=== PATIENT | male | born 1955 | race Hispanic/Latino ===

== ENCOUNTER 2019-07-06 16:09 | Inpatient (IN) | payer OTHER ==
[2019-07-06 17:02] LABS: Absolute Lymphocytes (CBC) 3.5 K/uL (0.7-4.9); Basophils % 0.7 % (0-1.3); Hematocrit 45.9 % (39.6-49.0); MPV 9.4 fL (7.6-11.3); RBC Red Blood Cell Count 5.14 M/uL (4.33-5.43)
[2019-07-06 17:07] LABS: Potassium 3.9 mmol/L (3.5-5.1)
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
--- NOTE | 2019-07-06 17:29 | EDPHYS ---
Physician Documentation [facility] Name: Alex Rivas Age: 63 yrs Sex: Male : 1955 Arrival Date: 07/06/2019 Time: 16:11 Bed 20 Private MD: ED Physician Roni Zurita HPI: 07/06 16:32 This 63 yrs old Male presents to ER via Ambulatory with complaints of foot rn infection. 16:32 The patient presents with cellulitis of the right foot, the patient presents with a rn swollen area of the right foot. Description: erythematous, hot, swollen, warm. Onset: The symptoms/episode began/occurred 4 day(s) ago. Modifying factors: the symptoms are alleviated by nothing, the symptoms are aggravated by touching. Severity of symptoms: At their worst the symptoms were moderate, in the emergency department the symptoms are unchanged. The patient has not experienced similar symptoms in the past. Reports wound getting worse on right foot, unsure if began as burn or as result of shoe abrasion, but debrided by Dr. Mcduffie this week and given abx and ointment, called Dr. Mcduffie today because felt like was getting worse, told to come in. No fever but + increased swelling and redness. . Historical: - Allergies: 16:15 No Known Allergies; hb - Home Meds: 16:25 Cipro 500 mg Oral tab 1 tab every 12 hours [Active]; silver sulfadiazine 1 % topical rb1 crea [Active]; metformin 500 mg Oral tab 1 tab 2 times per day [Active]; losartan 25 mg oral tab 1 tab once daily [Active]; atorvastatin 40 mg oral tab 1 tab once daily [Active]; gabapentin 300 mg oral cap 1 cap daily [Active]; 16:25 Jardiance 10 mg oral tab 1 tab once daily [Active]; rb1 - PMHx: 16:25 Diabetes - NIDDM; Hypertension; rb1 - PSHx: 16:25 None; rb1 - Immunization history:: Adult Immunizations up to date. - Coronavirus screen:: The patient has NOT traveled to [place], [place], or [place] in the past 14 days. The patient has NOT had contact with known/suspected case of Coronavirus? Proceed with normal triage procedures. - Social history:: Smoking status: Patient denies any tobacco usage or history of. - Family history:: not pertinent. - Ebola Screening: : No symptoms or risks identified at this time. - Hospitalizations: : No recent hospitalization is reported. ROS: 16:32 Constitutional: Negative for fever, chills, and weight loss, Eyes: Negative for injury, rn pain, redness, and discharge, Cardiovascular: Negative for chest pain, palpitations, and edema, Respiratory: Negative for shortness of breath, cough, wheezing, and pleuritic chest pain, Abdomen/GI: Negative for abdominal pain, nausea, vomiting, diarrhea, and constipation, Back: Negative for injury and pain, MS/Extremity: + right foot swelling Skin: + redness and warmth right foot Neuro: Negative for headache, weakness, and seizure. Exam: 16:32 Constitutional: This is a well developed, well nourished patient who is awake, alert, rn and in no acute distress. Ambulatory with crutches to exam room. Head/Face: Normocephalic, atraumatic. ENT: MMM Cardiovascular: Regular rate and rhythm. Respiratory: No increased work of breathing, no retractions or nasal flaring. Skin: + irregular but sharply demarcated wound right instep approx 10cm diameter surrounded by erythema and warmth, no streaking or extension beyond ankle. MS/ Extremity: Pulses diminished but equal, no cyanosis. Neuro: Awake and alert, GCS 15 Vital Signs: 16:17 BP 171 / 88; Pulse 77; Resp 16; Temp 97.8; Pulse Ox 98% on R/A; Weight 99.79 kg; Height hb 5 ft. 11 in. (180.34 cm); Pain 0/10; 17:17 BP 173 / 86; Pulse 62; Resp 17; Pulse Ox 99% on R/A; rb1 18:17 BP 168 / 76; Pulse 75; Resp 17; Pulse Ox 99% on R/A; Pain 0/10; rb1 19:50 BP 165 / 78; Pulse 76; Resp 17 S; Pulse Ox 97% on R/A; Pain 0/10; jd3 16:17 Body Mass Index 30.68 (99.79 kg, 180.34 cm) hb MDM: 16:14 Patient medically screened. rn 17:27 Differential diagnosis: cellulitis. Data reviewed: vital signs, nurses notes, lab test rn result(s), radiologic studies, plain films, and as a result, I will admit patient. Counseling: I had a detailed discussion with the patient and/or guardian regarding: the historical points, exam findings, and any diagnostic results supporting the discharge/admit diagnosis, lab results, radiology results, the need for further work-up and treatment in the hospital. Admission orders: after a detailed discussion of the patient's condition and case, the admit orders are written by me. ED course: Pt admitted for diabetic foot wound and cellulitis.. 07/06 16:31 Order name: CBC with Diff; Complete Time: 17:17 rn 07/06 16:31 Order name: Basic Metabolic Panel; Complete Time: 17:17 rn 07/06 16:31 Order name: Blood Culture Adult (2) rn 07/06 16:31 Order name: Procalcitonin rn 07/06 16:32 Order name: Wound Culture rn 07/06 16:52 Order name: Glucose, Ancillary Testing; Complete Time: 17:17 EDNH 07/06 16:31 Order name: IV Start; Complete Time: 16:47 rn 07/06 16:31 Order name: XRAY Foot RIGHT 3 View; Complete Time: 17:56 rn Administered Medications: 17:48 Drug: LevaQUIN 500 mg Volume: 100 ml; Route: IVPB; Infused Over: 60 mins; Site: right rb1 antecubital; 18:52 Follow up: Response: No adverse reaction; IV Status: Completed infusion rb1 18:53 Drug: vancoMYCIN 1 grams Route: IVPB; Infused Over: 2 hrs; Site: right antecubital; rb1 20:11 Follow up: Response: No adverse reaction; IV Status: Infusion continued upon admission jd3 Disposition: 07/06/19 17:28 Hospitalization ordered by Jerrell Meyer for Inpatient Admission. Preliminary diagnosis are Cellulitis of right lower limb, Failure of outpatient antibiotics. - Bed requested for Telemetry/MedSurg (Inpatient). - Status is Inpatient Admission. jd3 - Condition is Stable. - Problem is new. - Symptoms have worsened. Signatures: Dispatcher [employer] EDMS Roni Zurita MD MD rn Barber, Rebecca, RN RN Amna Flores RN RN hb Davies, Jonathon, RN RN jd3 Alex Cordoba RN RN ja1 Corrections: (The following items were deleted from the chart) 18:17 17:28 Hospitalization Ordered by Jerrell Meyer MD for Inpatient Admission. Preliminary ja1 diagnosis is Cellulitis of right lower limb; Failure of outpatient antibiotics. Bed requested for Telemetry/MedSurg (Inpatient). Status is Inpatient Admission. Condition is Stable. Problem is new. Symptoms have worsened. rn 20:14 18:17 07/06/2019 17:28 Hospitalization Ordered by Jerrell Meyer MD for Inpatient jd3 Admission. Preliminary diagnosis is Cellulitis of right lower limb; Failure of outpatient antibiotics. Bed requested for Telemetry/MedSurg (Inpatient). Status is Inpatient Admission. Condition is Stable. Problem is new. Symptoms have worsened. ja1
[2019-07-06] MEDS ORDERED: Levofloxacin500mg IV 500 MG/100 ML BAG IV ONE (17:41)
[2019-07-06] MEDS ORDERED: VANCOMYCIN/NS 1 gm 1 GM/250 ML BAG IV ONE (17:45)
--- NOTE | 2019-07-06 17:48 | RAD REPORT ---
EXAM DESCRIPTION: RAD - Foot Right 3 View - 07/06/2019 5:01 pm CLINICAL HISTORY: Right foot pain FINDINGS: No fracture or dislocation is seen. No bony destructive lesion noted
[2019-07-06] MEDS ORDERED: ONDANSETRON 4 MG/2 ML VIAL IV PRN (20:34)
[2019-07-06] MEDS ORDERED: HYDRALAZINE HCL 20 MG/ML VIAL IV PRN (20:34)
[2019-07-06] MEDS ORDERED: ACETAMINOPHEN 500 MG TAB PO PRN (20:34)
[2019-07-06] MEDS ORDERED: HYDROCODONE/APAP 7.5/325 MG TAB PO PRN (20:34)
[2019-07-06] MEDS ORDERED: VANCOMYCIN/NS 1 gm 1 GM/250 ML BAG IVPB SCH (20:34)
[2019-07-06] MEDS ORDERED: MORPHINE 2 MG/ML SYR IV PRN (20:34)
[2019-07-06] MEDS: INSULIN -REGULAR HUMAN 50 UNIT/0.5 ML ML SQ SCH (21:00)
[2019-07-06] MEDS ORDERED: CEFEPIME 2 GM VIAL IV SCH (21:00)
[2019-07-06] MEDS ORDERED: VANCOMYCIN 750 MG in NA CHLORIDE 0.9% 150 ML IVPB ONE (21:15)
[2019-07-06] MEDS ORDERED: VANCOMYCIN 500 MG/VIAL ONE (22:08)
[2019-07-06] MEDS ORDERED: NA CHLORIDE 0.9% 250 ML ONE (22:10)
[2019-07-06] MEDS: NA CHLORIDE 0.9% 1,000 ML IV SCH (22:18)
[2019-07-06 22:51] VITALS: BMI 30.7
[2019-07-07] MEDS ORDERED: CEFEPIME 2 GM VIAL ONE (00:22)
[2019-07-07] MEDS ORDERED: NA CHLORIDE 0.9% 100 ML IV ONE (00:31)
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
[2019-07-07 06:12] LABS: Absolute Lymphocytes (CBC) 2.8 K/uL (0.7-4.9); Basophils % 0.6 % (0-1.3); Lymphocytes % 31.3 % (15.3-44.8); MPV 9.6 fL (7.6-11.3); RBC Red Blood Cell Count 4.56 M/uL (4.33-5.43)
[2019-07-07 06:25] LABS: BUN Blood Urea Nitrogen 18 mg/dL (7-18); Bicarbonate 25 mmol/L (21-32); Glucose Level 122 mg/dL (74-106); Potassium 3.9 mmol/L (3.5-5.1); Sodium Level 141 mmol/L (136-145)
[2019-07-07] MEDS: NA CHLORIDE 0.9% 1,000 ML IV SCH ×3 (06:34→23:55)
[2019-07-07] MEDS: INSULIN -REGULAR HUMAN 50 UNIT/0.5 ML ML SQ SCH ×4 (07:30→20:21)
[2019-07-07] MEDS: VANCOMYCIN 1.75 GM in NA CHLORIDE 0.9% 500 ML IVPB SCH ×2 (08:00→20:23)
[2019-07-07] MEDS ORDERED: INFLUENZA VACCINE (for 3y+) 0.5 ML DOSE IMVAC ONE (09:00)
[2019-07-07] MEDS ORDERED: GABAPENTIN 300 MG CAP PO PRN (09:14)
[2019-07-07] MEDS: CEFEPIME/SWI 2gm 2 GM/20 ML SYR IVP SCH ×2 (11:30→23:54)
[2019-07-07] MEDS: SILVER SULFADIAZINE 1% 50 GM TOP SCH (15:00)
[2019-07-07] MEDS: ENOXAPARIN 40 MG/0.4 ML SQ SCH (16:12)
--- NOTE | 2019-07-07 16:15 | PN ---
Date of Progress Note: 07/07/2019 Subjective: Patient is seen and examined. Chart reviewed and case discussed with RN and Dr. Mcduffie. Patient is doing well. No acute events overnight. Medications: List reviewed. Physical Examination: Vital Signs: Temperature 96.8, heart rate 66, blood pressure 142/81, respirations 16, O2 of 96% on room air. General: Awake, alert, and oriented x3. Obese male, mildly ill appearing. CV: S1, S2. Regular rate and rhythm. Peripheral pulses weak. Respiratory: Moving air well bilaterally. No wheezing or stridor. Gastrointestinal: Abdomen is soft, nontender, nondistended. Positive bowel sounds. Extremities: No clubbing, cyanosis, or edema. Edema of the right foot. Neurologic: Nonfocal. Patient has decreased sensation to light touch, stocking -glove distribution. Skin: Erythema, diabetic foot wound on the right foot, medial aspect. Laboratory Data: Sodium 141, potassium 3.9, chloride 108, CO2 of 25, BUN 18, creatinine 0.78, glucose 122, calcium 8.5. WBC 8.9, H and H 13.5, platelets 209 , neutrophils 54%. Cultures pending. Assessment: 63-year-old male with: 1. Diabetic foot wound on the right with necrosis, failed outpatient treatment with Cipro. Continue with vancomycin and cefepime. Cultures have been obtained. Dr. Mcduffie has been consulted. He will likely date the patient for debridement in a.m. Continue dressings. Follow up on cultures. 2. Cellulitis of right foot. Continue IV antibiotics. Cultures pending. Obtain wound culture results from Dr. Mcduffie's office. 3. Diabetes mellitus type 2 with hyperglycemia and neuropathy, non-insulin requiring. We will continue with sliding scale insulin. Monitor blood glucose levels. Check hemoglobin A1c. 4. Mixed hyperlipidemia. We will continue statin. 5. Essential hypertension, improved on home medications, hydralazine p.r.n. for systolic greater than 160. 6. Obesity. BMI 30. Deep venous thrombosis prophylaxis, SCDs. No chemical anticoagulation due to possible surgical intervention. Plan: N.p.o. after midnight. Anticipate procedure in a.m. SA/MODL Voice ID: [id number] Report ID: [id number] [facility]
[2019-07-08 04:11] LABS: Absolute Lymphocytes (CBC) 2.9 K/uL (0.7-4.9); Basophils % 0.6 % (0-1.3); Hematocrit 39.3 % (39.6-49.0); Lymphocytes % 32.5 % (15.3-44.8); MPV 9.1 fL (7.6-11.3); RBC Red Blood Cell Count 4.42 M/uL (4.33-5.43)
[2019-07-08 04:25] LABS: BUN Blood Urea Nitrogen 18 mg/dL (7-18); Bicarbonate 28 mmol/L (21-32); Glucose Level 140 mg/dL (74-106); Potassium 4.5 mmol/L (3.5-5.1); Sodium Level 141 mmol/L (136-145)
[2019-07-08] MEDS: SILVER SULFADIAZINE 1% 50 GM TOP SCH ×2 (06:08→11:58)
[2019-07-08] MEDS: INSULIN -REGULAR HUMAN 50 UNIT/0.5 ML ML SQ SCH ×4 (07:30→20:15)
[2019-07-08] MEDS: VANCOMYCIN 1.75 GM in NA CHLORIDE 0.9% 500 ML IVPB SCH ×2 (08:00→22:26)
[2019-07-08] MEDS ORDERED: HOME MED 1 EA UNK (Losartan Potassium [Losartan Potassium] 25 MG) PO SCH (09:00)
[2019-07-08] MEDS ORDERED: LIDOCAINE 2% MPF 5 ML VIAL ONE (10:44)
[2019-07-08] MEDS ORDERED: MIDAZOLAM HCL 2 MG/2 ML INJ ONE (10:44)
[2019-07-08] MEDS ORDERED: FENTANYL CITR 100 MCG/2 ML ONE (10:44)
[2019-07-08] MEDS ORDERED: propofoL 200 MG/20 ML VIAL IV ONE (10:44)
[2019-07-08] MEDS ORDERED: ONDANSETRON 4 MG/2 ML VIAL ONE (10:45)
[2019-07-08] MEDS ORDERED: BUPIVACAINE 0.5% PF 10 ML VIAL ONE (11:22)
[2019-07-08] MEDS ORDERED: SILVER SULFADIAZINE 1% 25 GM TOP ONE (12:00)
--- NOTE | 2019-07-08 12:00 | P.OP ---
Preoperative diagnosis: Infected wound with cellulitis Right Foot Postoperative diagnosis: same Primary procedure: Excisional Debridement R Foot wound to sq 6x4 cm Anesthesia: General Estimated blood loss: min Specimen: infected tissue Findings: as above Complications: None Transferred to: Recovery Room Condition: Good
[2019-07-08] MEDS ORDERED: CODEINE 30MG/APAP 300MG TAB PO PRN (12:17)
[2019-07-08 12:49] VITALS: O2SAT 96
[2019-07-08] MEDS: CEFEPIME/SWI 2gm 2 GM/20 ML SYR IVP SCH (12:59)
[2019-07-08] MEDS: LOSARTAN POTASSIUM 50 MG TABLET PO SCH (13:02)
--- NOTE | 2019-07-08 13:07 | PREOPCON ---
Date of Consultation: 07/07/2019 Reason For Consultation: Infected wound, right foot. History Of Present Illness: Patient is a 63-year-old gentleman, who saw me on with a bliste red wound from a new shoe that he was wearing. He is diabetic and this started approximately a week ago. We debrided in the office. We started local wound care. There was some purulence under the bl ister. Cultures were done, however, they are pending. He contacted me Monday stating that there w as increasing redness on the foot. He was on antibiotics orally, so advised him to go to the ER and be admitted for IV antibiotics which was done, I was consulted. He is awake, alert, feels a little b mikaela. No fever or chills. No purulent discharge. Review of Systems: Otherwise unremarkable. Medical History: Significant for hypertension, hyperlipidemia, type 2 diabetes, Monsalve palsy. Past Surgical History: Negative. Allergies: NO ALLERGIES. Social History: He does not smoke or drink. Family History: Significant for diabetes. Physical Examination: Vital Signs: Blood pressure is slightly high, however, he is otherwise stable and afebrile. General: He is awake, alert, and oriented x3. Head and Neck: Cranial nerves 2 through 12 grossly within normal limits. No neck masses. No JVD. Throat clear. Neck is supple. Chest: Clear. Heart: S1, S2. Abdomen: Soft. Extremities: Neurovascularly intact. On the right foot, medial aspect of the foot, there is approxi mately 10 x 8 cm area of partial thickness wound and then there is area about half the wound approxim ately 6 x 4 cm, there is a necrotic eschar present, appears to be in the deep dermis. There is surro unding erythema. There is little bit of edema. There is little bit of warmth. Laboratory Data: Reviewed and x-ray reviewed. Assessment: Right foot infected wound with cellulitis and necrotic eschar. Recommendations: Continue IV antibiotics through the OR for debridement of the necrotic eschar. Pat ient understands the risks, benefits, and alternatives and agrees to procedure. We will continue wit h local wound care and he will follow up with me in the office upon discharge. /MODL Voice ID: [id number] Report ID: [id number]
[2019-07-08] MEDS: NA CHLORIDE 0.9% 1,000 ML IV SCH (13:23)
[2019-07-08] MEDS: ENOXAPARIN 40 MG/0.4 ML SQ SCH (16:39)
--- NOTE | 2019-07-08 19:07 | PN ---
Date of Progress Note: 07/08/2019 Subjective: Patient is seen and examined. Chart reviewed and case discussed with RN and Dr. Mcduffie. Patient went for debridement today in the OR, had a necrotic ulceration. Tolerated procedure well. Medications: List reviewed. Physical Examination: Vital Signs: Temperature 96.8, heart rate 68, blood pressure 162/83, respirations 15, O2 of 97% on r oom air. General: Awake, alert, oriented x3, obese male, somewhat ill-appearing and not in any acute distress . CV: S1, S2. Regular rate and rhythm. Peripheral pulses weak. Respiratory: Moving air well bilaterally. No wheezing or stridor. Gastrointestinal: Abdomen is soft, nontender, nondistended. Positive bowel sounds. No guarding or rigidity. Extremities: Some mild edema of the right foot. Skin: Patient's right foot incision site is clean, dry, intact, bandaged and Mando wrapped. Neurologic: Nonfocal. Laboratory Data: Sodium 141, potassium 4.5, chloride 108, CO2 of 28, BUN 18, creatinine 0.86, glucos e 140. Hemoglobin A1c is 7.6%. Calcium is 8.4. WBC 9, H and H 13.4 and 39.3, platelets 206. Blood cultures, no growth to date. Right foot wound culture growing Staph coagulase positive. Assessment: A 63-year-old male with: 1.Diabetic foot wound on the right with necrotic ulceration, failed outpatient treatment with Cipro. Cultures so far growing Staph coagulase positive. We will continue with broad-spectrum IV antibiot ics including vancomycin and cefepime. We will follow up on cultures from Dr. Mcduffie's office as well taken prior to antibiotics being initiated. 2.Cellulitis of the right foot. No signs of sepsis. Continue with IV antibiotics. Blood cultures are pending at this time, likely secondary to staph. We will follow up on final sensitivities and id entification. 3.Diabetes mellitus type 2 with hyperglycemia, neuropathy, non-insulin requiring. Hemoglobin A1c 7. 6%. We will continue sliding scale insulin. Monitor blood glucose levels. 4.Mixed hyperlipidemia. We will continue statin. 5.Essential hypertension, stable. Continue hydralazine p.r.n. 6.Obesity, BMI 30. 7.Deep venous thrombosis prophylaxis. We will restart Lovenox 24 hours post surgery. Plan: Anticipate discharge in the next 24 to 48 hours depending on clinical response. We will likel y need home health care with wound care set up. /HERNANDEZ Voice ID: [id number] Report ID: [id number]
[2019-07-08] MEDS ORDERED: ATORVASTATIN 40 MG TAB PO SCH (21:00)
--- NOTE | 2019-07-08 23:13 | OP ---
Date of Procedure: 07/08/2019 Surgeon: Alexander Mcduffie MD Preoperative Diagnosis: Infected wound, right foot. Postoperative Diagnosis: Infected wound, right foot. Procedure: Excisional debridement, right foot wound 6 x 4 cm to subcutaneous tissue. Estimated Blood Loss: Minimal. Specimen: Infected tissue. Findings: As above. Anesthesia: General. Complications: None. Disposition: Patient tolerated the procedure in stable condition, taken to Recovery in good general condition. Operative Note: Patient was brought to the OR and placed in supine position. General anesthesia was begun. Patient was prepped and draped in the usual sterile fashion. Marcaine 0.5% was infiltrated locally. Then 15 blade was used to cut this eschar that was 6 x 4 cm on the medial right foot down t hrough the subcutaneous tissue. Wound was irrigated. Bleeding controlled with cautery. Cultures se nt and then Silvadene dressing applied. Patient tolerated the procedure in stable condition, taken to [facility] in good general condition. /MODL Voice ID: [id number] Report ID: [id number]
[2019-07-09] MEDS: CEFEPIME/SWI 2gm 2 GM/20 ML SYR IVP SCH ×2 (00:14→11:47)
[2019-07-09] MEDS: NA CHLORIDE 0.9% 1,000 ML IV SCH ×2 (00:15→04:00)
[2019-07-09 04:22] LABS: Absolute Lymphocytes (CBC) 2.7 K/uL (0.7-4.9); Basophils % 0.4 % (0-1.3); Hematocrit 42.4 % (39.6-49.0); Lymphocytes % 27.5 % (15.3-44.8); MPV 9.7 fL (7.6-11.3); RBC Red Blood Cell Count 4.71 M/uL (4.33-5.43)
[2019-07-09 04:31] LABS: Potassium 4.1 mmol/L (3.5-5.1)
[2019-07-09] MEDS: INSULIN -REGULAR HUMAN 50 UNIT/0.5 ML ML SQ SCH ×2 (07:30→11:30)
[2019-07-09] MEDS: LOSARTAN POTASSIUM 50 MG TABLET PO SCH (08:05)
[2019-07-09] MEDS: VANCOMYCIN 1.75 GM in NA CHLORIDE 0.9% 500 ML IVPB SCH (08:06)
[2019-07-09] MEDS: SILVER SULFADIAZINE 1% 50 GM TOP SCH (08:06)
[2019-07-09 09:23] VITALS: BP 120/63; TEMP 97.4
--- NOTE | 2019-07-09 09:31 | P.DS ---
Admission Date: 07/06/19 Discharge Date: 07/09/19 Primary Care Provider: Dr. Cheung; Surgery-Dr. Mcduffie Disposition: ROUTINE DISCHARGE Discharge Condition: GOOD Reason for Admission: Failed outpatient therapy Consultations: Surgery-Dr. Mcduffie Procedures: Right foot xray: CLINICAL HISTORY: Right foot pain FINDINGS: No fracture or dislocation is seen. No bony destructive lesion noted Surgery: Excisional debridement of right wound Medical Problem List: Diabetic foot wound with cellulitis on the right with necrotic ulceration failed outpatient therapy status post excisional debridement, wound culture positive for Staph aureus Diabetes mellitus type 2 emj-tcfexrg-[id number] with hyperglycemia Hyperlipidemia Hypertension Diabetic neuropathy Obesity, BMI 30.7 Brief History of Present Illness: 63-year-old male with history of hypertension, hyperlipidemia and diabetes. Patient presents with diabetic foot wound on the right foot. Patient failed outpatient therapy. Patient was admitted for further evaluation and treatment. Hospital Course: Patient presented with right diabetic foot wound with cellulitis/necrotic ulceration. Patient failed outpatient therapy. Patient seen by surgery. Patient was admitted for further evaluation and treatment. Patient required excisional debridement. Patient tolerated procedure well. At discharge wound culture was positive for Staph aureus. Patient will continue with wound care treatment as recommended by surgery. Patient and family member will be taught. At discharge patient will continue with Bactrim DS 1 pill twice daily and doxycycline 100 mg 1 pill twice daily for 10 days. Recommend follow up with [facility] within 7 days. Patient will continue to follow surgery for further treatment and resolution. Patient with underlying diabetes mellitus type 2 qpy-[id number] with hyperglycemia. Hemoglobin A1c 7.6. Patient needs better control. Recommend to monitor blood sugars at least twice daily. Recommend to maintain blood sugars less 140 fasting and less than 200 after meals. Patient may continue with metformin 500 mg twice daily and jardiance 10 mg daily. Further adjustment in his medication can be done by his PCP. Patient with hypertension. At discharge he will continue with losartan 50 mg daily. Recommend to maintain blood pressure less 150/80. Further adjustment can be done by his PCP. Patient with hyperlipidemia. At discharge he will continue with Lipitor 40 mg daily and aspirin 81 mg daily. Patient with diabetic neuropathy. At discharge he will continue with gabapentin 300 mg daily as needed for pain. Vital Signs/Physical Exam: Temp Pulse Resp BP Pulse Ox 97.4 F 60 18 120/63 98 07/09/19 08:00 07/09/19 08:00 07/09/19 08:00 07/09/19 08:00 07/09/19 08:00 General: Alert, In no apparent distress, Oriented x3, Cooperative HEENT: Atraumatic Neck: Supple Respiratory: Clear to auscultation bilaterally, Normal air movement Cardiovascular: Normal pulses, Regular rate/rhythm Gastrointestinal: Normal bowel sounds, Soft and benign, Non-distended Integumentary: Other (Right foot is bandaged) Neurological: Normal speech, Normal strength at 5/5 x4 extr, Normal tone, Normal affect Laboratory Data at Discharge: WBC 9.8 K/uL (4.3-10.9) 07/09/19 03:25 Hgb 14.0 g/dL (13.6-17.9) 07/09/19 03:25 Hct 42.4 % (39.6-49.0) 07/09/19 03:25 Plt Count 227 K/uL (152-406) 07/09/19 03:25 Sodium 139 mmol/L (136-145) 07/09/19 03:25 Potassium 4.1 mmol/L (3.5-5.1) 07/09/19 03:25 BUN 19 mg/dL (7-18) H 07/09/19 03:25 Creatinine 0.91 mg/dL (0.55-1.3) 07/09/19 03:25 Glucose 169 mg/dL (74-106) H 07/09/19 03:25 Home Medications: Aspirin [Aspir-Low] 81 mg PO DAILY 07/07/19 Atorvastatin Calcium [Lipitor] 40 mg PO DAILY 07/07/19 Empagliflozin [Jardiance] 10 mg PO DAILY 07/07/19 Gabapentin 300 mg PO DAILY PRN 07/07/19 Losartan Potassium 25 mg PO DAILY 07/07/19 Metformin ER [Glucophage ER*] 500 mg PO BID 07/07/19 Silver Sulfadiazine Crm [Silvadene*] 1 appl TOP DAILY 07/07/19 Doxycycline Hyclate 100 mg PO BID #20 tablet 07/09/19 Mupirocin Oint [Bactroban 2% Ointment] 8 appl TOP DAILY #1 tube 07/09/19 Sulfamethoxazole/Trimethoprim [Bactrim Ds Tablet] 1 each PO BID #20 tablet 07/09 New Medications: Doxycycline Hyclate 100 mg PO BID #20 tablet Mupirocin Oint [Bactroban 2% Ointment] 8 appl TOP DAILY #1 tube Sulfamethoxazole/Trimethoprim [Bactrim Ds Tablet] 1 each PO BID #20 tablet Patient Discharge Instructions: 1. Recommend follow up with PCP in 1-2 weeks to follow up this hospitalization. 2. Patient presented with right diabetic foot wound with cellulitis/necrotic ulceration. Patient failed outpatient therapy. Patient seen by surgery. Patient was admitted for further evaluation and treatment. Patient required excisional debridement. Patient tolerated procedure well. At discharge wound culture was positive for Staph aureus. Patient will continue with wound care treatment as recommended by surgery. Patient and family member will be taught. At discharge patient will continue with Bactrim DS 1 pill twice daily and doxycycline 100 mg 1 pill twice daily for 10 days. Recommend follow up with surgery [facility] within 7 days. Patient will continue to follow surgery for further treatment and resolution. 3. Patient with underlying diabetes mellitus type 2 non-insulin- dependent with hyperglycemia. Hemoglobin A1c 7.6. Patient needs better control. Recommend to monitor blood sugars at least twice daily. Recommend to maintain blood sugars less 140 fasting and less than 200 after meals. Patient may continue with metformin 500 mg twice daily and jardiance 10 mg daily. Further adjustment in his medication can be done by his PCP. 4. Patient with hypertension. At discharge he will continue with losartan 50 mg daily. Recommend to maintain blood pressure less 150/80. Further adjustment can be done by his PCP. 5. Patient with hyperlipidemia. At discharge he will continue with Lipitor 40 mg daily and aspirin 81 mg daily. 6. Patient with diabetic neuropathy. At discharge he will continue with gabapentin 300 mg daily as needed for pain. Diet: ADA Activity: Fall precautions Time spent managing pt's care (in minutes): 55
--- NOTE | 2019-07-09 12:44 | PN ---
Date of Progress Note: 07/09/2019 Patient is awake, alert, no complaints. Vital signs stable, afebrile. Cultures growing Staph aureus . Sensitivity reviewed. Dressing is clean, dry, intact. Assessment: Debridement of right foot, infected wound. Recommendations: Discussed the case with Dr. Jackson, will add doxycycline to the Cipro that he was already on. Wound care is ordered. Follow up in my office in 1 week. Discharge instructions given. /MODL Voice ID: [id number] Report ID: [id number]
== END 2019-07-09 12:30 | disposition home or self-care (01) | DRG 623 ==
LOC: ER 16:09 → ERHOLD 17:35 → 4TH 20:11
PROVIDERS: ADMIT Family Medicine; ATTEND Family Medicine
PROC: 0JBQ0ZZ Excision of Right Foot Subcutaneous Tissue and Fascia, Open Approach (ICD-10-PCS; principal; 2019-07-08 10:45)
DX: E11.621 Type 2 diabetes mellitus with foot ulcer (principal); L03.115 Cellulitis of right lower limb; E11.65 Type 2 diabetes mellitus with hyperglycemia; B95.61 Methicillin susceptible Staphylococcus aureus infection as the cause of diseases classified elsewhere; E11.40 Type 2 diabetes mellitus with diabetic neuropathy, unspecified; E66.9 Obesity, unspecified; Z68.30 Body mass index [BMI] 30.0-30.9, adult; I10 Essential (primary) hypertension; E78.2 Mixed hyperlipidemia
CPT/HCPCS: 36415; 80048; 80202; 82947; 83036; 84145; 85025; 87040; 87070; 87077; 87176; 87186; 87205; 88304; 94760; 96365; 96367; 99285; J0692; J2250; J2405; J2704; J3010; J3370; J7030; J7040

== ENCOUNTER 2021-02-22 11:39 | Emergency (ER) | payer OTHER ==
[2021-02-22 13:23] LABS: Absolute Lymphocytes (CBC) 2.3 K/uL (0.7-4.9); Basophils % 0.6 % (0-1.3); Hematocrit 39.1 % (39.6-49.0); Lymphocytes % 27.7 % (15.3-44.8); MPV 9.3 fL (7.6-11.3); RBC Red Blood Cell Count 4.41 M/uL (4.33-5.43)
[2021-02-22 13:28] LABS: Protime INR 1.26
[2021-02-22] MEDS ORDERED: ALBUTEROL INHALER 60 PUFF/8 GM IH ONE (13:42)
[2021-02-22 13:48] LABS: ALT/SGPT 23 U/L (12-78); AST/SGOT 13 U/L (15-37); Albumin 3.6 g/dL (3.4-5.0); Alkaline Phosphatase 63 U/L (45-117); BUN Blood Urea Nitrogen 20 mg/dL (7-18); Bicarbonate 30 mmol/L (21-32); Bilirubin Direct 0.2 mg/dL (0-0.2); Bilirubin Total 0.5 mg/dL (0.2-1.0); Ferritin 213.1 ng/mL (26-388); Glucose Level 223 mg/dL (74-106); Magnesium 1.6 mg/dL (1.8-2.4); NT PRO-BNP 821 pg/mL (<125); Potassium 4.3 mmol/L (3.5-5.1); Protein, Total 7.2 g/dL (6.4-8.2); Sodium Level 140 mmol/L (136-145); Troponin (Emerg Dept Use Only) < 0.02 ng/mL (0.0-0.045)
[2021-02-22 13:49] LABS: C-Reactive Protein < 2.90 mg/L (<3.00)
--- NOTE | 2021-02-22 14:05 | RAD REPORT ---
EXAM DESCRIPTION: RAD - Chest Pa And Lat (2 Views) - 02/22/2021 1:55 pm CLINICAL HISTORY: Cough;SOB Chest pain. COMPARISON: <Comparisons> FINDINGS: Mild bilateral interstitial lung opacities are seen likely representing a viral infection or bronchitis. The heart is upper limit of normal in size. No displaced fractures.
--- NOTE | 2021-02-22 14:29 | RAD REPORT ---
EXAM DESCRIPTION: CT - Chest For Pe Angio - 02/22/2021 2:19 pm CLINICAL HISTORY: Chest pain. SOB COMPARISON: No comparisons TECHNIQUE: CT angiogram of the pulmonary arteries was performed with MIP. All CT scans are performed using dose optimization technique as appropriate and may include automated exposure control or mA/KV adjustment according to patient size. FINDINGS: No evidence of pulmonary thromboembolism. No acute aortic finding demonstrated. Yaar-ur-iwlckarf confluent ground-glass opacities bilaterally. No significant pericardial or pleural fluid. No concerning bony finding. IMPRESSION: No evidence of pulmonary thromboembolism. Confluent ground-glass opacities bilaterally most compatible COVID-19 infection.
--- NOTE | 2021-02-22 16:48 | EDPHYS ---
Physician Documentation [facility] Name: Alex Rivas Age: 65 yrs Sex: Male : 1955 Arrival Date: 02/22/2021 Time: 11:40 Bed 14 Private MD: Tam Cheung T ED Physician Chris Aguilar HPI: 02/22 12:50 This 65 yrs old Male presents to ER via Ambulatory with complaints of Sinus cp Congestion, Breathing Difficulty. 12:50 The patient or guardian reports cough, that is intermittent, shortness of breath. cp 12:50 Onset: The symptoms/episode began/occurred gradually. Associated signs and symptoms: cp Pertinent positives: sinus congestion, Pertinent negatives: chest pain, fever, vomiting. Patient reports he tested positive for COVID-19 3 weeks ago and was treated with course of antibiotics and steroids. Patient presents to ED with c/o shortness of breath, concern for low oxygen sats and sinus congestion that started yesterday. Historical: - Allergies: 12:25 No Known Allergies; aa5 - Home Meds: 15:36 atorvastatin 40 mg Oral tab 1 tab once daily [Active]; Cipro 500 mg Oral tab 1 tab kg every 12 hours [Active]; gabapentin 300 mg Oral cap 1 cap daily [Active]; Jardiance 10 mg Oral tab 1 tab once daily [Active]; losartan 25 mg Oral tab 1 tab once daily [Active]; metformin 500 mg Oral tab 1 tab 2 times per day [Active]; silver sulfadiazine 1 % Topical crea [Active]; - PMHx: 12:25 Diabetes - NIDDM; Hypertension; aa5 - Immunization history:: Client reports receiving the 2nd dose of the Covid vaccine. - Social history:: Smoking status: Patient denies any tobacco usage or history of. ROS: 12:55 Constitutional: Negative for body aches, chills, fever, poor PO intake. cp 12:55 Eyes: Negative for injury, pain, redness, and discharge. cp 12:55 ENT: Positive for sinus congestion, Negative for drainage from ear(s), ear pain, sore throat, difficulty swallowing, difficulty handling secretions. 12:55 Cardiovascular: Negative for chest pain, edema, palpitations. 12:55 Respiratory: Positive for cough, with no reported sputum, shortness of breath, Negative for wheezing. 12:55 Abdomen/GI: Negative for abdominal pain, nausea, vomiting, and diarrhea. 12:55 Skin: Negative for rash. 12:55 Neuro: Negative for altered mental status, dizziness, headache, weakness. 12:55 All other systems are negative. Exam: 13:00 Constitutional: The patient appears in no acute distress, alert, awake, comfortable, cp non-diaphoretic, non-toxic, well developed, well nourished. 13:00 Head/Face: Normocephalic, atraumatic. cp 13:00 Eyes: Periorbital structures: appear normal, Conjunctiva: normal, no exudate, no injection, Sclera: no appreciated abnormality, Lids and lashes: appear normal, bilaterally. 13:00 ENT: External ear(s): are unremarkable, Nose: is normal, Mouth: Lips: moist, Oral mucosa: pink and intact, moist, Posterior pharynx: Airway: no evidence of obstruction, patent. 13:00 Neck: ROM/movement: is normal, is supple, without pain, no range of motions limitations. 13:00 Chest/axilla: Inspection: normal, Palpation: is normal, no crepitus, no tenderness. 13:00 Cardiovascular: Rate: bradycardic, Rhythm: regular, Edema: is not appreciated, JVD: is not appreciated. 13:00 Respiratory: the patient does not display signs of respiratory distress, Respirations: normal, no use of accessory muscles, no retractions, labored breathing, is not present, Breath sounds: bronchial sounds, that are mild, are heard diffusely, decreased breath sounds, are not appreciated, stridor, is not appreciated, wheezing: is not appreciated. 13:00 Abdomen/GI: Exam negative for discomfort, distension, guarding, Inspection: abdomen appears normal. 13:00 Back: pain, is absent, ROM is normal. 13:00 Neuro: Orientation: to person, place \T\ time. Mentation: is normal, Motor: moves all fours, strength is normal. 13:35 ECG was reviewed by the Attending Physician. Vital Signs: 12:26 BP 132 / 63; Pulse 58; Resp 18 S; Temp 98.3(O); Pulse Ox 93% on R/A; Weight 97.52 kg aa5 (R); Height 5 ft. 11 in. (180.34 cm) (R); 15:33 BP 148 / 85; Pulse 66; Resp 17; Pulse Ox 98% on R/A; kg 17:20 BP 140 / 86; Pulse 55; Resp 17; Pulse Ox 98% on R/A; kg 12:26 Body Mass Index 29.99 (97.52 kg, 180.34 cm) aa5 MDM: 12:48 Patient medically screened. dillon 13:00 Differential Diagnosis: Viral Syndrome Pneumonia Other respiratory failure, hypoxemia, cp pulmonary edema, CHF, pulmonary embolism. 16:45 Data reviewed: vital signs, nurses notes, lab test result(s), EKG, radiologic studies, cp CT scan, plain films. 16:45 Test interpretation: by ED physician or midlevel provider: ECG, plain radiologic cp studies. 16:47 Counseling: I had a detailed discussion with the patient and/or guardian regarding: the cp historical points, exam findings, and any diagnostic results supporting the discharge/admit diagnosis, lab results, radiology results, the need for outpatient follow up, a cloth carrier, to return to the emergency department if symptoms worsen or persist or if there are any questions or concerns that arise at home. 16:47 Response to treatment: the patient's symptoms have markedly improved after treatment, cp and as a result, I will discharge patient. 02/22 12:52 Order name: Basic Metabolic Panel; Complete Time: 13:51 02/22 13:51 Interpretation: Normal except: GLUC 223; BUN 20. 02/22 12:52 Order name: CBC with Diff; Complete Time: 13:51 02/22 13:52 Interpretation: Normal except: HGB 12.9; HCT 39.1. 02/22 12:52 Order name: LFT's; Complete Time: 13:51 cp 02/22 12:52 Order name: Magnesium; Complete Time: 13:51 02/22 12:52 Order name: NT PRO-BNP; Complete Time: 13:51 02/22 12:52 Order name: PT-INR; Complete Time: 13:51 02/22 12:52 Order name: Troponin (emerg Dept Use Only); Complete Time: 13:51 02/22 12:52 Order name: EKG; Complete Time: 12:53 02/22 12:52 Order name: XRAY Chest Pa And Lat (2 Views); Complete Time: 14:51 cp 02/22 12:52 Order name: CRP; Complete Time: 13:51 02/22 12:52 Order name: Ferritin; Complete Time: 13:51 02/22 13:53 Order name: CT Chest For PE Angio: history of COVID-19 3 weeks ago; Complete Time: 14:51 02/22 14:51 Interpretation: Report reviewed. 02/22 12:52 Order name: Cardiac monitoring; Complete Time: 14:06 02/22 12:52 Order name: EKG - Nurse/Tech; Complete Time: 14: 02/22 12:52 Order name: IV Saline Lock; Complete Time: 14: 02/22 12:52 Order name: Labs collected and sent; Complete Time: 14: 02/22 12:52 Order name: O2 Per Protocol; Complete Time: 14: 02/22 12:52 Order name: O2 Sat Monitoring; Complete Time: 14: 02/22 14:52 Order name: Misc. Order: ambulate patient with pulse oxygen; Complete Time: 15:25 cp EC:35 Rate is 70 beats/min. Rhythm is regular. VA interval is normal. QRS interval is normal. cp QT interval is normal. T waves are Inverted in lead aVR. Interpreted by me. Reviewed by me. Administered Medications: 12:54 Drug: Albuterol HFA Inhaler 2 puffs Route: Inhalation; oh Disposition: 02/23 05:52 Co-signature as Attending Physician, Chris Aguilar MD I agree with the assessment and dillon plan of care. Disposition Summary: 02/22/21 16:48 Discharge Ordered Location: Home cp Problem: new cp Symptoms: have improved cp Condition: Stable cp Diagnosis - Pneumonia due to SARS-associated coronavirus cp Followup: cp - With: Frank Kessler MD - When: 2 - 3 days - Reason: Recheck today's complaints Discharge Instructions: - Discharge Summary Sheet cp - COVID-19 cp - COVID-19 Frequently Asked Questions cp - 10 Things You Can Do to Manage Your COVID-19 Symptoms at Home - [facility] cp Forms: - Medication Reconciliation Form cp - Thank You Letter cp - Antibiotic Education cp - Prescription Opioid Use cp Prescriptions: - albuterol sulfate 90 mcg/actuation Inhalation HFA aerosol inhaler - inhale 2 puff by INHALATION route every 4-6 hours; 1 Inhaler; Refills: 0, cp Product Selection Permitted - Tessalon Perles 100 mg Oral Capsule - take 2 capsule by ORAL route every 8 hours As needed; 30 capsule; Refills: 0, cp Product Selection Permitted - Prednisone 20 mg Oral Tablet - take 2 tablets by ORAL route once daily for 5 days; 10 tablet; Refills: 0, cp Product Selection Permitted Signatures: Dispatcher [employer] [facility] Chris Aguilar MD MD cha Calderon, Audri, RN RN aa5 Chris Ford, PA PA cp Linn Singh RN RN kg Melany Han RN RN oh Corrections: (The following items were deleted from the chart) 02/22 12:48 12:28 Chest Single View+RAD.RAD.BRZ ordered. [facility] 02/23 11:01 02/22 13:00 Skin: no rash present. cp cp
--- NOTE | 2021-02-22 16:48 | ER ---
Nurse's Notes [facility] Name: Alex Rivas Age: 65 yrs Sex: Male : 1955 Arrival Date: 02/22/2021 Time: 11:40 Bed 14 Private MD: Tam Cheung T Diagnosis: Pneumonia due to SARS-associated coronavirus Presentation: 02/22 12:26 Chief complaint: Patient states: sinus congestion since this morning. Pt denies sore aa5 throat, denies cough, reports he had covid-19 approximately 3 weeks ago. Pt states his doctor sent him here because they are not doing office visits. Coronavirus screen: congestion. Ebola Screen: Patient negative for fever greater than or equal to 101.5 degrees Fahrenheit, and additional compatible Ebola Virus Disease symptoms. Initial Sepsis Screen: Does the patient meet any 2 criteria? No. Patient's initial sepsis screen is negative. Does the patient have a suspected source of infection? No. Patient's initial sepsis screen is negative. Risk Assessment: Do you want to hurt yourself or someone else? Patient reports no desire to harm self or others. Onset of symptoms was January 2021. 12:26 Method Of Arrival: Ambulatory aa5 12:26 Acuity: NORTH 3 aa5 Triage Assessment: 15:35 Respiratory: Onset: The symptoms/episode began/occurred yesterday, the patient has mild kg shortness of breath. Historical: - Allergies: 12:25 No Known Allergies; aa5 - Home Meds: 15:36 atorvastatin 40 mg Oral tab 1 tab once daily [Active]; Cipro 500 mg Oral tab 1 tab kg every 12 hours [Active]; gabapentin 300 mg Oral cap 1 cap daily [Active]; Jardiance 10 mg Oral tab 1 tab once daily [Active]; losartan 25 mg Oral tab 1 tab once daily [Active]; metformin 500 mg Oral tab 1 tab 2 times per day [Active]; silver sulfadiazine 1 % Topical crea [Active]; - PMHx: 12:25 Diabetes - NIDDM; Hypertension; aa5 - Immunization history:: Client reports receiving the 2nd dose of the Covid vaccine. - Social history:: Smoking status: Patient denies any tobacco usage or history of. Screenin:33 Abuse screen: Denies threats or abuse. Nutritional screening: No deficits noted. kg Tuberculosis screening: No symptoms or risk factors identified. Fall Risk None identified. Assessment: 15:25 General: Appears in no apparent distress. Behavior is calm, cooperative, appropriate kg for age, Reports sob, congestion, hx of covid 4 weeks ago. Pain: Denies pain. Cardiovascular: Rhythm is regular. Respiratory: Airway is patent Respiratory effort is even, Breath sounds with wheezes. Respiratory: Reports shortness of breath cough that is. Vital Signs: 12:26 BP 132 / 63; Pulse 58; Resp 18 S; Temp 98.3(O); Pulse Ox 93% on R/A; Weight 97.52 kg aa5 (R); Height 5 ft. 11 in. (180.34 cm) (R); 15:33 BP 148 / 85; Pulse 66; Resp 17; Pulse Ox 98% on R/A; kg 17:20 BP 140 / 86; Pulse 55; Resp 17; Pulse Ox 98% on R/A; kg 12:26 Body Mass Index 29.99 (97.52 kg, 180.34 cm) aa5 ED Course: 11:40 Patient arrived in ED. am2 11:40 Tam Cheung MD is Private Physician. am2 12:25 Arm band placed on. aa5 12:28 Triage completed. aa5 12:45 Chris Ford PA is PHCP. cp 12:45 Chris Aguilar MD is Attending Physician. cp 12:58 Melany Han, ODALYS is Primary Nurse. oh 13:55 XRAY Chest Pa And Lat (2 Views) In Process Unspecified. EDMS 14:19 CT Chest For PE Angio: history of COVID-19 3 weeks ago In Process Unspecified. EDMS 15:34 Inserted saline lock: 20 gauge in left antecubital area, using aseptic technique. Blood kg collected. 15:35 Bed in low position. Call light in reach. kg 15:35 No provider procedures requiring assistance completed. kg 16:47 Frank Kessler MD is Referral Physician. cp 17:20 IV discontinued, bleeding controlled, Pressure dressing applied. kg Administered Medications: 12:54 Drug: Albuterol HFA Inhaler 2 puffs Route: Inhalation; oh Outcome: 16:48 Discharge ordered by MD. cp 17:16 Patient left the ED. kg 17:19 Discharged to home ambulatory. kg 17:19 Condition: stable 17:19 Discharge instructions given to patient. Signatures: Dispatcher [employer] Margi Cintron, RN RN aa5 Chris Ford PA PA cp Moreno, Amanda am2 Linn Singh RN RN kg Melany Han RN RN ne Corrections: (The following items were deleted from the chart) 15:45 15:33 Pulse 66bpm; Resp 17bpm; Pulse Ox 98% RA; kg kg
[2021-02-23 04:34] VITALS: BP 148/85; O2SAT 98
[2021-02-23 04:36] VITALS: TEMP 98.3
--- NOTE | 2021-02-23 16:43 | EKG ---
Test Date: 2021-02-22 Test Time: 13:27:57 Photocopy Operator: NINO MEASUREMENT RESULTS: Intervals: Rate: 78 VA: 204 QRSD: 86 QT: 402 QTc: 458 [place]: P: 76 VA: 204 QRS: -2 T: 41 INTERPRETIVE STATEMENTS: Sinus rhythm with occasional premature ventricular complexes and premature atrial complexes Septal infarct, age undetermined Abnormal ECG No previous ECG available for comparison Electronically Signed On 02-23-21 16:39:15 CDT by Dean Page
--- NOTE | 2021-02-23 16:43 | EKG ---
Test Date: 2021-02-22 Test Time: 13:28:37 Trailer Driver: [place] MEASUREMENT RESULTS: Intervals: Rate: 70 MO: 194 QRSD: 86 QT: 392 QTc: 423 [place]: P: 59 MO: 194 QRS: -3 T: 16 INTERPRETIVE STATEMENTS: Sinus rhythm with marked sinus arrhythmia Septal infarct, age undetermined Abnormal ECG Compared to ECG 02/22/2021 13:27:57 Atrial premature complex(es) no longer present Ventricular premature complex(es) no longer present Myocardial infarct finding still present Electronically Signed On 02-23-21 16:39:14 CDT by Dean Page
== END 2021-02-22 17:16 | disposition home or self-care (01) ==
LOC: ER 11:39
DX: U07.1 COVID-19 (principal); J12.82 Pneumonia due to coronavirus disease 2019; I10 Essential (primary) hypertension; E11.9 Type 2 diabetes mellitus without complications
CPT/HCPCS: 93005 ×2; 85025; 80048; 36415; 83735; 85610; 80076; 84484; 82728; 83880; 86140; 71275; 71046; 99284; Q9967

== ENCOUNTER 2022-06-16 14:26 | Inpatient (IN) | payer OTHER ==
--- OUTSIDE RECORDS SUMMARY | 2022-06-16 14:31 | XMS REPORT | Continuity of Care Document ---
:1955 Author Organization [facility] t Address [address] [place] [address] Care Team Providers Name Role Phone Unknown, Physician Primary Care Physician Unavailable LUIS EDUARDO BOOKER Attending Clinician Unavailable NICOLETTE CORNELL Attending Clinician Unavailable SETH ACOSTA Attending Clinician Unavailable Prakash Gómez Attending Clinician Unavailable Lester Murray Attending Clinician Unavailable Louis Clifton MD Attending Clinician Antonia Bailey LVN Attending Clinician Unavailable Jasiel Galindo MD Attending Clinician Bobby Lyon MD, Keagan Attending Clinician Jasiel Galindo Attending Clinician Prakash Gómez Admitting Clinician Unavailable Physician, No Primary or Family Admitting Clinician Unavaila ble Payers Payer Name Policy Type Policy Number Effective Date Expiration Date S [place] [employer] CHOICE POS [id number] [id number] 00:00:00 II Problems Condition Condition Condition Status Onset Resolution Last Treating Co mments Source Name Details Category Date Date Treatment Clinician Date Elevated Elevated Disease Active Overview: UT lipoprotei lipoprotei 3-21 [facility] n(a) n(a) 00:00: g of this 00 note might be different from the original. Lp(a) ( 2): 50 CAD CAD Disease Active Overview: UT (coronary (coronary 3-16 [facility] artery artery 00:00: g of this disease) disease) 00 note might be different from the original. Images from the original note were not included. 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 Inferosep travis and inferior areas, indicatin g collatera ls to the viable myocardiu m, (4) moderate- dense coronary calcifica tion in coronarie s, (5) LVEF 58% at rest and 56% at stress. Chronic Chronic Disease Active Overview: UT systolic systolic 2- [facility] heart heart 00:00: g of this failure failure 00 note might be different from the original. TTE ( 2): LVEF 45-50%, normal LA size, no valvular heart disease, normal RVSP.On Losartan. Cannot tolerate betablock er due to bradycard ia.May need to screen for ischemia in the setting of poorly controlle d type 2 diabetes. 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 Initial reason for referral was PVCs. Initial Holter showed multiple PVC >11% of total with reduction after starting metoprolo l. Became bradycard ia while on Metoprolo l and repeat Holter showed bradycard ia at 42 bpm with junctiona l escape complexes and isolated 2.7 sec pauses on 10/29/2017. Metoprolo l was discontin ued and bradycard ia resolved. Last seen on 09/30/2019. MPI (02/2015) normal. TTE was normal. Repeat Holter and TTE not done.EKG ( 2): AF with slow ventricul ar response 50s, probably sick sinus syndrome. TTE ( 2): LVEF 45-50%, normal LA size, no valvular heart disease, normal RVSP.Petersen er ( 2-07/15/19 22): Poor quality study. No AF. Sinus 38 to 150 bpm, average 68 bpm. Normal HR variabili ty and diurnal variation . Very frequent premature atrial complexes , atrial couplets and ectopic atrial rhythms of several morpholog ies. Frequent runs of multifoca l atrial tachycard ia at rates up to 174 bpm. Longest post-ecto pic pause was 2.3 seconds. Frequent PVCs.Poss ible atrial fibrillat ion on EKG ( 2). Insurance refuses Apixaban, prescribe d Rivaroxab an instead. Discussed with Dr. Clifton, and thought that there were a single P wave which suggests some sinus activitie s. However, it looks like he may be heading to "AF". Patient did not start Rivaroxab an and wanted another opinion after being contacted by EP. Erectile Erectile Disease Active UT dysfunctio dysfunctio 06-18 [facility] 00:00: 00 Peripheral Peripheral Disease Active U T neuropathy neuropathy 06-18 [facility] alth 00:00: 00 Diabetes Diabetes Disease Active Overview: UT mellitus mellitus - [facility] type II, type II, 00:00: g of this non non 00 note insulin insulin might be dependent dependent different from the original. Dx 2006. Baseline Hba1c 7.1 to 7.7, but increased to 12.7% in 05/2021.On Metformin , with microvasc ular complicat ions of diabetic neuropath y on gabapenti n, diabetic foot disease and ED. Denies retinopat hy. CMP ( 9) Cr 1.[address] Lopez. Started on Farxiga and Ozempic, and increased dose of Metformin in July 2021. Essential Essential Disease Active Overview: UT hypertensi hypertensi -19 [facility] on on 00:00: g of this 00 note might be different from the original. Previousl y on Losartan 25 mg daily and increased to 50 mg on 07/12/2021 due to the TTE showing an LVEF 45-50%. Hyperlipid Hyperlipid Disease Active Overview : [place] krzysztof luisa 06-16 [facility] 00:00: g of this 00 note might be different from the original. 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 [place] Problem 07/16/2015 eCW: Wyatt Shelton Acquired Acquired Problem Active 2015-07-16 Memoria deformitie deformitie 03:00:03 l s of s of [place] toe(s), toe(s), unspecifie unspecifie d, left d, left foot foot Active Problem 07/16/2015 eCW: Wyatt Shelton Type 2 Type 2 Problem Active 2015-07-16 [facility] tommy diabetes diabetes 03:00:03 l mellitus mellitus Catrachito n with other with other diabetic diabetic neurologic neurologic al al complicati complicati on on Active Problem 07/16/2015 eCW: Wyatt Shelton Atheroscle Atheroscl Problem Active 2015-07-16 Memoria rosis of erosis of 03:00:03 l tonto apache tonto apache Thor arteries arteries of left of left leg with leg with ulceration ulceration of other of other part of part of foot foot Active Problem 07/16/2015 eCW: Wyatt Shelton Other Other Problem Active 2015-07-16 Memor ia hammer hammer 03:00:03 l toe(s) toe(s) Thor (acquired) (acquired) , left , left foot foot Active Problem 07/16/2015 eCW: Wyatt Shelton Type 2 Type 2 Problem Active 2015-07-16 Oseas tommy diabetes diabetes 03:00:03 l mellitus mellitus Catrachito n with foot with foot ulcer ulcer Active Problem 07/16/2015 eCW: Wyatt Shelton Ulcer, Ulcer, Problem Active 2015-07-16 Oseas tommy other part other part 03:00:03 l of foot of foot Thor Active Problem 07/16/2015 eCW: Wyatt Shelton Diabetes Diabetes Problem Active 2015-07-16 Memoria mellitus mellitus 03:00:03 l type 2 or type 2 or Herm christiane unspecifie unspecifie d type d type with with neurologic neurologic al al manifestat manifestat io io Active Problem 07/16/2015 eCW: Wyatt Shelton Allergies, Adverse Reactions, Alerts Allergy Allergy Status Severity Reaction(s) Onset Inactive Treating Comm ents Source Name Type Date Date Clinician No Known DA Active [facility] Allergie 09-04 [facility] 00:00: [address] Social History Social Habit Start Date Stop Date Quantity Comments Source History [facility] Alcohol Std Drinks History [facility] Alcohol Binge History [facility] Alcohol Comment Exposure to Not sure [facility] SARS-CoV-2 (event) Alcohol intake 2021-10-26 2021-10-26 Lifetime [facility] 00:00:00 00:00:00 non-drinker (finding) Tobacco use and 2021-07-29 2021-07-29 Smokeless tobacco [facility] exposure 00:00:00 00:00:00 non-user History [facility] 2021-07-29 2021-07-29 1 [facility] Alcohol Frequency 00:00:00 00:00:00 caffeine 2015-07-09 2015-07-09 [facility] Alis nn 00:00:00 00:00:00 Sex [birth year] [facility] 00:00:00 00:00:00 Smoking Status Start Date Stop Date Source Tobacco smoking consumption unknown [facility] Never smoked tobacco [facility] Medications Ordered Filled Start Stop Current Ordering Indication Dosage Frequency Signature Comments Components Source Medication Medication Date Date Medication? Clinician (SIG) Name Name insulin Yes [id number] PLEASE SEE UT lispro 4-14 ATTACHED Health (HumaLOG) 00:00: FOR 100 UNIT/ML 00 DETAILED injection DIRECTIONS : Inject 7 units under the skin up to three times daily plus insulin sliding scale (1:50>150) for max 33 units per day insulin Yes [id number] Inject 7 UT aspart 4-14 units Health (NovoLOG 00:00: under the FLEXPEN) 00 skin up to 100 UNIT/ML three injection times daily plus insulin sliding scale (1:50>150) for max 33 units per day atorvastati 2022- No [id number] 80mg QD Take 1 UT n (Lipitor) 09-09-15 tablet (80 H ealth 80 MG 00:00: 04:59 mg total) tablet 00 :00 by mouth 1 (one) time each day. semaglutide 2022- No [id number] 1mg Inject 1 UT (Ozempic) 2 - 04-15 mg under Hea lth MG/1.5ML 00:00: 04:59 the skin 1 solution 00 :00 (one) time pen-injecto per week. r insulin 2022- No [id number] 20U Inject 20 UT degludec - 04-15 Units Health (Tresiba 00:00: 04:59 under the FlexTouch) 00 :00 skin 1 100 UNIT/ML (one) time injection each day in the morning. atorvastati 2022- No [id number] 80mg QD Take 1 UT n (Lipitor) 09-09-15 tablet (80 H ealth 80 MG 00:00: 04:59 mg total) tablet 00 :00 by mouth 1 (one) time each day. semaglutide 2022- No [id number] 1mg Inject 1 UT (Ozempic) 2 4-14 04-15 mg under Hea lth MG/1.5ML 00:00: 04:59 the skin 1 solution 00 :00 (one) time pen-injecto per week. r insulin 2022- No [id number] 20U Inject 20 UT degludec - 04-15 Units Health (Tresiba 00:00: 04:59 under the FlexTouch) 00 :00 skin 1 100 UNIT/ML (one) time injection each day in the morning. insulin 2021-0 2021- No [id number] Inject 7 U T lispro 4-14 04-14 units Health (HumaLOG) 00:00: 00:00 under the 100 UNIT/ML 00 :00 skin up to injection three times daily plus insulin sliding scale (1:50>150) for max 33 units per day Aspirin 81 2021-0 Yes QD Take by UT MG capsule 4-04 mouth 1 Health 09:15: (one) time 02 each day. Aspirin 81 2021-0 Yes QD Take by UT MG capsule 4-04 mouth 1 Health 09:15: (one) time 02 each day. Aspirin 81 2021-0 Yes QD Take by UT MG capsule 3-21 mouth 1 Health 08:01: (one) time 04 each day. Aspirin 81 2021-0 Yes QD Take by UT MG capsule 3-21 mouth 1 Health 08:01: (one) time 04 each day. Aspirin 81 2021-0 Yes QD Take by UT MG capsule 3-21 mouth 1 Health 08:01: (one) time 04 each day. Aspirin 81 2021-0 Yes QD Take by UT MG capsule 3-21 mouth 1 Health 08:01: (one) time 04 each day. semaglutide 2021-0 Yes [id number] Inject UT (Ozempic) 2 3-03 0.25 mg Healt h MG/1.5ML 00:00: once solution 00 weekly for pen-injecto 4 weeks, r then increase to 0.5 mg once weekly after that semaglutide 2021-0 Yes [id number] Inject UT (Ozempic) 2 3-03 0.25 mg Healt h MG/1.5ML 00:00: once solution 00 weekly for pen-injecto 4 weeks, r then increase to 0.5 mg once weekly after that semaglutide 2-0 Yes [id number] Inject UT (Ozempic) 2 3-03 0.25 mg Healt h MG/1.5ML 00:00: once solution 00 weekly for pen-injecto 4 weeks, r then increase to 0.5 mg once weekly after that semaglutide 2021-0 Yes [id number] Inject UT (Ozempic) 2 3-03 0.25 mg Healt h MG/1.5ML 00:00: once solution 00 weekly for pen-injecto 4 weeks, r then increase to 0.5 mg once weekly after that semaglutide Yes [id number] Inject UT (Ozempic) 2 3-03 0.25 mg Healt h MG/1.5ML 00:00: once solution 00 weekly for pen-injecto 4 weeks, r then increase to 0.5 mg once weekly after that dapaglifloz 3- No [id number] 10mg QD Take 1 UT in 07-29 tablet (10 [facility] [facility] 00:00: 05:59 mg total) 10 MG 00 :00 by mouth 1 (one) time each day. metFORMIN 3- No [id number] 1000mg Take 1 UT (Glucophage 07-29 tablet Healt h ) 1000 MG 00:00: 05:59 (1,000 mg tablet 00 :00 total) by mouth 2 (two) times a day with meals. dapaglifloz 3- No [id number] 10mg QD Take 1 UT in 07-29 tablet (10 [employer] [facility] 00:00: 05:59 mg total) 10 MG 00 :00 by mouth 1 (one) time each day. metFORMIN 2022- No [id number] 1000mg Take 1 UT (Glucophage 07-29 tablet Healt h ) 1000 MG 00:00: 05:59 (1,000 mg tablet 00 :00 total) by mouth 2 (two) times a day with meals. dapaglifloz 3- No [id number] 10mg QD Take 1 UT in 07-29 tablet (10 [employer] [facility] 00:00: 05:59 mg total) 10 MG 00 :00 by mouth 1 (one) time each day. metFORMIN 2021-3- No [id number] 1000mg Take 1 UT (Glucophage 07-29 tablet Healt h ) 1000 MG 00:00: 05:59 (1,000 mg tablet 00 :00 total) by mouth 2 (two) times a day with meals. dapaglifloz 0 3- No [id number] 10mg QD Take 1 UT in 07-29 tablet (10 [facility]) 00:00: 05:59 mg total) 10 MG 00 :00 by mouth 1 (one) time each day. metFORMIN 2021-2022- No [id number] 1000mg Take 1 UT (Glucophage 07-29 tablet Healt h ) 1000 MG 00:00: 05:59 (1,000 mg tablet 00 :00 total) by mouth 2 (two) times a day with meals. dapaglifloz 2021-2022- No [id number] 10mg QD Take 1 UT in 07-29 tablet (10 [facility]) 00:00: 05:59 mg total) 10 MG 00 :00 by mouth 1 (one) time each day. metFORMIN 2021-2022- No [id number] 1000mg Take 1 UT (Glucophage 07-29 tablet Healt h ) 1000 MG 00:00: 05:59 (1,000 mg tablet 00 :00 total) by mouth 2 (two) times a day with meals. dapaglifloz 2021-2022- No [id number] 10mg QD Take 1 UT in 07-29 tablet (10 [facility]) 00:00: 05:59 mg total) 10 MG 00 :00 by mouth 1 (one) time each day. metFORMIN 2021-2022- No [id number] 1000mg Take 1 UT (Glucophage 07-29 tablet Healt h ) 1000 MG 00:00: 05:59 (1,000 mg tablet 00 :00 total) by mouth 2 (two) times a day with meals. dapaglifloz 2022- No [id number] 10mg QD Take 1 UT in 07-29 tablet (10 [facility]) 00:00: 05:59 mg total) 10 MG 00 :00 by mouth 1 (one) time each day. metFORMIN 2021-2022- No [id number] 1000mg Take 1 UT (Glucophage 07-29 tablet Healt h ) 1000 MG 00:00: 05:59 (1,000 mg tablet 00 :00 total) by mouth 2 (two) times a day with meals. semaglutide 2021-2- No [id number] Inject UT (Ozempic) 2 07-29 0.25 mg Heal th MG/1.5ML 00:00: 00:00 once solution 00 :00 weekly for pen-injecto 4 weeks, r then increase to 0.5 mg once weekly after that metFORMIN 2021- No [id number] 1000mg Take 1 UT (Glucophage 07-29 tablet Healt h ) 1000 MG 00:00: 00:00 (1,000 mg tablet 00 :00 total) by mouth 2 (two) times a day with meals. dapaglifloz 2021- No [id number] 10mg QD Take 1 UT in 07-29 tablet (10 Health (Farxiga) 00:00: 00:00 mg total) 10 MG 00 :00 by mouth 1 (one) time each day. semaglutide 2021- No [id number] Inject UT (Ozempic) 2 07-29 0.25 mg Heal th MG/1.5ML 00:00: 00:00 once solution 00 :00 weekly for pen-injecto 4 weeks, r then increase to 0.5 mg once weekly after that rivaroxaban 2022- No [id number] 20mg Take 1 UT (Xarelto) 07-27 tablet (20 Hea lth 20 MG 00:00: 05:59 mg total) tablet 00 :00 by mouth 1 (one) time each day with dinner. Take with food. rivaroxaban 2022- No [id number] 20mg Take 1 UT (Xarelto) 07-27 tablet (20 Hea lth 20 MG 00:00: 05:59 mg total) tablet 00 :00 by mouth 1 (one) time each day with dinner. Take with food. rivaroxaban 2022- No [id number] 20mg Take 1 UT (Xarelto) 07-27 tablet (20 Hea lth 20 MG 00:00: 05:59 mg total) tablet 00 :00 by mouth 1 (one) time each day with dinner. Take with food. rivaroxaban 2022- No [id number] 20mg Take 1 UT (Xarelto) 07-27 tablet (20 Hea lth 20 MG 00:00: 05:59 mg total) tablet 00 :00 by mouth 1 (one) time each day with dinner. Take with food. rivaroxaban 2022-0 3- No [id number] 20mg Take 1 UT (Xarelto) 07-27- tablet (20 Hea lth 20 MG 00:00: 05:59 mg total) tablet 00 :00 by mouth 1 (one) time each day with dinner. Take with food. rivaroxaban 2022-0 3- No [id number] 20mg Take 1 UT (Xarelto) 07-27- tablet (20 Hea lth 20 MG 00:00: 05:59 mg total) tablet 00 :00 by mouth 1 (one) time each day with dinner. Take with food. rivaroxaban 2-0 3- No [id number] 20mg Take 1 UT (Xarelto) 07-27 tablet (20 Hea lth 20 MG 00:00: 05:59 mg total) tablet 00 :00 by mouth 1 (one) time each day with dinner. Take with food. tadalafil 2022-0 Yes [id number] 5mg QD Take 1 U T (Cialis) 5 2-28 tablet (5 Heal th MG tablet 00:00: mg total) 00 by mouth 1 (one) time each day. tadalafil 2022-0 Yes [id number] 5mg QD Take 1 U T (Cialis) 5 2-28 tablet (5 Heal th MG tablet 00:00: mg total) 00 by mouth 1 (one) time each day. tadalafil 2022-0 Yes [id number] 5mg QD Take 1 U T (Cialis) 5 2-28 tablet (5 Heal th MG tablet 00:00: mg total) 00 by mouth 1 (one) time each day. tadalafil 2022-0 Yes [id number] 5mg QD Take 1 U T (Cialis) 5 2-28 tablet (5 Heal th MG tablet 00:00: mg total) 00 by mouth 1 (one) time each day. tadalafil 2022-0 Yes [id number] 5mg QD Take 1 U T (Cialis) 5 2-28 tablet (5 Heal th MG tablet 00:00: mg total) 00 by mouth 1 (one) time each day. tadalafil Yes [id number] 5mg QD Take 1 U T (Cialis) 5 2-28 tablet (5 Heal th MG tablet 00:00: mg total) 00 by mouth 1 (one) time each day. tadalafil 0 Yes [id number] 5mg QD Take 1 U T (Cialis) 5 2-28 tablet (5 Heal th MG tablet 00:00: mg total) 00 by mouth 1 (one) time each day. apixaban 2022- No [id number] 5mg Q.5D Take 1 U T (Eliquis) 5 2-28 03-01 tablet (5 He alth MG tablet 00:00: 05:59 mg total) 00 :00 by mouth 2 (two) times a day. tadalafil 2021- No [id number] 5mg QD Take 1 UT (Cialis) 5 2-28 -28 tablet (5 Hea lth MG tablet 00:00: 00:00 mg total) 00 :00 by mouth 1 (one) time each day. losartan 2022- No [id number] 50mg QD Take 1 UT (Cozaar) 50 2-14 02-15 tablet (50 H ealth MG tablet 00:00: 05:59 mg total) 00 :00 by mouth 1 (one) time each day. losartan 2022- No [id number] 50mg QD Take 1 UT (Cozaar) 50 2-14 02-15 tablet (50 H ealth MG tablet 00:00: 05:59 mg total) 00 :00 by mouth 1 (one) time each day. losartan 2022- No [id number] 50mg QD Take 1 UT (Cozaar) 50 2-14 02-15 tablet (50 H ealth MG tablet 00:00: 05:59 mg total) 00 :00 by mouth 1 (one) time each day. losartan 2022- No [id number] 50mg QD Take 1 UT (Cozaar) 50 2-14 02-15 tablet (50 H ealth MG tablet 00:00: 05:59 mg total) 00 :00 by mouth 1 (one) time each day. losartan 2022- No [id number] 50mg QD Take 1 UT (Cozaar) 50 2-14 02-15 tablet (50 H ealth MG tablet 00:00: 05:59 mg total) 00 :00 by mouth 1 (one) time each day. losartan 2022- No [id number] 50mg QD Take 1 UT (Cozaar) 50 2-14 02-15 tablet (50 H ealth MG tablet 00:00: 05:59 mg total) 00 :00 by mouth 1 (one) time each day. losartan 2022- No [id number] 50mg QD Take 1 UT (Cozaar) 50 2-14 02-15 tablet (50 H ealth MG tablet 00:00: 05:59 mg total) 00 :00 by mouth 1 (one) time each day. losartan 2022- No [id number] 50mg QD Take 1 UT (Cozaar) 50 2-14 02-15 tablet (50 H ealth MG tablet 00:00: 05:59 mg total) 00 :00 by mouth 1 (one) time each day. losartan 2022- No [id number] 50mg QD Take 1 UT (Cozaar) 50 2-14 02-15 tablet (50 H ealth MG tablet 00:00: 05:59 mg total) 00 :00 by mouth 1 (one) time each day. aspirin 81 2021- No 81mg QD Take 81 mg UT MG EC 06-21- by mouth 1 Health tablet 11:00: 00:00 (one) time 08 :00 each day. atorvastati 2022- No [id number] 40mg QD Take 1 UT n (Lipitor) 06-21-25 tablet (40 H ealth 40 MG 00:00: 05:59 mg total) tablet 00 :00 by mouth 1 (one) time each day. atorvastati 2022- No [id number] 40mg QD Take 1 UT n (Lipitor) 06-21-25 tablet (40 H ealth 40 MG 00:00: 05:59 mg total) tablet 00 :00 by mouth 1 (one) time each day. atorvastati 2022- No [id number] 40mg QD Take 1 UT n (Lipitor) 06-21 tablet (40 H ealth 40 MG 00:00: 05:59 mg total) tablet 00 :00 by mouth 1 (one) time each day. atorvastati 2022- No [id number] 40mg QD Take 1 UT n (Lipitor) 06-21 tablet (40 H ealth 40 MG 00:00: 05:59 mg total) tablet 00 :00 by mouth 1 (one) time each day. atorvastati 2022- No [id number] 40mg QD Take 1 UT n (Lipitor) 06-21 tablet (40 H ealth 40 MG 00:00: 05:59 mg total) tablet 00 :00 by mouth 1 (one) time each day. atorvastati 2022- No [id number] 40mg QD Take 1 UT n (Lipitor) 06-21 tablet (40 H ealth 40 MG 00:00: 05:59 mg total) tablet 00 :00 by mouth 1 (one) time each day. losartan 2022- No [id number] 25mg QD Take 1 UT (Cozaar) 25 06-21 tablet (25 H ealth MG tablet 00:00: 05:59 mg total) 00 :00 by mouth 1 (one) time each day. aspirin 81 2022- No [id number] 81mg QD Take 1 UT MG EC 06-21 tablet (81 Health tablet 00:00: 05:59 mg total) 00 :00 by mouth 1 (one) time each day. metFORMIN 2022- No [id number] 500mg Take 1 UT (Glucophage 06-21 tablet Healt h ) 500 MG 00:00: 05:59 (500 mg tablet 00 :00 total) by mouth 2 (two) times a day with meals. atorvastati 2022- No [id number] 40mg QD Take 1 UT n (Lipitor) 06-21 tablet (40 H ealth 40 MG 00:00: 05:59 mg total) tablet 00 :00 by mouth 1 (one) time each day. losartan 2022- No [id number] 25mg QD Take 1 UT (Cozaar) 25 06-21 tablet (25 H ealth MG tablet 00:00: 05:59 mg total) 00 :00 by mouth 1 (one) time each day. aspirin 81 2022- No [id number] 81mg QD Take 1 UT MG EC 06-21 tablet (81 Health tablet 00:00: 05:59 mg total) 00 :00 by mouth 1 (one) time each day. metFORMIN 2022- No [id number] 500mg Take 1 UT (Glucophage 06-21 tablet Healt h ) 500 MG 00:00: 05:59 (500 mg tablet 00 :00 total) by mouth 2 (two) times a day with meals. atorvastati 2022- No [id number] 40mg QD Take 1 UT n (Lipitor) 06-21 tablet (40 H ealth 40 MG 00:00: 05:59 mg total) tablet 00 :00 by mouth 1 (one) time each day. losartan 2022- No [id number] 25mg QD Take 1 UT (Cozaar) 25 06-21 tablet (25 H ealth MG tablet 00:00: 05:59 mg total) 00 :00 by mouth 1 (one) time each day. aspirin 81 2022- No [id number] 81mg QD Take 1 UT MG EC 06-21 tablet (81 Health tablet 00:00: 05:59 mg total) 00 :00 by mouth 1 (one) time each day. metFORMIN 2022- No [id number] 500mg Take 1 UT (Glucophage 06-21 tablet Healt h ) 500 MG 00:00: 05:59 (500 mg tablet 00 :00 total) by mouth 2 (two) times a day with meals. atorvastati 2022- No [id number] 40mg QD Take 1 UT n (Lipitor) 06-21 tablet (40 H ealth 40 MG 00:00: 05:59 mg total) tablet 00 :00 by mouth 1 (one) time each day. aspirin 81 2022- No [id number] 81mg QD Take 1 UT MG EC 1-24 01-25 tablet (81 Health tablet 00:00: 05:59 mg total) 00 :00 by mouth 1 (one) time each day. metFORMIN 2022- No [id number] 500mg Take 1 UT (Glucophage 06-21-25 tablet Healt h ) 500 MG 00:00: 05:59 (500 mg tablet 00 :00 total) by mouth 2 (two) times a day with meals. atorvastati 2022- No [id number] 40mg QD Take 1 UT n (Lipitor) 06-21-25 tablet (40 H ealth 40 MG 00:00: 05:59 mg total) tablet 00 :00 by mouth 1 (one) time each day. metFORMIN 2022- No [id number] 500mg Take 1 UT (Glucophage 06-21 tablet Healt h ) 500 MG 00:00: 05:59 (500 mg tablet 00 :00 total) by mouth 2 (two) times a day with meals. atorvastati No [id number] 40mg QD Take 1 UT n (Lipitor) 06-21 04-14 tablet (40 H ealth 40 MG 00:00: 00:00 mg total) tablet 00 :00 by mouth 1 (one) time each day. metFORMIN No [id number] 500mg Take 1 UT (Glucophage 06-21 03-03 tablet Healt h ) 500 MG 00:00: 00:00 (500 mg tablet 00 :00 total) by mouth 2 (two) times a day with meals. aspirin 81 No [id number] 81mg QD Take 1 UT MG EC 06-21 tablet (81 Health tablet 00:00: 00:00 mg total) 00 :00 by mouth 1 (one) time each day. metFORMIN 2020-05- No UT XR 0-25 06-24 Health (Glucophage 00:00: 00:00 -XR) 500 MG 00 :00 24 hr tablet atorvastati 2020-05- No UT n (Lipitor) 0-25 -24 Health 40 MG 00:00: 00:00 tablet 00 :00 losartan 2021- No UT (Cozaar) 25 8-15 -24 Health MG tablet 00:00: 00:00 00 :00 Lamisil 2016-0 Yes Wyatt 1 tab(s) Oseas tommy 2-17 [place] l 00:00: Thor 00 Vital Signs Vital Name Observation Time Observation Value Comments Source Systolic blood pressure 2021-09-09 13:33:00 125 mm[Hg] [facility] Diastolic blood pressure 2021-09-09 13:33:00 78 mm[Hg] [facility] Heart rate 2021-09-09 13:33:00 51 /min [facility] Respiratory rate 2021-09-09 13:33:00 17 /min [facility] Body height 2021-09-09 13:33:00 180.3 [facility] weight 2021-09-09 13:33:00 97.07 [facility] BMI 2021-09-09 13:33:00 29.85 kg/m2 [facility] Systolic blood pressure 2021-10-26 13:20:00 122 mm[Hg] [facility] Diastolic blood pressure 2021-10-26 13:20:00 79 mm[Hg] [facility] Heart rate 2021-10-26 13:20:00 74 /min [facility] Respiratory rate 2021-10-26 13:20:00 16 /min [facility] Body height 2021-10-26 13:20:00 180.3 cm [facility] Body weight 2021-10-26 13:20:00 95.709 [facility] BMI 2021-10-26 13:20:00 29.43 kg/m2 [facility] Systolic blood pressure 2021-09-09 13:33:00 125 mm[Hg] [facility] Diastolic blood pressure 2021-09-09 13:33:00 78 mm[Hg] [facility] Heart rate 2021-09-09 13:33:00 51 /min [facility] Respiratory rate 2021-09-09 13:33:00 17 /min [facility] Body height 2021-09-09 13:33:00 180.3 cm [facility] Body weight 2021-09-09 13:33:00 97.07 kg [facility] BMI 2021-09-09 13:33:00 29.85 kg/m2 [facility] Systolic blood pressure 2021-08-16 13:01:00 147 mm[Hg] [facility] Diastolic blood pressure 2021-08-16 13:01:00 82 mm[Hg] [facility] Heart rate 2021-08-16 13:01:00 61 /min [facility] Respiratory rate 2021-08-16 13:01:00 16 /min [facility] Body height 2021-08-16 13:01:00 177.8 cm [facility] Body weight 2021-08-16 13:01:00 98.431 [facility] BMI 2021-08-16 13:01:00 31.14 kg/m2 [facility] Oxygen saturation in 2021-08-16 13:01:00 97 /min [facility] Arterial blood by Pulse oximetry Systolic blood pressure 2021-07-29 14:01:00 132 mm[Hg] [facility] Diastolic blood pressure 2021-07-29 14:01:00 64 mm[Hg] [facility] Heart rate 2021-07-29 14:01:00 48 /min [facility] Respiratory rate 2021-07-29 14:01:00 16 /min [facility] Body height 2021-07-29 14:01:00 177.8 cm [facility] Body weight 2021-07-29 14:01:00 97.523 [facility] BMI 2021-07-29 14:01:00 30.85 kg/m2 [facility] Heart rate 2021-07-26 14:03:00 66 /min [facility] Respiratory rate 2021-07-26 14:03:00 16 /min [facility] Body height 2021-07-26 14:03:00 177.8 cm [facility] Body weight 2021-07-26 14:03:00 97.342 kg [facility] BMI 2021-07-26 14:03:00 30.79 kg/m2 [facility] Oxygen saturation in 2021-07-26 14:03:00 96 /min [facility] Arterial blood by Pulse oximetry Systolic blood pressure 2021-07-26 14:03:00 132 mm[Hg] [facility] Diastolic blood pressure 2021-07-26 14:03:00 79 mm[Hg] [facility] Systolic blood pressure 2021-06-21 16:29:00 144 mm[Hg] [facility] Diastolic blood pressure 2021-06-21 16:29:00 84 mm[Hg] [facility] Heart rate 2021-06-21 16:29:00 67 /min [facility] Respiratory rate 2021-06-21 16:29:00 16 /min [facility]alt Body height 2021-06-21 16:29:00 177.8 cm [facility] Body weight 2021-06-21 16:29:00 97.16 kg [facility] BMI 2021-06-21 16:29:00 30.73 kg/m2 [facility] Oxygen saturation in 2021-06-21 16:29:00 97 /min [facility] Arterial blood by Pulse oximetry Procedures Procedure Date / Time Performed Performing Clinician Sour e POCT GLUCOSE 2021-10-26 13:24:00 WayneSeth acharya [facility] [id number] 2021-09-13 00:00:00 [facility] [id number] 2021-09-13 00:00:00 [facility] [id number] 2021-09-13 00:00:00 [facility] [id number] 2021-09-13 00:00:00 [facility] [id number] 2021-09-13 00:00:00 [facility] [id number] 2021-09-13 00:00:00 [facility] [id number] 2021-09-13 00:00:00 [facility] [id number] 2021-09-13 00:00:00 [facility] POCT GLYCOSYLATED 2021-09-09 13:59:00 Nicolette Cornell [facility] HEMOGLOBIN (HGB A1C) POCT GLUCOSE 2021-09-09 13:58:00 Nicolette Cornell [facility] POCT GLUCOSE 2021-07-29 14:01:00 Nicolette Cornell [facility] ECG 12-LEAD 2021-07-26 15:19:36 Luis Eduardo Booker [facility] ECG 12-LEAD 2021-06-21 21:53:09 Luis Eduardo Booker [facility] Encounters Start End Encounter Admission Attending Care Care Encounter Source Date/Time Date/Time Type Type Clinicians Facility Department ID 2021-08-16 Outpatient JHONY [facility] [id number] [place] 09:12:07 LUIS EDUARDO [facility] 2021-07-29 Outpatient SPENCER [facility] [id number] [place] 08:39:40 [facility] 2021-07-26 Outpatient SPENCER [facility] [id number] [place] 09:19:48 [facility] 2021-06-21 Outpatient [facility] [id number] [place] 11:28:17 [facility] 2021-06-21 Outpatient [facility] [id number] UT 11:25:57 Health 2022-02-24 2022-02-24 Outpatient ASTRID [facility] [id number] [place] 08:40:00 08:40:00 [facility] 2021-10-26 2021-10-26 Office Astrid DAX 6410 1.2.840.114 [id number] [place] 08:40:00 09:36:[address] [id number] Health 9.2.7.2.686 [id number] 2021-09-13 2021-09-18 Inpatient PIPPA MARILYN Gómez [id number] [facility] 14:12:00 12:54:[address] 2021-09-09 2021-09-09 Office DAX Cornell 6410 1.2.840.114 [id number] [place] 09:00:00 09:07:[address] [id number] Health 9.2.7.2.686 [id number] 2021-09-04 2021-09-04 Outpatient MARILYN Haque SURG [id number] [facility] 05:14:00 05:14:[address] 2021-08-27 2021-08-27 Telephone DAX Booker 6410 1.2.840.114 [id number] UT 00:00:00 00:00:[address] 350.1.13.58 Health 9.2.7.2.686 [id number] 2 2021-08-25 2021-08-25 Telephone DAX Booker 6410 1.2.840.114 [id number] UT 00:00:00 00:00:[address] 350.1.13.58 Health 9.2.7.2.686 [id number] 2 2021-08-19 2021-08-19 Telephone DAX Booker 6410 1.2.840.114 [id number] UT 00:00:00 00:00:[address] 350.1.13.58 Health 9.2.7.2.686 [id number] 2 2021-08-16 2021-08-16 Office DAX Booker 6410 1.2.840.114 [id number] UT 08:00:00 09:12:09 Visit Luis Eduardo [address] 350.1.13.58 Health 9.2.7.2.686 [id number] 2 2021-07-29 2021-07-29 Office DAX Cornell 6410 1.2.840.114 [id number] UT 08:00:00 08:39:[address] 350.1.13.58 Health 9.2.7.2.686 [id number] 3 2021-07-26 2021-07-26 Office DAX Booker 6410 1.2.840.114 [id number] UT 08:00:00 09:19:54 Visit Luis Eduardo [address] 350.1.13.58 Health 9.2.7.2.686 [id number] 2 2021-07-20 2021-07-20 Telephone DAX Clifton 6400 1.2.840.114 [id number] UT 00:00:00 00:00:[address] 350.1.13.58 Health 9.2.7.2.686 [id number] 1 2021-07-02 2021-07-02 Telephone Antonia Bailey [facility] 6410 1.2.840.1 14 [id number] UT 00:00:00 00:00:[address] 350.1.13.58 Health 9.2.7.2.686 [id number] 3 2021-06-22 2021-06-22 Telephone DAX Booker 6410 1.2.840.114 [id number] [place] 00:00:00 00:00:00 Luis Eduardo CHAUDHRY 350.1.13.58 Health 9.2.7.2.686 [id number] 2 2021-06-21 2021-06-21 Office DAX Booker 6410 1.2.840.114 [id number] UT 10:00:00 11:28:57 Visit Luis Eduardo CHAUDHRY 350.1.13.58 Health 9.2.7.2.686 [id number] 2 2021-06-11 2021-06-11 Telephone DAX Galindo 6410 1.2.840.114 [id number] UT 00:00:00 00:00:00 Jasiel CHAUDHRY 350.1.13.58 Health 9.2.7.2.686 [id number] 2 2021-06-11 2021-06-11 Telephone DAX Vora 6410 1.2.840.114 [id number] UT 00:00:00 00:00:00 Keagan CHAUDHRY 350.1.13.58 Health 9.2.7.2.686 [id number] 3 2015-07-15 2015-07-15 Rx nullFlavo Wyatt [id number] [facility] 16:01:00 16:01:00 e-prescrib lennie Shelton DPM [id number] l ed [id number] [facility] [id number] 2015-07-15 2015-07-15 Outpatient Wyatt Schneider [id number] [facility] 10:01:00 10:01:00 Gertrudis Shelton DPM [facility] 2015-04-20 2015-04-21 Outpt Diag nullFlavo [facility] [id number] [facility] 18:00:00 05:59:00 Services r Outpatient 01 l Imaging Thor Mcrae 2015-04-20 2015-04-20 Outpatient Mateo [facility] [id number] 12:00:00 23:59:00 Jasiel 01 Results Test Description Test Time Test Comments Results Result Comments Source POCT glucose manually resulted 2021-10-26 13:24:00 Test Item Value Reference Range Interpretation Comme nts Glucose Blood, POC (test code = 7553539) 92 mg/dL 70-180 [place] [facility] [id number] 20:17:00 Test Item Value Reference Range Interpretation Comments GLUCOSE BEDSIDE TESTING (test code 237 MG/DL 60-99 H = GLUBED) BASIC METABOLIC [id number] 04:25:00 Test Item Value Reference Range Interpretation Comments SODIUM (test code = 135 MMOL/L 137-145 L NA) POTASSIUM (test code = 4.1 MMOL/L 3.5-5.1 N K) CHLORIDE (test code = 101 MMOL/L 98-107 N CL) CARBON DIOXIDE (test 29 MMOL/L 22-30 N code = CO2) GLUCOSE (test code = 138 MG/DL 74-106 H GLU) BLOOD UREA NITROGEN 14 MG/DL 9-20 N (test code = BUN) GLOMERULAR FILTRATION > 60 Report ing units: RATE (test code = GFR) ml/mi n/1.73 m2 (Modified MDRD Formula)Referen ce Range: > or = 6 0 ml/min/1.73 m2 CREATININE (test code 0.70 MG/DL 0.66-1.25 N = CREAT) CALCIUM (test code = 8.2 MG/DL 8.4-10.2 L CA) CBC W/AUTO [id number] 04:05:00 Test Item Value Reference Range Interpretation Comments WHITE BLOOD CELL (test code = 10.6 K/MM3 3.8-9.8 H WBC) RED BLOOD CELL (test code = 2.87 M/MM3 3.95-5.67 L RBC) HEMOGLOBIN (test code = HGB) 8.6 G/DL 12.4-16.7 L HEMATOCRIT (test code = HCT) 26.3 % 35.9-49.5 L MEAN CELL VOLUME (test code = 92 fL 81.7-96.1 N MCV) MEAN CELL HGB (test code = MCH) 30.0 pg 27.6-33.2 N MEAN CELL HGB CONCETRATION 32.7 % 32.9-35.5 L (test code = MCHC) RED CELL DISTRIBUTION WIDTH 12.6 % 12.1-15.2 N (test code = RDW) PLATELET COUNT (test code = 201 K/MM3 129-368 PLT) MEAN PLATELET VOLUME (test code 10.0 fl 7.4-10.4 N = MPV) NEUTROPHIL % (test code = NT%) 55.9 % 43-75 N IMMATURE GRANULOCYTE % (test 0.7 % 0.0-2.0 N code = IG%) LYMPHOCYTE % (test code = LY%) 28.0 % 14-44 N MONOCYTE % (test code = MO%) 13.6 % 4-13 H EOSINOPHIL % (test code = EO%) 1.5 % 0-6 N BASOPHIL % (test code = BA%) 0.3 % 0-2 N NUCLEATED RBC % (test code = 0.6 % 0-1.0 N NRBC%) NEUTROPHIL # (test code = NT#) 5.91 K/mm3 2.0-7.6 N IMMATURE GRANULOCYTE # (test 0.07 x10 3/uL 0-0.03 H code = IG#) LYMPHOCYTE # (test code = LY#) 2.96 K/mm3 1.0-3.8 N MONOCYTE # (test code = MO#) 1.44 K/mm3 0.1-0.8 H EOSINOPHIL # (test code = EO#) 0.16 K/mm3 0.0-0.2 N BASOPHIL # (test code = BA#) 0.03 K/mm3 0.0-0.2 N NUCLEATED RBC # (test code = 0.06 K/mm3 0.0-0.1 N NRBC#) [id number] 23:13:00 Test Item Value Reference Range Interpretation Comments POTASSIUM (test code = K) 3.6 MMOL/L 3.5-5.1 N [id number] 23:13:00 Test Item Value Reference Range Interpretation Comments CALCIUM (test code = CA) 7.8 MG/DL 8.4-10.2 L [id number] 23:13:00 Test Item Value Reference Range Interpretation Comments MAGNESIUM (test code = MAG) 2.0 MG/DL 1.6-2.3 N GLUCOSE BEDSIDE [id number] 20:24:00 Test Item Value Reference Range Interpretation Comments GLUCOSE BEDSIDE TESTING (test code 161 MG/DL 60-99 H = GLUBED) GLUCOSE BEDSIDE [id number] 18:08:00 Test Item Value Reference Range Interpretation Comments GLUCOSE BEDSIDE TESTING (test code 200 MG/DL 60-99 H = GLUBED) URINALYSIS [id number] 17:16:00 Test Item Value Reference Range Interpretation Comments UA COLOR (test code = YELLOW YELLOW COLU) UA APPEARANCE (test code CLEAR CLEAR = APPU) UA GLUCOSE DIPSTICK (test 250 MG/DL NORMAL A code = DGLUU) UA BILIRUBIN DIPSTICK NEGATIVE MG/DL NEGATIVE (test code = BILU) UA KETONE DIPSTICK (test NEGATIVE MG/DL NEGATIVE code = KETU) UA SPECIFIC GRAVITY (test 1.010 1.003-1.030 N code = SGU) UA BLOOD DIPSTICK (test NEGATIVE Stevan/mm3 NEGATIVE code = NAIMA) UA PH DIPSTICK (test code 6.0 5.0-9.0 N = LOWELL) UA PROTEIN DIPSTICK (test NEGATIVE MG/DL NEGATIVE code = PROU) UA UROBILINIOGEN DIPSTICK NORMAL MG/DL NORMAL (test code = URO) UA NITRITE DIPSTICK (test NEGATIVE NEGATIVE code = VINCENT) UA LEUKOCYTE ESTERASE NEGATIVE /mm3 NEGATIVE DIPSTICK (test code = LEUU) UA CULTURE NEEDED? (test NO, WBC>10 & EPI>25 Culture Chk code = UACULT) Criteria SOURCE OF URINE: VOIDED- XR ABDOMEN 1 [id number] 15:12:[address] [facility] 1955 Sex: M Patient Name: MARK MELENDREZ Unit No: [id number] EXAMS: CPT CODE: [id number] XR ABDOMEN 1 V 78203 EXAM: ABDOMEN ONE VIEW INDICATION: KIDNEY PAIN LOCATION: B2 COMPARISON: None available TECHNIQUE: AP view of the abdomen. FINDINGS: The bowel gas pattern is normal. No pneumoperitoneum is identified. No abnormal calci fications. The osseous structures are unremarkable. IMPRESSION: No acute abnormality of the abdomen.No abnormal calcifications are identified. at 1512 Reported and signed by: Linda Adorno MD CC: Lester Murray MD; Eula Bansal hnologist: Loretta Winn, RT (R) Transcrpt Date/Tm/Trnsp: 09/17/2021 (1511) [email or web address] Orig Print D/T: S: 09/17/2021 (1514) [facility] NAME: MARK MELENDREZ [id number] PHYS: [place] [address] : 1955 AGE: 65 SEX: M LOC: Z.SI01 A PHONE #: EXAM DATE: 09/17/2021 STATUS: ADM IN FAX #: [phone] RADIOLOGY NO: PAGE 1 Signed ReportGLUCOSE BEDSIDE [id number] 11:11:00 Test Item Value Reference Range Interpretation Comments GLUCOSE BEDSIDE TESTING (test code 336 MG/DL 60-99 HH = GLUBED) - XR CHEST [id number] 08:00:[address] [facility] 1955 Sex: M Patient Name: MARK MELENDREZ Unit No: [id number] EXAMS: CPT CODE: [id number] XR CHEST 1V 44849 EXAM: CHEST ONE VIEW INDICATION: S/P CABG LOCATION: B2 COMPARISON: September 16, 2021 TECHNIQUE: AP view of the chest FINDINGS: The right central venous catheter is unchanged. The heart size is enlarged. There is evidence of prior thoracic surgery there is a small left pleural effusion with left basilar atelectasis. No pneumothorax is identified. The osseous structures are normal. IMPRESSION: Stable postoperative chest. Small left pleural effusion and left basilar atelectasis. No pneumothorax. at 0800 Reported and signed by: Linda Adorno MD CC: Lester Murray MD Technologist: Esteban Cruz (RT) Transcrpt Date/Tm/Trnsp: 09/17/2021 (0800) [email or web address] Orig Print D/T: S: 09/17/2021 (0803) [facility] NAME: MARK MELENDREZ [address] PHYS: [place] [address] : 1955 AGE: 65 SEX: M LOC: Z.SI01 A PHONE #: EXAM DATE: 09/17/2021 STATUS: ADM IN FAX #: [phone] RADIOLOGY NO: PAGE 1 Signed ReportCOMPREHENSIVE METABOLIC [id number] 04:35:00 Test Item Value Reference Range Interpretation Comments SODIUM (test code 136 MMOL/L 137-145 L = NA) POTASSIUM (test 4.1 MMOL/L 3.5-5.1 N code = K) CHLORIDE (test 101 MMOL/L 98-107 N code = CL) CARBON DIOXIDE 30 MMOL/L 22-30 N (test code = CO2) ANION GAP (test 9 MMOL/L 14-24 L code = GAP) GLUCOSE (test 126 MG/DL 74-106 H code = GLU) BLOOD UREA 17 MG/DL 9-20 N NITROGEN (test code = BUN) GLOMERULAR > 60 Reporting units : FILTRATION RATE ml/min/1.73 m2 (Modified (test code = GFR) MDRD Formu la)Reference Range: > or = 6 0 ml/min/1.73 m2 CREATININE (test 0.80 MG/DL 0.66-1.25 N code = CREAT) TOTAL PROTEIN 5.7 G/DL 6.2-7.6 L [facility] Clinical Diagnostic (test code = has made us syeda re of PROT) newinformation regarding the potential i nterference ofEltrombopag ( a bone marrow stimulan t used to treatthrombocyt onmenia and aplastic anemia ) with specific assays on the Vitros 5600 of which Total Protein is one of thoseassays per formed in our lab.Interfe rence testing perform ed at [facility] determined that Eltrombopag does interfere with Vitros Total Protein asfollowsEltrom bopag Interference fo r Vitros Product Total Protein:======= Eltrombopag Max Observed Av g. BiasConcentrati on Concentration Concentration== ==== 2.5 mg/dl 6.0 g/dl +0.41 +0.34 3.5 mg/dl 6.0 g /dl +0.50 +0.45 5 mg/dl 6 .0 g/dl +0.73 +0.65 2.5 mg/dl 8.0 g/dl +0.44 +0.4 1 3.5 mg/dl 8.0 g/dl +0.55 +0.52 5 mg/dl 8.0 g/dl +0.86 +0.77 ALBUMIN (test 3.0 G/DL 3.5-5.0 L code = ALB) CALCIUM (test 7.9 MG/DL 8.4-10.2 L code = CA) BILIRUBIN TOTAL 1.0 MG/DL 0.2-1.3 N Eltrombopag Interference (test code = for Vitros Prod uct TBil, BILT) BuBc: Assa y Eltrombopag Letty lyte/ Max Observed Avg. B ias Concentration C oncentration Concentration== ====TBil 7mg/dl TBil/ 1. 2mg/dl +0.23mg.dl +0.2 0mg/dlBuBc 3.5mg/dl Bu/0.8 mg/dl +0.25mg/dl +0.2 4mg/dlBuBc 7 mg/dl Bu/14.2mg /dl +0.38mg/dl +0.2 5mg/dlBuBc 5mg/dl Bc/0mg/d l +0.25mg/dl +0.15mg/dlBuBc 3.5mg/dl Bc/2.8mg/dl +0. 25mg/dl +0.23mg/dl SGOT/AST (test 57 UNITS/L 17-59 N code = AST) SGPT/ALT (test 59 UNITS/L 0-49 H code = ALT) ALKALINE 180 UNITS/L 38-126 H PHOSPHATASE (test code = ALKP) CBC W/AUTO [id number] 04:12:00 Test Item Value Reference Range Interpretation Comments WHITE BLOOD CELL (test code = 10.7 K/MM3 3.8-9.8 H WBC) RED BLOOD CELL (test code = 2.88 M/MM3 3.95-5.67 L RBC) HEMOGLOBIN (test code = HGB) 8.7 G/DL 12.4-16.7 L HEMATOCRIT (test code = HCT) 26.3 % 35.9-49.5 L MEAN CELL VOLUME (test code = 91 fL 81.7-96.1 N MCV) MEAN CELL HGB (test code = MCH) 30.2 pg 27.6-33.2 N MEAN CELL HGB CONCETRATION 33.1 % 32.9-35.5 N (test code = MCHC) RED CELL DISTRIBUTION WIDTH 12.6 % 12.1-15.2 N (test code = RDW) PLATELET COUNT (test code = 152 K/MM3 129-368 N PLT) MEAN PLATELET VOLUME (test code 10.7 fl 7.4-10.4 H = MPV) NEUTROPHIL % (test code = NT%) 63.0 % 43-75 N IMMATURE GRANULOCYTE % (test 0.5 % 0.0-2.0 N code = IG%) LYMPHOCYTE % (test code = LY%) 23.4 % 14-44 N MONOCYTE % (test code = MO%) 12.2 % 4-13 N EOSINOPHIL % (test code = EO%) 0.7 % 0-6 N BASOPHIL % (test code = BA%) 0.2 % 0-2 N NUCLEATED RBC % (test code = 0.0 % 0-1.0 N NRBC%) NEUTROPHIL # (test code = NT#) 6.74 K/mm3 2.0-7.6 N IMMATURE GRANULOCYTE # (test 0.05 x10 3/uL 0-0.03 H code = IG#) LYMPHOCYTE # (test code = LY#) 2.50 K/mm3 1.0-3.8 N MONOCYTE # (test code = MO#) 1.30 K/mm3 0.1-0.8 H EOSINOPHIL # (test code = EO#) 0.08 K/mm3 0.0-0.2 N BASOPHIL # (test code = BA#) 0.02 K/mm3 0.0-0.2 N NUCLEATED RBC # (test code = 0.00 K/mm3 0.0-0.1 N NRBC#) GLUCOSE BEDSIDE [id number] 20:21:00 Test Item Value Reference Range Interpretation Comments GLUCOSE BEDSIDE TESTING (test code 153 MG/DL 60-99 H = GLUBED) GLUCOSE BEDSIDE [id number] 17:25:00 Test Item Value Reference Range Interpretation Comments GLUCOSE BEDSIDE TESTING (test code 145 MG/DL 60-99 H = GLUBED) - XR CHEST [id number] 13:19:[address] [facility] 1955 Sex: M Patient Name: MARK MELENDREZ Unit No: [id number] EXAMS: CPT CODE: [id number] XR CHEST 1V 65186 Chest Radiograph History: CHEST TUBE REMOVAL - NURSE WILL CALL WHEN READY Comparison: September 16, 2021 Location: H45 A single frontal view of the chest is submitted. The heart appears unchanged in size. Pulmonary vasculature is unremarkable. There is a patchy opacity in the left lung base, which appears similar to the prior exam. The bones appear unchanged. The vascular catheter appears unchanged. IMPRESSION: No pneumothorax is identified status post chest tube removal. at 1319 Reported and signed by: Prashant Guaman MD CC: Lester Murray MD; Eula SOTELO Technologist: BRAYDON Davenport, RT(R) Transcrpt Date/Tm/Trnsp: 09/16/2021 (1319) [email or web address] Orig Print D/T: S: 09/16/2021 (1322) [facility] NAME: MARK MELENDREZ [address] PHYS: [place] [address] : 1955 AGE: 65 SEX: M LOC:Z.SI01 A PHONE #: [phone] EXAM DATE: 09/16/2021 STATUS: ADM IN FAX #: [phone] RADIOLOGY NO: PAGE 1 Signed ReportGLUCOSE BEDSIDE [id number] 11:45:00 Test Item Value Reference Range Interpretation Comments GLUCOSE BEDSIDE TESTING (test code 208 MG/DL 60-99 H = GLUBED) - XR CHEST [id number] 08:22:[address] [facility] 1955 Sex: M Patient Name: MARK MELENDREZ Unit No: [id number] EXAMS: CPT CODE: [id number] XR CHEST 1V 79350 Chest Radiograph History: S/P CABG Comparison: September 15, 2021 Location: H45 A single frontal view of the chest is submitted. The heart appears unchanged in size. Pulmonary vasculature is unremarkable. There are minimal patchy opacities in the lung bases bilaterally. There is a shallow inspiration. The bones appear unchanged. The vascular catheter appears unchanged. IMPRESSION: There are minimal patchy opacities in the lung bases bilaterally. This could be due to atelectasis or pneumonia. There is a shallow inspiration. at 0822 Reported and signed by: Prashant Guaman MD CC: Lester Murray MD Technologist: Loretta Winn, RT (R) Transcrpt Date/Tm/Trnsp: 09/16/2021 (0822) [email or web address] Orig Print D/T: S: 09/16/2021 (0825) [facility] NAME: MARK MELENDREZ [address] PHYS: Prakash Littlejohn [place] [address] : 1955 AGE: 65 SEX: M LOC: Z.SI01 A PHONE #: [phone] EXAM DATE: 09/16/2021 STATUS: ADM IN FAX #: [phone] RADIOLOGY NO: PAGE 1 Signed ReportGLUCOSE BEDSIDE [id number] 07:12:00 Test Item Value Reference Range Interpretation Comments GLUCOSE BEDSIDE TESTING (test code 123 MG/DL 60-99 H = GLUBED) GLUCOSE BEDSIDE [id number] 20:54:00 Test Item Value Reference Range Interpretation Comments GLUCOSE BEDSIDE TESTING (test code = 93 MG/DL 60-99 N GLUBED) GLUCOSE BEDSIDE [id number] 17:39:00 Test Item Value Reference Range Interpretation Comments GLUCOSE BEDSIDE TESTING (test code = 86 MG/DL 60-99 N GLUBED) GLUCOSE BEDSIDE [id number] 11:06:00 Test Item Value Reference Range Interpretation Comments GLUCOSE BEDSIDE TESTING (test code 252 MG/DL 60-99 H = GLUBED) - XR CHEST [id number] 08:58:[address] [facility] 1955 Sex: M Patient Name: MARK MELENDREZ Unit No: [id number] EXAMS: CPT CODE: [id number] XR CHEST 1V [id number] Dictation location: U19. CHEST, FRONTAL VIEW HISTORY: S/P CABG FINDINGS: Since 09/14/21, the [place] catheter has been removed. Right subclavian line remains in SVC. Continued cardiomegaly with mild central vascular congestion, small left pleural effusion and basilar atelectasis. Sternotomy wires. Thoracic spondylosis. No pneumothorax. Probable mediastinal left pleural drains. IMPRESSION: Interval removal of the [place] catheter. Mild vascular congestion and small left pleural effusion. at 0858 Reported and signed by: Gurjit Ordaz [facility]: Lester Murray MD Technologist: Candace Wilburn (RT)(R) Transcrpt Date/Tm/Trnsp: 09/15/2021 (0858) [email or web address] Orig Print D/T: S: 09/15/2021 (0901) EL Ybarra NAME: MARK MELENDREZ [id number] [place] PHYS: [place] [address] : 1955 AGE: 65 SEX: M LOC: [id number] PHONE #: [phone] EXAM DATE: 09/15/2021 STATUS: ADM IN FAX #: [phone] RADIOLOGY NO: PAGE 1 Signed ReportGLUCOSE BEDSIDE [id number] 07:34:00 Test Item Value Reference Range Interpretation Comments GLUCOSE BEDSIDE TESTING (test code 221 MG/DL 60-99 H = GLUBED) GLUCOSE BEDSIDE [id number] 21:31:00 Test Item Value Reference Range Interpretation Comments GLUCOSE BEDSIDE TESTING (test code 198 MG/DL 60-99 H = GLUBED) GLUCOSE BEDSIDE [id number] 21:25:00 Test Item Value Reference Range Interpretation Comments GLUCOSE BEDSIDE TESTING (test code 137 MG/DL 60-99 H = GLUBED) GLUCOSE BEDSIDE [id number] 15:14:00 Test Item Value Reference Range Interpretation Comments GLUCOSE BEDSIDE TESTING 72 MG/DL 60-99 N Doct or Notified~ (test code = GLUBED) GLUCOSE BEDSIDE [id number] 13:40:00 Test Item Value Reference Range Interpretation Comments GLUCOSE BEDSIDE TESTING (test code 110 MG/DL 60-99 H = GLUBED) GLUCOSE BEDSIDE [id number] 12:33:00 Test Item Value Reference Range Interpretation Comments GLUCOSE BEDSIDE TESTING (test code 147 MG/DL 60-99 H = GLUBED) GLUCOSE BEDSIDE [id number] 12:30:00 Test Item Value Reference Range Interpretation Comments GLUCOSE BEDSIDE TESTING (test code 125 MG/DL 60-99 H = GLUBED) GLUCOSE BEDSIDE [id number] 09:24:00 Test Item Value Reference Range Interpretation Comments GLUCOSE BEDSIDE TESTING (test code 166 MG/DL 60-99 H = GLUBED) GLUCOSE BEDSIDE [id number] 08:28:00 Test Item Value Reference Range Interpretation Comments GLUCOSE BEDSIDE TESTING (test code 220 MG/DL 60-99 H = GLUBED) GLUCOSE BEDSIDE [id number] 08:27:00 Test Item Value Reference Range Interpretation Comments GLUCOSE BEDSIDE TESTING (test code 182 MG/DL 60-99 H = GLUBED) - XR CHEST [id number] 07:46:[address] [facility] 1955 Sex: M Patient Name: MARK MELENDREZ Unit No: [id number] EXAMS: CPT CODE: [id number] XR CHEST 1V [id number] - XR CHEST 1V INDICATION:Postop, extubated LOCATION: T18 Comparison 09/13/2021 The endotracheal tube and nasogastric tube have been removed. Other support apparatus, stable in position. Heart size normal, status post midline sternotomy. Mild atelectasis in lower lobes. No pneumothorax or significant effusion. Bony thorax appears intact. IMPRESSION: Mild bibasilar atelectasis following extubation. at 0746 Reported and signed by: Jonathan Ferrara MD CC: Lester Murray MD Technologist: Estbean Cruz (RT) Transcrpt Date/Tm/Trnsp: 09/14/2021 (0746) DelmarJTM Orig Print D/T: S: 09/14/2021 (0750) [facility] NAME: MARK MELENDREZ [id number] [address] [place] PHYS: [place] [address] : 1955 AGE: 65 SEX: M LOC: Z.SI01 A PHONE #: [phone] EXAM DATE: 09/14/2021 STATUS: ADM IN FAX #: [phone] RADIOLOGY NO: PAGE1 Signed ReportGLUCOSE BEDSIDE [id number] 06:41:00 Test Item Value Reference Range Interpretation Comments GLUCOSE BEDSIDE TESTING (test code 187 MG/DL 60-99 H = GLUBED) CBC W/AUTO [id number] 04:52:00 Test Item Value Reference Range Interpretation Comments WHITE BLOOD CELL (test code = 19.4 K/MM3 3.8-9.8 H WBC) RED BLOOD CELL (test code = 3.83 M/MM3 3.95-5.67 L RBC) HEMOGLOBIN (test code = HGB) 11.5 G/DL 12.4-16.7 L HEMATOCRIT (test code = HCT) 34.9 % 35.9-49.5 L MEAN CELL VOLUME (test code = 91 fL 81.7-96.1 N MCV) MEAN CELL HGB (test code = MCH) 30.0 pg 27.6-33.2 N MEAN CELL HGB CONCETRATION 33.0 % 32.9-35.5 N (test code = MCHC) RED CELL DISTRIBUTION WIDTH 13.2 % 12.1-15.2 N (test code = RDW) PLATELET COUNT (test code = 179 K/MM3 129-368 N PLT) MEAN PLATELET VOLUME (test code 11.4 fl 7.4-10.4 H = MPV) NEUTROPHIL % (test code = NT%) 79.1 % 43-75 H IMMATURE GRANULOCYTE % (test 0.6 % 0.0-2.0 N code = IG%) LYMPHOCYTE % (test code = LY%) 7.0 % 14-44 L MONOCYTE % (test code = MO%) 13.2 % 4-13 H EOSINOPHIL % (test code = EO%) 0.0 % 0-6 N BASOPHIL % (test code = BA%) 0.1 % 0-2 N NUCLEATED RBC % (test code = 0.0 % 0-1.0 N NRBC%) NEUTROPHIL # (test code = NT#) 15.33 K/mm3 2.0-7.6 H IMMATURE GRANULOCYTE # (test 0.12 x10 3/uL 0-0.03 H code = IG#) LYMPHOCYTE # (test code = LY#) 1.35 K/mm3 1.0-3.8 N MONOCYTE # (test code = MO#) 2.56 K/mm3 0.1-0.8 H EOSINOPHIL # (test code = EO#) 0.00 K/mm3 0.0-0.2 N BASOPHIL # (test code = BA#) 0.02 K/mm3 0.0-0.2 N NUCLEATED RBC # (test code = 0.00 K/mm3 0.0-0.1 N NRBC#) BASIC METABOLIC [id number] 04:30:00 Test Item Value Reference Range Interpretation Comments SODIUM (test code = 142 MMOL/L 137-145 N NA) POTASSIUM (test code = 4.4 MMOL/L 3.5-5.1 N K) CHLORIDE (test code = 110 MMOL/L 98-107 H CL) CARBON DIOXIDE (test 24 MMOL/L 22-30 N code = CO2) ANION GAP (test code = 12 MMOL/L 14-24 L GAP) GLUCOSE (test code = 172 MG/DL 74-106 H GLU) BLOOD UREA NITROGEN 19 MG/DL 9-20 (test code = BUN) GLOMERULAR FILTRATION > 60 Report ing units: RATE (test code = GFR) ml/mi n/1.73 m2 (Modified MDRD Formula)Referen ce Range: > or = 6 0 ml/min/1.73 m2 CREATININE (test code 0.80 MG/DL 0.66-1.25 N = CREAT) CALCIUM (test code = 8.2 MG/DL 8.4-10.2 L CA) [id number] 04:30:00 Test Item Value Reference Range Interpretation Comments MAGNESIUM (test code = MAG) 1.9 MG/DL 1.6-2.3 GLUCOSE BEDSIDE [id number] 04:05:00 Test Item Value Reference Range Interpretation Comments GLUCOSE BEDSIDE TESTING (test code 170 MG/DL 60-99 H = GLUBED) GLUCOSE BEDSIDE [id number] 03:10:00 Test Item Value Reference Range Interpretation Comments GLUCOSE BEDSIDE TESTING (test code 174 MG/DL 60-99 H = GLUBED) GLUCOSE BEDSIDE [id number] 01:23:00 Test Item Value Reference Range Interpretation Comments GLUCOSE BEDSIDE TESTING (test code 164 MG/DL 60-99 H = GLUBED) GLUCOSE BEDSIDE [id number] 00:08:00 Test Item Value Reference Range Interpretation Comments GLUCOSE BEDSIDE TESTING (test code 215 MG/DL 60-99 H = GLUBED) GLUCOSE BEDSIDE [id number] 22:05:00 Test Item Value Reference Range Interpretation Comments GLUCOSE BEDSIDE TESTING (test code 229 MG/DL 60-99 H = GLUBED) GLUCOSE BEDSIDE [id number] 21:19:00 Test Item Value Reference Range Interpretation Comments GLUCOSE BEDSIDE TESTING (test code 221 MG/DL 60-99 H = GLUBED) GLUCOSE BEDSIDE [id number] 20:20:00 Test Item Value Reference Range Interpretation Comments GLUCOSE BEDSIDE TESTING (test code 228 MG/DL 60-99 H = GLUBED) GLUCOSE BEDSIDE [id number] 20:17:00 Test Item Value Reference Range Interpretation Comments GLUCOSE BEDSIDE TESTING (test code 230 MG/DL 60-99 H = GLUBED) GLUCOSE BEDSIDE [id number] 20:17:00 Test Item Value Reference Range Interpretation Comments GLUCOSE BEDSIDE TESTING (test code 226 MG/DL 60-99 H = GLUBED) GLUCOSE BEDSIDE [id number] 20:17:00 Test Item Value Reference Range Interpretation Comments GLUCOSE BEDSIDE TESTING (test code 222 MG/DL 60-99 H = GLUBED) GLUCOSE BEDSIDE [id number] 20:17:00 Test Item Value Reference Range Interpretation Comments GLUCOSE BEDSIDE TESTING (test code 205 MG/DL 60-99 H = GLUBED) GLUCOSE BEDSIDE [id number] 20:17:00 Test Item Value Reference Range Interpretation Comments GLUCOSE BEDSIDE TESTING (test code 185 MG/DL 60-99 H = GLUBED) ARTERIAL BLOOD [id number] 17:54:00 Test Item Value Reference Range Interpretation Comments ARTERIAL BLOOD GAS PH 7.26 mmHg 7.35-7.45 L (test code = PHA) ARTERIAL BLOOD GAS 46.7 mmHg 35.0-45.0 H PCO2 (test code = PCO2A) ARTERIAL BLOOD GAS 234.8 mmol/L 80.0-100.0 H PO2 (test code = PO2A) BICARBONATE TOTAL 20.3 mmol/L 20.0-26.0 N HCO3 (test code = HCO3) BASE EXCESS (test -6.9 mmol/L -3.0-3.0 L code = OREN) ABG O2 SATURATION 99.4 % 95.0-100.0 N All critic al values (test code = SATA) report to and readback by THUAN CASANOVA by [email or web address] at 09/13/2021 3:30: 40 PM ABG DELIVERY (test VENT code = MAURICE) ABG VENT MODE (test A/C code = MODEA) ABG VENT RESP RATE 12.0 /MIN (test code = RRA) ABG TIDAL VOLUME 500.0 ml (test code = TVA) ABG PEEP (test code = 5.0 cmH2O PEEPA) ABG TEMPERATURE (test 37.0 C See_Comment [Auto mated message] code = TEMPA) The system [employer] generated this result transmit antoni reference range : 37. The reference r gail was not used to interpret this result as normal/abnormal . ABG SITE (test code = LINE SITEA) ALLENS TEST (test NA CHECK code = ALLENS) FIO2 (test code = 100 % COHBGFFIO2) BASIC METABOLIC [id number] 16:26:00 Test Item Value Reference Range Interpretation Comments SODIUM (test code = 141 MMOL/L 137-145 N NA) POTASSIUM (test code = 3.5 MMOL/L 3.5-5.1 N K) CHLORIDE (test code = 111 MMOL/L 98-107 H CL) CARBON DIOXIDE (test 22 MMOL/L 22-30 N code = CO2) GLUCOSE (test code = 192 MG/DL 74-106 H GLU) BLOOD UREA NITROGEN 23 MG/DL 9-20 H (test code = BUN) GLOMERULAR FILTRATION > 60 Report ing units: RATE (test code = GFR) ml/mi n/1.73 m2 (Modified MDRD Formula)Referen ce Range: > or = 6 0 ml/min/1.73 m2 CREATININE (test code 0.70 MG/DL 0.66-1.25 N = CREAT) CALCIUM (test code = 8.1 MG/DL 8.4-10.2 L CA) [id number] 16:26:00 Test Item Value Reference Range Interpretation Comments MAGNESIUM (test code = MAG) 2.9 MG/DL 1.6-2.3 H PROTHROMBIN [id number] 15:55:00 Test Item Value Reference Range Interpretation Comments PROTHROMBIN TIME 18.1 SECONDS 9.4-12.7 H PATIENT (test code = PTP) INTERNATIONAL NORMAL 1.6 0.86-1.14 H The INR is to be RATIO (test code = used only for INR) monitoring oral anticoagulantth erap y. INDICATION INR VALUE ---- ---- ---- -------1. Prophylaxis, de ep venous thrombos is, including high risk surgery. 2.0 - 3.0 2. Prophylaxis, deep venous thrombosis, hip surgery, treatm ent for deep venous thrombosis or pulmonary prevention of systemic emboli sm in patients wit h valvular heart disease, atrial fibrillation, tissue heart va lve, or acute myocar dial infarction. 2.0 - 3.0 3. Cigarette [employer] Machine [employer]pper Feeder al prosthesis hear t valves, recurre nt systemic emboli sm. 3.0 - 4.5 PTT [id number] 15:55:00 Test Item Value Reference Range Interpretation Comments PTT ACTIVATED (test code = APTT) 34.5 SECONDS 26.2-35.4 CBC W/AUTO [id number] 15:39:00 Test Item Value Reference Range Interpretation Comments WHITE BLOOD CELL (test code = 29.2 K/MM3 3.8-9.8 H WBC) RED BLOOD CELL (test code = 3.82 M/MM3 3.95-5.67 L RBC) HEMOGLOBIN (test code = HGB) 11.7 G/DL 12.4-16.7 L HEMATOCRIT (test code = HCT) 35.1 % 35.9-49.5 L MEAN CELL VOLUME (test code = 92 fL 81.7-96.1 N MCV) MEAN CELL HGB (test code = MCH) 30.6 pg 27.6-33.2 N MEAN CELL HGB CONCETRATION 33.3 % 32.9-35.5 N (test code = MCHC) RED CELL DISTRIBUTION WIDTH 13.0 % 12.1-15.2 N (test code = RDW) PLATELET COUNT (test code = 180 K/MM3 129-368 N PLT) MEAN PLATELET VOLUME (test code 10.9 fl 7.4-10.4 H = MPV) NEUTROPHIL % (test code = NT%) 60.6 % 43-75 N IMMATURE GRANULOCYTE % (test 0.8 % 0.0-2.0 N code = IG%) LYMPHOCYTE % (test code = LY%) 28.2 % 14-44 N MONOCYTE % (test code = MO%) 9.7 % 4-13 N EOSINOPHIL % (test code = EO%) 0.4 % 0-6 N BASOPHIL % (test code = BA%) 0.3 % 0-2 N NUCLEATED RBC % (test code = 0.0 % 0-1.0 N NRBC%) NEUTROPHIL # (test code = NT#) 17.69 K/mm3 2.0-7.6 H IMMATURE GRANULOCYTE # (test 0.23 x10 3/uL 0-0.03 H code = IG#) LYMPHOCYTE # (test code = LY#) 8.25 K/mm3 1.0-3.8 H MONOCYTE # (test code = MO#) 2.84 K/mm3 0.1-0.8 H EOSINOPHIL # (test code = EO#) 0.13 K/mm3 0.0-0.2 N BASOPHIL # (test code = BA#) 0.08 K/mm3 0.0-0.2 N NUCLEATED RBC # (test code = 0.00 K/mm3 0.0-0.1 N NRBC#) BASIC METABOLIC [id number] 15:38:00 Test Item Value Reference Range Interpretation Comments SODIUM (test code = 138 MMOL/L 137-145 N NA) POTASSIUM (test code = 3.6 MMOL/L 3.5-5.1 N K) CHLORIDE (test code = 111 MMOL/L 98-107 H CL) CARBON DIOXIDE (test 21 MMOL/L 22-30 L code = CO2) ANION GAP (test code = 10 MMOL/L 14-24 L GAP) GLUCOSE (test code = 185 MG/DL 74-106 H GLU) BLOOD UREA NITROGEN 23 MG/DL 9-20 H (test code = BUN) GLOMERULAR FILTRATION > 60 Report ing units: RATE (test code = GFR) ml/mi n/1.73 m2 (Modified MDRD Formula)Referen ce Range: > or = 6 0 ml/min/1.73 m2 CREATININE (test code 0.70 MG/DL 0.66-1.25 = CREAT) CALCIUM (test code = 8.4 MG/DL 8.4-10.2 N CA) - XR CHEST [id number] 15:38:[address] [facility] 1955 Sex: M Patient Name: MARK MELENDREZ Unit No: [id number] EXAMS: CPT CODE: [id number] XR CHEST 1V 25338 B2 EXAM: - XR CHEST 1V DATE: 09/13/2021 3:04 PM HISTORY: S/P CABG COMPARISON: Chest x-ray 09/10/2021 FINDINGS: Intervalmedial sternotomy. Interval placement of an endotracheal tube ending approximately 2.5 cm above the little. Interval placement of an enteric tube ending below the level of the GE junction. Left thoracostomy tube and mediastinal drain in place. Right internal jugular [place]- Sahra catheter ending in the region of the proximal right pulmonary artery. Right subclavian central venous line ending in the region of the right atrium. No pneumothorax, pleural effusions or airspace consolidation. The cardiovascular silhouette is within normal limits. IMPRESSION: Status post CABG procedure with interval placementof life support lines and tubes. at 1538 Reported and signed by: Oleg Flynn MD CC: Lester Murray MD Technologist: BRAYDON Davenport, RT(R) Transcrpt Date/Tm/Trnsp: 09/13/2021 (1538) [email or web address] Orig Print D/T: S: 09/13/2021 (6127) [facility] NAME: MARK MELENDREZ [id number] [address] PHYS: Prakash Littlejohn [place] [address] : 1955 AGE: 65 SEX: M LOC: Z.SI01 A PHONE #: [phone] EXAMDATE: 09/13/2021 STATUS: ADM IN FAX #: [phone] RADIOLOGY NO: PAGE 1 Signed ReportPROTHROMBIN TIME 2021-09-13 15:20:00 Test Item Value Reference Range Interpretation Comments PROTHROMBIN TIME 18.5 SECONDS 9.4-12.7 H PATIENT (test code = PTP) INTERNATIONAL NORMAL 1.6 0.86-1.14 H The INR is to be RATIO (test code = used only for INR) monitoring oral anticoagulantth erap y. INDICATION I NR VALUE ---- ---- ---- -------1. Prophylaxis, de ep venous thrombos is, including high risk surgery. 2.0 - 3.0 2. Prophylaxis, deep venous thrombosis, hip surgery, treatm ent for deep venous thrombosis or pulmonary prevention of systemic emboli sm in patients wit h valvular heart disease, atrial fibrillation, tissue heart va lve, or acute myocar dial infarction. 2.0 - 3.0 3. Cigarette Making Machine Hopper Feeder al prosthesis hear t valves, recurre nt systemic emboli sm. 3.0 - 4.5 PTT [id number] 15:20:00 Test Item Value Reference Range Interpretation Comments PTT ACTIVATED (test code = APTT) 28.5 SECONDS 26.2-35.4 CBC W/AUTO [id number] 15:08:00 Test Item Value Reference Range Interpretation Comments WHITE BLOOD CELL (test code = 27.5 K/MM3 3.8-9.8 H WBC) RED BLOOD CELL (test code = 3.74 M/MM3 3.95-5.67 L RBC) HEMOGLOBIN (test code = HGB) 11.4 G/DL 12.4-16.7 L HEMATOCRIT (test code = HCT) 34.0 % 35.9-49.5 L MEAN CELL VOLUME (test code = 91 fL 81.7-96.1 N MCV) MEAN CELL HGB (test code = MCH) 30.5 pg 27.6-33.2 N MEAN CELL HGB CONCETRATION 33.5 % 32.9-35.5 N (test code = MCHC) RED CELL DISTRIBUTION WIDTH 12.9 % 12.1-15.2 N (test code = RDW) PLATELET COUNT (test code = 169 K/MM3 129-368 N PLT) MEAN PLATELET VOLUME (test code 11.2 fl 7.4-10.4 H = MPV) NEUTROPHIL % (test code = NT%) 57.3 % 43-75 N IMMATURE GRANULOCYTE % (test 0.6 % 0.0-2.0 N code = IG%) LYMPHOCYTE % (test code = LY%) 31.9 % 14-44 N MONOCYTE % (test code = MO%) 9.3 % 4-13 N EOSINOPHIL % (test code = EO%) 0.6 % 0-6 N BASOPHIL % (test code = BA%) 0.3 % 0-2 N NUCLEATED RBC % (test code = 0.0 % 0-1.0 N NRBC%) NEUTROPHIL # (test code = NT#) 15.78 K/mm3 2.0-7.6 H IMMATURE GRANULOCYTE # (test 0.17 x10 3/uL 0-0.03 H code = IG#) LYMPHOCYTE # (test code = LY#) 8.78 K/mm3 1.0-3.8 H MONOCYTE # (test code = MO#) 2.55 K/mm3 0.1-0.8 H EOSINOPHIL # (test code = EO#) 0.17 K/mm3 0.0-0.2 N BASOPHIL # (test code = BA#) 0.08 K/mm3 0.0-0.2 N NUCLEATED RBC # (test code = 0.00 K/mm3 0.0-0.1 N NRBC#) POC ARTERIAL BLOOD [id number] 14:57:00 Test Item Value Reference Range Interpretation Comments POC ARTERIAL BLOOD GAS PH 7.329 7.35-7.45 L (test code = POCPHA) POC ARTERIAL BLOOD GAS PCO2 43.2 mmHg 35.0-45.0 N (test code = PCOOEY8A) POC ARTERIAL BLOOD GAS PO2 315.6 75.0-100.0 HH (test code = ZLOPX0F) POC HCO3 ARTERIAL (test 22.7 MMOL/L 20.0-26.0 N code = [id number]) POC BASE EXCESS (test code -3.2 MMOL/L -3.0-3.0 L = POCBEA) POC O2 SATURATION (test 99.9 % 92.0-98.5 H code = POCO2S) SODIUM (test code = NA/ABG) 143 MMOL/L 135-141 H POTASSIUM (test code = 3.8 MMOL/L 3.7-4.7 N K/ABG) CHLORIDE (test code = 108 MEQ/L CL/ABG) POC IONIZED CALCIUM (test 1.18 MMOL/L 1.13-1.32 N code = POCCA) POC GLUCOSE (test code = 179 MG/DL 60-99 H POCGLU) POC SAMPLE SOURCE (test Arterial Descript Specimen code = POCSAMPLE) LACTIC ACID POC (test code 2.93 mmol/L 0.7-2.0 HH = LACTP) POC ARTERIAL BLOOD [id number] 13:49:00 Test Item Value Reference Range Interpretation Comments POC ARTERIAL BLOOD GAS PH 7.307 7.35-7.45 L (test code = POCPHA) POC ARTERIAL BLOOD GAS PCO2 51.6 mmHg 35.0-45.0 HH (test code = JFRGUF4C) POC ARTERIAL BLOOD GAS PO2 244.6 75.0-100.0 HH (test code = YMJMI2V) POC HCO3 ARTERIAL (test 25.8 MMOL/L 20.0-26.0 N code = CWVGMF3S) POC BASE EXCESS (test code -0.8 MMOL/L -3.0-3.0 N = POCBEA) POC O2 SATURATION (test 99.8 % 92.0-98.5 H code = POCO2S) FIO2 (test code = FIO2A) 85 % 21-100 PaO2/FiO2 (test code = 287.76 mm/Hg [id number]) SODIUM (test code = NA/ABG) 141 MMOL/L 135-141 N POTASSIUM (test code = 4.6 MMOL/L 3.7-4.7 N K/ABG) CHLORIDE (test code = 105 MEQ/L CL/ABG) POC IONIZED CALCIUM (test 1.13 MMOL/L 1.13-1.32 N code = POCCA) POC GLUCOSE (test code = 165 MG/DL 60-99 H POCGLU) POC SAMPLE SOURCE (test Arterial Descript Specimen code = POCSAMPLE) LACTIC ACID POC (test code 1.24 mmol/L 0.7-2.0 N = LACTP) POC ARTERIAL BLOOD [id number] 13:23:00 Test Item Value Reference Range Interpretation Comments POC ARTERIAL BLOOD GAS PH 7.405 7.35-7.45 N (test code = POCPHA) POC ARTERIAL BLOOD GAS PCO2 41.7 mmHg 35.0-45.0 N (test code = [id number]) POC ARTERIAL BLOOD GAS PO2 278.9 75.0-100.0 HH (test code = NUNIB4S) POC HCO3 ARTERIAL (test 26.1 MMOL/L 20.0-26.0 H code = MEQTPF4X) POC BASE EXCESS (test code 1.3 MMOL/L -3.0-3.0 N = POCBEA) POC O2 SATURATION (test 99.9 % 92.0-98.5 H code = POCO2S) FIO2 (test code = FIO2A) 80 % 21-100 PaO2/FiO2 (test code = 348.62 mm/Hg [id number]) SODIUM (test code = NA/ABG) 142 MMOL/L 135-141 H POTASSIUM (test code = 5.9 MMOL/L 3.7-4.7 H K/ABG) CHLORIDE (test code = 109 MEQ/L CL/ABG) POC IONIZED CALCIUM (test 1.12 MMOL/L 1.13-1.32 L code = POCCA) POC GLUCOSE (test code = 145 MG/DL 60-99 H POCGLU) POC SAMPLE SOURCE (test Arterial Descript Specimen code = POCSAMPLE) LACTIC ACID POC (test code 0.72 mmol/L 0.7-2.0 N = LACTP) POC ARTERIAL BLOOD [id number] 12:48:00 Test Item Value Reference Range Interpretation Comments POC ARTERIAL BLOOD GAS PH 7.395 7.35-7.45 N (test code = POCPHA) POC ARTERIAL BLOOD GAS PCO2 42.4 mmHg 35.0-45.0 N (test code = JSGOWS0Q) POC ARTERIAL BLOOD GAS PO2 284.3 75.0-100.0 HH (test code = ZZPGF6O) POC HCO3 ARTERIAL (test 26.0 MMOL/L 20.0-26.0 N code = JJDHQW5H) POC BASE EXCESS (test code 0.9 MMOL/L -3.0-3.0 N = POCBEA) POC O2 SATURATION (test 99.9 % 92.0-98.5 H code = POCO2S) FIO2 (test code = FIO2A) 55 % 21-100 N PaO2/FiO2 (test code = 516.90 mm/Hg [id number]) SODIUM (test code = NA/ABG) 140 MMOL/L 135-141 N POTASSIUM (test code = 5.5 MMOL/L 3.7-4.7 H K/ABG) CHLORIDE (test code = 106 MEQ/L CL/ABG) POC IONIZED CALCIUM (test 1.06 MMOL/L 1.13-1.32 L code = POCCA) POC GLUCOSE (test code = 150 MG/DL 60-99 H POCGLU) POC SAMPLE SOURCE (test Arterial Descript Specimen code = POCSAMPLE) LACTIC ACID POC (test code 0.95 mmol/L 0.7-2.0 N = LACTP) POC ARTERIAL BLOOD [id number] 12:19:00 Test Item Value Reference Range Interpretation Comments POC ARTERIAL BLOOD GAS PH 7.407 7.35-7.45 N (test code = POCPHA) POC ARTERIAL BLOOD GAS PCO2 44.3 mmHg 35.0-45.0 N (test code = PKIMKU2Z) POC ARTERIAL BLOOD GAS PO2 434.7 75.0-100.0 HH (test code = AFCTS8K) POC HCO3 ARTERIAL (test 27.8 MMOL/L 20.0-26.0 H code = YHGOZL5P) POC BASE EXCESS (test code 2.8 MMOL/L -3.0-3.0 N = POCBEA) POC O2 SATURATION (test 100.0 % 92.0-98.5 H code = POCO2S) SODIUM (test code = NA/ABG) 141 MMOL/L 135-141 N POTASSIUM (test code = 4.3 MMOL/L 3.7-4.7 N K/ABG) CHLORIDE (test code = 100 MEQ/L CL/ABG) POC IONIZED CALCIUM (test 0.86 MMOL/L 1.13-1.32 L code = POCCA) POC GLUCOSE (test code = 128 MG/DL 60-99 H POCGLU) POC SAMPLE SOURCE (test Arterial Descript Specimen code = POCSAMPLE) LACTIC ACID POC (test code 1.20 mmol/L 0.7-2.0 N = LACTP) POC ARTERIAL BLOOD [id number] 11:28:00 Test Item Value Reference Range Interpretation Comments POC ARTERIAL BLOOD GAS PH 7.411 7.35-7.45 N (test code = POCPHA) POC ARTERIAL BLOOD GAS PCO2 40.2 mmHg 35.0-45.0 N (test code = [id number]) POC ARTERIAL BLOOD GAS PO2 526.3 75.0-100.0 HH (test code = NMVNT1Z) POC HCO3 ARTERIAL (test 25.5 MMOL/L 20.0-26.0 N code = EQRILC0B) POC BASE EXCESS (test code 0.8 MMOL/L -3.0-3.0 N = POCBEA) POC O2 SATURATION (test 100.0 % 92.0-98.5 H code = POCO2S) SODIUM (test code = NA/ABG) 142 MMOL/L 135-141 H POTASSIUM (test code = 4.4 MMOL/L 3.7-4.7 N K/ABG) CHLORIDE (test code = 106 MEQ/L CL/ABG) POC IONIZED CALCIUM (test 1.15 MMOL/L 1.13-1.32 N code = POCCA) POC GLUCOSE (test code = 150 MG/DL 60-99 H POCGLU) POC SAMPLE SOURCE (test Arterial Descript Specimen code = POCSAMPLE) LACTIC ACID POC (test code 1.46 mmol/L 0.7-2.0 N = LACTP) BASIC METABOLIC [id number] 11:01:00 Test Item Value Reference Range Interpretation Comments SODIUM (test code = 140 MMOL/L 137-145 N NA) POTASSIUM (test code = 4.0 MMOL/L 3.5-5.1 N K) CHLORIDE (test code = 107 MMOL/L 98-107 N CL) CARBON DIOXIDE (test 24 MMOL/L 22-30 N code = CO2) ANION GAP (test code = 13 MMOL/L 14-24 L GAP) GLUCOSE (test code = 154 MG/DL 74-106 H GLU) BLOOD UREA NITROGEN 27 MG/DL 9-20 H (test code = BUN) GLOMERULAR FILTRATION > 60 Report ing units: RATE (test code = GFR) ml/mi n/1.73 m2 (Modified MDRD Formula)Referen ce Range: > or = 6 0 ml/min/1.73 m2 CREATININE (test code 0.60 MG/DL 0.66-1.25 L = CREAT) CALCIUM (test code = 8.5 MG/DL 8.4-10.2 N CA) PLEASE CALL RESULTS TO PHONE #: [id number] [facility] W/AUTO [id number] 10:22:00 Test Item Value Reference Range Interpretation Comments WHITE BLOOD CELL (test code = 7.8 K/MM3 3.8-9.8 N WBC) RED BLOOD CELL (test code = 4.09 M/MM3 3.95-5.67 N RBC) HEMOGLOBIN (test code = HGB) 12.2 G/DL 12.4-16.7 L HEMATOCRIT (test code = HCT) 36.7 % 35.9-49.5 N MEAN CELL VOLUME (test code = 90 fL 81.7-96.1 N MCV) MEAN CELL HGB (test code = MCH) 29.8 pg 27.6-33.2 N MEAN CELL HGB CONCETRATION 33.2 % 32.9-35.5 N (test code = MCHC) RED CELL DISTRIBUTION WIDTH 12.8 % 12.1-15.2 N (test code = RDW) PLATELET COUNT (test code = 207 K/MM3 129-368 N PLT) MEAN PLATELET VOLUME (test code 10.9 fl 7.4-10.4 H = MPV) NEUTROPHIL % (test code = NT%) 43.6 % 43-75 N IMMATURE GRANULOCYTE % (test 0.3 % 0.0-2.0 N code = IG%) LYMPHOCYTE % (test code = LY%) 44.6 % 14-44 H MONOCYTE % (test code = MO%) 9.2 % 4-13 N EOSINOPHIL % (test code = EO%) 1.8 % 0-6 N BASOPHIL % (test code = BA%) 0.5 % 0-2 N NUCLEATED RBC % (test code = 0.0 % 0-1.0 N NRBC%) NEUTROPHIL # (test code = NT#) 3.42 K/mm3 2.0-7.6 N IMMATURE GRANULOCYTE # (test 0.02 x10 3/uL 0-0.03 N code = IG#) LYMPHOCYTE # (test code = LY#) 3.50 K/mm3 1.0-3.8 N MONOCYTE # (test code = MO#) 0.72 K/mm3 0.1-0.8 N EOSINOPHIL # (test code = EO#) 0.14 K/mm3 0.0-0.2 N BASOPHIL # (test code = BA#) 0.04 K/mm3 0.0-0.2 N NUCLEATED RBC # (test code = 0.00 K/mm3 0.0-0.1 N NRBC#) PLEASE CALL RESULTS TO PHONE #: [id number] [facility] ARTERIAL BLOOD [id number] 09:59:00 Test Item Value Reference Range Interpretation Comments POC ARTERIAL BLOOD GAS PH 7.423 7.35-7.45 N (test code = POCPHA) POC ARTERIAL BLOOD GAS PCO2 37.3 mmHg 35.0-45.0 N (test code = [id number]) POC ARTERIAL BLOOD GAS PO2 374.9 75.0-100.0 HH (test code = RCOYA4S) POC HCO3 ARTERIAL (test 24.4 MMOL/L 20.0-26.0 N code = MEUMVI4E) POC BASE EXCESS (test code 0.1 MMOL/L -3.0-3.0 N = POCBEA) POC O2 SATURATION (test 100.0 % 92.0-98.5 H code = POCO2S) SODIUM (test code = NA/ABG) 142 MMOL/L 135-141 H POTASSIUM (test code = 4.2 MMOL/L 3.7-4.7 N K/ABG) CHLORIDE (test code = 106 MEQ/L CL/ABG) POC IONIZED CALCIUM (test 1.17 MMOL/L 1.13-1.32 N code = POCCA) POC GLUCOSE (test code = 148 MG/DL 60-99 H POCGLU) POC SAMPLE SOURCE (test Arterial Descript Specimen code = POCSAMPLE) LACTIC ACID POC (test code 1.05 mmol/L 0.7-2.0 N = LACTP) POC ARTERIAL BLOOD [id number] 08:09:00 Test Item Value Reference Range Interpretation Comments POC ARTERIAL BLOOD GAS PH 7.392 7.35-7.45 N (test code = POCPHA) POC ARTERIAL BLOOD GAS PCO2 43.8 mmHg 35.0-45.0 N (test code = [id number]) POC ARTERIAL BLOOD GAS PO2 93.1 75.0-100.0 N (test code = [id number]) POC HCO3 ARTERIAL (test 26.6 MMOL/L 20.0-26.0 H code = EHVCAD2H) POC BASE EXCESS (test code 1.3 MMOL/L -3.0-3.0 N = POCBEA) POC O2 SATURATION (test 97.1 % 92.0-98.5 N code = POCO2S) SODIUM (test code = NA/ABG) 142 MMOL/L 135-141 H POTASSIUM (test code = 4.3 MMOL/L 3.7-4.7 N K/ABG) CHLORIDE (test code = 108 MEQ/L CL/ABG) POC IONIZED CALCIUM (test 1.27 MMOL/L 1.13-1.32 N code = POCCA) POC GLUCOSE (test code = 192 MG/DL 60-99 H POCGLU) POC SAMPLE SOURCE (test Arterial Descript Specimen code = POCSAMPLE) LACTIC ACID POC (test code 0.63 mmol/L 0.7-2.0 L = LACTP) PROTHROMBIN [id number] 14:18:00 Test Item Value Reference Range Interpretation Comments PROTHROMBIN TIME 13.3 SECONDS 9.4-12.7 H PATIENT (test code = PTP) INTERNATIONAL NORMAL 1.2 0.86-1.14 H The INR is to be RATIO (test code = used only for INR) monitoring oral anticoagulantth erap y. INDICATION I NR VALUE ---- ---- ---- -------1. Prophylaxis, de ep venous thrombos is, including high risk surgery. 2.0 - 3.0 2. Prophylaxis, deep venous thrombosis, hip surgery, treatm ent for deep venous thrombosis or pulmonary prevention of systemic emboli sm in patients wit h valvular heart disease, atrial fibrillation, tissue heart va lve, or acute myocar dial infarction. 2.0 - 3.0 3. Cigarette [employer] Machine [employer]pper Feeder al prosthesis hear t valves, recurre nt systemic emboli sm. 3.0 - 4.5 PTT [id number] 14:18:00 Test Item Value Reference Range Interpretation Comments PTT ACTIVATED (test code = APTT) 42.5 SECONDS 26.2-35.4 H HIV 12 AB [id number] 13:27:00 Test Item Value Reference Range Interpretation Comments HIV 1 2 COMBO AG/AB SCREEN AB/AG NON REACTIVE NONREACTIVE (test code = [id number]) GLYCOSYLATED HEMOGLOBIN [id number] 12:41:00 Test Item Value Reference Range Interpretation Comments GLYCOSYLATED 11.6 % 4.8-5.9 H Any condition t hat HEMOGLOBIN (HA1C) shortens e rythocyte (test code = survival or dec reasesmean GLYHGB) erythrocyte age (e.g., recovery from a cute blood loss,hemolytic anemia) will falsely lo wer HGBA1c resultsregardle ss of the method used. HG BA1c results from [facility] HbSS, HbCC, and HbSc must be interpreted with cautiongiven th e pathological pr ocesses, including anemia,increase d red cell turnover, trans fusion requirements, thatadversely i mpact HGBA1c as a mar ker of long-term glycemiccontrol . Alternative for ms of testing such as fructosaminesho uld be considered for these patients. MEAN BLOOD GLUCOSE 286 MG/DL 70-110 H (test code = MBG) COMPREHENSIVE METABOLIC [id number] 12:41:00 Test Item Value Reference Range Interpretation Comments SODIUM (test code 138 MMOL/L 137-145 N = NA) POTASSIUM (test 4.4 MMOL/L 3.5-5.1 N code = K) CHLORIDE (test 101 MMOL/L 98-107 N code = CL) CARBON DIOXIDE 27 MMOL/L 22-30 N (test code = CO2) ANION GAP (test 14 MMOL/L 14-24 N code = GAP) GLUCOSE (test 162 MG/DL 74-106 H code = GLU) BLOOD UREA 23 MG/DL 9-20 H NITROGEN (test code = BUN) GLOMERULAR > 60 Reporting units : FILTRATION RATE ml/min/1.73 m2 (Modified (test code = GFR) MDRD Formu la)Reference Range: > or = 6 0 ml/min/1.73 m2 CREATININE (test 0.80 MG/DL 0.66-1.25 N code = CREAT) TOTAL PROTEIN 7.8 G/DL 6.2-7.6 H [facility] Clinical Diagnostic (test code = has made us syeda re of PROT) newinformation regarding the potential i nterference ofEltrombopag ( a bone marrow stimulan t used to treatthrombocyt onmenia and aplastic anemia ) with specific assays on the Vitros 5600 of which Total Protein is one of thoseassays per formed in our lab.Denissee zacarias testing perform ed at [facility] determined that Eltrombopag does interfere with Vitros Total Protein asfollowsEltrom bopag Interference fo r Vitros Product Total Protein:======= Eltrombopag Max Observed Av g. BiasConcentrati on Concentration Concentration== ==== 2.5 mg/dl 6.0 g/dl +0.41 +0.34 3.5 mg/dl 6.0 g /dl +0.50 +0.45 5 mg/dl 6 .0 g/dl +0.73 +0.65 2.5 mg/dl 8.0 g/dl +0.44 +0.4 1 3.5 mg/dl 8.0 g/dl +0.55 +0.52 5 mg/dl 8.0 g/dl +0.86 +0.77 ALBUMIN (test 4.4 G/DL 3.5-5.0 N code = ALB) CALCIUM (test 9.6 MG/DL 8.4-10.2 N code = CA) BILIRUBIN TOTAL 0.8 MG/DL 0.2-1.3 N Eltrombopag Interference (test code = for Vitros Prod uct TBil, BILT) BuBc: Assa y Eltrombopag Letty lyte/ Max Observed Avg. B ias Concentration C oncentration Concentration== ====TBil 7mg/dl TBil/ 1. 2mg/dl +0.23mg.dl +0.2 0mg/dlBuBc 3.5mg/dl Bu/0.8 mg/dl +0.25mg/dl +0.2 4mg/dlBuBc 7 mg/dl Bu/14.2mg /dl +0.38mg/dl +0.2 5mg/dlBuBc 5mg/dl Bc/0mg/d l +0.25mg/dl +0.15mg/dlBuBc 3.5mg/dl Bc/2.8mg/dl +0. 25mg/dl +0.23mg/dl SGOT/AST (test 22 UNITS/L 17-59 N code = AST) SGPT/ALT (test 17 UNITS/L 0-49 N code = ALT) ALKALINE 67 UNITS/L 38-126 N PHOSPHATASE (test code = ALKP) - XR CHEST 2 [id number] 12:30:[address] [facility] 1955 Sex: M Patient Name: MARK MELENDREZ Unit No: [id number] EXAMS: CPT CODE: [id number] XR CHEST 2 V 53474 C3 EXAM: - XR CHEST 2 V DATE: 09/10/2021 11:34 AM HISTORY: PREOP COMPARISON: None FINDINGS: No airspace consolidation or pleural effusions. No pneumothorax. The cardiovascular silhouette is within normal limits. No bony lesions. Calcification along the anterior aspect of the thoracic spine compatible with DISH. IMPRESSION: No acute cardiopulmonary abnormality. at 1230 Reported and signed by: Oleg Flynn MD CC: Lester Murray MD Technologist: Candace Wilburn (RT)(R) Transcrpt Date/Tm/Trnsp: 09/10/2021 (1230) t.SDR.MOP Orig Print D/T: S: 09/10 (1233) [facility] NAME: MARK MELENDREZ [id number] Ang PHYS: [place] [address] : 1955 AGE: 65 SEX: M LOC: ZU PHONE #: [phone] EXAMDATE: 09/10/2021 STATUS: PRE IN FAX #: [phone] RADIOLOGY NO: PAGE 1 Signed ReportPLT RESPONSE TO PLAVIX 2021-09-10 12:21:00 Test Item Value Reference Range Interpretation Comments PLT RESPONSE TO 193 PRU 194-418 L P2Y12 Result s PLAVIX (test code = Interpre tation: Test PLAVRES) results are in P2Y12 Reaction Units (PRU). Pre-Drug Refere nce Range is 194-418. Pre -drug platelet functi on estimates the t otal possible platel et aggregation ind ependent of P2Y12 inhibi tor drugs. Values <194 cou ld be due to low HCT, low platelet count, or prese nce of IIb/IIIa inhibi tors. Post-Drug Resul ts: Lower PRU levels are associated with expected antiplatelet ef fect. Values may be b elow the stated referenc e range. Studies show th at patients with < 230 PRU had fewer adver se events. IS PATIENT ON ANTICOAGULANTS: YLIST ANTICOAGULANTS: AspirinCBC W/AUTO DIFF 2021-09-10 12:14:00 Test Item Value Reference Range Interpretation Comments WHITE BLOOD CELL (test code = 7.7 K/MM3 3.8-9.8 N WBC) RED BLOOD CELL (test code = 4.73 M/MM3 3.95-5.67 N RBC) HEMOGLOBIN (test code = HGB) 14.0 G/DL 12.4-16.7 N HEMATOCRIT (test code = HCT) 42.4 % 35.9-49.5 N MEAN CELL VOLUME (test code = 90 fL 81.7-96.1 N MCV) MEAN CELL HGB (test code = MCH) 29.6 pg 27.6-33.2 N MEAN CELL HGB CONCETRATION 33.0 % 32.9-35.5 N (test code = MCHC) RED CELL DISTRIBUTION WIDTH 12.4 % 12.1-15.2 N (test code = RDW) PLATELET COUNT (test code = 210 K/MM3 129-368 N PLT) MEAN PLATELET VOLUME (test code 11.0 fl 7.4-10.4 H = MPV) NEUTROPHIL % (test code = NT%) 46.1 % 43-75 N IMMATURE GRANULOCYTE % (test 0.4 % 0.0-2.0 N code = IG%) LYMPHOCYTE % (test code = LY%) 43.8 % 14-44 N MONOCYTE % (test code = MO%) 7.8 % 4-13 N EOSINOPHIL % (test code = EO%) 1.4 % 0-6 N BASOPHIL % (test code = BA%) 0.5 % 0-2 N NUCLEATED RBC % (test code = 0.0 % 0-1.0 N NRBC%) NEUTROPHIL # (test code = NT#) 3.54 K/mm3 2.0-7.6 N IMMATURE GRANULOCYTE # (test 0.03 x10 3/uL 0-0.03 N code = IG#) LYMPHOCYTE # (test code = LY#) 3.36 K/mm3 1.0-3.8 N MONOCYTE # (test code = MO#) 0.60 K/mm3 0.1-0.8 N EOSINOPHIL # (test code = EO#) 0.11 K/mm3 0.0-0.2 N BASOPHIL # (test code = BA#) 0.04 K/mm3 0.0-0.2 N NUCLEATED RBC # (test code = 0.00 K/mm3 0.0-0.1 N NRBC#) COVID 19 Asymptomatic IH [id number] 12:07:00 Test Item Value Reference Range Interpretation Comments COVID 19 NEGATIVE Negative "Negative resul ts from Asymptomatic IH AG patients with symptom (test code = onset beyondfiv e days, COVNONPUIAG) should be treat ed as presumptive, andconfirmation with a molecular assay , if necessary forpa tient management may be performed. Nega tive results do notr ule out COVID-19 and sh ould not be used as the sole basisfor treatm ent or patient managem ent decisions, includinginfect ion control decisio ns. Negative result s should beconsidered in the context of a pa tients recent exposure s,history, and the presenc e of clinical signs and symptomsconsist ent with COVID-19.This t est detects both vi able andnon-viable S ARS-CoV and SARS CoV-2. Test performance dep endson the amount of virus (antigen) in the sample." POCT glycosylated hemoglobin (Hb A1C) docked [id number] 13:59:00 Test Item Value Reference Range Interpretation Comments Hemoglobin A1C (test code = 4548-4) 11.7 % 4.0-6.0 A Lab Interpretation (test code = Abnormal 85681-8) [facility] glucose manually [id number] 13:58:00 Test Item Value Reference Range Interpretation Comments Glucose Blood, POC (test code = 232 mg/dL 70-180 A [id number]) Lab Interpretation (test code = Abnormal 79650-4) [facility]2021-09-04 06:09:00 Test Item Value Reference Range Interpretation Comments TRIGLYCERIDES (test 133 MG/DL 150-199 L TRIGLYCE RIDES code = TRIG) REFERENCE RANGE:Normal: < 150 mg/dLBorderline High: 150-199 mg/dLHi gh: 200-499 mg/dLVe ry High: >=500 mg/ dL CHOLESTEROL (test code 174 MG/DL <200 = CHOL) HDL CHOLESTEROL (test 44 MG/DL 40-59 N code = HDL) LIPOPROTEIN LDL (test 93 MG/DL 0-99 N OPTIM AL.........<100 code = LDL) mg/dLNEAR OPTIMAL/ABOVE OPTIMAL........ .100-12 9 mg/dL BORDERL INE HIGH.........13 0-159 mg/dL HIGH.........16 0-189 mg/dL VERY HIGH.........>/ = 190 mg/dL [id number] 06:09:00 Test Item Value Reference Range Interpretation Comments MAGNESIUM (test code = MAG) 1.7 MG/DL 1.6-2.3 N BASIC METABOLIC [id number] 06:09:00 Test Item Value Reference Range Interpretation Comments SODIUM (test code = 137 MMOL/L 137-145 N NA) POTASSIUM (test code = 4.2 MMOL/L 3.5-5.1 N K) CHLORIDE (test code = 98 MMOL/L 98-107 N CL) CARBON DIOXIDE (test 27 MMOL/L 22-30 N code = CO2) GLUCOSE (test code = 280 MG/DL 74-106 H GLU) BLOOD UREA NITROGEN 33 MG/DL 9-20 H (test code = BUN) GLOMERULAR FILTRATION > 60 Report ing units: RATE (test code = GFR) ml/mi n/1.73 m2 (Modified MDRD Formula)Referen ce Range: > or = 6 0 ml/min/1.73 m2 CREATININE (test code 0.80 MG/DL 0.66-1.25 N = CREAT) CALCIUM (test code = 9.7 MG/DL 8.4-10.2 N CA) PROTHROMBIN [id number] 05:53:00 Test Item Value Reference Range Interpretation Comments PROTHROMBIN TIME 12.2 SECONDS 9.4-12.7 N PATIENT (test code = PTP) INTERNATIONAL NORMAL 1.1 0.86-1.14 N The INR is to be RATIO (test code = used only for INR) monitoring oral anticoagulantth erap y. INDICATION I NR VALUE ---- ---- ---- -------1. Prophylaxis, de ep venous thrombos is, including high risk surgery. 2.0 - 3.0 2. Prophylaxis, deep venous thrombosis, hip surgery, treatm ent for deep venous thrombosis or pulmonary prevention of systemic emboli sm in patients wit h valvular heart disease, atrial fibrillation, tissue heart va lve, or acute myocar dial infarction. 2. 0 - 3.0 3. Cigarette Making Machine Hopper Feeder al prosthesis hear t valves, recurre nt systemic emboli sm. 3.0 - 4.5 PTT [id number] 05:53:00 Test Item Value Reference Range Interpretation Comments PTT ACTIVATED (test code = APTT) 32.8 SECONDS 26.2-35.4 N CBC W/AUTO [id number] 05:41:00 Test Item Value Reference Range Interpretation Comments WHITE BLOOD CELL (test code = 10.9 K/MM3 3.8-9.8 H WBC) RED BLOOD CELL (test code = 5.15 M/MM3 3.95-5.67 N RBC) HEMOGLOBIN (test code = HGB) 15.3 G/DL 12.4-16.7 N HEMATOCRIT (test code = HCT) 46.4 % 35.9-49.5 N MEAN CELL VOLUME (test code = 90 fL 81.7-96.1 N MCV) MEAN CELL HGB (test code = MCH) 29.7 pg 27.6-33.2 N MEAN CELL HGB CONCETRATION 33.0 % 32.9-35.5 N (test code = MCHC) RED CELL DISTRIBUTION WIDTH 12.4 % 12.1-15.2 N (test code = RDW) PLATELET COUNT (test code = 214 K/MM3 129-368 N PLT) MEAN PLATELET VOLUME (test code 11.5 fl 7.4-10.4 H = MPV) NEUTROPHIL % (test code = NT%) 46.0 % 43-75 N IMMATURE GRANULOCYTE % (test 0.4 % 0.0-2.0 N code = IG%) LYMPHOCYTE % (test code = LY%) 42.4 % 14-44 N MONOCYTE % (test code = MO%) 8.9 % 4-13 N EOSINOPHIL % (test code = EO%) 1.7 % 0-6 N BASOPHIL % (test code = BA%) 0.6 % 0-2 N NUCLEATED RBC % (test code = 0.0 % 0-1.0 N NRBC%) NEUTROPHIL # (test code = NT#) 4.99 K/mm3 2.0-7.6 N IMMATURE GRANULOCYTE # (test 0.04 x10 3/uL 0-0.03 H code = IG#) LYMPHOCYTE # (test code = LY#) 4.61 K/mm3 1.0-3.8 H MONOCYTE # (test code = MO#) 0.97 K/mm3 0.1-0.8 H EOSINOPHIL # (test code = EO#) 0.19 K/mm3 0.0-0.2 N BASOPHIL # (test code = BA#) 0.06 K/mm3 0.0-0.2 N NUCLEATED RBC # (test code = 0.00 K/mm3 0.0-0.1 N NRBC#) COVID 19 Asymptomatic IH [id number] 05:14:00 Test Item Value Reference Range Interpretation Comments COVID 19 NEGATIVE Negative "Negative resul ts from Asymptomatic IH AG patients with symptom (test code = onset beyondfiv e days, COVNONPUIAG) should be treat ed as presumptive, andconfirmation with a molecular assay , if necessary forpa tient management may be performed. Nega tive results do notr ule out COVID-19 and sh ould not be used as the sole basisfor treatm ent or patient managem ent decisions, includinginfect ion control decisio ns. Negative result s should beconsidered in the context of a pa tients recent exposure s,history, and the presenc e of clinical signs and symptomsconsist ent with COVID-19.This t est detects both vi able andnon-viable S ARS-CoV and SARS CoV-2. Test performance dep endson the amount of virus (antigen) in the sample." POCT glucose manually [id number] 14:01:00 Test Item Value Reference Range Interpretation Comments Glucose Blood, POC (test code = 278 mg/dL 70-180 A [id number]) Lab Interpretation (test code = Abnormal 71356-7) [facility]
[2022-06-16 15:45] LABS: Absolute Lymphocytes (CBC) 1.4 K/uL (0.7-4.9); Hematocrit 38.3 % (39.6-49.0); Lymphocytes % 18.4 % (15.3-44.8); MCV 88.6 fL (80-100); MPV 8.7 fL (7.6-11.3); RBC Red Blood Cell Count 4.32 M/uL (4.33-5.43)
[2022-06-16 16:02] LABS: Albumin 3.1 g/dL (3.4-5.0); Bilirubin Total 0.6 mg/dL (0.2-1.0); Potassium 4.4 mmol/L (3.5-5.1); Protein, Total 7.8 g/dL (6.4-8.2)
--- NOTE | 2022-06-16 17:10 | RAD REPORT ---
EXAM DESCRIPTION: RAD - Foot Left 3 View - 06/16/2022 5:00 pm CLINICAL HISTORY: great toe infection Pain and swelling COMPARISON: Foot Left 3 View dated 08/28/2017 FINDINGS: There is significant soft tissue swelling affecting the great toe. Demineralization of the distal aspect of the distal phalanx of the great toe likely represents osteomyelitis. Large plantar calcaneal spur. IMPRESSION: Significant soft tissue swelling of the great toe. Demineralization of the distal phalan x of the great toe likely indicates osteomyelitis.
[2022-06-16] MEDS ORDERED: CEFTRIAXONE 2000 MG/VIAL ONE (17:32)
[2022-06-16] MEDS ORDERED: VANCOMYCIN 1 GM/VIAL ONE ×2 (17:32→22:11)
[2022-06-16] MEDS ORDERED: NA CHLORIDE 0.9% 0 ML ONE (17:32)
--- NOTE | 2022-06-16 17:41 | EDPHYS ---
Physician Documentation [facility] Name: Alex Rivas Age: 66 yrs Sex: Male : 1955 Arrival Date: 06/16/2022 Time: 14:29 Bed 19 Private MD: Tam Cheung T ED Physician Eduin Canales HPI: 06/16 16:13 This 66 yrs old Male presents to ER via Ambulatory with complaints of Foot kdr Swelling. 16:13 On Monday the patient noted that he had swelling to the left great toe. He stated when kdr he was cleaning his foot he noticed some swelling and redness. Since that has progressively gotten somewhat worse. Patient has diabetic neuropathy and so has minimal feeling in his lower extremities. Patient denies any pain. He also denies fever. Patient is otherwise stable and if not requiring emergent intervention. Onset: The symptoms/episode began/occurred gradually, Monday. Severity of symptoms: At their worst the symptoms were mild in the emergency department the symptoms are unchanged. The patient has not experienced similar symptoms in the past. The patient has been recently seen by a physician: Dr. Mcduffie. Historical: - Allergies: 14:33 No Known Allergies; iw - Home Meds: 14:33 gabapentin 300 mg Oral cap 1 cap daily [Active]; iw 14:33 atorvastatin 80 mg oral tab once daily [Active]; metformin 1,000 mg oral tab 2 times iw per day [Active]; ferrous sulfate 325 mg (65 mg iron) Oral tab 1 tab 2 times per day [Active]; docusate sodium 100 mg Oral tab 1 tab 2 times per day [Active]; metoprolol tartrate 25 mg Oral tab 1 tab 2 times per day [Active]; famotidine 20 mg Oral tab 1 tab every 12 hours [Active]; clopidogrel 75 mg oral tab 1 tab once daily [Active]; losartan 50 mg oral tab once daily [Active]; - PMHx: 14:33 Hypertension; Diabetes - NIDDM; iw - PSHx: 14:33 CABG; iw - Immunization history:: Client reports receiving the 2nd dose of the Covid vaccine. - Social history:: Smoking status: Patient denies any tobacco usage or history of. ROS: 16:13 Constitutional: Negative for fever, chills, and weight loss, Eyes: Negative for injury, kdr pain, redness, and discharge. 16:13 MS/extremity: Positive for decreased range of motion, erythema, paresthesias, swelling, warmth, of the left first toe, left second toe, Left second toenail and Left first toenail. Exam: 16:13 Constitutional: This is a well developed, well nourished patient who is awake, alert, kdr and in no acute distress. Head/Face: Normocephalic, atraumatic. Neck: Trachea midline, no thyromegaly or masses palpated, and no cervical lymphadenopathy. Supple, full range of motion without nuchal rigidity, or vertebral point tenderness. No Meningismus. Chest/axilla: Normal chest wall appearance and motion. Nontender with no deformity. No lesions are appreciated. 16:13 Musculoskeletal/extremity: Extremities: grossly normal except: noted in the plantar aspect of left first toe, left first toe and Left first toenail: erythema, swelling. Vital Signs: 14:32 BP 138 / 78; Pulse 83; Resp 16; Temp 97.9; Pulse Ox 98% on R/A; Weight 97.52 kg; Height iw 5 ft. 11 in. (180.34 cm); Pain 0/10; 16:13 BP 147 / 78; Pulse 81; Resp 16; Pulse Ox 98% ; ko1 16:41 BP 147 / 70; Pulse 84; Resp 18; Pulse Ox 98% on R/A; ko1 17:22 BP 144 / 70; Pulse 84; Pulse Ox 97% ; ko1 21:00 BP 143 / 75; Pulse 85; Resp 17 S; Pulse Ox 96% on R/A; ha1 14:32 Body Mass Index 29.99 (97.52 kg, 180.34 cm) iw MDM: 17:41 Patient medically screened. kdr 17:41 Data reviewed: vital signs, nurses notes. kdr 06/16 14:48 Order name: Blood Culture Adult (2) kdr 06/16 14:48 Order name: CBC with Diff; Complete Time: 16:10 kdr 06/16 14:48 Order name: CMP; Complete Time: 16:10 kdr 06/16 14:48 Order name: Lactate w/ 2H reflex if indic.; Complete Time: 17:07 kdr 06/16 15:48 Order name: Glucose, Ancillary Testing; Complete Time: 16:10 EDMS 06/16 15:49 Order name: Glucose, Ancillary Testing [facility] 06/16 14:48 Order name: Accucheck; Complete Time: 16:06 [facility] 06/16 14:48 Order name: IV Saline Lock - Large Bore; Complete Time: 16:06 [facility] 06/16 16:11 Order name: Foot Left 3 View XRAY; Complete Time: 17:22 [facility] 06/16 18:18 Order name: SARS RAPID kj1 06/16 20:09 Order name: Glucose, Ancillary Testing [facility] 06/16 14:48 Order name: Labs collected and sent; Complete Time: 16:06 [facility] 06/16 14:48 Order name: O2 Per Protocol; Complete Time: 16:06 [facility] 06/16 14:48 Order name: O2 Sat Monitoring; Complete Time: 16: [facility] 06/16 14:48 Order name: Vital Signs; Complete Time: 16:06 kdr Administered Medications: 17:41 Drug: Rocephin - (cefTRIAXone) 2 grams Route: IVPB; Infused Over: 30 mins; Site: right ko1 forearm; 17:50 Drug: Insulin Regular Human 8 units {Co-Signature: eh3 (Jane Treadwell RN).} Route: IVP; ko1 Site: right forearm; 17:54 Drug: vancoMYCIN 1 grams Route: IVPB; Infused Over: 2 hrs; Site: right forearm; ko1 Disposition Summary: 06/16/22 17:41 Hospitalization Ordered Hospitalization Status: Inpatient Admission kdr Provider: Edward Zurita kdr Location: Telemetry/MedSurg (Inpatient) kdr Condition: Fair kdr Problem: an ongoing problem kdr Symptoms: have improved kdr Bed/Room Type: Standard [facility] Room Assignment: 213(06/16/22 20:56) cg Diagnosis - Osteomyelitis, unspecified - Left great toe kdr - Type 2 diabetes mellitus with foot ulcer kdr Forms: - Medication Reconciliation Form kdr - SBAR form kdr Signatures: Dispatcher [employer] [facility] Eduin Canales MD MD kdr Rosina Monteiro RN RN iw Caren Mcmahan RN RN cg Olivia Zaragoza RN RN ko1 Jane Treadwell RN eh3 Corrections: (The following items were deleted from the chart) 14:35 14:33 Home Meds: atorvastatin 40 mg Oral tab 1 tab once daily; [facility] 14:35 14:33 Home Meds: Cipro 500 mg Oral tab 1 tab every 12 hours; [facility] 20:56 17:41 kdr
--- NOTE | 2022-06-16 17:41 | ER ---
Nurse's Notes [facility] Name: Alex Rivas Age: 66 yrs Sex: Male : 1955 Arrival Date: 06/16/2022 Time: 14:29 Bed 19 Private MD: Tam Cheung T Diagnosis: Osteomyelitis, unspecified-Left great toe;Type 2 diabetes mellitus with foot ulcer Presentation: 06/16 14:32 Chief complaint: Patient states: I have an infection on my left great toe, was sent by iw Dr. Mcduffie. Coronavirus screen: At this time, the client does not indicate any symptoms associated with coronavirus-19. Ebola Screen: Patient negative for fever greater than or equal to 101.5 degrees Fahrenheit, and additional compatible Ebola Virus Disease symptoms Patient denies exposure to infectious person. Patient denies travel to an Ebola-affected area in the 21 days before illness onset. No symptoms or risks identified at this time. Initial Sepsis Screen: Does the patient meet any 2 criteria? No. Patient's initial sepsis screen is negative. Does the patient have a suspected source of infection? No. Patient's initial sepsis screen is negative. Risk Assessment: Do you want to hurt yourself or someone else? Patient reports no desire to harm self or others. Onset of symptoms was June 13, 2022. 14:32 Method Of Arrival: Ambulatory iw 14:32 Acuity: NORTH 3 iw Triage Assessment: 15:58 General: Appears in no apparent distress. uncomfortable, Behavior is calm, cooperative, ko1 appropriate for age. Pain: Complains of pain in left first toe. Historical: - Allergies: 14:33 No Known Allergies; iw - Home Meds: 14:33 gabapentin 300 mg Oral cap 1 cap daily [Active]; iw 14:33 atorvastatin 80 mg oral tab once daily [Active]; metformin 1,000 mg oral tab 2 times iw per day [Active]; ferrous sulfate 325 mg (65 mg iron) Oral tab 1 tab 2 times per day [Active]; docusate sodium 100 mg Oral tab 1 tab 2 times per day [Active]; metoprolol tartrate 25 mg Oral tab 1 tab 2 times per day [Active]; famotidine 20 mg Oral tab 1 tab every 12 hours [Active]; clopidogrel 75 mg oral tab 1 tab once daily [Active]; losartan 50 mg oral tab once daily [Active]; - PMHx: 14:33 Hypertension; Diabetes - NIDDM; iw - PSHx: 14:33 CABG; iw - Immunization history:: Client reports receiving the 2nd dose of the Covid vaccine. - Social history:: Smoking status: Patient denies any tobacco usage or history of. Screenin:59 [facility] ED Fall Risk Assessment (Adult) History of falling in the last 3 months, ko1 including since admission No falls in past 3 months (0 pts) Confusion or Disorientation No (0 pts) Intoxicated or Sedated No (0 pts) Impaired Gait No (0 pts) Mobility Assist Device Used No (0 pt) Altered Elimination No (0 pt) Score/Fall Risk Level 0 - 2 = Low Risk Oriented to surroundings, Maintained a safe environment, Educated pt \T\ family on fall prevention, incl call for assistance when getting out of bed, Assessed \T\ reinforced patient's understanding of fall precautions, Provided non-skid footwear, Hourly rounding (assess needs \T\ fall precautionary measures) done, Used ambulatory aids as needed (educated on \T\ assisted with), Used gait belt as appropriate. Abuse screen: Denies threats or abuse. Denies injuries from another. Nutritional screening: No deficits noted. Tuberculosis screening: No symptoms or risk factors identified. Assessment: 15:59 General:. General: Appears in no apparent distress. uncomfortable, Behavior is calm, ko1 cooperative, appropriate for age. Neuro: No deficits noted. Cardiovascular: No deficits noted. Respiratory: No deficits noted. GI: No deficits noted. : No deficits noted. EENT: No deficits noted. Derm: Wound noted left first toe. Musculoskeletal: No deficits noted. 21:00 Reassessment: Patient and/or family updated on plan of care and expected duration. Pain ha1 level reassessed. Patient is alert, oriented x 3, equal unlabored respirations, skin warm/dry/pink. Patient states symptoms have improved. Vital Signs: 14:32 BP 138 / 78; Pulse 83; Resp 16; Temp 97.9; Pulse Ox 98% on R/A; Weight 97.52 kg; Height iw 5 ft. 11 in. (180.34 cm); Pain 0/10; 16:13 BP 147 / 78; Pulse 81; Resp 16; Pulse Ox 98% ; ko1 16:41 BP 147 / 70; Pulse 84; Resp 18; Pulse Ox 98% on R/A; ko1 17:22 BP 144 / 70; Pulse 84; Pulse Ox 97% ; ko1 21:00 BP 143 / 75; Pulse 85; Resp 17 S; Pulse Ox 96% on R/A; ha1 14:32 Body Mass Index 29.99 (97.52 kg, 180.34 cm) iw ED Course: 14:29 Patient arrived in ED. rg4 14:30 Tam Cheung MD is Private Physician. rg4 14:30 Eduin Canales MD is Attending Physician. kdr 14:33 Triage completed. iw 14:35 Arm band placed on. iw 14:36 Olivia Zaragoza, RN is Primary Nurse. ko1 14:36 Patient placed in an exam room, on a stretcher. ll1 15:00 Inserted saline lock: 20 gauge in right forearm, using aseptic technique. Blood ko1 collected. 15:50 First set of blood cultures drawn by me. em1 15:59 Patient has correct armband on for positive identification. Fall risk band placed. ko1 Placed in gown. Bed in low position. Call light in reach. Side rails up X 1. Pulse ox on. NIBP on. 16:06 Glucose, Ancillary Testing Sent. ko1 16:06 Lactate w/ 2H reflex if indic. Sent. ko1 17:02 Foot Left 3 View XRAY In Process Unspecified. EDMS 17:26 Blood Culture Adult (2) Sent. ko1 17:40 Edward Zurita MD is Hospitalizing Provider. kdr 18:25 SARS RAPID Sent. kj1 18:[address] Arthur[facility]. kj1 20:50 Primary Nurse role handed off by Olivia Zaragoza, RN wm 20:56 Rose Marie Carreon, ODALYS is Primary Nurse. ha1 22:10 No provider procedures requiring assistance completed. Patient admitted, IV remains in ha1 place. Administered Medications: 17:41 Drug: Rocephin - (cefTRIAXone) 2 grams Route: IVPB; Infused Over: 30 mins; Site: right ko1 forearm; 17:50 Drug: Insulin Regular Human 8 units {Co-Signature: eh3 (Jane Treadwell RN).} Route: IVP; ko1 Site: right forearm; 17:54 Drug: vancoMYCIN 1 grams Route: IVPB; Infused Over: 2 hrs; Site: right forearm; ko1 Medication: 22:00 VIS not applicable for this client. ha1 Outcome: 17:41 Decision to Hospitalize by Provider. kdr 22:10 Admitted to Med/surg accompanied by tech, via wheelchair, with chart, Report called to sohail Murillo RN 22:10 Condition: stable 22:13 Patient left the ED. vc1 Signatures: Dispatcher [employer] EDMS Eduin Canales MD MD kdr Williams, Irene, ODALYS RN iw Adolfo Kidd Rubi rg4 Vanessa Clark1 Kena Iraheta RN RN 1 Miralnde Pierson Vanessa, RN RN 1 Rose Marie Carreon RN RN Olivia Kim RN RN ko1 Jane Treadwell RN eh3 Corrections: (The following items were deleted from the chart) 14:33 14:32 Pulse 83bpm; Resp 16bpm; Pulse Ox 98% RA; Temp 97.9F; 97.52 kg; Height 5 ft. 11 iw in.; BMI: 29.9; Pain 0/10; iw 14:35 14:33 Home Meds: atorvastatin 40 mg Oral tab 1 tab once daily; iw iw 14:35 14:33 Home Meds: Cipro 500 mg Oral tab 1 tab every 12 hours; iw iw
[2022-06-16] MEDS ORDERED: INSULIN -REGULAR HUMAN 50 UNIT/0.5 ML ML ONE (17:51)
[2022-06-16] MEDS ORDERED: HYDROCODONE/APAP 5/325 MG TAB PO PRN (18:39)
[2022-06-16 18:42] LABS: SARS-CoV-2 Antigen Rapid Res Negative (Negative)
--- NOTE | 2022-06-16 18:50 | P.HP ---
Certification for Inpatient Patient admitted to: Inpatient With expected LOS: >2 Midnights Patient will require the following post-hospital care: None Practitioner: I am a practitioner with admitting privileges, knowledge of patient current condition, hospital course, and medical plan of care. Services: Services provided to patient in accordance with Admission requirements found in Title 42 Section 412.3 of the Code of Federal Regulations Patient History Date of Service: 06/16/22 Reason for admission: Osteomyelitis History of Present Illness: 66-year-old male with history of insulin-dependent diabetes, hypertension, CAD with previous CABG presents to the emergency department with complaints of left great toe wound. He reports that he began to notice an ulceration/infection present on Monday the , he was seen by general surgeon Dr. Mcduffie today who recommended he come to the emergency department for evaluation. He was evaluated here in the emergency department his labs were significant for hyperglycemia, x-ray of the left foot showed significant soft tissue swelling of the great toe mineralization of the distal phalanx of the great toe likely indicating osteomyelitis. ED provider wishes to admit patient for further evaluation and management of suspected osteomyelitis of left great toe Allergies No Known Allergies Allergy (Verified 07/06/19 21:48) Home Medications: Aspirin [Aspir-Low] 81 mg PO DAILY 07/07/19 Atorvastatin Calcium [Lipitor] 40 mg PO DAILY 07/07/19 Empagliflozin [Jardiance] 10 mg PO DAILY 07/07/19 Gabapentin 300 mg PO DAILY PRN 07/07/19 Losartan Potassium 25 mg PO DAILY 07/07/19 Metformin ER [Glucophage ER*] 500 mg PO BID 07/07/19 Silver Sulfadiazine Crm [Silvadene*] 1 appl TOP DAILY 07/07/19 Doxycycline Hyclate 100 mg PO BID #20 tablet 07/09/19 Mupirocin Oint [Bactroban 2% Ointment] 8 appl TOP DAILY #1 tube 07/09/19 - Past Medical/Surgical History Diabetic: Yes -: Diabetes mellitus type 2insulin-dependent -: HTN -: CAD with prior CABG -: CABG August 2019 Psychosocial/ Personal History: 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 moist/pink, EOMI, Sclerae nonicteric Neck: Supple, 2+ carotid pulse no bruit, No LAD, Without JVD or thyroid abnormality Respiratory: Clear to auscultation bilaterally, Normal air movement Cardiovascular: Regular rate/rhythm, Normal S1 S2 Capillary refill: <2 Seconds Gastrointestinal: Normal bowel sounds, No tenderness Musculoskeletal: No tenderness Integumentary: Diabetic ulcer (Plantar aspect left great toe with surrounding erythema, necrotic tissue present) Neurological: Normal gait, Normal speech, Normal strength at 5/5 x4 extr, Normal tone, Normal affect Lymphatics: No axilla or inguinal lymphadenopathy - Studies Laboratory Data (last 24 hrs) 06/16/22 15:35: Sodium 134 L, Potassium 4.4, BUN 18, Creatinine 0.91, Glucose 364 H, Total Bilirubin 0.6, AST 9 L, ALT 20, Alkaline Phosphatase 78 06/16/22 15:35: WBC 7.70, Hgb 13.1 L, Hct 38.3 L, Plt Count 259 Assessment and Plan - Plan Assessment: Osteomyelitis of the distal phalanx of the left great toe Diabetes mellitus type 2insulin-dependent with hyperglycemia History of CAD with previous CABG Plan: Osteomyelitis of the distal phalanx of the left great toe Continue IV antibiotics vancomycin, cefepime. General surgery consult in place. MRI of the left foot ordered for further evaluation of osteomyelitis. Infectious disease consulted. Diabetes mellitus type 2insulin-dependent with hyperglycemia A1c in the morning, sliding scale insulin. Continue reduced home dose of insulin once verified. History of CAD with previous CABG Continue home medications. No active chest pain. DVT PPX: SCD Code status: Full Discharge Plan: Home Plan to discharge in: Greater than 2 days - Advance Directives Does patient have a Living Will: No Does patient have a Durable POA for Healthcare: No - Code Status/Comfort Care Code Status Assessed: Yes (Full code) Critical Care: No Time Spent Managing Pts Care (In Minutes): 55
[2022-06-16] MEDS ORDERED: VANCOMYCIN 1.5 GM in NA CHLORIDE 0.9% 500 ML IVPB ONE (21:00)
[2022-06-16] MEDS ORDERED: CEFEPIME 2 GM VIAL ONE (22:02)
[2022-06-16] MEDS ORDERED: NA CHLORIDE 0.9% 100 ML IV ONE (22:09)
[2022-06-16] MEDS ORDERED: VANCOMYCIN 500 MG/VIAL ONE (22:11)
[2022-06-16] MEDS ORDERED: NA CHLORIDE 0.9% 250 ML ONE (22:11)
[2022-06-16] MEDS ORDERED: NA CHLORIDE 0.9% 500 ML ONE (22:13)
[2022-06-16] MEDS: CEFEPIME 2 GM in NA CHLORIDE 0.9% 100 ML IV SCH (22:29)
[2022-06-16 23:42] VITALS: BMI 29.9
[2022-06-17 03:16] LABS: Absolute Lymphocytes (CBC) 2.2 K/uL (0.7-4.9); Hematocrit 33.9 % (39.6-49.0); Lymphocytes % 26.6 % (15.3-44.8); MCV 87.5 fL (80-100); MPV 8.5 fL (7.6-11.3); RBC Red Blood Cell Count 3.88 M/uL (4.33-5.43)
[2022-06-17 03:31] LABS: Potassium 4.1 mmol/L (3.5-5.1)
[2022-06-17 04:17] LABS: Specific Gravity 1.028 (1.005-1.030); Urine Bacteria None Seen /HPF (<20); Urine Bilirubin NEGATIVE (Negative); Urine Blood Negative (Negative); Urine Clarity Clear (Clear); Urine Color Yellow (Yellow); Urine Glucose 4+ (Over) (Negative); Urine Mucus Slight /HPF (None Seen); Urine Protein TRACE (Negative); Urine RBC <5 /HPF (None Seen); Urine Urobilinogen Normal (Normal)
--- NOTE | 2022-06-17 07:31 | P.PN ---
Date of Service: 06/17/22 Subjective: s/p OR this morning with I&D feels ok ROS: A complete review of systems was performed and is negative except as mentioned above Physical Exam: Gen: NAD, AOx3 CV: regular rate & rhythm, no edema Pulm: non-labored respirations, clear bilaterally Abd: soft, non-tender, non-distended Skin: surgical dressing c/d/i Neuro: normal speech, normal affect, moves all extremities vitals reviewed Problem List Osteomyelitis of the distal phalanx of the left great toe Diabetes mellitus type 2insulin-dependent with hyperglycemia History of CAD with previous CABG Plan: Osteomyelitis of the distal phalanx of the left great toe empiric IV antibiotics Dr. Mcduffie consulted MRI with abscess; pt underwent I&D, bone excised ID consulted Diabetes mellitus type 2insulin-dependent with hyperglycemia A1c in the morning, sliding scale insulin. Continue reduced home dose of insulin once verified. History of CAD with previous CABG Continue home medications. No active chest pain. Code: full Dispo: home, ~2-3 days
[2022-06-17] MEDS ORDERED: PNEUMOCOCCAL VACCINE 0.5 ML IMVAC ONE (08:00)
[2022-06-17] MEDS ORDERED: INFLUENZA VACCINE (for 6+ mo) 0.5 ML DOSE IMVAC ONE (08:00)
[2022-06-17] MEDS ORDERED: NA CHLORIDE 0.9% 100 ML ONE ×2 (08:12→21:11)
[2022-06-17] MEDS ORDERED: CEFEPIME 2 GM VIAL ONE ×2 (08:13→21:10)
[2022-06-17] MEDS: CEFEPIME 2 GM in NA CHLORIDE 0.9% 100 ML IV SCH ×2 (08:16→21:18)
[2022-06-17] MEDS ORDERED: VANCOMYCIN 1.75 GM in NA CHLORIDE 0.9% 500 ML IVPB SCH (09:00)
--- NOTE | 2022-06-17 10:18 | P.CNS ---
Date of Consult: 06/17/22 Reason for consult: Left second toe infection History of present illness: Patient is a 66-year-old gentleman who came to my office yesterday with 2-day history of redness and swelling of his left great. Patient states that he felt like he had a blister was not sure if the toe was infected or not. Patient is a diabetic and has peripheral neuropathy. Patient denies any history of trauma. Patient denies sore throat, runny nose, cough, headache, dizziness, fever or chills. Based on the clinical presentation and my evaluation yesterday in the office, patient was advised to go to the emergency room for further work-up as he is a diabetic and this toe looks infected with possible osteomyelitis. Review of systems: Otherwise unremarkable Past medical history: Type 1 diabetes, hypertension, coronary artery disease Past surgical history: CABG Allergies: None Social history: Patient denies smoking or drinking alcohol Family history: Father with diabetes and sister with unknown type of cancer Vital signs: Stable, afebrile Physical exam: Awake alert oriented x3 Head and neck exam: No neck masses, no JVD, throat clear and neck supple Chest: Clear Heart: S1-S2 Abdomen: Soft Extremity: Diminished dorsalis pedis and posterior tibial pulses bilaterally. Left great toe is red, swollen with red streaks going up to the dorsum of the foot towards the leg. There is a small open wound at the tip of the left great toe which did not have any drainage yesterday in my office but does today. Drainage appears to be pus. Neuro: Diminished sensation in the lower extremities. Diagnostic data: White count is normal. X-ray shows evidence of osteomyelitis on the distal phalanx. Assessment: Left great toe infection with cellulitis and probable osteomyelitis in a patient with type 1 diabetes and peripheral vascular disease. Plan/recommendation: IV antibiotics as ordered. Check cultures and adjust antibiotics accordingly. We will get a MRI to make sure patient does not have drainable fluid or tissue that needs to be debrided. We will also get arterial Dopplers to assess the vascular status. I will follow the patient while in the hospital. Anticipate discharge early next week. Patient will need a PICC line for IV antibiotics. Plan of care discussed in detail with the patient, family and Dr. Zurita. CC: Dr. Zurita's office
--- NOTE | 2022-06-17 11:08 | RAD REPORT ---
EXAM DESCRIPTION: US - Lower Extremity Artery Uni Ltd - 06/17/2022 10:20 am CLINICAL HISTORY: Leg pain/osteomyelitis COMPARISON: None FINDINGS: The left common femoral, superficial femoral and popliteal arteries demonstrate triphasic waveforms The left posterior tibial and dorsalis pedis arteries demonstrate triphasic waveforms Mild calcification involves the arteries. Grayscale, color and spectral analysis performed on all vessels IMPRESSION: Mild arterial disease involving the left lower extremity
[2022-06-17] MEDS: VANCOMYCIN 1.5 GM in NA CHLORIDE 0.9% 500 ML IVPB SCH ×2 (11:43→22:05)
--- NOTE | 2022-06-17 11:51 | RAD REPORT ---
EXAM DESCRIPTION: MRI - Foot Left Wo Cont - 06/17/2022 11:32 am CLINICAL HISTORY: Foot pain and swelling COMPARISON: X-ray March 2023 TECHNIQUE: Axial, sagittal and coronal magnetic resonance imaging left foot FINDINGS: Abnormal signal involves the entirety the first distal phalanx compatible with osteomyelit is. 1.2 centimeter fluid collection likely abscess present within the plantar subcutaneous tissue adjacen t to the distal aspect of the first distal phalanx. No fracture or dislocation IMPRESSION: Marked osteomyelitis first distal phalanx. 1.2 centimeter abscess plantar subcutaneous tissues adjacent to the first distal phalanx
[2022-06-17] MEDS ORDERED: NA CHLORIDE 0.9% 1,000 ML ONE (12:02)
[2022-06-17] MEDS ORDERED: propofoL 200 MG/20 ML VIAL IV ONE (12:14)
[2022-06-17] MEDS ORDERED: KETOROLAC 30 MG/ML INJ ONE (12:14)
[2022-06-17] MEDS ORDERED: FENTANYL CITR 100 MCG/2 ML ONE (12:14)
[2022-06-17] MEDS ORDERED: MIDAZOLAM HCL 2 MG/2 ML INJ ONE (12:14)
[2022-06-17] MEDS ORDERED: LIDOCAINE 2% MPF 5 ML VIAL ONE (12:15)
[2022-06-17] MEDS ORDERED: dexAMETHasone 4 MG/ML VIAL ONE (12:15)
[2022-06-17] MEDS ORDERED: ONDANSETRON 4 MG/2 ML VIAL ONE (12:15)
[2022-06-17] MEDS: BUPIVACAINE 0.5% PF 10 ML VIAL ONE ×2 (12:47→13:12)
[2022-06-17] MEDS ORDERED: COLLAGENASE 30 GM OINTMENT TOP ONE (13:23)
--- NOTE | 2022-06-17 13:28 | P.OP ---
Date of Service: 06/17/22 Preop diagnosis: Left great infection with osteomyelitis and abscess Postop diagnosis: Same Procedure performed: Incision, drainage and debridement of left great toe abscess to subcutaneous tissue and bone Surgeon: Alexander Mcduffie MD [employer] Retrofit Architect: None Estimated blood loss: Minimal Specimen: Pus, bone and debridement tissue Findings: As above Anesthesia: MAC Complications: None Drains: None Fluids and blood products: Nonapplicable Disposition: Recovery room Operative note: Patient brought to the OR and placed in the supine position. General anesthesia begun. Lidocaine 1% infiltrated locally. 15 blade used to excise the necrotic ulcer on the plantar aspect of the distal left great toe. Subcutaneous tissue divided. And then pus evacuated. Tip of the distal phalanx was appreciated with sharp and blunt dissection. It was necrotic was debrided with rongeurs. Pieces of bone were sent for cultures. Curette used as needed. Necrotic tissue completely debrided. Wound irrigated and bleeding controlled with cautery. Collagenase dressing applied. Patient awakened and taken to recovery room in good general condition CC: Dr. Zurita's
[2022-06-17] MEDS ORDERED: HYDROMORPHONE HCL 1 MG/ML INJ IV PRN (13:50)
--- NOTE | 2022-06-17 21:33 | CON ---
History Of Present Illness: This is a 66-year-old for whom I was consulted for left foot big toe ost eomyelitis and cellulitis of the foot. The patient has significant past medical history of diabetes mellitus and diabetic neuropathy and coming in with diabetic foot ulcer and osteomyelitis of left big toe. The patient denies any headache, nausea, vomiting, chest pain, abdominal pain, constipation, o r diarrhea. Past medical history includes diabetes mellitus, diabetic neuropathy for 20 years, hyper tension, and coronary artery disease with CABG in 2019. Denies any other problems. Past Medical History: As per HPI. Social History: Nonsmoker, nondrinker. Family History: Noncontributory. Medications: The patient is currently on vancomycin and cefepime. See MAR for other medications. Allergies: NO KNOWN DRUG ALLERGIES. Review of Systems: A 10-point review was performed. Physical Examination: General: This is a 66-year-old male lying in bed, not in any acute cardiopulmonary distress. Vital Signs: Temperature 97, pulse 63, respirations 16, and blood pressure 141/74. HEENT: Unremarkable. Neck: Supple. Lungs: Basal crackles. Heart: S1, S2 regular. Abdomen: Soft, nontender. Bowel sounds present. Extremities: Left big toe swelling, edematous changes of the big toe and erythematous changes noted. Increased warmth and no tenderness. Ulceration also noted at the big toe region. Laboratory Data: WBC 8.1, hemoglobin 11.6, and platelets are 249. BUN is 18, creatinine 0.7, and gl ucose is 241. MRI of the foot shows marked osteomyelitis of 1st digit phalanx, 1.2 cm abscess to josé antonio ntar subcutaneous tissue adjacent to the 1st distal phalanx noted. Assessment And Plan: Osteomyelitis of left big toe with diabetic foot ulcer and diabetic neuropathy in a 66-year-old male. Continue IV antibiotics for 6 weeks. The patient has surgical intervention l ater today. Abscess also identified at the distal plantar side of the foot wound. Monitor blood sug ars. Anemia of chronic disease. Continue current treatment. Consider applying Betadine to the woun d site and monitoring and treating blood sugars at this time. We will follow the patient closely. Thank you Dr. Zurita for consult. NF/MODL Voice ID: [id number] Report ID: [id number]
[2022-06-18 06:12] LABS: Absolute Lymphocytes (CBC) 2.3 K/uL (0.7-4.9); Hematocrit 35.5 % (39.6-49.0); Lymphocytes % 27.7 % (15.3-44.8); MCV 87.9 fL (80-100); MPV 8.4 fL (7.6-11.3); RBC Red Blood Cell Count 4.04 M/uL (4.33-5.43)
[2022-06-18 06:14] LABS: Potassium 4.4 mmol/L (3.5-5.1)
--- NOTE | 2022-06-18 07:43 | P.PN ---
Date of Service: 06/18/22 Subjective: feeling better awaiting picc pain tolerable ROS: A complete review of systems was performed and is negative except as mentioned above Physical Exam: Gen: NAD, AOx3 CV: regular rate & rhythm, no edema Pulm: non-labored respirations, clear bilaterally Abd: soft, non-tender, non-distended Skin: surgical dressing c/d/i Neuro: normal speech, normal affect, moves all extremities vitals reviewed Problem List Osteomyelitis of the distal phalanx of the left great toe Diabetes mellitus type 2insulin-dependent with hyperglycemia History of CAD with previous CABG Plan: Osteomyelitis of the distal phalanx of the left great toe empiric IV antibiotics Dr. Mcduffie consulted; s/p I&D MRI with abscess; pt underwent I&D, bone excised ID consulted - recommend PICC Diabetes mellitus type 2insulin-dependent with hyperglycemia sliding scale insulin. Continue reduced home dose of insulin once verified. History of CAD with previous CABG Continue home medications. No active chest pain. Code: full Dispo: home, ~2-3 days
[2022-06-18] MEDS ORDERED: CEFEPIME 2 GM VIAL ONE ×2 (08:05→21:07)
--- NOTE | 2022-06-18 08:09 | P.PN ---
Date of Service: 06/18/22 Subjective: Patient is awake and alert. Patient denies any pain. Patient with no fever or chills. Objective: Vital signs stable, afebrile. Laboratory data reviewed. Dressing clean dry and intact Assessment: Status post debridement of left great. Plan: Continue IV antibiotics and wound care as ordered. Check cultures and adjust antibiotics accordingly. Awaiting PICC line. Discharge planning in progress. Patient is clinically stable. CC:
[2022-06-18] MEDS: FAMOTIDINE 20 MG TAB PO SCH ×2 (09:15→21:09)
[2022-06-18] MEDS: METOPROLOL TAR 25 MG TAB PO SCH ×2 (09:15→21:09)
[2022-06-18] MEDS: ATORVASTATIN 40 MG TAB PO SCH (09:15)
[2022-06-18] MEDS: CEFEPIME 2 GM in NA CHLORIDE 0.9% 100 ML IV SCH ×2 (09:16→21:00)
[2022-06-18] MEDS: DOCUSATE NA 100 MG CAP PO SCH ×2 (09:16→21:09)
[2022-06-18] MEDS: VANCOMYCIN 1.5 GM in NA CHLORIDE 0.9% 500 ML IVPB SCH ×2 (09:59→21:10)
[2022-06-18] MEDS ORDERED: NA CHLORIDE 0.9% 100 ML ONE ×2 (10:08→21:08)
[2022-06-18] MEDS ORDERED: GLUCAGON 1 MG/VIAL IM PRN (22:12)
[2022-06-18] MEDS ORDERED: D50W 25 GM/50 ML SYRINGE IV PRN (22:12)
[2022-06-18] MEDS ORDERED: D10W 125 ML IV PRN (22:16)
[2022-06-19 04:34] LABS: Absolute Lymphocytes (CBC) 2.4 K/uL (0.7-4.9); Hematocrit 34.5 % (39.6-49.0); Lymphocytes % 37.2 % (15.3-44.8); MCV 87.3 fL (80-100); MPV 8.5 fL (7.6-11.3); RBC Red Blood Cell Count 3.95 M/uL (4.33-5.43)
[2022-06-19 05:10] LABS: Potassium 4.9 mmol/L (3.5-5.1)
[2022-06-19] MEDS: INSULIN -REGULAR HUMAN 50 UNIT/0.5 ML ML SQ SCH ×4 (05:26→21:05)
[2022-06-19] MEDS ORDERED: CEFEPIME 2 GM VIAL ONE (08:09)
[2022-06-19] MEDS ORDERED: NA CHLORIDE 0.9% 100 ML ONE (08:13)
[2022-06-19] MEDS: CEFEPIME 2 GM in NA CHLORIDE 0.9% 100 ML IV SCH (09:14)
[2022-06-19] MEDS: CLOPIDOGREL 75 MG TABLET PO SCH (09:15)
[2022-06-19] MEDS: DOCUSATE NA 100 MG CAP PO SCH ×2 (09:15→21:04)
[2022-06-19] MEDS: INSULIN GLARGINE 100 UNIT/ML SQ SCH (09:15)
[2022-06-19] MEDS: METOPROLOL TAR 25 MG TAB PO SCH ×2 (09:15→21:00)
[2022-06-19] MEDS: FAMOTIDINE 20 MG TAB PO SCH ×2 (09:16→21:04)
[2022-06-19] MEDS: VANCOMYCIN 1.5 GM in NA CHLORIDE 0.9% 500 ML IVPB SCH ×2 (09:16→21:06)
[2022-06-19] MEDS: ATORVASTATIN 40 MG TAB PO SCH (09:19)
--- NOTE | 2022-06-19 16:23 | P.PN ---
Date of Service: 06/19/22 Subjective: feeling better awaiting picc minimal pain; tolerating PO hyperglycemia this morning, improved ROS: A complete review of systems was performed and is negative except as mentioned above Physical Exam: Gen: NAD, AOx3 CV: regular rate & rhythm, no edema Pulm: non-labored respirations, clear bilaterally Abd: soft, non-tender, non-distended Skin: surgical dressing c/d/i Neuro: normal speech, normal affect, moves all extremities vitals reviewed Problem List Osteomyelitis of the distal phalanx of the left great toe Diabetes mellitus type 2insulin-dependent with hyperglycemia History of CAD with previous CABG Plan: Osteomyelitis of the distal phalanx of the left great toe empiric IV antibiotics Dr. Mcduffie consulted; s/p I&D MRI with abscess; pt underwent I&D, bone excised ID consulted - recommend PICC culture: staph, penicillin resistant discussed with Dr. Mcduffie - 6 weeks IV Vancomycin Diabetes mellitus type 2insulin-dependent with hyperglycemia sliding scale insulin. long acting insulin History of CAD with previous CABG Continue home medications. No active chest pain. Code: full Dispo: home, ~1 day pending picc and home health set up
--- NOTE | 2022-06-19 21:42 | PN ---
Date of Progress Note: 06/19/2022 Subjective: Patient with no complaints. Objective: Vital Signs: Stable. Afebrile. Extremities: The dressing is clean, dry, and intact with minimal serous drainage. Laboratory Data: Reviewed. Cultures are growing out Staph aureus sensitive to vancomycin. Assessment: Status post incision, drainage, and debridement of left great toe. Infected toe with os teomyelitis and abscess. Recommendations: IV antibiotics and wound care is ordered. A PICC line for 6 weeks of IV vancomycin . [facility]. /MODL Voice ID: [id number] Report ID: [id number]
[2022-06-20 06:38] LABS: Potassium 4.2 mmol/L (3.5-5.1)
--- NOTE | 2022-06-20 08:48 | RAD REPORT ---
EXAM DESCRIPTION: RAD - Chest Single View - 06/20/2022 6:14 am CLINICAL HISTORY: picc line placement COMPARISON: Chest Pa And Lat (2 Views) dated 02/22/2021 FINDINGS: Portable chest was obtained following placement of a left upper extremity PICC line. The c atheter tip projects over the SVC.
[2022-06-20] MEDS: VANCOMYCIN 1.25 GM in NA CHLORIDE 0.9% 250 ML IVPB SCH ×2 (09:11→20:48)
[2022-06-20] MEDS: INSULIN -REGULAR HUMAN 50 UNIT/0.5 ML ML SQ SCH ×4 (09:12→20:33)
[2022-06-20] MEDS: INSULIN GLARGINE 100 UNIT/ML SQ SCH (09:13)
[2022-06-20] MEDS: CLOPIDOGREL 75 MG TABLET PO SCH (09:13)
[2022-06-20] MEDS: FAMOTIDINE 20 MG TAB PO SCH ×2 (09:13→20:45)
[2022-06-20] MEDS: DOCUSATE NA 100 MG CAP PO SCH ×2 (09:13→20:45)
[2022-06-20] MEDS: METOPROLOL TAR 25 MG TAB PO SCH ×2 (09:13→20:45)
--- NOTE | 2022-06-20 09:16 | P.PN ---
Subjective Date of Service: 06/21/22 Chief Complaint: Osteomyelitis Patient sitting in bed with family member at the bedside. pleasant with no signs of acute distress. No major event upon examination. Physical Examination - Vital Signs Temperature: 97.3 F Blood Pressure: 131/62 Pulse: 51 Respirations: 16 Pulse Ox (%): 96 - Physical Exam General: Alert, In no apparent distress, Oriented x3 Respiratory: Clear to auscultation bilaterally Cardiovascular: No edema, Normal S1 S2 Gastrointestinal: Normal bowel sounds Musculoskeletal: Erythema (left great toe diabetic ulcer with osteomyelitis) Integumentary: Erythema, Diabetic ulcer (left great toe diabetic ulcer with osteomyelitis) Neurological: Normal speech, Normal tone, Normal affect - Studies Hydrocodone Bitart/Acetaminophen (Hydrocodone/Apap 5/325 Mg Tab) 1 tab PO Q6H PRN PRN Reason: Pain scale 5-7 (Moderate) Atorvastatin Calcium (Atorvastatin 40 Mg Tab) 80 mg PO DAILY [facility] Last Admin: 06/19/22 09:19 Dose: 80 mg Clopidogrel Bisulfate (Clopidogrel 75 Mg Tablet) 75 mg PO DAILY [facility] Last Admin: 06/19/22 09:15 Dose: 75 mg Docusate Sodium (Docusate Na 100 Mg Cap) 100 mg PO BID [facility] Last Admin: 06/19/22 21:04 Dose: 100 mg Famotidine (Famotidine 20 Mg Tab) 20 mg PO BID [facility]; Protocol Last Admin: 06/19/22 21:04 Dose: 20 mg Glucagon (Glucagon 1 Mg/Vial) 1 mg IM 1X PRN PRN Reason: HYPOGLYCEMIA Hydromorphone HCl (Hydromorphone Hcl 1 Mg/Ml Inj) 1 mg IV Q4H PRN PRN Reason: Pain scale 8-10 (Severe) Dextrose (Dextrose 10% Water Iv Soln.) 125 mls @ 0 mls/hr IV .Q0M PRN PRN Reason: HYPOGLYCEMIA Vancomycin HCl 1.25 gm/ Sodium (Chloride) 250 mls @ 166.667 mls/hr IVPB Q12HR [facility]; Protocol Insulin Glargine (Insulin Glargine 100 Unit/Ml) 15 unit SQ DAILY [facility] Last Admin: 06/19/22 09:15 Dose: 15 unit Insulin Human Regular (Insulin -Regular Human 50 Unit/0.5 Ml Ml) 0 unit SQ ACHS [facility]; Protocol Last Admin: 06/19/22 21:05 Dose: 7 unit Metoprolol Tartrate (Metoprolol Tar 25 Mg Tab) 25 mg PO BID [facility] Last Admin: 06/19/22 21:00 Dose: Not Given Sodium Chloride (Flush Normal Saline 10 Ml) 10 ml IV BID [facility] Last Admin: 06/19/22 21:05 Dose: 10 ml Microbiology 06/16/22 15:50 Blood - Blood Aerobic Blood Culture - Preliminary No growth in 24 hours. 06/16/22 15:50 Blood - Blood Anaerobic Blood Culture - Preliminary No growth in 24 hours. Assessment And Plan - Current Problems (Diagnosis) (1) Osteomyelitis of toe of left foot Current Visit: Yes Status: Acute Plan: Cultures: 06/17 Wound left toe: Staph aureus 06/16 BC: Negative Antibiotics: Had Cefepime on 06/16 Current on IV Vancomyin, 06/17 Recommendations: Continue IV antibiotics for total of 6 weeks duration Consider applying betadine to the wound site and monitoring and treating blood sugars (2) Diabetic foot ulcer Current Visit: Yes Status: Acute Plan: Treatment same as Osteomyelitis - Plan Osteomyelitis of the left big toe Diabetic foot ulcer Diabetic neuropathy Mild Protein calorie malnutrition Anemia of chronic disease ID will closely monitor the patient for signs of infection with fever and WBC trends Case has been discussed with Dr. Hartman, N
[2022-06-20] MEDS: ATORVASTATIN 40 MG TAB PO SCH (09:17)
--- NOTE | 2022-06-20 10:33 | P.PN ---
Date of Service: 06/20/22 Subjective: Patient is awake and alert. Patient denies any pain. Patient with no fever or chills. Objective: Vital signs stable, afebrile. Laboratory data reviewed. Cultures reviewed. Patient has staph sensitive to vancomycin. Wound is approximately 1 inch deep with no purulence. The edema and redness of the toe have decreased markedly Assessment: Status post debridement of left great toe in a patient with diabetes, osteomyelitis and mild peripheral vascular disease Plan: Continue IV antibiotics and wound care as ordered. Discharge planning in progress. Patient is clinically stable. Follow-up in the wound healing center after discharge in my clinic. CC:
--- NOTE | 2022-06-20 21:34 | P.PN ---
Date of Service: 06/20/22 Subjective: feeling better awaiting picc minimal pain; tolerating PO awaiting HH to be set up ROS: A complete review of systems was performed and is negative except as mentioned above Physical Exam: Gen: NAD, AOx3 CV: regular rate & rhythm, no edema Pulm: non-labored respirations, clear bilaterally Abd: soft, non-tender, non-distended Skin: dressing c/d/i, wrapped in JUAN bandage Neuro: normal speech, normal affect, moves all extremities vitals reviewed Problem List Osteomyelitis of the distal phalanx of the left great toe Diabetes mellitus type 2insulin-dependent with hyperglycemia History of CAD with previous CABG Plan: Osteomyelitis of the distal phalanx of the left great toe empiric IV antibiotics Dr. Mcduffie consulted; s/p I&D MRI with abscess; pt underwent I&D, bone excised ID consulted - recommend PICC culture: staph, penicillin resistant discussed with Dr. Mcduffie - 6 weeks IV Vancomycin Diabetes mellitus type 2insulin-dependent with hyperglycemia sliding scale insulin. long acting insulin History of CAD with previous CABG Continue home medications. No active chest pain. Code: full Dispo: home, ~1 day pending home health set up
[2022-06-20 22:33] VITALS: O2SAT 97
[2022-06-21] MEDS: INSULIN -REGULAR HUMAN 50 UNIT/0.5 ML ML SQ SCH ×4 (07:30→20:09)
[2022-06-21] MEDS: INSULIN GLARGINE 100 UNIT/ML SQ SCH (09:00)
[2022-06-21] MEDS: DOCUSATE NA 100 MG CAP PO SCH ×2 (09:04→20:05)
[2022-06-21] MEDS: ATORVASTATIN 40 MG TAB PO SCH (09:04)
[2022-06-21] MEDS: METOPROLOL TAR 25 MG TAB PO SCH ×2 (09:05→20:05)
[2022-06-21] MEDS: CLOPIDOGREL 75 MG TABLET PO SCH (09:05)
[2022-06-21] MEDS: FAMOTIDINE 20 MG TAB PO SCH ×2 (09:05→20:05)
[2022-06-21] MEDS: VANCOMYCIN 1.25 GM in NA CHLORIDE 0.9% 250 ML IVPB SCH ×2 (09:13→20:04)
--- NOTE | 2022-06-21 10:33 | P.PN ---
Subjective Date of Service: 06/21/22 Chief Complaint: Osteomyelitis Patient sitting in bed eating lunch with at the bedside. RN was performing wound care and dressing change. pleasant with no signs of acute distress. No major event upon examination. Physical Examination - Vital Signs Temperature: 97.3 F Blood Pressure: 146/70 Pulse: 74 Respirations: 16 Pulse Ox (%): 96 - Physical Exam General: Alert, In no apparent distress, Oriented x3 Respiratory: Clear to auscultation bilaterally Cardiovascular: No edema, Normal S1 S2 Gastrointestinal: Normal bowel sounds Musculoskeletal: Other (left diabetic foot ulcer with osteomyelitis) Integumentary: Tenderness/swelling, Erythema, Diabetic ulcer (left diabetic foot ulcer with osteomyelitis) Neurological: Normal speech, Normal tone, Normal affect - Studies Hydrocodone Bitart/Acetaminophen (Hydrocodone/Apap 5/325 Mg Tab) 1 tab PO Q6H PRN PRN Reason: Pain scale 5-7 (Moderate) Atorvastatin Calcium (Atorvastatin 40 Mg Tab) 80 mg PO DAILY [facility] Last Admin: 06/21/22 09:04 Dose: 80 mg Clopidogrel Bisulfate (Clopidogrel 75 Mg Tablet) 75 mg PO DAILY [facility] Last Admin: 06/21/22 09:05 Dose: 75 mg Docusate Sodium (Docusate Na 100 Mg Cap) 100 mg PO BID [facility] Last Admin: 06/21/22 09:04 Dose: 100 mg Famotidine (Famotidine 20 Mg Tab) 20 mg PO BID [facility]; Protocol Last Admin: 06/21/22 09:05 Dose: 20 mg Glucagon (Glucagon 1 Mg/Vial) 1 mg IM 1X PRN PRN Reason: HYPOGLYCEMIA Hydromorphone HCl (Hydromorphone Hcl 1 Mg/Ml Inj) 1 mg IV Q4H PRN PRN Reason: Pain scale 8-10 (Severe) Dextrose (Dextrose 10% Water Iv Soln.) 125 mls @ 0 mls/hr IV .Q0M PRN PRN Reason: HYPOGLYCEMIA Vancomycin HCl 1.25 gm/ Sodium (Chloride) 250 mls @ 166.667 mls/hr IVPB Q12HR [facility]; Protocol Last Admin: 06/21/22 09:13 Dose: 250 mls Insulin Glargine (Insulin Glargine 100 Unit/Ml) 15 unit SQ DAILY [facility] Last Admin: 06/21/22 09:00 Dose: 15 unit Insulin Human Regular (Insulin -Regular Human 50 Unit/0.5 Ml Ml) 0 unit SQ ACHS [facility]; Protocol Last Admin: 06/21/22 07:30 Dose: Not Given Metoprolol Tartrate (Metoprolol Tar 25 Mg Tab) 25 mg PO BID [facility] Last Admin: 06/21/22 09:05 Dose: 12.5 mg Sodium Chloride (Flush Normal Saline 10 Ml) 10 ml IV BID [facility] Last Admin: 06/21/22 09:08 Dose: 10 ml Microbiology 06/16/22 15:50 Blood - Blood Aerobic Blood Culture - Preliminary No growth in 24 hours. 06/16/22 15:50 Blood - Blood Anaerobic Blood Culture - Preliminary No growth in 24 hours. Microbiology Data (last 24 hrs): Microbiology 06/16/22 15:50 Blood - Blood Aerobic Blood Culture - Preliminary No growth in 24 hours. 06/16/22 15:50 Blood - Blood Anaerobic Blood Culture - Preliminary No growth in 24 hours. Assessment And Plan - Current Problems (Diagnosis) (1) Osteomyelitis of toe of left foot Current Visit: Yes Status: Acute Plan: Cultures: 06/17 Wound left toe: Staph aureus 06/17 Wound right toe: Negative 06/16 BC: Negative Antibiotics: Had Cefepime on 06/16 Current on IV Vancomyin, 06/17 Recommendations: Continue IV antibiotics for total of 6 weeks duration Consider applying betadine to the wound site and monitoring and treating blood sugars Plan to discharge home with home health for IV antibiotics (2) Diabetic foot ulcer Current Visit: Yes Status: Acute Plan: Treatment same as Osteomyelitis - Plan Osteomyelitis of the left big toe Diabetic foot ulcer Diabetic neuropathy Mild Protein calorie malnutrition Anemia of chronic disease ID will closely monitor the patient for signs of infection with fever and WBC trends Case has been discussed with Dr. Hartman, N
--- NOTE | 2022-06-21 12:40 | P.DS ---
Admission Date: 06/16/22 Discharge Date: 06/21/22 Disposition: ROUTINE DISCHARGE Discharge Condition: FAIR Reason for Admission: Osteomyelitis Consultations: Surgery-Dr. Mcduffie Brief History of Present Illness: 66-year-old male with history of insulin-dependent diabetes, hypertension, CAD with previous CABG presents to the emergency department with complaints of left great toe wound. He reports that he began to notice an ulceration/infection present on Monday the , he was seen by general surgeon Dr. Mcduffie today who recommended he come to the emergency department for evaluation. He was evaluated here in the emergency department and his labs were significant for hyperglycemia, x-ray of the left foot showed significant soft tissue swelling of the great toe, mineralization of the distal phalanx of the great toe likely indicating osteomyelitis. Patient admitted for further management. Hospital Course: Diagnosis Osteomyelitis of the distal phalanx of the left great toe Diabetes mellitus type 2insulin-dependent with hyperglycemia History of CAD with previous CABG The following problems were addressed during the hospital stay: Osteomyelitis of the distal phalanx of the left great toe Treated with IV cefepime and vancomycin Dr. Mcduffie consulted. MRI of the foot with abscess and marked distal phalanx osteomyelitis. I&D performed, and bone excised. ID consulted - recommended PICC and 6 weeks of IV antibiotics. Wound culture grew: MSSA 6 weeks of IV vancomycin recommended. Patient cleared for discharge per surgery. Diabetes mellitus type 2insulin-dependent with hyperglycemia Blood sugar readings elevated up to 350. Hemoglobin A1c of 8.9. Patient was placed on long-acting insulin and insulin sliding scale. Blood sugar levels have improved. Aggressive blood sugar control is recommended for optimal wound healing. Patient prescribed Lantus insulin and metformin. Jardiance also resumed on discharge. History of CAD with previous CABG Stable. Home medications continued. Vital Signs/Physical Exam: Temp Pulse Resp BP Pulse Ox 97.3 F 74 16 146/70 H 96 06/21/22 10:33 06/21/22 10:33 06/21/22 10:33 06/21/22 10:33 06/21/22 10:33 General: Alert, In no apparent distress, Oriented x3 HEENT: Mucous membr. moist/pink Neck: JVD not distended Respiratory: Clear to auscultation bilaterally, Normal air movement Cardiovascular: No edema, Regular rate/rhythm, Normal S1 S2 Gastrointestinal: Soft and benign, Non-distended Musculoskeletal: Other (Left great toe dressed) Integumentary: No rashes Neurological: Normal strength at 5/5 x4 extr Laboratory Data at Discharge: WBC 6.50 K/uL (4.3-10.9) 06/19/22 04:12 Hgb 11.7 g/dL (13.6-17.9) L 06/19/22 04:12 Hct 34.5 % (39.6-49.0) L 06/19/22 04:12 Plt Count 270 K/uL (152-406) 06/19/22 04:12 Sodium 138 mmol/L (136-145) 06/20/22 06:14 Potassium 4.2 mmol/L (3.5-5.1) D 06/20/22 06:14 BUN 18 mg/dL (7-18) 06/20/22 06:14 Creatinine 0.72 mg/dL (0.70-1.30) 06/20/22 06:14 Glucose 258 mg/dL (74-106) H 06/20/22 06:14 Total Bilirubin 0.6 mg/dL (0.2-1.0) 06/16/22 15:35 AST 9 U/L (15-37) L 06/16/22 15:35 ALT 20 U/L (16-61) 06/16/22 15:35 Alkaline Phosphatase 78 U/L (45-117) 06/16/22 15:35 Triglycerides 75 mg/dL (<150) 06/17/22 02:57 Cholesterol 120 mg/dL (<200) 06/17/22 02:57 HDL Cholesterol 34 mg/dL (40-60) L 06/17/22 02:57 Cholesterol/HDL Ratio 3.53 06/17/22 02:57 Home Medications: Atorvastatin Calcium [Lipitor] 80 mg PO DAILY 07/07/19 Empagliflozin [Jardiance] 10 mg PO DAILY 07/07/19 Losartan Potassium 50 mg PO DAILY 07/07/19 Silver Sulfadiazine Crm [Silvadene*] 1 appl TOP DAILY 07/07/19 Clopidogrel Bisulfate [Plavix*] 75 mg PO DAILY 06/16/22 Docusate Sodium 100 mg PO BID 06/16/22 Famotidine 20 mg PO BID 06/16/22 Ferrous Sulfate 325 mg PO BID 06/16/22 Alcohol Antiseptic Pads [Alcohol Prep Pads] 1 each TP DAILY #1 box 06/21/22 Blood Sugar Diagnostic [Blood Glucose Test Strip] 1 each MC DAILY #30 strip 06/21/22 Blood-Glucose Meter [Blood Glucose Monitoring] 1 each MC DAILY #1 kit 06/21/22 Hydrocodone 5/APAP 325 [[place] 5/325*] 1 tab PO Q6H PRN #12 tab 06/21/22 Insulin Glargine,Hum.rec.anlog [Lantus Solostar] 15 unit SQ DAILY #15 ml 06/21/22 Metformin HCl 500 mg PO BID #60 tab 06/21/22 Metoprolol Tartrate [Lopressor*] 25 mg PO BID #60 tab 06/21/22 Pen Needle, Diabetic [Insulin Pen Needle] 1 dis.ndl MC DAILY #30 dis.ndl 06/21/22 New Medications: Alcohol Antiseptic Pads [Alcohol Prep Pads] 1 each TP DAILY #1 box Blood-Glucose Meter [Blood Glucose Monitoring] 1 each MC DAILY #1 kit Blood Sugar Diagnostic [Blood Glucose Test Strip] 1 each MC DAILY #30 strip Pen Needle, Diabetic [Insulin Pen Needle] 1 dis.ndl MC DAILY #30 dis.ndl Insulin Glargine,Hum.rec.anlog [Lantus Solostar] 15 unit SQ DAILY #15 ml Metoprolol Tartrate [Lopressor*] 25 mg PO BID #60 tab Metformin HCl 500 mg PO BID #60 tab Hydrocodone 5/APAP 325 [[place] 5/325*] 1 tab PO Q6H PRN #12 tab PRN Reason: Pain Scale 5-7 (Moderate) Diet: ADA Activity: Non-weight bearing (left foot) Followup: Tam Cheung MD [Primary Care Provider] - 1-2 Weeks Time spent managing pt's care (in minutes): 38
[2022-06-21 20:10] VITALS: BP 149/84
[2022-06-21 20:56] VITALS: TEMP 97.4
== END 2022-06-21 22:40 | disposition home health service (06) | DRG 982 ==
LOC: ER 14:26 → ERHOLD 18:20 → 2ND 21:22
PROVIDERS: ADMIT Hospitalist; ATTEND Internal Medicine
PROC: 0QBR0ZZ Excision of Left Toe Phalanx, Open Approach (ICD-10-PCS; principal; 2022-06-17 12:00)
PROC: 02HV33Z Insertion of Infusion Device into Superior Vena Cava, Percutaneous Approach (ICD-10-PCS; 2022-06-20)
DX: L02.612 Cutaneous abscess of left foot (principal); E44.1 Mild protein-calorie malnutrition; Z16.11 Resistance to penicillins; M86.172 Other acute osteomyelitis, left ankle and foot; E11.69 Type 2 diabetes mellitus with other specified complication; E11.40 Type 2 diabetes mellitus with diabetic neuropathy, unspecified; E11.65 Type 2 diabetes mellitus with hyperglycemia; E11.628 Type 2 diabetes mellitus with other skin complications; E11.621 Type 2 diabetes mellitus with foot ulcer; L97.529 Non-pressure chronic ulcer of other part of left foot with unspecified severity; L03.032 Cellulitis of left toe; D63.8 Anemia in other chronic diseases classified elsewhere; I10 Essential (primary) hypertension; I25.10 Atherosclerotic heart disease of native coronary artery without angina pectoris; B95.61 Methicillin susceptible Staphylococcus aureus infection as the cause of diseases classified elsewhere; Z79.4 Long term (current) use of insulin; Z95.1 Presence of aortocoronary bypass graft; Z79.84 Long term (current) use of oral hypoglycemic drugs; Z68.29 Body mass index [BMI] 29.0-29.9, adult; Z79.02 Long term (current) use of antithrombotics/antiplatelets; Z79.899 Other long term (current) drug therapy; Z20.822 Contact with and (suspected) exposure to COVID-19
CPT/HCPCS: 36415; 36569; 71045; 80048; 80053; 80061; 80202; 81001; 82947; 83036; 83605; 85025; 87040; 87070; 87075; 87077; 87176; 87186; 87205; 87811; 88304; 93926; 96374; 96375; 99285; J0692; J0696; J1100; J1815; J2001; J2250; J2405; J2704; J3010; J3370; J3590; J7030; J7040; J7050

== ENCOUNTER 2024-09-26 14:50 | Inpatient (IN) | payer OTHER ==
--- OUTSIDE RECORDS SUMMARY | 2024-09-26 14:56 | XMS REPORT | Continuity of Care Document ---
Author Name Unknown Address [address] [facility] [address] [place] [address] [facility] Address [address] [facility] [address] [place] [address] Care Team Providers Care Croze Cutter Name Role Phone Unknown, Physician Primary Care Physician TALI Roberson Attending Clinician Unavailable VALERIE CORNELL Attending Clinician Unavailable SETH RESENDIZ Attending Clinician Unavailable Prakash Gómez Attending Clinician UnavailDilan Abraham Attending Clinician Unavailable Louis Clifton MD Attending Clinician [phone] Antonia Bailey LVN Attending Clinician UnavailJasiel Zamora MD Attending Clinician [phone] Keagan Vora MD Attending Clinician [phone] Prakash Gómez Admitting Clinician Unavailroscoe jordan Physician, No Primary or Family Admitting Clinic courtney Unavailable Payers Payer Name Policy Type Policy Number Effective Date Expirati on Date Source [employer]ET[employer] CHOICE POS II [id number] 2000 00:00:00 Problems Condition Name Condition Details Condition Category Status Onset Date Resolution Date Last Treatment Date Treating Clinician Comments Source Elevated lipoprotei n(a) Elevated lipoprotei n(a) Disease Active 08-16 00:00: 00 Overview: Formattin g of this note might be different from the original. Lp(a) ( 2): 50 [facility] CAD (coronary artery disease) CAD (coronary artery disease) Disease Active 3- 00:00: 00 Overview: Formattin g of this note might be different from the original. [...] 58% at rest and 56% at stress. [facility] Chronic systolic heart failure Chronic systolic heart failure Disease Active - 00:00: 00 Overview: Formattin g of this note might be different from the original. TTE ( 2): LVEF 45-50%, normal LA size, no valvular heart disease, normal RVSP.On Losartan. Cannot tolerate betablock er due to bradycard ia.May need to screen for ischemia in the setting of poorly controlle d type 2 diabetes. [facility] Monsalve's palsy Monsalve's palsy Disease Active - 00:00: 00 [facility] Arrhythmia Arrhythmia Disease Active - 00:00: 00 Overview: Formattin g of this note might be different from the original. [...] another opinion after being contacted by EP. [facility] Erectile dysfunctio n Erectile dysfunctio n Disease Active 06-18 00:00: 00 [facility] Peripheral neuropathy Peripheral neuropathy Disease Active 06-18 00:00: 00 [facility] Diabetes mellitus type II, non insulin dependent Diabetes mellitus type II, non insulin dependent Disease Active 06-16 00:00: 00 Overview: Formattin g of this note might be different from the original. Dx 2006. Baseline Hba1c 7.1 to 7.7, but increased to 12.7% in 05/2021.On Metformin , with microvasc ular complicat ions of diabetic neuropath y on gabapenti n, diabetic foot disease and ED. Denies retinopat hy. CMP ( 9) Cr 1.[address] Lopez. Started on Farxiga and Ozempic, and increased dose of Metformin in July 2021. [facility] Essential hypertensi on Essential hypertensi on Disease Active 06-16 00:00: 00 Overview: Formattin g of this note might be different from the original. Previousl y on Losartan 25 mg daily and increased to 50 mg on 07/12/2021 due to the TTE showing an LVEF 45-50%. [facility] Hyperlipid emia Hyperlipid emia Disease Active 06-16 00:00: 00 Overview: Formattin g of this note might be different from the original. On atorvasta tin 40 mg ( 2) and ASA 81Lipid panel ( 2): TC 139 HDL 40 Trig 76 LDL 83Lp(a) ( 2): 50hsCRP ( 2): 0.6 [facility] R06.2 - WHEEZING R06.2 - WHEEZING Active 04/20/2015 [facility] Diagnosis Active 2014-05 00:01: 00 2015-04-20 12:09:00 [place] [id number] Active 07/15/2014 [facility] Diagnosis Active 07-15 00:00: 00 2014-07-15 14:35:00 [place] Type 2 diabetes mellitus with foot ulcer Type 2 diabetes mellitus with foot ulcer Active Problem 07/16/2015 eCW: Wyatt Shelton Problem Active 2015-07-16 03:00:03 [place] Ulcer, other part of foot Ulcer, other part of foot Active Problem 07/16/2015 eCW: Wyatt Shelton Problem Active 2015-07-16 03:00:03 [place] Diabetes mellitus type 2 or unspecifie d type with neurologic al manifestat io Diabetes mellitus type 2 or unspecifie d type with neurologic al manifestat io Active Problem 07/16/2015 eCW: Wyatt Shelton Problem Active 2015-07-16 03:00:03 [place] Other hammer toe(s) (acquired) , right foot Other hammer toe(s) (acquired) , right foot Active Problem 07/16/2015 eCW: Wyatt Dozieror Problem Active 2015-07-16 03:00:03 [place] Nail dystrophy Nail dystrophy Active Problem 07/16/2015 eCW: Wyatt Dozieror Problem Active 2015-07-16 03:00:03 [place] Acquired deformitie s of toe(s), unspecifie d, left foot Acquired deformitie s of toe(s), unspecifie d, left foot Active Problem 07/16/2015 eCW: Wyatt Shelton Problem Active 2015-07-16 03:00:03 [place] Type 2 diabetes mellitus with other diabetic neurologic al complicati on Type 2 diabetes mellitus with other diabetic neurologic al complicati on Active Problem 07/16/2015 eCW: Wyatt Shelton Problem Active 2015-07-16 03:00:03 [place] 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 Active Problem 07/16/2015 eCW: Wyatt Shelton Problem Active 2015-07-16 03:00:03 [place] Other hammer toe(s) (acquired) , left foot Other hammer toe(s) (acquired) , left foot Active Problem 07/16/2015 eCW: Wyatt Shelton Problem Active 2015-07-16 03:00:03 [place] Allergies, Adverse Reactions, Alerts Allergy Name Allergy Type Status Severity Reaction(s) Onset Date Inactive Date Treating Clinician Comments Source No Known Allergie s DA Active U 09-04 00:00: 00 [facility] Social History Social Habit Start Date Stop Date Quantity Comments Source History SDOH Alcohol Std Drinks [facility] History SDOH Alcohol Binge [facility] History SDOH Alcohol Comment [facility] Exposure to SARS-CoV-2 (event) Not sure [facility] Alcohol intake 2021-10-26 00:00:00 2021-10-26 00:00:00 Lifetime non-drinker (finding) [facility] Tobacco use and exposure 2021-07-29 00:00:00 2021-07-29 00:00:00 Smokeless tobacco non-user [facility] History SDOH Alcohol Frequency 2021-07-29 00:00:00 2021-07-29 00:00:00 1 [facility] caffeine 2015-07-09 00:00:00 2015-07-09 00:00:00 Zeeshan Mcrae Sex Ass[birth year] At 1955 00:00:00 1955 00:00:00 [facility] Smoking Status Start Date Stop Date Source Tobacco smoking consumption unknown [facility] Never smoked tobacco [facility] Medications Ordered Medication Name Filled Medication Name Start Date Stop Date Current Medication? Ordering Clinician Indication Dosage Frequency Signature (SIG) Comments Components Source insulin aspart (NovoLOG FLEXPEN) 100 UNIT/ML injection 09-09 00:00: 00 Yes [id number] Inject 7 units under the skin up to three times daily plus insulin sliding scale (1:50>150) for max 33 units per day [facility] atorvastati n (Lipitor) 80 MG tablet 09-09 00:00: 00 09-10 04:59 :00 No [id number] 80mg QD Take 1 tablet (80 mg total) by mouth 1 (one) time each day. [facility] semaglutide (Ozempic) 2 MG/1.5ML solution pen-injecto r 09-09 00:00: 00 09-10 04:59 :00 No [id number] 1mg Inject 1 mg under the skin 1 (one) time per week. [facility] insulin degludec (Tresiba FlexTouch) 100 UNIT/ML injection 09-09 00:00: 00 09-10 04:59 :00 No [id number] 20U Inject 20 Units under the skin 1 (one) time each day in the morning. [facility] insulin lispro (HumaLOG) 100 UNIT/ML injection 09-09 00:00: 00 09-09 00:00 :00 No [id number] Inject 7 units under the skin up to three times daily plus insulin sliding scale (1:50>150) for max 33 units per day [facility] Aspirin 81 MG capsule 08-30 09:15: 02 Yes QD Take by mouth 1 (one) time each day. [facility] Aspirin 81 MG capsule 08-16 08:01: 04 Yes QD Take by mouth 1 (one) time each day. [facility] dapaglifloz in (Farxiga) 10 MG - 00:00: 00 07-30 05:59 :00 No [id number] 10mg QD Take 1 tablet (10 mg total) by mouth 1 (one) time each day. [facility] metFORMIN (Glucophage ) 1000 MG tablet - 00:00: 00 07-30 05:59 :00 No [id number] 1000mg Take 1 tablet (1,000 mg total) by mouth 2 (two) times a day with meals. [facility] semaglutide (Ozempic) 2 MG/1.5ML solution pen-injecto r 07-29 00:00: 00 09-09 00:00 :00 No [id number] Inject 0.25 mg once weekly for 4 weeks, then increase to 0.5 mg once weekly after that [facility] rivaroxaban (Xarelto) 20 MG tablet 07-27 00:00: 00 07-28 05:59 :00 No [id number] 20mg Take 1 tablet (20 mg total) by mouth 1 (one) time each day with dinner. Take with food. [facility] tadalafil (Cialis) 5 MG tablet 07-26 00:00: 00 Yes [id number] 5mg QD Take 1 tablet (5 mg total) by mouth 1 (one) time each day. [facility] apixaban (Eliquis) 5 MG tablet 07-26 00:00: 00 07-27 05:59 :00 No [id number] 5mg Q.5D Take 1 tablet (5 mg total) by mouth 2 (two) times a day. [facility] losartan (Cozaar) 50 MG tablet 07-12 00:00: 00 07-13 05:59 :00 No [id number] 50mg QD Take 1 tablet (50 mg total) by mouth 1 (one) time each day. [facility] aspirin 81 MG EC tablet 06-21 11:00: 08 06-21 00:00 :00 No 81mg QD Take 81 mg by mouth 1 (one) time each day. [facility] losartan (Cozaar) 25 MG tablet 06-21 00:00: 00 06-22 05:59 :00 No [id number] 25mg QD Take 1 tablet (25 mg total) by mouth 1 (one) time each day. [facility] atorvastati n (Lipitor) 40 MG tablet 06-21 00:00: 00 09-09 00:00 :00 No [id number] 40mg QD Take 1 tablet (40 mg total) by mouth 1 (one) time each day. [facility] metFORMIN (Glucophage ) 500 MG tablet 06-21 00:00: 00 07-29 00:00 :00 No [id number] 500mg Take 1 tablet (500 mg total) by mouth 2 (two) times a day with meals. [facility] aspirin 81 MG EC tablet 06-21 00:00: 00 07-26 00:00 :00 No [id number] 81mg QD Take 1 tablet (81 mg total) by mouth 1 (one) time each day. [facility] metFORMIN XR (Glucophage -XR) 500 MG 24 hr tablet 2020-05- 00:00: 00 06-21 00:00 :00 No [facility] atorvastati n (Lipitor) 40 MG tablet 2020-05 0- 00:00: 00 06-21 00:00 :00 No [facility] losartan (Cozaar) 25 MG tablet 8-15 00:00: 00 06-21 00:00 :00 No [facility] Lamisil 2-17 00:00: 00 Yes Wyatt Shelton 1 tab(s) [place] Vital Signs Vital Name Observation Time Observation Value Comments S ource Systolic blood pressure 2021-09-09 13:33:00 125 mm[Hg] [facility] Diastolic blood pressure 2021-09-09 13:33:00 78 mm[Hg] [facility] Heart rate 2021-09-09 13:33:00 51 /min [facility] Respiratory rate 2021-09-09 13:33:00 17 /min [facility] Body height 2021-09-09 13:33:00 180.3 cm [facility] Body weight 2021-09-09 13:33:00 97.07 kg [facility] BMI 2021-09-09 13:33:00 29.85 kg/m2 [facility] Systolic blood pressure 2021-10-26 13:20:00 122 mm[Hg] [facility] Diastolic blood pressure 2021-10-26 13:20:00 79 mm[Hg] [facility] Heart rate 2021-10-26 13:20:00 74 /min [facility] Respiratory rate 2021-10-26 13:20:00 16 /min [facility] Body height 2021-10-26 13:20:00 180.3 cm [facility] Body weight 2021-10-26 13:20:00 95.709 kg [facility] BMI 2021-10-26 13:20:00 29.43 kg/m2 [facility] Systolic blood pressure 2021-09-09 13:33:00 125 mm[Hg] [facility] Diastolic blood pressure 2021-09-09 13:33:00 78 mm[Hg] [facility] Heart rate 2021-09-09 13:33:00 51 /min [facility] Respiratory rate 2021-09-09 13:33:00 17 /min [facility] Body height 2021-09-09 13:33:00 180.3 cm [facility] Body weight 2021-09-09 13:33:00 97.07 kg [facility] BMI 2021-09-09 13:33:00 29.85 kg/m2 [facility] Systolic blood pressure 2021-08-16 13:01:00 147 mm[Hg] [facility] Diastolic blood pressure 2021-08-16 13:01:00 82 mm[Hg] [facility] Heart rate 2021-08-16 13:01:00 61 /min [facility] Respiratory rate 2021-08-16 13:01:00 16 /min [facility] Body height 2021-08-16 13:01:00 177.8 cm [facility] Body weight 2021-08-16 13:01:00 98.431 kg [facility] BMI 2021-08-16 13:01:00 31.14 kg/m2 [facility] Oxygen saturation in Arterial blood by Pulse oximetry 2021-08-16 13:01:00 97 /min [facility] Systolic blood pressure 2021-07-29 14:01:00 132 mm[Hg] [facility] Diastolic blood pressure 2021-07-29 14:01:00 64 mm[Hg] [facility] Heart rate 2021-07-29 14:01:00 48 /min [facility] Respiratory rate 2021-07-29 14:01:00 16 /min [facility] Body height 2021-07-29 14:01:00 177.8 cm [facility] Body weight 2021-07-29 14:01:00 97.523 kg [facility] BMI 2021-07-29 14:01:00 30.85 kg/m2 [facility] Heart rate 2021-07-26 14:03:00 66 /min [facility] Respiratory rate 2021-07-26 14:03:00 16 /min [facility] Body height 2021-07-26 14:03:00 177.8 cm [facility] Body weight 2021-07-26 14:03:00 97.342 kg [facility] BMI 2021-07-26 14:03:00 30.79 kg/m2 [facility] Oxygen saturation in Arterial blood by Pulse oximetry 2021-07-26 14:03:00 96 /min [facility] Systolic blood pressure 2021-07-26 14:03:00 132 mm[Hg] [facility] Diastolic blood pressure 2021-07-26 14:03:00 79 mm[Hg] [facility] Systolic blood pressure 2021-06-21 16:29:00 144 mm[Hg] [facility] Diastolic blood pressure 2021-06-21 16:29:00 84 mm[Hg] [facility] Heart rate 2021-06-21 16:29:00 67 /min [facility] Respiratory rate 2021-06-21 16:29:00 16 /min [facility] Body height 2021-06-21 16:29:00 177.8 cm [facility] Body weight 2021-06-21 16:29:00 97.16 kg [facility] BMI 2021-06-21 16:29:00 30.73 kg/m2 [facility] Oxygen saturation in Arterial blood by Pulse oximetry 2021-06-21 16:29:00 97 /min [facility] Procedures Procedure Date / Time Performed Performing Clinicia n Source POCT GLUCOSE 2021-10-26 13:24:00 [facility] Resendiz [facility] [id number] 2021-09-13 00:00:00 [facility] [id number] 2021-09-13 00:00:00 [facility] [id number] 2021-09-13 00:00:00 [facility] [id number] 2021-09-13 00:00:00 [facility] [id number] 2021-09-13 00:00:00 [facility] [id number] 2021-09-13 00:00:00 [facility] [id number] 2021-09-13 00:00:00 [facility] [id number] 2021-09-13 00:00:00 [facility] POCT GLYCOSYLATED HEMOGLOBIN (HGB A1C) 2021-09-09 13:59:00 [facility] POCT GLUCOSE 2021-09-09 13:58:00 Juwanaudrey [facility] POCT GLUCOSE 2021-07-29 14:01:00 Juwanaudrey Valerie [facility] ECG 12-LEAD 2021-07-26 15:19:36 [facility]ali [facility] 12-LEAD 2021-06-21 21:53:09 [facility]ona [facility] En[facility] Start Date/Time End Date/Time Encounter Type Admission Type Attending [facility] Emergency Department Facility Care Department Encounter ID Source 2022-11-21 11:16:24 Outpatient [facility] [id number] [facility] 2021-08-16 09:12:07 Outpatient POLA TALI [facility] [id number] [facility] 2021-07-29 08:39:40 Outpatient VALERIE CORNELL [facility] [id number] [facility] 2021-07-26 09:19:48 Outpatient VALERIE CORNELL [facility] [id number] [facility] 2021-06-21 11:28:17 Outpatient [facility] [id number] [facility] 2021-06-21 11:25:57 Outpatient [facility] [id number] [facility] 2022-02-24 08:40:00 2022-02-24 08:40:00 Outpatient VEESETH STRATTON [facility] [id number] [facility] 2021-10-26 08:40:00 2021-10-26 09:36:24 Office Visit Seth Resendiz [facility] [address] [id number] [id number] [facility] 2021-09-13 14:12:00 2021-09-18 12:54:00 Inpatient Prakash Adams [facility] [id number] [facility] 2021-09-09 09:00:00 2021-09-09 09:07:48 Office Visit Valerie Cornell [facility] [address] [id number] [id number] [id number] [id number] [facility] 2021-09-04 05:14:00 2021-09-04 05:14:00 Outpatient Dilan Haque [facility] [id number] 27 [facility] 2021-08-27 00:00:00 2021-08-27 00:00:00 Telephone Tali Escalona [address] [id number] [id number] [id number] [facility] 2021-08-25 00:00:00 2021-08-25 00:00:00 Telephone Tali Escalona [address] [id number] [id number] [id number] [id number] [facility] 2021-08-19 00:00:00 2021-08-19 00:00:00 Telephone Tali Escalona [address] [id number] 350.1.13.58 9.2.7.2.686 [id number] [facility] 2021-08-16 08:00:00 2021-08-16 09:12:09 Office Visit Tali Escalona [address] 1.2.840.114 350.1.13.58 9.2.7.2.686 [id number] [facility] 2021-07-29 08:00:00 2021-07-29 08:39:56 Office Visit Valerie Cornell [facility] [address] [id number] 350.1.13.58 9.2.7.2.686 [id number] [facility] 2021-07-26 08:00:00 2021-07-26 09:19:54 Office Visit Tali Escalona [facility] [address] 1.2.840.114 350.1.13.58 9.2.7.2.686 [id number] [facility] 2021-07-20 00:00:00 2021-07-20 00:00:00 Telephone Louis Clifton [facility] [address] [id number] 350.1.13.58 9.2.7.2.686 [id number] [facility] 2021-07-02 00:00:00 2021-07-02 00:00:00 Telephone Antonia Bailey Melissa [facility] [address] 1.2.840.114 350.1.13.58 9.2.7.2.686 [id number] [facility] 2021-06-22 00:00:00 2021-06-22 00:00:00 Telephone Tali Escalona [facility] [address] 1.2.840.114 350.1.13.58 9.2.7.2.686 [id number] [facility] 2021-06-21 10:00:00 2021-06-21 11:28:57 Office Visit Tali Escalona [facility] [address] 1.2.840.114 350.1.13.58 9.2.7.2.686 [id number] [facility] 2021-06-11 00:00:00 2021-06-11 00:00:00 Telephone Jasiel Galindo [facility] [address] 1.2.840.114 350.1.13.58 9.2.7.2.686 [id number] [facility] 2021-06-11 00:00:00 2021-06-11 00:00:00 Telephone Keagan Vora [facility] [address] 1.2.840.114 350.1.13.58 9.2.7.2.686 [id number] [facility] 2015-04-20 18:00:00 2015-04-21 05:59:00 Outpt Diag Services nullFlavo r [facility]patient [facility] [id number] 01 [place] [facility] Results Test Description Test Time Test Comments Results Result Co mments Source [facility] [id number] 20:17:00* Test Item Value Reference Range Interpretation Comme [facility] GLUCOSE BEDSIDE TESTING (jagjit t code = GLUBED) 237 MG/DL 60-99 H BASIC METABOLIC [id number] 04:25:00* Test Item Value Reference Range Interpretation Comme nts SODIUM (test code = NA) 135 MMOL/L 137-145 L POTASSIUM (test code = K) 4.1 MMOL/L 3.5-5.1 N CHLORIDE (test code = CL) 101 MMOL/L 98-107 N CARBON DIOXIDE (test code = CO2) 29 MMOL/L 22-30 N GLUCOSE (test code = GLU) 138 MG/DL 74-106 H BLOOD UREA NITROGEN (test code = BUN) 14 MG/DL 9-20 N GLOMERULAR FILTRATION RATE (test code = GFR) > 60 Reporting units: ml/min/1.73 m2 (Modified MDRD Formula)Reference Range: > or = 60 ml/min/1.73 m2 CREATININE (test code = CREAT) 0.70 MG/DL 0.66-1.25 N CALCIUM (test code = CA) 8.2 MG/DL 8.4-10.2 L CBC W/AUTO [id number] 04:05:00* Test Item Value Reference Range Interpretation Comme nts WHITE BLOOD CELL (test code = WBC) 10.6 K/MM3 3.8-9.8 H RED BLOOD CELL (test code = RBC) 2.87 M/MM3 3.95-5.67 L HEMOGLOBIN (test code = HGB) 8.6 G/DL 12.4-16.7 L HEMATOCRIT (test code = HCT) 26.3 % 35.9-49.5 L MEAN CELL VOLUME (test code = MCV) 92 fL 81.7-96.1 N MEAN CELL HGB (test code = MCH) 30.0 pg 27.6-33.2 N MEAN CELL HGB CONCETRATION (test code = MCHC) 32.7 % 32.9-35.5 L RED CELL DISTRIBUTION WIDTH (test code = RDW) 12.6 % 12.1-15.2 N PLATELET COUNT (test code = PLT) 201 K/MM3 129-368 MEAN PLATELET VOLUME (test c ode = MPV) 10.0 fl 7.4-10.4 N NEUTROPHIL % (test code = NT%) 55.9 % 43-75 N IMMATURE GRANULOCYTE % (test code = IG%) 0.7 % 0.0-2.0 N LYMPHOCYTE % (test code = LY%) 28.0 % 14-44 N MONOCYTE % (test code = MO%) 13.6 % 4-13 H EOSINOPHIL % (test code = EO%) 1.5 % 0-6 N BASOPHIL % (test code = BA%) 0.3 % 0-2 N NUCLEATED RBC % (test code = NRBC%) 0.6 % 0-1.0 N NEUTROPHIL # (test code = NT#) 5.91 K/mm3 2.0-7.6 N IMMATURE GRANULOCYTE # (test code = IG#) 0.07 x10 3/uL 0-0.03 H LYMPHOCYTE # (test code = LY#) 2.96 K/mm3 1.0-3.8 N MONOCYTE # (test code = MO#) 1.44 K/mm3 0.1-0.8 H EOSINOPHIL # (test code = EO#) 0.16 K/mm3 0.0-0.2 N BASOPHIL # (test code = BA#) 0.03 K/mm3 0.0-0.2 N NUCLEATED RBC # (test code = NRBC#) 0.06 K/mm3 0.0-0.1 N [id number] 23:13:00* Test Item Value Reference Range Interpretation Comme nts POTASSIUM (test code = K) 3.6 MMOL/L 3.5-5.1 N [id number] 23:13:00* Test Item Value Reference Range Interpretation Comme nts CALCIUM (test code = CA) 7.8 MG/DL 8.4-10.2 L [id number] 23:13:00* Test Item Value Reference Range Interpretation Comme nts MAGNESIUM (test code = MAG) 2.0 MG/DL 1.6-2.3 N GLUCOSE BEDSIDE [id number] 20:24:00* Test Item Value Reference Range Interpretation Comme nts GLUCOSE BEDSIDE TESTING (jagjit t code = GLUBED) 161 MG/DL 60-99 H GLUCOSE BEDSIDE [id number] 18:08:00* Test Item Value Reference Range Interpretation Comme nts GLUCOSE BEDSIDE TESTING (jagjit t code = GLUBED) 200 MG/DL 60-99 H URINALYSIS [id number] 17:16:00* Test Item Value Reference Range Interpretation Comme nts UA COLOR (test code = COLU) YELLOW YELLOW UA APPEARANCE (test code = APPU) CLEAR CLEAR UA GLUCOSE DIPSTICK (test code = DGLUU) 250 MG/DL NORMAL A UA BILIRUBIN DIPSTICK (test code = BILU) NEGATIVE MG/DL NEGATIVE UA KETONE DIPSTICK (test code = KETU) NEGATIVE MG/DL NEGATIVE UA SPECIFIC GRAVITY (test code = SGU) 1.010 1.003-1.030 N UA BLOOD DIPSTICK (test code = NAIMA) NEGATIVE Stevan/mm3 NEGATIVE UA PH DIPSTICK (test code = LOWELL) 6.0 5.0-9.0 N UA PROTEIN DIPSTICK (test code = PROU) NEGATIVE MG/DL NEGATIVE UA UROBILINIOGEN DIPSTICK (test code = URO) NORMAL MG/DL NORMAL UA NITRITE DIPSTICK (test code = VINCENT) NEGATIVE NEGATIVE UA LEUKOCYTE ESTERASE DIPSTICK (test code = LEUU) NEGATIVE /mm3 NEGATIVE UA CULTURE NEEDED? (test code = UACULT) NO, WBC>10 & EPI>25 Criteria Culture Chk SOURCE OF URINE: VOIDED- XR ABDOMEN 1 [id number] 15:12:00 [facility] : 1955 Sex: M Patient Name: MARK RIVAS Unit No: [id number] EXAMS: CPT CODE: [id number] XR ABDOMEN 1 V 47574 EXAM: ABDOMEN ONE VIEW INDICATION: KIDNEY PAIN LOCATION: B2 COMPARISON: None available TECHNIQUE: AP view of the abdomen. FINDINGS: The bowel gas pattern is normal. No pneumoperitoneum is identified. No abnormalcalcifications. The osseous structures are unremarkable. IMPRESSION: No acute abnormality of the abdomen. No abnormal calcifications are identified. at 1512 Reported and signed by: Linda Adorno MD CC: Dilan Murray MD; Eula SOTELO Technologist: Loretta Winn, RT (R) Transcrpt Date/Tm/Trnsp: 09/17/2021 (1511) DelmarMD16 Orig Print D/T: S: 09/17/2021 (1514) [facility] NAME: MARK RIVAS [id number] PHYS: [place] [address] : 1955 AGE: 65 SEX: M LOC: Z.SI01 A PHONE #: [phone] EXAM DATE: 09/17/2021 STATUS: ADM IN FAX #: [phone] RADIOLOGY NO: PAGE 1 Signed ReportGLUCOSE BEDSIDE [id number] 11:11:00* Test Item Value Reference Range Interpretation Comme nts GLUCOSE BEDSIDE TESTING (jagjit t code = GLUBED) 336 MG/DL 60-99 HH - XR CHEST [id number] 08:00:00 [facility] : 1955 Sex: M Patient Name: MARK RIVAS Unit No: [id number] EXAMS: CPT CODE: [id number] XR CHEST 1V 06802 EXAM: CHEST ONE VIEW INDICATION: S/P CABG [...] and signed by: Linda Adorno MD CC: Dilan Murray MD Technologist: Esteban Cruz (RT) Transcrpt Date/Tm/Trnsp: 09/17/2021 (0800) 16Orig Print D/T: S: 09/17/2021 (0803) [facility] NAME: MARK RIVAS [id number] PHYS: [place] [address] : 1955 AGE: 65 SEX: M LOC: Z.SI01 APHONE #: [phone] EXAM DATE: 09/17/2021 STATUS: ADM IN FAX #: [phone] RADIOLOGY NO: PAGE 1 Signed ReportCOMPREHENSIVE METABOLIC [id number] 04:35:00* Test Item Value Reference Range Interpretation Comme nts SODIUM (test code = NA) 136 MMOL/L 137-145 L POTASSIUM (test code = K) 4.1 MMOL/L 3.5-5.1 N CHLORIDE (test code = CL) 101 MMOL/L 98-107 N CARBON DIOXIDE (test code = CO2) 30 MMOL/L 22-30 N ANION GAP (test code = GAP) 9 MMOL/L 14-24 L GLUCOSE (test code = GLU) 126 MG/DL 74-106 H BLOOD UREA NITROGEN (test code = BUN) 17 MG/DL 9-20 N GLOMERULAR FILTRATION RATE (test code = GFR) > 60 Reporting unit s: ml/min/1.73 m2 (Modified MDRD Formula)Reference Range: > or = 60 ml/min/1.73 m2 CREATININE (test code = CREAT) 0.80 MG/DL 0.66-1.25 N TOTAL PROTEIN (test code = PROT) 5.7 G/DL 6.2-7.6 L Ortho Clinical D iagnostic has made us aware of newinformation regarding the potential interference ofEltrombopag (a bone marrow stimulant used to treatthrombocytonmenia and aplastic anemia) with specific assayson the [employer] 5600 of which Total Protein is one of thoseassays performed in our lab.Interference testing performed at Ortho determined thatEltrombopag does interfere with Vitros Total Protein asfollowsEltrombopag Interference for Vitros Product Total Protein: Eltrombopag Max Observed Avg. BiasConcentration Concentration Concentration 2.5 mg/dl 6.0 g/dl +0.41 +0.34 3.5 mg/dl 6.0 g/dl +0.50 +0.45 5 mg/dl 6.0 g/dl +0.73 +0.65 2.5 mg/dl 8.0 g/dl +0.44 +0.41 3.5 mg/dl 8.0 g/dl +0.55 +0.52 5 mg/dl 8.0 g/dl +0.86 +0.77 ALBUMIN (test code = ALB) 3.0 G/DL 3.5-5.0 L CALCIUM (test code = CA) 7.9 MG/DL 8.4-10.2 L BILIRUBIN TOTAL (test code = BILT) 1.0 MG/DL 0.2-1.3 N Eltrombopag Inte rference for Vitros Product TBil, BuBc: Assay Eltrombopag Analyte/ Max Observed Avg. Bias Concentration Concentration Concentration TBil 7mg/dl TBil/ 1.2mg/dl +0.23mg.dl +0.20mg/dlBuBc 3.5mg/dl Bu/0.8mg/dl +0.25mg/dl +0.24mg/dlBuBc 7 mg/dl Bu/14.2mg/dl +0.38mg/dl +0.25mg/dlBuBc 5mg/dl Bc/0mg/dl +0.25mg/dl +0.15mg/dlBuBc 3.5mg/dl Bc/2.8mg/dl +0.25mg/dl +0.23mg/dl SGOT/AST (test code = AST) 57 UNITS/L 17-59 N SGPT/ALT (test code = ALT) 59 UNITS/L 0-49 H ALKALINE PHOSPHATASE (test code = ALKP) 180 UNITS/L 38-126 H CBC W/AUTO [id number] 04:12:00* Test Item Value Reference Range Interpretation Comme nts WHITE BLOOD CELL (test code = WBC) 10.7 K/MM3 3.8-9.8 H RED BLOOD CELL (test code = RBC) 2.88 M/MM3 3.95-5.67 L HEMOGLOBIN (test code = HGB) 8.7 G/DL 12.4-16.7 L HEMATOCRIT (test code = HCT) 26.3 % 35.9-49.5 L MEAN CELL VOLUME (test code = MCV) 91 fL 81.7-96.1 N MEAN CELL HGB (test code = MCH) 30.2 pg 27.6-33.2 N MEAN CELL HGB CONCETRATION (test code = MCHC) 33.1 % 32.9-35.5 N RED CELL DISTRIBUTION WIDTH (test code = RDW) 12.6 % 12.1-15.2 N PLATELET COUNT (test code = PLT) 152 K/MM3 129-368 N MEAN PLATELET VOLUME (test c ode = MPV) 10.7 fl 7.4-10.4 H NEUTROPHIL % (test code = NT%) 63.0 % 43-75 N IMMATURE GRANULOCYTE % (test code = IG%) 0.5 % 0.0-2.0 N LYMPHOCYTE % (test code = LY%) 23.4 % 14-44 N MONOCYTE % (test code = MO%) 12.2 % 4-13 N EOSINOPHIL % (test code = EO%) 0.7 % 0-6 N BASOPHIL % (test code = BA%) 0.2 % 0-2 N NUCLEATED RBC % (test code = NRBC%) 0.0 % 0-1.0 N NEUTROPHIL # (test code = NT#) 6.74 K/mm3 2.0-7.6 N IMMATURE GRANULOCYTE # (test code = IG#) 0.05 x10 3/uL 0-0.03 H LYMPHOCYTE # (test code = LY#) 2.50 K/mm3 1.0-3.8 N MONOCYTE # (test code = MO#) 1.30 K/mm3 0.1-0.8 H EOSINOPHIL # (test code = EO#) 0.08 K/mm3 0.0-0.2 N BASOPHIL # (test code = BA#) 0.02 K/mm3 0.0-0.2 N NUCLEATED RBC # (test code = NRBC#) 0.00 K/mm3 0.0-0.1 N GLUCOSE BEDSIDE [id number] 20:21:00* Test Item Value Reference Range Interpretation Comme nts GLUCOSE BEDSIDE TESTING (jagjit t code = GLUBED) 153 MG/DL 60-99 H GLUCOSE BEDSIDE [id number] 17:25:00* Test Item Value Reference Range Interpretation Comme nts GLUCOSE BEDSIDE TESTING (jagjit t code = GLUBED) 145 MG/DL 60-99 H - XR CHEST [id number] 13:19:00 [facility] : 1955 Sex: M Patient Name: MARK RIVAS Unit No: [id number] EXAMS: CPT CODE: [id number] XR CHEST 1V 63972 Chest Radiograph History: CHEST TUBE REMOVAL - NURSE WILL CALL WHEN READY Comparison: September 16, 2021 Location: [facility] single frontal view of the chest is [...] and signed by: Prashant Guaman MD CC: Dilan Atwood; Eula SOTELO Technologist: BRAYDON Davenport, RT(R) Transcrpt Date/Tm/Trnsp: 09/16/2021 (1319) DelmarPMT Orig Print D/T: S: 09/16/2021 (1322) [facility] NAME: MARK RIVAS [id number] PHYS: [place] [address] : 1955 AGE: 65 SEX: M LOC: Z.SI01 A PHONE #: [phone] EXAM DATE: 09/16/2021 STATUS: ADM IN FAX #: [phone] RADIOLOGY NO: PAGE 1 Signed ReportGLUCOSE BEDSIDE [id number] 11:45:00* Test Item Value Reference Range Interpretation Comme nts GLUCOSE BEDSIDE TESTING (jagjit t code = GLUBED) 208 MG/DL 60-99 H - XR CHEST [id number] 08:22:00 [facility] : 1955 Sex: M Patient Name: MARK RIVAS Unit No: [id number] EXAMS: CPT CODE: [id number] XR CHEST 1V 95987 Chest Radiograph History: S/P CABG Comparison: September 15, 2021 Location: [facility] A single frontal view of the chest [...] and signed by: Prashant Guaman MD CC: Dilan Murray MD Technologist: Loretta Winn, RT (R) Transcrpt Date/Tm/Trnsp: 09/16/2021 (821) t.SDR.PMT Orig Print D/T: S: 09/16/2021 (08) [facility] NAME: MARK RIVAS [id number] PHYS: [place] [address] : 1955 AGE: 65 SEX: M LOC: Z.SI01 A PHONE #: [phone] EXAM DATE: 09/16/2021 STATUS: ADM INFAX #: [phone] RADIOLOGY NO: PAGE 1 Signed ReportGLUCOSE BEDSIDE [id number] 07:12:00* Test Item Value Reference Range Interpretation Comme nts GLUCOSE BEDSIDE TESTING (jagjit t code = GLUBED) 123 MG/DL 60-99 H GLUCOSE BEDSIDE [id number] 20:54:00* Test Item Value Reference Range Interpretation Comme nts GLUCOSE BEDSIDE TESTING (jagjit t code = GLUBED) 93 MG/DL 60-99 N GLUCOSE BEDSIDE [id number] 17:39:00* Test Item Value Reference Range Interpretation Comme nts GLUCOSE BEDSIDE TESTING (jagjit t code = GLUBED) 86 MG/DL 60-99 N GLUCOSE BEDSIDE [id number] 11:06:00* Test Item Value Reference Range Interpretation Comme nts GLUCOSE BEDSIDE TESTING (jagjit t code = GLUBED) 252 MG/DL 60-99 H - XR CHEST [id number] 08:58:00 [facility] : 1955 Sex: M Patient Name: MARK RIVAS Unit No: [id number] EXAMS: CPT CODE: [id number] XR CHEST 1V 96066 Dictation location: U19. CHEST, FRONTAL VIEW HISTORY: S/P CABG FINDINGS: Since 09/14/21, the Calvin-Sahra catheter has been removed. Right subclavian line remains in SVC. Continued cardiomegaly with mild central vascular congestion, small left pleural effusion and basilar atelectasis. Sternotomy wires. Thoracic spond ylosis. No pneumothorax. Probable mediastinal left pleural drains. IMPRESSION: Interval removal of the Calvin-Sahra catheter. Mild vascular congestion and small left pleural effusion. at 0858 Reported and signed by: Gurjit Ordaz MD CC: Dilan Murray MD Technologist: Candace Wilburn (RT)(R) Transcrpt Date/Tm/Trnsp: 09/15/2021 (0858) [email or web address] Orig Print D/T: S: 09/15/2021 (0901) [facility] NAME: MARK RIVAS [id number] PHYS: [place] [address] : 1955 AGE: 65 SEX: M LOC: Z.SI01 A PHONE #: [phone] EXAM DATE: 09/15/2021 STATUS: ADM IN FAX #: [phone] RADIOLOGY NO: PAGE 1 Signed ReportGLUCOSE BEDSIDE [id number] 07:34:00* Test Item Value Reference Range Interpretation Comme nts GLUCOSE BEDSIDE TESTING (jagjit t code = GLUBED) 221 MG/DL 60-99 H GLUCOSE BEDSIDE [id number] 21:31:00* Test Item Value Reference Range Interpretation Comme nts GLUCOSE BEDSIDE TESTING (jagjit t code = GLUBED) 198 MG/DL 60-99 H GLUCOSE BEDSIDE [id number] 21:25:00* Test Item Value Reference Range Interpretation Comme nts GLUCOSE BEDSIDE TESTING (jagjit t code = GLUBED) 137 MG/DL 60-99 H GLUCOSE BEDSIDE [id number] 15:14:00* Test Item Value Reference Range Interpretation Comme nts GLUCOSE BEDSIDE TESTING (test code = GLUBED) 72 MG/DL 60-99 N Doctor Noti fied~ GLUCOSE BEDSIDE [id number] 13:40:00* Test Item Value Reference Range Interpretation Comme nts GLUCOSE BEDSIDE TESTING (jagjit t code = GLUBED) 110 MG/DL 60-99 H GLUCOSE BEDSIDE [id number] 12:33:00* Test Item Value Reference Range Interpretation Comme nts GLUCOSE BEDSIDE TESTING (jagjit t code = GLUBED) 147 MG/DL 60-99 H GLUCOSE BEDSIDE [id number] 12:30:00* Test Item Value Reference Range Interpretation Comme nts GLUCOSE BEDSIDE TESTING (jagjit t code = GLUBED) 125 MG/DL 60-99 H GLUCOSE BEDSIDE [id number] 09:24:00* Test Item Value Reference Range Interpretation Comme nts GLUCOSE BEDSIDE TESTING (jagjit t code = GLUBED) 166 MG/DL 60-99 H GLUCOSE BEDSIDE [id number] 08:28:00* Test Item Value Reference Range Interpretation Comme nts GLUCOSE BEDSIDE TESTING (jagjit t code = GLUBED) 220 MG/DL 60-99 H GLUCOSE BEDSIDE [id number] 08:27:00* Test Item Value Reference Range Interpretation Comme nts GLUCOSE BEDSIDE TESTING (jagjit t code = GLUBED) 182 MG/DL 60-99 H - XR CHEST [id number] 07:46:00 [facility] : 1955 Sex: M Patient Name: MARK RIVAS Unit No: [id number] EXAMS: CPT CODE: [id number] XR CHEST 1V 92131 - XR CHEST 1V INDICATION:Postop, extubated LOCATION: T18 Comparison 09/13/2021 The endotracheal tube and nasogastrictube have been removed. Other support apparatus, stable in position. Heart size normal, status postmidline sternotomy. Mild atelectasis in lower lobes. No pneumothorax or significant effusion. Bony thorax appears intact. IMPRESSION: Mild bibasilar atelectasis following extubation. at 0746 Reported and signed by: Jonathan Ferrara MD CC: Dilan Murray MD Technologist: Esteban Cruz (RT) Transcrpt Date/Tm/Trnsp: 09/14/2021 (0746) Tomeka Orig Print D/T: S: 09/14/2021 (0750) [facility] NAME: MARK RIVAS [id number] PHYS: [place] [address] : 1955 AGE: 65 SEX: M : Z.SI01 A PHONE #: [phone] EXAM DATE: 09/14/2021 STATUS: ADM IN FAX #: [phone] RADIOLOGY NO: PAGE 1 Signed ReportGLUCOSE BEDSIDE [id number] 06:41:00* Test Item Value Reference Range Interpretation Comme nts GLUCOSE BEDSIDE TESTING (jagjit t code = GLUBED) 187 MG/DL 60-99 H CBC W/AUTO [id number] 04:52:00* Test Item Value Reference Range Interpretation Comme nts WHITE BLOOD CELL (test code = WBC) 19.4 K/MM3 3.8-9.8 H RED BLOOD CELL (test code = RBC) 3.83 M/MM3 3.95-5.67 L HEMOGLOBIN (test code = HGB) 11.5 G/DL 12.4-16.7 L HEMATOCRIT (test code = HCT) 34.9 % 35.9-49.5 L MEAN CELL VOLUME (test code = MCV) 91 fL 81.7-96.1 N MEAN CELL HGB (test code = MCH) 30.0 pg 27.6-33.2 N MEAN CELL HGB CONCETRATION (test code = MCHC) 33.0 % 32.9-35.5 N RED CELL DISTRIBUTION WIDTH (test code = RDW) 13.2 % 12.1-15.2 N PLATELET COUNT (test code = PLT) 179 K/MM3 129-368 N MEAN PLATELET VOLUME (test c ode = MPV) 11.4 fl 7.4-10.4 H NEUTROPHIL % (test code = NT%) 79.1 % 43-75 H IMMATURE GRANULOCYTE % (test code = IG%) 0.6 % 0.0-2.0 N LYMPHOCYTE % (test code = LY%) 7.0 % 14-44 L MONOCYTE % (test code = MO%) 13.2 % 4-13 H EOSINOPHIL % (test code = EO%) 0.0 % 0-6 N BASOPHIL % (test code = BA%) 0.1 % 0-2 N NUCLEATED RBC % (test code = NRBC%) 0.0 % 0-1.0 N NEUTROPHIL # (test code = NT#) 15.33 K/mm3 2.0-7.6 H IMMATURE GRANULOCYTE # (test code = IG#) 0.12 x10 3/uL 0-0.03 H LYMPHOCYTE # (test code = LY#) 1.35 K/mm3 1.0-3.8 N MONOCYTE # (test code = MO#) 2.56 K/mm3 0.1-0.8 H EOSINOPHIL # (test code = EO#) 0.00 K/mm3 0.0-0.2 N BASOPHIL # (test code = BA#) 0.02 K/mm3 0.0-0.2 N NUCLEATED RBC # (test code = NRBC#) 0.00 K/mm3 0.0-0.1 N BASIC METABOLIC [id number] 04:30:00* Test Item Value Reference Range Interpretation Comme nts SODIUM (test code = NA) 142 MMOL/L 137-145 N POTASSIUM (test code = K) 4.4 MMOL/L 3.5-5.1 N CHLORIDE (test code = CL) 110 MMOL/L 98-107 H CARBON DIOXIDE (test code = CO2) 24 MMOL/L 22-30 N ANION GAP (test code = GAP) 12 MMOL/L 14-24 L GLUCOSE (test code = GLU) 172 MG/DL 74-106 H BLOOD UREA NITROGEN (test code = BUN) 19 MG/DL 9-20 GLOMERULAR FILTRATION RATE (test code = GFR) > 60 Reporting units: ml/min/1.73 m2 (Modified MDRD Formula)Reference Range: > or = 60 ml/min/1.73 m2 CREATININE (test code = CREAT) 0.80 MG/DL 0.66-1.25 N CALCIUM (test code = CA) 8.2 MG/DL 8.4-10.2 L [id number] 04:30:00* Test Item Value Reference Range Interpretation Comme nts MAGNESIUM (test code = MAG) 1.9 MG/DL 1.6-2.3 GLUCOSE BEDSIDE [id number] 04:05:00* Test Item Value Reference Range Interpretation Comme nts GLUCOSE BEDSIDE TESTING (jagjit t code = GLUBED) 170 MG/DL 60-99 H GLUCOSE BEDSIDE [id number] 03:10:00* Test Item Value Reference Range Interpretation Comme nts GLUCOSE BEDSIDE TESTING (jagjit t code = GLUBED) 174 MG/DL 60-99 H GLUCOSE BEDSIDE [id number] 01:23:00* Test Item Value Reference Range Interpretation Comme nts GLUCOSE BEDSIDE TESTING (jagjit t code = GLUBED) 164 MG/DL 60-99 H GLUCOSE BEDSIDE [id number] 00:08:00* Test Item Value Reference Range Interpretation Comme nts GLUCOSE BEDSIDE TESTING (jagjit t code = GLUBED) 215 MG/DL 60-99 H GLUCOSE BEDSIDE [id number] 22:05:00* Test Item Value Reference Range Interpretation Comme nts GLUCOSE BEDSIDE TESTING (jagjit t code = GLUBED) 229 MG/DL 60-99 H GLUCOSE BEDSIDE [id number] 21:19:00* Test Item Value Reference Range Interpretation Comme nts GLUCOSE BEDSIDE TESTING (jagjit t code = GLUBED) 221 MG/DL 60-99 H GLUCOSE BEDSIDE [id number] 20:20:00* Test Item Value Reference Range Interpretation Comme nts GLUCOSE BEDSIDE TESTING (jagjit t code = GLUBED) 228 MG/DL 60-99 H GLUCOSE BEDSIDE [id number] 20:17:00* Test Item Value Reference Range Interpretation Comme nts GLUCOSE BEDSIDE TESTING (jagjit t code = GLUBED) 185 MG/DL 60-99 H ARTERIAL BLOOD [id number] 17:54:00* Test Item Value Reference Range Interpretation Comme nts ARTERIAL BLOOD GAS PH (test code = PHA) 7.26 mmHg 7.35-7.45 L ARTERIAL BLOOD GAS PCO2 (test code = PCO2A) 46.7 mmHg 35.0-45.0 H ARTERIAL BLOOD GAS PO2 (test code = PO2A) 234.8 mmol/L 80.0-100.0 H BICARBONATE TOTAL HCO3 (test code = HCO3) 20.3 mmol/L 20.0-26.0 N BASE EXCESS (test code = OREN) -6.9 mmol/L -3.0-3.0 L ABG O2 SATURATION (test code = SATA) 99.4 % 95.0-100.0 N All critical values report to and readback by TAZ CASANOVA by LURDESAVOli at 09/13/2021 3:30:40 PM ABG DELIVERY (test code = MAURICE) VENT ABG VENT MODE (test code = MODEA) A/C ABG VENT RESP RATE (test code = RRA) 12.0 /MIN ABG TIDAL VOLUME (test code = TVA) 500.0 ml ABG PEEP (test code = PEEPA) 5.0 cmH2O ABG TEMPERATURE (test code = TEMPA) 37.0 C See_Comment [Automated messa ge] The system which generated this result transmitted reference range: 37. The reference range was not used to interpret this result as normal/abnormal. ABG SITE (test code = SITEA) LINE ALLENS TEST (test code = ALLENS) NA CHECK FIO2 (test code = COHBGFFIO2) 100 % BASIC METABOLIC [id number] 16:26:00* Test Item Value Reference Range Interpretation Comme nts SODIUM (test code = NA) 141 MMOL/L 137-145 N POTASSIUM (test code = K) 3.5 MMOL/L 3.5-5.1 N CHLORIDE (test code = CL) 111 MMOL/L 98-107 H CARBON DIOXIDE (test code = CO2) 22 MMOL/L 22-30 N GLUCOSE (test code = GLU) 192 MG/DL 74-106 H BLOOD UREA NITROGEN (test code = BUN) 23 MG/DL 9-20 H GLOMERULAR FILTRATION RATE (test code = GFR) > 60 Reporting units: ml/min/1.73 m2 (Modified MDRD Formula)Reference Range: > or = 60 ml/min/1.73 m2 CREATININE (test code = CREAT) 0.70 MG/DL 0.66-1.25 N CALCIUM (test code = CA) 8.1 MG/DL 8.4-10.2 L [id number] 16:26:00* Test Item Value Reference Range Interpretation Comme nts MAGNESIUM (test code = MAG) 2.9 MG/DL 1.6-2.3 H PROTHROMBIN [id number] 15:55:00* Test Item Value Reference Range Interpretation Comme nts PROTHROMBIN TIME PATIENT (test code = PTP) 18.1 SECONDS 9.4-12.7 H INTERNATIONAL NORMAL RATIO (test code = INR) 1.6 0.86-1.14 H The INR is to be used only for monitoring oral anticoagulanttherap y. INDICATION INR VALUE -------1. Prophylaxis, deep venous thrombosis, including high risk surgery. 2.0 - 3.0 2. Prophylaxis, deep venous thrombosis, hip surgery, treatment for deep venous thrombosis or pulmonary prevention of systemic embolism in patients with valvular heart disease, atrial fibrillation, tissue heart valve, or acute myocardial infarction. 2.0 - 3.0 3. Mechanical prosthesis heart valves, recurrent systemic embolism. 3.0 - 4.5 PTT [id number] 15:55:00* Test Item Value Reference Range Interpretation Comme nts PTT ACTIVATED (test code = APTT) 34.5 SECONDS 26.2-35.4 CBC W/AUTO [id number] 15:39:00* Test Item Value Reference Range Interpretation Comme nts WHITE BLOOD CELL (test code = WBC) 29.2 K/MM3 3.8-9.8 H RED BLOOD CELL (test code = RBC) 3.82 M/MM3 3.95-5.67 L HEMOGLOBIN (test code = HGB) 11.7 G/DL 12.4-16.7 L HEMATOCRIT (test code = HCT) 35.1 % 35.9-49.5 L MEAN CELL VOLUME (test code = MCV) 92 fL 81.7-96.1 N MEAN CELL HGB (test code = MCH) 30.6 pg 27.6-33.2 N MEAN CELL HGB CONCETRATION (test code = MCHC) 33.3 % 32.9-35.5 N RED CELL DISTRIBUTION WIDTH (test code = RDW) 13.0 % 12.1-15.2 N PLATELET COUNT (test code = PLT) 180 K/MM3 129-368 N MEAN PLATELET VOLUME (test c ode = MPV) 10.9 fl 7.4-10.4 H NEUTROPHIL % (test code = NT%) 60.6 % 43-75 N IMMATURE GRANULOCYTE % (test code = IG%) 0.8 % 0.0-2.0 N LYMPHOCYTE % (test code = LY%) 28.2 % 14-44 N MONOCYTE % (test code = MO%) 9.7 % 4-13 N EOSINOPHIL % (test code = EO%) 0.4 % 0-6 N BASOPHIL % (test code = BA%) 0.3 % 0-2 N NUCLEATED RBC % (test code = NRBC%) 0.0 % 0-1.0 N NEUTROPHIL # (test code = NT#) 17.69 K/mm3 2.0-7.6 H IMMATURE GRANULOCYTE # (test code = IG#) 0.23 x10 3/uL 0-0.03 H LYMPHOCYTE # (test code = LY#) 8.25 K/mm3 1.0-3.8 H MONOCYTE # (test code = MO#) 2.84 K/mm3 0.1-0.8 H EOSINOPHIL # (test code = EO#) 0.13 K/mm3 0.0-0.2 N BASOPHIL # (test code = BA#) 0.08 K/mm3 0.0-0.2 N NUCLEATED RBC # (test code = NRBC#) 0.00 K/mm3 0.0-0.1 N BASIC METABOLIC [id number] 15:38:00* Test Item Value Reference Range Interpretation Comme nts SODIUM (test code = NA) 138 MMOL/L 137-145 N POTASSIUM (test code = K) 3.6 MMOL/L 3.5-5.1 N CHLORIDE (test code = CL) 111 MMOL/L 98-107 H CARBON DIOXIDE (test code = CO2) 21 MMOL/L 22-30 L ANION GAP (test code = GAP) 10 MMOL/L 14-24 L GLUCOSE (test code = GLU) 185 MG/DL 74-106 H BLOOD UREA NITROGEN (test code = BUN) 23 MG/DL 9-20 H GLOMERULAR FILTRATION RATE (test code = GFR) > 60 Reporting units: ml/min/1.73 m2 (Modified MDRD Formula)Reference Range: > or = 60 ml/min/1.73 m2 CREATININE (test code = CREAT) 0.70 MG/DL 0.66-1.25 CALCIUM (test code = CA) 8.4 MG/DL 8.4-10.2 N - XR CHEST [id number] 15:38:00 [facility] 1955 Sex: M Patient Name: MARK RIVAS Unit No: [id number] EXAMS: CPT CODE: [id number] XR CHEST 1V [id number] B2 EXAM: - XR CHEST 1V DATE: 09/13/2021 3:04 PM HISTORY: S/P CABG COMPARISON: Chest x-ray 09/10/2021 FINDINGS: Interval medial sternotomy. Interval placement of an endotracheal tube ending approximately 2.5 cm above the little. Interval placement of an enteric tube ending below the level of the GE junction. Left tho racostomy tube and mediastinal drain in place. Right internal jugular Calvin-Sahra catheter ending in the region of the proximal right pulmonary artery. Right subclavian central venous line ending in the region of the right atrium. No pneumothorax, pleural effusions or airspace consolidation. The cardiovascular silhouette is within normal limits. IMPRESSION: Status post CABG procedure with intervalplacement of life support lines and tubes. at 1538 Reported and signed by: Darlin Flynn MD CC: Dilan Murray MD Technologist: Daniella Naqvi, MELVINRS, RT(R) Transcrpt Date/Tm/Trnsp: 09/13/2021 (1538) [email or web address] Orig Print D/T: S: 09/13/2021 (0103) [facility] NAME: MARK RIVAS [id number] [address] PHYS: [place] [address] : 1955 AGE: 65 SEX: M LOC: [id number] PHONE #: [phone] EXAM DATE: 09/13/2021 STATUS: ADM IN FAX #: [phone] RADIOLOGY NO: PAGE 1 Signed ReportPROTHROMBIN TIME 2021-09-13 15:20:00* Test Item Value Reference Range Interpretation Comme nts PROTHROMBIN TIME PATIENT (test code = PTP) 18.5 SECONDS 9.4-12.7 H INTERNATIONAL NORMAL RATIO (test code = INR) 1.6 0.86-1.14 H The INR is to be used only for monitoring oral anticoagulanttherap y. INDICATION INR VALUE -------1. Prophylaxis, deep venous thrombosis, including high risk surgery. 2.0 - 3.0 2. Prophylaxis, deep venous thrombosis, hip surgery, treatment for deep venous thrombosis or pulmonary prevention of systemic embolism in patients with valvular heart disease, atrial fibrillation, tissue heart valve, or acute myocardial infarction. 2.0 - 3.0 3. Mechanical prosthesis heart valves, recurrent systemic embolism. 3.0 - 4.5 PTT [id number] 15:20:00* Test Item Value Reference Range Interpretation Comme nts PTT ACTIVATED (test code = APTT) 28.5 SECONDS 26.2-35.4 CBC W/AUTO [id number] 15:08:00* Test Item Value Reference Range Interpretation Comme nts WHITE BLOOD CELL (test code = WBC) 27.5 K/MM3 3.8-9.8 H RED BLOOD CELL (test code = RBC) 3.74 M/MM3 3.95-5.67 L HEMOGLOBIN (test code = HGB) 11.4 G/DL 12.4-16.7 L HEMATOCRIT (test code = HCT) 34.0 % 35.9-49.5 L MEAN CELL VOLUME (test code = MCV) 91 fL 81.7-96.1 N MEAN CELL HGB (test code = MCH) 30.5 pg 27.6-33.2 N MEAN CELL HGB CONCETRATION (test code = MCHC) 33.5 % 32.9-35.5 N RED CELL DISTRIBUTION WIDTH (test code = RDW) 12.9 % 12.1-15.2 N PLATELET COUNT (test code = PLT) 169 K/MM3 129-368 N MEAN PLATELET VOLUME (test c ode = MPV) 11.2 fl 7.4-10.4 H NEUTROPHIL % (test code = NT%) 57.3 % 43-75 N IMMATURE GRANULOCYTE % (test code = IG%) 0.6 % 0.0-2.0 N LYMPHOCYTE % (test code = LY%) 31.9 % 14-44 N MONOCYTE % (test code = MO%) 9.3 % 4-13 N EOSINOPHIL % (test code = EO%) 0.6 % 0-6 N BASOPHIL % (test code = BA%) 0.3 % 0-2 N NUCLEATED RBC % (test code = NRBC%) 0.0 % 0-1.0 N NEUTROPHIL # (test code = NT#) 15.78 K/mm3 2.0-7.6 H IMMATURE GRANULOCYTE # (test code = IG#) 0.17 x10 3/uL 0-0.03 H LYMPHOCYTE # (test code = LY#) 8.78 K/mm3 1.0-3.8 H MONOCYTE # (test code = MO#) 2.55 K/mm3 0.1-0.8 H EOSINOPHIL # (test code = EO#) 0.17 K/mm3 0.0-0.2 N BASOPHIL # (test code = BA#) 0.08 K/mm3 0.0-0.2 N NUCLEATED RBC # (test code = NRBC#) 0.00 K/mm3 0.0-0.1 N POC ARTERIAL BLOOD [id number] 14:57:00* Test Item Value Reference Range Interpretation Comme nts POC ARTERIAL BLOOD GAS PH (test code = POCPHA) 7.329 7.35-7.45 L POC ARTERIAL BLOOD GAS PCO2 (test code = ILTGAL2I) 43.2 mmHg 35.0-45.0 N POC ARTERIAL BLOOD GAS PO2 (test code = SPPRB8Q) 315.6 75.0-100.0 HH POC HCO3 ARTERIAL (test code = OFTTCS7S) 22.7 MMOL/L 20.0-26.0 N POC BASE EXCESS (test code = POCBEA) -3.2 MMOL/L -3.0-3.0 L POC O2 SATURATION (test code = POCO2S) 99.9 % 92.0-98.5 H SODIUM (test code = NA/ABG) 143 MMOL/L 135-141 H POTASSIUM (test code = K/ABG) 3.8 MMOL/L 3.7-4.7 N CHLORIDE (test code = CL/ABG) 108 MEQ/L POC IONIZED CALCIUM (test code = POCCA) 1.18 MMOL/L 1.13-1.32 N POC GLUCOSE (test code = POCGLU) 179 MG/DL 60-99 H POC SAMPLE SOURCE (test code = POCSAMPLE) Arterial Descript Specimen LACTIC ACID POC (test code = LACTP) 2.93 mmol/L 0.7-2.0 HH POC ARTERIAL BLOOD [id number] 13:49:00* Test Item Value Reference Range Interpretation Comme [facility] POC ARTERIAL BLOOD GAS PH (test code = POCPHA) 7.307 7.35-7.45 L POC ARTERIAL BLOOD GAS PCO2 (test code = VFGMOB3G) 51.6 mmHg 35.0-45.0 HH POC ARTERIAL BLOOD GAS PO2 (test code = RHZXX3G) 244.6 75.0-100.0 HH POC HCO3 ARTERIAL (test code = IRNPOE2O) 25.8 MMOL/L 20.0-26.0 N POC BASE EXCESS (test code = POCBEA) -0.8 MMOL/L -3.0-3.0 N POC O2 SATURATION (test code = POCO2S) 99.8 % 92.0-98.5 H FIO2 (test code = FIO2A) 85 % 21-100 PaO2/FiO2 (test code = UHK2MQY4) 287.76 mm/Hg SODIUM (test code = NA/ABG) 141 MMOL/L 135-141 N POTASSIUM (test code = K/ABG) 4.6 MMOL/L 3.7-4.7 N CHLORIDE (test code = CL/ABG) 105 MEQ/L POC IONIZED CALCIUM (test code = POCCA) 1.13 MMOL/L 1.13-1.32 N POC GLUCOSE (test code = POCGLU) 165 MG/DL 60-99 H POC SAMPLE SOURCE (test code = POCSAMPLE) Arterial Descript Specimen LACTIC ACID POC (test code = LACTP) 1.24 mmol/L 0.7-2.0 N POC ARTERIAL BLOOD [id number] 13:23:00* Test Item Value Reference Range Interpretation Comme [facility] POC ARTERIAL BLOOD GAS PH (test code = POCPHA) 7.405 7.35-7.45 N POC ARTERIAL BLOOD GAS PCO2 (test code = NMIIJC4W) 41.7 mmHg 35.0-45.0 N POC ARTERIAL BLOOD GAS PO2 (test code = FYJTR6N) 278.9 75.0-100.0 HH POC HCO3 ARTERIAL (test code = UAKEAH0V) 26.1 MMOL/L 20.0-26.0 H POC BASE EXCESS (test code = POCBEA) 1.3 MMOL/L -3.0-3.0 N POC O2 SATURATION (test code = POCO2S) 99.9 % 92.0-98.5 H FIO2 (test code = FIO2A) 80 % 21-100 PaO2/FiO2 (test code = EJA0SLL3) 348.62 mm/Hg SODIUM (test code = NA/ABG) 142 MMOL/L 135-141 H POTASSIUM (test code = K/ABG) 5.9 MMOL/L 3.7-4.7 H CHLORIDE (test code = CL/ABG) 109 MEQ/L POC IONIZED CALCIUM (test code = POCCA) 1.12 MMOL/L 1.13-1.32 L POC GLUCOSE (test code = POCGLU) 145 MG/DL 60-99 H POC SAMPLE SOURCE (test code = POCSAMPLE) Arterial Descript Specimen LACTIC ACID POC (test code = LACTP) 0.72 mmol/L 0.7-2.0 N POC ARTERIAL BLOOD [id number] 12:48:00* Test Item Value Reference Range Interpretation Comme [facility] POC ARTERIAL BLOOD GAS PH (test code = POCPHA) 7.395 7.35-7.45 N POC ARTERIAL BLOOD GAS PCO2 (test code = QTZVWT0V) 42.4 mmHg 35.0-45.0 N POC ARTERIAL BLOOD GAS PO2 (test code = MSCOP7N) 284.3 75.0-100.0 HH POC HCO3 ARTERIAL (test code = ZONSMM5S) 26.0 MMOL/L 20.0-26.0 N POC BASE EXCESS (test code = POCBEA) 0.9 MMOL/L -3.0-3.0 N POC O2 SATURATION (test code = POCO2S) 99.9 % 92.0-98.5 H FIO2 (test code = FIO2A) 55 % 21-100 N PaO2/FiO2 (test code = RBH8PTV1) 516.90 mm/Hg SODIUM (test code = NA/ABG) 140 MMOL/L 135-141 N POTASSIUM (test code = K/ABG) 5.5 MMOL/L 3.7-4.7 H CHLORIDE (test code = CL/ABG) 106 MEQ/L POC IONIZED CALCIUM (test code = POCCA) 1.06 MMOL/L 1.13-1.32 L POC GLUCOSE (test code = POCGLU) 150 MG/DL 60-99 H POC SAMPLE SOURCE (test code = POCSAMPLE) Arterial Descript Specimen LACTIC ACID POC (test code = LACTP) 0.95 mmol/L 0.7-2.0 N POC ARTERIAL BLOOD [id number] 12:19:00* Test Item Value Reference Range Interpretation Comme nts POC ARTERIAL BLOOD GAS PH (test code = POCPHA) 7.407 7.35-7.45 N POC ARTERIAL BLOOD GAS PCO2 (test code = FOICCW5U) 44.3 mmHg 35.0-45.0 N POC ARTERIAL BLOOD GAS PO2 (test code = PSRLZ6W) 434.7 75.0-100.0 HH POC HCO3 ARTERIAL (test code = NKJQYI1N) 27.8 MMOL/L 20.0-26.0 H POC BASE EXCESS (test code = POCBEA) 2.8 MMOL/L -3.0-3.0 N POC O2 SATURATION (test code = POCO2S) 100.0 % 92.0-98.5 H SODIUM (test code = NA/ABG) 141 MMOL/L 135-141 N POTASSIUM (test code = K/ABG) 4.3 MMOL/L 3.7-4.7 N CHLORIDE (test code = CL/ABG) 100 MEQ/L POC IONIZED CALCIUM (test code = POCCA) 0.86 MMOL/L 1.13-1.32 L POC GLUCOSE (test code = POCGLU) 128 MG/DL 60-99 H POC SAMPLE SOURCE (test code = POCSAMPLE) Arterial Descript Specimen LACTIC ACID POC (test code = LACTP) 1.20 mmol/L 0.7-2.0 N POC ARTERIAL BLOOD [id number] 11:28:00* Test Item Value Reference Range Interpretation Comme nts POC ARTERIAL BLOOD GAS PH (test code = POCPHA) 7.411 7.35-7.45 N POC ARTERIAL BLOOD GAS PCO2 (test code = NLFVGG1U) 40.2 mmHg 35.0-45.0 N POC ARTERIAL BLOOD GAS PO2 (test code = JYVFM2E) 526.3 75.0-100.0 HH POC HCO3 ARTERIAL (test code = TTPXNP3S) 25.5 MMOL/L 20.0-26.0 N POC BASE EXCESS (test code = POCBEA) 0.8 MMOL/L -3.0-3.0 N POC O2 SATURATION (test code = POCO2S) 100.0 % 92.0-98.5 H SODIUM (test code = NA/ABG) 142 MMOL/L 135-141 H POTASSIUM (test code = K/ABG) 4.4 MMOL/L 3.7-4.7 N CHLORIDE (test code = CL/ABG) 106 MEQ/L POC IONIZED CALCIUM (test code = POCCA) 1.15 MMOL/L 1.13-1.32 N POC GLUCOSE (test code = POCGLU) 150 MG/DL 60-99 H POC SAMPLE SOURCE (test code = POCSAMPLE) Arterial Descript Specimen LACTIC ACID POC (test code = LACTP) 1.46 mmol/L 0.7-2.0 N BASIC METABOLIC [id number] 11:01:00* Test Item Value Reference Range Interpretation Comme nts SODIUM (test code = NA) 140 MMOL/L 137-145 N POTASSIUM (test code = K) 4.0 MMOL/L 3.5-5.1 N CHLORIDE (test code = CL) 107 MMOL/L 98-107 N CARBON DIOXIDE (test code = CO2) 24 MMOL/L 22-30 N ANION GAP (test code = GAP) 13 MMOL/L 14-24 L GLUCOSE (test code = GLU) 154 MG/DL 74-106 H BLOOD UREA NITROGEN (test code = BUN) 27 MG/DL 9-20 H GLOMERULAR FILTRATION RATE (test code = GFR) > 60 Reporting units: ml/min/1.73 m2 (Modified MDRD Formula)Reference Range: > or = 60 ml/min/1.73 m2 CREATININE (test code = CREAT) 0.60 MG/DL 0.66-1.25 L CALCIUM (test code = CA) 8.5 MG/DL 8.4-10.2 N PLEASE CALL RESULTS TO PHONE #: [phone] [facility] W/AUTO [id number] 10:22:00* Test Item Value Reference Range Interpretation Comme nts WHITE BLOOD CELL (test code = WBC) 7.8 K/MM3 3.8-9.8 N RED BLOOD CELL (test code = RBC) 4.09 M/MM3 3.95-5.67 N HEMOGLOBIN (test code = HGB) 12.2 G/DL 12.4-16.7 L HEMATOCRIT (test code = HCT) 36.7 % 35.9-49.5 N MEAN CELL VOLUME (test code = MCV) 90 fL 81.7-96.1 N MEAN CELL HGB (test code = MCH) 29.8 pg 27.6-33.2 N MEAN CELL HGB CONCETRATION (test code = MCHC) 33.2 % 32.9-35.5 N RED CELL DISTRIBUTION WIDTH (test code = RDW) 12.8 % 12.1-15.2 N PLATELET COUNT (test code = PLT) 207 K/MM3 129-368 N MEAN PLATELET VOLUME (test c ode = MPV) 10.9 fl 7.4-10.4 H NEUTROPHIL % (test code = NT%) 43.6 % 43-75 N IMMATURE GRANULOCYTE % (test code = IG%) 0.3 % 0.0-2.0 N LYMPHOCYTE % (test code = LY%) 44.6 % 14-44 H MONOCYTE % (test code = MO%) 9.2 % 4-13 N EOSINOPHIL % (test code = EO%) 1.8 % 0-6 N BASOPHIL % (test code = BA%) 0.5 % 0-2 N NUCLEATED RBC % (test code = NRBC%) 0.0 % 0-1.0 N NEUTROPHIL # (test code = NT#) 3.42 K/mm3 2.0-7.6 N IMMATURE GRANULOCYTE # (test code = IG#) 0.02 x10 3/uL 0-0.03 N LYMPHOCYTE # (test code = LY#) 3.50 K/mm3 1.0-3.8 N MONOCYTE # (test code = MO#) 0.72 K/mm3 0.1-0.8 N EOSINOPHIL # (test code = EO#) 0.14 K/mm3 0.0-0.2 N BASOPHIL # (test code = BA#) 0.04 K/mm3 0.0-0.2 N NUCLEATED RBC # (test code = NRBC#) 0.00 K/mm3 0.0-0.1 N PLEASE CALL RESULTS TO PHONE #: [phone] [facility] ARTERIAL BLOOD [id number] 09:59:00* Test Item Value Reference Range Interpretation Comme nts POC ARTERIAL BLOOD GAS PH (test code = POCPHA) 7.423 7.35-7.45 N POC ARTERIAL BLOOD GAS PCO2 (test code = SMVDTA1I) 37.3 mmHg 35.0-45.0 N POC ARTERIAL BLOOD GAS PO2 (test code = YZUHX1W) 374.9 75.0-100.0 HH POC HCO3 ARTERIAL (test code = GYNWLA0Y) 24.4 MMOL/L 20.0-26.0 N POC BASE EXCESS (test code = POCBEA) 0.1 MMOL/L -3.0-3.0 N POC O2 SATURATION (test code = POCO2S) 100.0 % 92.0-98.5 H SODIUM (test code = NA/ABG) 142 MMOL/L 135-141 H POTASSIUM (test code = K/ABG) 4.2 MMOL/L 3.7-4.7 N CHLORIDE (test code = CL/ABG) 106 MEQ/L POC IONIZED CALCIUM (test code = POCCA) 1.17 MMOL/L 1.13-1.32 N POC GLUCOSE (test code = POCGLU) 148 MG/DL 60-99 H POC SAMPLE SOURCE (test code = POCSAMPLE) Arterial Descript Specimen LACTIC ACID POC (test code = LACTP) 1.05 mmol/L 0.7-2.0 N POC ARTERIAL BLOOD [id number] 08:09:00* Test Item Value Reference Range Interpretation Comme nts POC ARTERIAL BLOOD GAS PH (test code = POCPHA) 7.392 7.35-7.45 N POC ARTERIAL BLOOD GAS PCO2 (test code = QQMEFB6I) 43.8 mmHg 35.0-45.0 N POC ARTERIAL BLOOD GAS PO2 (test code = VDYMA6P) 93.1 75.0-100.0 N POC HCO3 ARTERIAL (test code = CECINM3F) 26.6 MMOL/L 20.0-26.0 H POC BASE EXCESS (test code = POCBEA) 1.3 MMOL/L -3.0-3.0 N POC O2 SATURATION (test code = POCO2S) 97.1 % 92.0-98.5 N SODIUM (test code = NA/ABG) 142 MMOL/L 135-141 H POTASSIUM (test code = K/ABG) 4.3 MMOL/L 3.7-4.7 N CHLORIDE (test code = CL/ABG) 108 MEQ/L POC IONIZED CALCIUM (test code = POCCA) 1.27 MMOL/L 1.13-1.32 N POC GLUCOSE (test code = POCGLU) 192 MG/DL 60-99 H POC SAMPLE SOURCE (test code = POCSAMPLE) Arterial Descript Specimen LACTIC ACID POC (test code = LACTP) 0.63 mmol/L 0.7-2.0 L PROTHROMBIN [id number] 14:18:00* Test Item Value Reference Range Interpretation [facility] (test code = PTP) 13.3 SECONDS 9.4-12.7 H INTERNATIONAL NORMAL RATIO (test code = INR) 1.2 0.86-1.14 H The INR is to be used only for monitoring oral anticoagulanttherap y. INDICATION INR VALUE -------1. Prophylaxis, deep venous thrombosis, including high risk surgery. 2.0 - 3.0 2. Prophylaxis, deep venous thrombosis, hip surgery, treatment for deep venous thrombosis or pulmonary prevention of systemic embolism in patients with valvular heart disease, atrial fibrillation, tissue heart valve, or acute myocardial infarction. 2.0 - 3.0 3. Mechanical prosthesis heart valves, recurrent systemic embolism. 3.0 - 4.5 PTT [id number] 14:18:00* Test Item Value Reference Range Interpretation [facility] PTT ACTIVATED (test code = APTT) 42.5 SECONDS 26.2-35.4 H HIV 12 AB [id number] 13:27:00* Test Item Value Reference Range Interpretation Comme [facility] HIV 1 2 COMBO AG/AB SCREEN (test code = [id number]) AB/AG NON REACTIVE NONREACTIVE GLYCOSYLATED HEMOGLOBIN [id number] 12:41:00* Test Item Value Reference Range Interpretation Comme nts GLYCOSYLATED HEMOGLOBIN (HA1C) (test code = GLYHGB) 11.6 % 4.8-5.9 H Any condition th at shortens erythocyte survival or decreasesmean erythrocyte age (e.g., recovery from acute blood loss,hemolytic anemia) will falsely lower HGBA1c resultsregardless of the method used. HGBA1c results from patientswith HbSS, HbCC, and HbSc must be interpreted with cautiongiven the pathological processes, including anemia,increased red cell turnover, transfusion requirements, thatadversely impact HGBA1c as a marker of long-term glycemiccontrol. Alternative forms of testing such as fructosamineshould be considered for these patients. MEAN BLOOD GLUCOSE (test code = MBG) 286 MG/DL 70-110 H COMPREHENSIVE METABOLIC [id number] 12:41:00* Test Item Value Reference Range Interpretation Comme nts SODIUM (test code = NA) 138 MMOL/L 137-145 N POTASSIUM (test code = K) 4.4 MMOL/L 3.5-5.1 N CHLORIDE (test code = CL) 101 MMOL/L 98-107 N CARBON DIOXIDE (test code = CO2) 27 MMOL/L 22-30 N ANION GAP (test code = GAP) 14 MMOL/L 14-24 N GLUCOSE (test code = GLU) 162 MG/DL 74-106 H BLOOD UREA NITROGEN (test code = BUN) 23 MG/DL 9-20 H GLOMERULAR FILTRATION RATE (test code = GFR) > 60 Reporting unit s: ml/min/1.73 m2 (Modified MDRD Formula)Reference Range: > or = 60 ml/min/1.73 m2 CREATININE (test code = CREAT) 0.80 MG/DL 0.66-1.25 N TOTAL PROTEIN (test code = PROT) 7.8 G/DL 6.2-7.6 H [facility]o Clinical D iagnostic has made us aware of newinformation regarding the potential interference ofEltrombopag (a bone marrow stimulant used to treatthrombocytonmenia and aplastic anemia) with specific assayson the Vitros 5600 of which Total Protein is one of thoseassays performed in our lab.Interference testing performed at Ortho determined thatEltrombopag does interfere with Vitros Total Protein asfollowsEltrombopag Interference for Vitros Product Total Protein: Eltrombopag Max Observed Avg. BiasConcentration Concentration Concentration 2.5 mg/dl 6.0 g/dl +0.41 +0.34 3.5 mg/dl 6.0 g/dl +0.50 +0.45 5 mg/dl 6.0 g/dl +0.73 +0.65 2.5 mg/dl 8.0 g/dl +0.44 +0.41 3.5 mg/dl 8.0 g/dl +0.55 +0.52 5 mg/dl 8.0 g/dl +0.86 +0.77 ALBUMIN (test code = ALB) 4.4 G/DL 3.5-5.0 N CALCIUM (test code = CA) 9.6 MG/DL 8.4-10.2 N BILIRUBIN TOTAL (test code = BILT) 0.8 MG/DL 0.2-1.3 N Eltrombopag Inte rference for Vitros Product TBil, BuBc: Assay Eltrombopag Analyte/ Max Observed Avg. Bias Concentration Concentration Concentration TBil 7mg/dl TBil/ 1.2mg/dl +0.23mg.dl +0.20mg/dlBuBc 3.5mg/dl Bu/0.8mg/dl +0.25mg/dl +0.24mg/dlBuBc 7 mg/dl Bu/14.2mg/dl +0.38mg/dl +0.25mg/dlBuBc 5mg/dl Bc/0mg/dl +0.25mg/dl +0.15mg/dlBuBc 3.5mg/dl Bc/2.8mg/dl +0.25mg/dl +0.23mg/dl SGOT/AST (test code = AST) 22 UNITS/L 17-59 N SGPT/ALT (test code = ALT) 17 UNITS/L 0-49 N ALKALINE PHOSPHATASE (test code = ALKP) 67 UNITS/L 38-126 N - XR CHEST 2 [id number] 12:30:00 [facility] 1955 Sex: M Patient Name: MARK RIVAS Unit No: [id number] EXAMS: CPT CODE: [id number] XR CHEST 2 V 23101 C3 EXAM: - XRCHEST 2 V DATE: 09/10/2021 11:34 AM HISTORY: PREOP COMPARISON: None FINDINGS: No airspace consolidation or pleural effusions. No pneumothorax. The cardiovascular silhouette is within normal limits. No bony lesions. Calcification along the anterior aspect of the thoracic spine compatible with DISH. IMPRESSION: No acute cardiopulmonary abnormality. at 1230 Reported and signed by: Darlin Flynn MD CC: Dilan Santoslogist: Candace Wilburn (RT)(R) Transcrpt Date/Tm/Trnsp: 09/10/2021 ([id number]) [facility] Orig Print D/T: S: 09/10/2021 ([id number]) [facility] NAME: MARK RIVAS [id number] [address] PHYS: [place] [address] : 1955 AGE: 65 SEX: M LOC: U PHONE #: [phone] EXAM DATE: 09/10/2021 STATUS: PRE IN FAX #: [phone] RADIOLOGY NO: PAGE 1 Signed ReportPLT RESPONSE TO [id number] 12:21:00* Test Item Value Reference Range Interpretation Comme nts PLT RESPONSE TO PLAVIX (test code = PLAVRES) 193 PRU 194-418 L P2Y12 Resu lts Interpretation: Test results are in P2Y12 Reaction Units (PRU). Pre-Drug Reference Range is 194-418. Pre-drug platelet function estimates the total possible platelet aggregation independent of P2Y12 inhibitor drugs. Values <194 could be due to low HCT, low platelet count, or presence of IIb/IIIa inhibitors. Post-Drug Results: Lower PRU levels are associated with expected antiplatelet effect. Values may be below the stated reference range. Studies show that patients with <230 PRU had fewer adverse events. IS PATIENT ON ANTICOAGULANTS: YLIST ANTICOAGULANTS: AspirinCBC W/AUTO DIFF 2021-09-10 12:14:00* Test Item Value Reference Range Interpretation Comme nts WHITE BLOOD CELL (test code = WBC) 7.7 K/MM3 3.8-9.8 N RED BLOOD CELL (test code = RBC) 4.73 M/MM3 3.95-5.67 N HEMOGLOBIN (test code = HGB) 14.0 G/DL 12.4-16.7 N HEMATOCRIT (test code = HCT) 42.4 % 35.9-49.5 N MEAN CELL VOLUME (test code = MCV) 90 fL 81.7-96.1 N MEAN CELL HGB (test code = MCH) 29.6 pg 27.6-33.2 N MEAN CELL HGB CONCETRATION (test code = MCHC) 33.0 % 32.9-35.5 N RED CELL DISTRIBUTION WIDTH (test code = RDW) 12.4 % 12.1-15.2 N PLATELET COUNT (test code = PLT) 210 K/MM3 129-368 N MEAN PLATELET VOLUME (test c ode = MPV) 11.0 fl 7.4-10.4 H NEUTROPHIL % (test code = NT%) 46.1 % 43-75 N IMMATURE GRANULOCYTE % (test code = IG%) 0.4 % 0.0-2.0 N LYMPHOCYTE % (test code = LY%) 43.8 % 14-44 N MONOCYTE % (test code = MO%) 7.8 % 4-13 N EOSINOPHIL % (test code = EO%) 1.4 % 0-6 N BASOPHIL % (test code = BA%) 0.5 % 0-2 N NUCLEATED RBC % (test code = NRBC%) 0.0 % 0-1.0 N NEUTROPHIL # (test code = NT#) 3.54 K/mm3 2.0-7.6 N IMMATURE GRANULOCYTE # (test code = IG#) 0.03 x10 3/uL 0-0.03 N LYMPHOCYTE # (test code = LY#) 3.36 K/mm3 1.0-3.8 N MONOCYTE # (test code = MO#) 0.60 K/mm3 0.1-0.8 N EOSINOPHIL # (test code = EO#) 0.11 K/mm3 0.0-0.2 N BASOPHIL # (test code = BA#) 0.04 K/mm3 0.0-0.2 N NUCLEATED RBC # (test code = NRBC#) 0.00 K/mm3 0.0-0.1 N COVID 19 Asymptomatic IH [id number] 12:07:00* Test Item Value Reference Range Interpretation Comme nts COVID 19 Asymptomatic IH AG (test code = COVNONPUIAG) NEGATIVE Negative "Negative result s from patients with symptom onset beyondfive days, should be treated as presumptive, andconfirmation with a molecular assay, if necessary forpatient management may be performed. Negative results do notrule out COVID-19 and should not be used as the sole basisfor treatment or patient management decisions, includinginfection control decisions. Negative results should beconsidered in the context of a patients recent exposures,history, and the presence of clinical signs and symptomsconsistent with COVID-19.This test detects both viable andnon-viable SARS-CoV and SARS CoV-2.Test performance dependson the amount of virus (antigen) in the sample." POCT glycosylated hemoglobin (Hb A1C) docked [id number] 13:59:00* Test Item Value Reference Range Interpretation Comme [facility] Hemoglobin A1C (test code = 4548-4) 11.7 % 4.0-6.0 A Lab Interpretation (test cod e = 78320-6) Abnormal [facility] glucose manually [id number] 13:58:00* Test Item Value Reference Range Interpretation Comme [facility] Glucose Blood, POC (test cod e = 7201304) 232 mg/dL 70-180 A Lab Interpretation (test cod e = 65668-8) Abnormal [facility] ([facility]ONARY RISK)2021-09-04 06:09:00* Test Item Value Reference Range Interpretation Comme [facility] TRIGLYCERIDES (test code = TRIG) 133 MG/DL 150-199 L TRIGLYCERIDES REFERENCE RANGE:Normal: <150 mg/dLBorderline High: 150-199 mg/dLHigh: 200-499 mg/dLVery High: >=500 mg/dL CHOLESTEROL (test code = CHOL) 174 MG/DL <200 HDL CHOLESTEROL (test code = HDL) 44 MG/DL 40-59 N LIPOPROTEIN LDL (test code = LDL) 93 MG/DL 0-99 N OPTIMAL......... <100 mg/dLNEAR OPTIMAL/ABOVE OPTIMAL.........100-12 9 mg/dL BORDERLINE HIGH.........130-159 mg/dL HIGH.........160-189 mg/dL VERY HIGH.........>/= 190 mg/dL [id number] 06:09:00* Test Item Value Reference Range Interpretation Comme [facility] MAGNESIUM (test code = MAG) 1.7 MG/DL 1.6-2.3 N BASIC METABOLIC [id number] 06:09:00* Test Item Value Reference Range Interpretation Comme [facility] SODIUM (test code = NA) 137 MMOL/L 137-145 N POTASSIUM (test code = K) 4.2 MMOL/L 3.5-5.1 N CHLORIDE (test code = CL) 98 MMOL/L 98-107 N CARBON DIOXIDE (test code = CO2) 27 MMOL/L 22-30 N GLUCOSE (test code = GLU) 280 MG/DL 74-106 H BLOOD UREA NITROGEN (test code = BUN) 33 MG/DL 9-20 H GLOMERULAR FILTRATION RATE (test code = GFR) > 60 Reporting units: ml/min/1.73 m2 (Modified MDRD Formula)Reference Range: > or = 60 ml/min/1.73 m2 CREATININE (test code = CREAT) 0.80 MG/DL 0.66-1.25 N CALCIUM (test code = CA) 9.7 MG/DL 8.4-10.2 N PROTHROMBIN [id number] 05:53:00* Test Item Value Reference Range Interpretation Comme [facility] PROTHROMBIN TIME PATIENT (test code = PTP) 12.2 SECONDS 9.4-12.7 N INTERNATIONAL NORMAL RATIO (test code = INR) 1.1 0.86-1.14 N The INR is to be used only for monitoring oral anticoagulanttherap y. INDICATION INR VALUE -------1. Prophylaxis, deep venous thrombosis, including high risk surgery. 2.0 - 3.0 2. Prophylaxis, deep venous thrombosis, hip surgery, treatment for deep venous thrombosis or pulmonary prevention of systemic embolism in patients with valvular heart disease, atrial fibrillation, tissue heart valve, or acute myocardial infarction. 2.0 - 3.0 3. Mechanical prosthesis heart valves, recurrent systemic embolism. 3.0 - 4.5 PTT [id number] 05:53:00* Test Item Value Reference Range Interpretation Comme nts PTT ACTIVATED (test code = APTT) 32.8 SECONDS 26.2-35.4 N CBC W/AUTO [id number] 05:41:00* Test Item Value Reference Range Interpretation Comme nts WHITE BLOOD CELL (test code = WBC) 10.9 K/MM3 3.8-9.8 H RED BLOOD CELL (test code = RBC) 5.15 M/MM3 3.95-5.67 N HEMOGLOBIN (test code = HGB) 15.3 G/DL 12.4-16.7 N HEMATOCRIT (test code = HCT) 46.4 % 35.9-49.5 N MEAN CELL VOLUME (test code = MCV) 90 fL 81.7-96.1 N MEAN CELL HGB (test code = MCH) 29.7 pg 27.6-33.2 N MEAN CELL HGB CONCETRATION (test code = MCHC) 33.0 % 32.9-35.5 N RED CELL DISTRIBUTION WIDTH (test code = RDW) 12.4 % 12.1-15.2 N PLATELET COUNT (test code = PLT) 214 K/MM3 129-368 N MEAN PLATELET VOLUME (test c ode = MPV) 11.5 fl 7.4-10.4 H NEUTROPHIL % (test code = NT%) 46.0 % 43-75 N IMMATURE GRANULOCYTE % (test code = IG%) 0.4 % 0.0-2.0 N LYMPHOCYTE % (test code = LY%) 42.4 % 14-44 N MONOCYTE % (test code = MO%) 8.9 % 4-13 N EOSINOPHIL % (test code = EO%) 1.7 % 0-6 N BASOPHIL % (test code = BA%) 0.6 % 0-2 N NUCLEATED RBC % (test code = NRBC%) 0.0 % 0-1.0 N NEUTROPHIL # (test code = NT#) 4.99 K/mm3 2.0-7.6 N IMMATURE GRANULOCYTE # (test code = IG#) 0.04 x10 3/uL 0-0.03 H LYMPHOCYTE # (test code = LY#) 4.61 K/mm3 1.0-3.8 H MONOCYTE # (test code = MO#) 0.97 K/mm3 0.1-0.8 H EOSINOPHIL # (test code = EO#) 0.19 K/mm3 0.0-0.2 N BASOPHIL # (test code = BA#) 0.06 K/mm3 0.0-0.2 N NUCLEATED RBC # (test code = NRBC#) 0.00 K/mm3 0.0-0.1 N COVID 19 Asymptomatic [facility] [id number] 05:14:00* Test Item Value Reference Range Interpretation Comme nts COVID 19 Asymptomatic IH AG (test code = COVNONPUIAG) NEGATIVE Negative "Negative result s from patients with symptom onset beyondfive days, should be treated as presumptive, andconfirmation with a molecular assay, if necessary forpatient management may be performed. Negative results do notrule out COVID-19 and should not be used as the sole basisfor treatment or patient management decisions, includinginfection control decisions. Negative results should beconsidered in the context of a patients recent exposures,history, and the presence of clinical signs and symptomsconsistent with COVID-19.This test detects both viable andnon-viable SARS-CoV and SARS CoV-2.Test performance dependson the amount of virus (antigen) in the sample." POCT glucose manually [id number] 14:01:00* Test Item Value Reference Range Interpretation Comme nts Glucose Blood, POC (test cod e = 1131539) 278 mg/dL 70-180 A Lab Interpretation (test cod e = 89025-5) Abnormal [facility] Notes Date/Time Note Provider Source 2021 19:57:00 [id number] [place] [address] PATIENT NAME: MARK RIVAS ADMIT DATE: 09/13/21 ACCOUNT NO: [id number] ROOM NO: [id number].[id number] AGE: 66 REPORT TYPE: DISCHARGE SUMMARY REPORT SEX: M ADMITTING PHYSICIAN:Prakash Gómez MD ATTENDING PHYSICIAN:Prakash Gómez MD ADMISSION DATE: 09/13/2021 DISCHARGE DATE: 09/18/2021 DISCHARGE DIAGNOSES: Coronary artery disease with unstable angina, status post aortocoronary artery bypass x4 with AMIN to LAD, vein graft to diagonal, the OM on the right PDA, hypertension, hyperlipidemia, and diabetes mellitus. HOSPITAL COURSE: The patient is a 65-year-old male who was having unstable angina and chest pain and underwent cardiac catheterization by his aircraft electrical systems specialist, Dr. Murray and was found to have a multivessel coronary artery disease with an EF of 40% to 45%. The patient was subsequently admitted on 09/13/2021 and taken to the operating room, where he underwent ACB x4 with AMIN to the LAD, saphenous vein graft to the diagonal, the OM and the right PDA. The patient tolerated the procedure well, was transferred to ICU in a stable condition where he was extubated without any difficulty. He was weaned off all drips and pressors. Chest tubes were removed. Pacer wires were removed. The patient was ambulating independently and with assistance of physical therapy. He remained stable postoperatively, having had a good outcome from surgery. He was discharged to home in a stable condition and is instructed to follow up with Dr. Gómez in 1 to 2 weeks and to continue taking his medications as prescribed. Dictated By: ASHLEIGH Esposito for Prakash Gómez MD WT: DS:WALESKA/LILIA/MARIO Conf#: [id number]#: [id number] Authenticated by ASHLEIGH Esposito On 11/06/2021 03:13:30 PM Authenticated by Prakash Gómez MD On 11/06/2021 04:03:21 PM at 0403 at 0313 PATIENT NAME: MARK RIVAS [facility] 2021-09-18 14:54:00 [facility] [place] Hospitalist Progress Note REPORT#:[id number] REPORT STATUS: Signed DATE:09/18/21 TIME: 1454 PATIENT: MARK RIVAS UNIT #: [id number] [address] AGE: 65 SEX: M ATTEND: Prakash Gómez MD ADM AUTHOR: Scottie Hartman MD * ALL edits or amendments must be made on the electronic/computer document * Subjective Free Text Subj Notes Free Text Subj Notes: Patient feeling good; only c/o cough with phlegm and believes that it's due to post-nasal drip. Objective General VS/I O: Vital Signs: Date Time Temp Pulse Resp B/P B/P Pulse O2 O2 Flow FiO2 Mean Ox Delivery Rate 09/18 1209 97.6 09/18 1034 150/71 102 09/18 1029 70 32 97 09/18 1000 68 20 119/63 86 95 09/18 0930 73 26 107/63 75 97 09/18 0900 78 18 122/57 81 95 09/18 0830 80 26 136/79 102 97 09/18 0821 96 Room air 09/18 0811 75 28 130/58 84 09/18 0700 97.0 09/18 0700 68 14 120/59 85 92 09/18 0615 95 09/18 0600 86 16 130/65 91 09/18 0530 95 09/18 0515 95 09/18 0505 74 25 117/69 85 09/18 0430 95 09/18 0415 96 09/18 0400 97.6 09/18 0400 76 26 118/66 84 95 09/18 0315 93 09/18 0300 75 17 124/66 88 09/18 0245 95 09/18 0200 74 22 118/82 96 95 09/18 0101 82 113/71 86 09/18 0015 96 09/18 0000 97.6 09/18 0000 77 133/60 87 09/17 2300 74 16 135/83 104 95 09/17 2203 78 22 121/59 85 96 09/17 2100 79 26 109/65 84 95 09/17 2045 80 95 09/17 2030 82 95 09/17 2014 85 97 09/17 2000 85 20 113/66 85 95 09/17 1956 98.6 87 26 113/66 81 96 Room air 09/17 1945 87 96 09/17 1930 24 96 09/17 1915 93 13 98 09/17 1901 25 09/17 1900 91 125/58 83 09/17 1800 73 15 123/60 86 94 09/17 1745 77 14 135/64 92 95 09/17 1730 80 20 111/57 80 94 09/17 1715 75 20 140/60 87 95 09/17 1700 76 20 95/51 68 95 09/17 1645 76 13 113/67 86 95 09/17 1630 77 15 144/65 94 94 09/17 1615 80 18 121/64 87 95 09/17 1600 80 25 122/59 85 95 09/17 1545 79 137/61 88 96 09/17 1540 97.2 09/17 1500 22 24 hour I O ending at 0700: 04/23 0700 09/17 1900 Intake Total 500.00 Output Total 600 Balance -100.00 Intake, IV 200.00 Intake, Oral 300 Number Voids 3 Output, Urine 600 PATIENT WEIGHT: Weight (lb): 214 Weight (oz): 7.2 Weight (kg): 97.069 Medications: Active Meds + DC'd Last 24 Hrs Patient Own Medication (PATIENT'S OWN MEDICATION) OZEMPIC 0.5 MG Mo@0900 SUBQ (DCD) Ferrous Sulfate (FEOSOL) 325 MG BID PO (DCD) Metoprolol Tartrate (LOPRESSOR) 25 MG Q12HR PO (DC) Metoprolol Tartrate (LOPRESSOR) 12.5 MG Q12HR PO (DCD) Docusate Sodium (COLACE) 100 MG BID PO (DCD) Insulin Glargine (LANTUS/SEMGLEE) 14 UNITS DAILY SUBQ (DCD) Benzocaine/Menthol (Cepacol Sore Throat Lozenge) 1 TAB Q2H PRN PRN MM ( DCD) Phenol (CHLORASEPTIC) 2 SPRAY Q4H PRN PRN TOPICAL (DCD) Gabapentin (NEURONTIN) 100 MG 2100 PO (DC) Insulin Human Lispro (HumaLOG) LOW DOSE SLIDING SCALE AC HS SUBQ (DCD) Dextrose/Water (DEXTROSE 50% IN WATER) 12.5 GM ASDIR PRN IV (DCD) Dextrose/Water (DEXTROSE 50% IN WATER) 25 GM ASDIR PRN IV (DCD) Calcium Gluconate/Sodium Chloride (Calcium Gluconate 1 GM/100ML NS) 100 ML ASDIR IV (DCD) Aspirin (CHILDREN'S ASPIRIN) 81 MG DAILY PO (DCD) Clopidogrel Bisulfate (PLAVIX) 75 MG DAILY PO (DCD) Famotidine (PEPCID) 20 MG BID PO (DCD) Atorvastatin Calcium (LIPITOR) 40 MG BEDTIME PO (DCD) Mupirocin (BACTROBAN NASAL - ADULT ICU) 1 APPLIC BID NASAL (DC) Meperidine HCl (DEMEROL (C-II)) 50 MG Q4H PRN PRN IM (DCD) Dobutamine HCl/Dextrose (DOBUTamine HCL IN DEXTROSE) 250 ML ASDIR PRN IV (DCD) Epinephrine (EPINEPHrine/NS 4MG/250ML) 250 ML ASDIR PRN IV (DCD) Hydrocodone Bitart/Acetaminophen (NORCO 5/325 TABLET (C-II)) 1 TAB Q4H PRN PRN PO (DCD) Hydrocodone Bitart/Acetaminophen (NORCO 5/325 TABLET (C-II)) 2 TAB Q4H PRN PRN PO (DCD) Lidocaine HCl/Dextrose (Lidocaine 0.4% in D5w Soln) 500 ML ASDIR PRN IV (DCD) Magnesium Sulfate (MAG SULFATE 2GM PREMIX) 50 ML ASDIR PRN IV (DCD) Magnesium Sulfate/Dextrose (Magnesium Sulfate) 100 ML ASDIR PRN IV (DCD) Meperidine HCl (DEMEROL (C-II)) 25 MG Q4H PRN PRN IM (DCD) Morphine Sulfate (morphine SULFATE (C-II)) 2 MG Q15M PRN PRN IV (DCD) Nicardipine HCl (CARDENE I.V.) 25 MG ASDIR PRN IV (DCD) Sodium Chloride (SODIUM CHLORIDE 0.9%) 250 ML Ondansetron HCl (ZOFRAN) 4 MG Q8H PRN PRN IV (DCD) Potassium Chloride (Potassium Chloride) 50 ML ASDIR PRN IV (DCD) Nicardipine HCl (CARDENE I.V.) 25 MG ASDIR IV (DCD) Sodium Chloride (SODIUM CHLORIDE 0.9%) 250 ML Physical Exam General appearance: awake, no acute distress, pleasant, conversational Head/Eyes: atraumatic, clear cornea, normal conjunctiva/sclera, PERRL ENT: moist mucosal membranes, normal ear left, normal ear right Neck: non-tender, supple/no meningismus Cardiovascular: normal heart sounds, regular rate rhythm Respiratory: aerating well, clear to auscultation, symmetric expansion, no distress Abdomen: non-tender, soft, no distention Extremities: moves all, no clubbing, no cyanosis, no edema Musculoskeletal: normal inspection, no CVA tenderness, no midline vertebral tend , no muscle spasm Neuro/[employer]: alert, oriented X 3, normal speech, no motor deficits Wound/incision: Location: sternum RLE Site Condition: dressing clean dry Psychiatry: normal affect, normal judgment/insight, normal mood Results Findings/Data: Laboratory Tests 09/18 09/17 09/17 09/17 0400 2250 2022 180 Chemistry Sodium (137 - 145 MMOL/L) 135 L Potassium (3.5 - 5.1 MMOL/L) 4.1 3.6 Chloride (98 - 107 MMOL/L) 101 Carbon Dioxide (22 - 30 MMOL/L) 29 BUN (9 - 20 MG/DL) 14 Creatinine (0.66 - 1.25 MG/DL) 0.70 Glomerular Filtr Rate > 60 Glucose (74 - 106 MG/DL) 138 H POC Glucose (60 - 99 MG/DL) 161 H 200 H Calcium (8.4 - 10.2 MG/DL) 8.2 L 7.8 L Magnesium (1.6 - 2.3 MG/DL) 2.0 Laboratory Tests 09/18 0400 Hematology WBC (3.8 - 9.8 K/MM3) 10.6 H RBC (3.95 - 5.67 M/MM3) 2.87 L Hgb (12.4 - 16.7 G/DL) 8.6 L Hct (35.9 - 49.5 %) 26.3 L MCV (81.7 - 96.1 fL) 92 MCH (27.6 - 33.2 pg) 30.0 MCHC (32.9 - 35.5 %) 32.7 L RDW (12.1 - 15.2 %) 12.6 Plt Count (129 - 368 K/MM3) 201 MPV (7.4 - 10.4 fl) 10.0 Neut % (Auto) (43 - 75 %) 55.9 Lymph % (Auto) (14 - 44 %) 28.0 [place] % (Auto) (4 - 13 %) 13.6 H Eos % (Auto) (0 - 6 %) 1.5 Baso % (Auto) (0 - 2 %) 0.3 Neut # (Auto) (2.0 - 7.6 K/mm3) 5.91 Lymph # (Auto) (1.0 - 3.8 K/mm3) 2.96 [place] # (Auto) (0.1 - 0.8 K/mm3) 1.44 H Eos # (Auto) (0.0 - 0.2 K/mm3) 0.16 Baso # (Auto) (0.0 - 0.2 K/mm3) 0.03 Immature Gran % (0.0 - 2.0 %) 0.7 Nucleated RBC % (0 - 1.0 %) 0.6 Nucleated RBCs # (Man) (0.0 - 0.1 K/mm3) 0.06 Laboratory Tests 09/17 1533 Urines Urine Color (YELLOW) YELLOW Urine Appearance (CLEAR) CLEAR Urine pH (5.0 - 9.0) 6.0 Ur Specific [place] (1.003 - 1.030) 1.010 Urine Protein (NEGATIVE MG/DL) NEGATIVE Urine Glucose (UA) (NORMAL MG/DL) 250 H Urine Ketones (NEGATIVE MG/DL) NEGATIVE Urine Blood (NEGATIVE Stevan/mm3) NEGATIVE Urine Nitrite (NEGATIVE) NEGATIVE Urine Bilirubin (NEGATIVE MG/DL) NEGATIVE Urine Urobilinogen (NORMAL MG/DL) NORMAL Ur Leukocyte Esterase (NEGATIVE /mm3) NEGATIVE Urine Culture Screen (Culture Chk Criteria) NO, WBC>10 EPI>25 Results: labs reviewed, vital signs reviewed, rhythm personally rev'd, current med profile rev'd Diagnosis, Assessment Plan Problem List/A P: 1. Post-nasal drip 2. Lumbago 3. Coronary artery disease s/p CABG on 09/13/2021. 4. Hyperlipidemia 5. Diabetes mellitus 6. HTN (hypertension) 7. Leukocytosis, unspecified resolving. 8. Acute postoperative anemia due to expected blood loss 9. Deafness in left ear Consultants: cardiovascular surgery, hospitalist Free Text DxA P Notes Free text DxA P notes: PLAN and HOSPITAL COURSE: 09/13/2021: - Post-op management as per CV surgery team. - Patient overall doing well; anticipate extubation later today. - Will resume home meds when patient able to tolerate PO. - Aggressive post-op. control of diabetes with Insulin drip. - Monitor labs. - Thank your Dr Gómez for allowing us to participate in the care of this patient. Will continue to follow along with you. 09/14/2021: - Patient doing well POD day 1. Hemodynamically stable; tolerating diet and activity. - Insulin drip has been discontinued; he takes Tresiba (Insulin) 20 units daily at home. Since it is nonformulary at this facility, we will start him on Lantus 14 units daily and titrate the dose based on blood sugar readings. Will also resume his home medication Ozempic, as he takes at home. - Sliding scale Insulin coverage. - Continue other treatment. 09/15/2021: - Patient doing well; ocampo catheter and A-line have been removed. Chest tube remains in place. - Started on Lantus. - Continue present treatment. 09/16/2021: - Chest tube has been removed. - Blood sugars improving. - Left hand numbness likely due to recent A-line which has been removed. Continue to observe for now. 09/17/2021: - Patient reassured regarding low back pain that it's most likely musculoskeletal and not related to urogenital problem. - Continue present treatment. - Anticipate d/c home in am. 09/18/2021: - Patient being discharged home. - Will provide Rxs of Flonase nasal spray and Mucinex. Quality: Gen Med Crit Care VTE Prophylaxis VTE prophylaxis initiated: yes Current Medications Current medication review: I attest that the foregoing medication list in the medical record is true, accurate, and complete to the best of my knowledge. at 2258 RPT #:[id number] END OF REPORT [facility] 2021-09-18 06:12:00 [facility] ([facility] Cardiology Progress Note REPORT#:[id number] REPORT STATUS: Signed DATE:09/18/21 TIME: 611 PATIENT: MARK RIVAS UNIT #: [id number] [address] AGE: 65 SEX: M ATTEND: Prakash Gómez MD ADM AUTHOR: Dilan Murray MD * ALL edits or amendments must be made on the electronic/computer document * Subjective Chief complaint: CAD Patient reports: No: complaints, chest pain, palpitations, shortness of breath, swelling. Nursing reports: No: complaints. Objective General VS/I O: 24 hour I O ending at 0700: 09/18 0700 09/17 1900 Intake Total 500.00 Output Total 600 Balance -100.00 Intake, IV 200.00 Intake, Oral 300 Number Voids 3 Output, Urine 600 Vital Signs: Date Time Temp Pulse Resp B/P B/P Pulse O2 O2 Flow FiO2 Mean Ox Delivery Rate 09/18 0530 95 09/18 0515 95 09/18 0505 74 25 117/69 85 09/18 0430 95 09/18 0415 96 09/18 0400 97.6 09/18 0400 76 26 118/66 84 95 09/18 0315 93 09/18 0300 75 17 124/66 88 09/18 0245 95 09/18 0200 74 22 118/82 96 95 09/18 0101 82 113/71 86 09/18 0015 96 09/18 0000 97.6 09/18 0000 77 133/60 87 09/17 2300 74 16 135/83 104 95 09/17 2203 78 22 121/59 85 96 09/17 2100 79 26 109/65 84 95 09/17 2045 80 95 09/17 2030 82 95 09/17 2014 85 97 09/17 2000 85 20 113/66 85 95 09/17 1956 98.6 87 26 113/66 81 96 Room air 09/17 1945 87 96 09/17 1930 24 96 09/17 1915 93 13 98 09/17 1901 25 09/17 1900 91 125/58 83 09/17 1800 73 15 123/60 86 94 09/17 1745 77 14 135/64 92 95 09/17 1730 80 20 111/57 80 94 09/17 1715 75 20 140/60 87 95 09/17 1700 76 20 95/51 68 95 09/17 1645 76 13 113/67 86 95 09/17 1630 77 15 144/65 94 94 09/17 1615 80 18 121/64 87 95 09/17 1600 80 25 122/59 85 95 09/17 1545 79 137/61 88 96 09/17 1540 97.2 09/17 1500 22 09/17 1445 96 09/17 1401 75 13 135/67 93 93 09/17 1301 78 18 107/62 79 94 09/17 1201 84 21 102/68 81 95 09/17 1112 97.1 09/17 1101 78 104/62 77 96 09/17 1001 72 111/58 78 97 09/17 0945 24 09/17 0945 95 Nasal 4 36 cannula 09/17 0901 78 25 108/64 78 97 09/17 0830 82 23 96 09/17 0801 135/67 95 09/17 0701 88 24 120/64 84 97 09/17 0700 97.9 PATIENT WEIGHT: Weight (lb): 214 Weight (oz): 7.2 Weight (kg): 97.069 Medications: Active Meds + DC'd Last 24 Hrs Patient Own Medication (PATIENT'S OWN MEDICATION) OZEMPIC 0.5 MG Mo@0900 SUBQ Ferrous Sulfate (FEOSOL) 325 MG BID PO Metoprolol Tartrate (LOPRESSOR) 25 MG Q12HR PO (DC) Metoprolol Tartrate (LOPRESSOR) 12.5 MG Q12HR PO Metoprolol Tartrate (LOPRESSOR) 12.5 MG ONCE ONE PO (DC) Docusate Sodium (COLACE) 100 MG BID PO Metoprolol Tartrate (LOPRESSOR) 12.5 MG Q12HR PO (DC) Insulin Glargine (LANTUS/SEMGLEE) 14 UNITS DAILY SUBQ Benzocaine/Menthol (Cepacol Sore Throat Lozenge) 1 TAB Q2H PRN PRN MM ( CKD) Phenol (CHLORASEPTIC) 2 SPRAY Q4H PRN PRN TOPICAL Gabapentin (NEURONTIN) 100 MG 2100 PO (DC) Insulin Human Lispro (HumaLOG) LOW DOSE SLIDING SCALE AC HS SUBQ Dextrose/Water (DEXTROSE 50% IN WATER) 12.5 GM ASDIR PRN IV Dextrose/Water (DEXTROSE 50% IN WATER) 25 GM ASDIR PRN IV Calcium Gluconate/Sodium Chloride (Calcium Gluconate 1 GM/100ML NS) 100 ML ASDIR IV (CKD) Aspirin (CHILDREN'S ASPIRIN) 81 MG DAILY PO Clopidogrel Bisulfate (PLAVIX) 75 MG DAILY PO Famotidine (PEPCID) 20 MG BID PO Atorvastatin Calcium (LIPITOR) 40 MG BEDTIME PO Mupirocin (BACTROBAN NASAL - ADULT ICU) 1 APPLIC BID NASAL Meperidine HCl (DEMEROL (C-II)) 50 MG Q4H PRN PRN IM Dobutamine HCl/Dextrose (DOBUTamine HCL IN DEXTROSE) 250 ML ASDIR PRN IV Epinephrine (EPINEPHrine/NS 4MG/250ML) 250 ML ASDIR PRN IV Hydrocodone Bitart/Acetaminophen (NORCO 5/325 TABLET (C-II)) 1 TAB Q4H PRN PRN PO Hydrocodone Bitart/Acetaminophen (NORCO 5/325 TABLET (C-II)) 2 TAB Q4H PRN PRN PO Lidocaine HCl/Dextrose (Lidocaine 0.4% in D5w Soln) 500 ML ASDIR PRN IV (CKD) Magnesium Sulfate (MAG SULFATE 2GM PREMIX) 50 ML ASDIR PRN IV Magnesium Sulfate/Dextrose (Magnesium Sulfate) 100 ML ASDIR PRN IV Meperidine HCl (DEMEROL (C-II)) 25 MG Q4H PRN PRN IM Morphine Sulfate (morphine SULFATE (C-II)) 2 MG Q15M PRN PRN IV Nicardipine HCl (CARDENE I.V.) 25 MG ASDIR PRN IV (CKD) Sodium Chloride (SODIUM CHLORIDE 0.9%) 250 ML Ondansetron HCl (ZOFRAN) 4 MG Q8H PRN PRN IV Potassium Chloride (Potassium Chloride) 50 ML ASDIR PRN IV Nicardipine HCl (CARDENE I.V.) 25 MG ASDIR IV (CKD) Sodium Chloride (SODIUM CHLORIDE 0.9%) 250 ML Status post: CAB Pacemaker: external Nutrition assessment: The data set between the solid lines has been imported from the dietitian's assessment. Any exceptions have been noted under Provider comments. BMI Calculated: 29.8 Nutrition related diagnosis: Nutrition diagnosis details: Nutrition problem: Nutrition etiology: Nutrition signs and symptoms: Nutrition prescription: Dietitian name: Assessment completed: Provider comments on imported dietitian assessment: Physical Exam General appearance: alert, awake, oriented, no acute distress, pleasant, conversational, mental status normal, no respiratory distress Head/Eyes: atraumatic, normocephalic, PERRLA ENT: moist mucosal membranes Neck: full range of motion, no bruit/NL carotids, no JVD Cardiovascular: CV assessment: regular rate and rhythm, BP pulses = bilaterally (PAC's) Respiratory: clear to auscultation, no distress Abdomen: soft, non-tender, no mass/organomegaly, no pulsatile mass Lower extremity: LE assessment: no edema, 2+ peripheral pulses Musculoskeletal: full range of motion Neuro/[employer]: alert, oriented X 3, CN II-XII intact, no motor deficits Skin: dry, intact Wound/incision: Location: Sternal Site condition: dressing clean dry Psychiatry: normal affect, normal judgment/insight, normal mood, no hallucinations Results Findings/Data: Laboratory Tests 09/18 180 1108 Chemistry Sodium (137 - 145 MMOL/L) 135 L Potassium (3.5 - 5.1 MMOL/L) 4.1 3.6 Chloride (98 - 107 MMOL/L) 101 Carbon Dioxide (22 - 30 MMOL/L) 29 BUN (9 - 20 MG/DL) 14 Creatinine (0.66 - 1.25 MG/DL) 0.70 Glomerular Filtr Rate > 60 Glucose (74 - 106 MG/DL) 138 H POC Glucose (60 - 99 MG/DL) 161 H 200 H 336 *H Calcium (8.4 - 10.2 MG/DL) 8.2 L 7.8 L Magnesium (1.6 - 2.3 MG/DL) 2.0 Laboratory Tests 09/19 399 Hematology WBC (3.8 - 9.8 K/MM3) 10.6 H RBC (3.95 - 5.67 M/MM3) 2.87 L Hgb (12.4 - 16.7 G/DL) 8.6 L Hct (35.9 - 49.5 %) 26.3 L MCV (81.7 - 96.1 fL) 92 MCH (27.6 - 33.2 pg) 30.0 MCHC (32.9 - 35.5 %) 32.7 L RDW (12.1 - 15.2 %) 12.6 Plt Count (129 - 368 K/MM3) 201 MPV (7.4 - 10.4 fl) 10.0 Neut % (Auto) (43 - 75 %) 55.9 Lymph % (Auto) (14 - 44 %) 28.0 [place] % (Auto) (4 - 13 %) 13.6 H Eos % (Auto) (0 - 6 %) 1.5 Baso % (Auto) (0 - 2 %) 0.3 Neut # (Auto) (2.0 - 7.6 K/mm3) 5.91 Lymph # (Auto) (1.0 - 3.8 K/mm3) 2.96 [place] # (Auto) (0.1 - 0.8 K/mm3) 1.44 H Eos # (Auto) (0.0 - 0.2 K/mm3) 0.16 Baso # (Auto) (0.0 - 0.2 K/mm3) 0.03 Immature Gran % (0.0 - 2.0 %) 0.7 Nucleated RBC % (0 - 1.0 %) 0.6 Nucleated RBCs # (Man) (0.0 - 0.1 K/mm3) 0.06 Laboratory Tests 09/17 1533 Urines Urine Color (YELLOW) YELLOW Urine Appearance (CLEAR) CLEAR Urine pH (5.0 - 9.0) 6.0 Ur Specific [place] (1.003 - 1.030) 1.010 Urine Protein (NEGATIVE MG/DL) NEGATIVE Urine Glucose (UA) (NORMAL MG/DL) 250 H Urine Ketones (NEGATIVE MG/DL) NEGATIVE Urine Blood (NEGATIVE Stevan/mm3) NEGATIVE Urine Nitrite (NEGATIVE) NEGATIVE Urine Bilirubin (NEGATIVE MG/DL) NEGATIVE Urine Urobilinogen (NORMAL MG/DL) NORMAL Ur Leukocyte Esterase (NEGATIVE /mm3) NEGATIVE Urine Culture Screen (Culture Chk Criteria) NO, WBC>10 EPI>25 Laboratory Tests 09/17 2250 Chemistry Magnesium (1.6 - 2.3 MG/DL) 2.0 Radiology data: Recent Impressions: RADIOLOGY - XR ABDOMEN 1 V 09/17 1404 Report Impression - Status: SIGNED Entered: 09/17/2021 1515 IMPRESSION: No acute abnormality of the abdomen. No abnormal calcifications are identified. Impression By: Rylie - Linda Adorno MD Results: labs reviewed, vital signs reviewed, vital signs stable, echo personally reviewed, EKG personally reviewed, rhythm personally rev'd, x-ray personally reviewed, current med profile rev'd EKG Interpretation: normal sinus rhythm (PAC's) Telemetry Interpretation: one short NSVT run, k replaced Diagnosis, Assessment Plan Problem List/A P: 1. Coronary artery disease 2. HTN (hypertension) 3. Diabetes mellitus 4. Hyperlipidemia Consultants: cardiovascular surgery, hospitalist Code status: full code Plan discussed with: patient, consultants, patient care team, nurse Free Text DxA P Notes Free Text DxA P Notes: IMP: CAD s/p ACB X 4 with AMIN to the LAD, saphenous vein to the diagonal,the OM, and the right PDA HTN HLP PAC's, no def AFib short NSVT, k replaced DM PLAN: Continue current medical rx. Ambulate IS. Card clear D/C Discussed in detail at 0617 RPT #:[id number] END OF REPORT [facility] 2021-09-18 03:26:00 [id number] [place] [address] PATIENT NAME: MARK RIVAS ADMIT DATE: 09/13/21 ACCOUNT NO: [id number] ROOM NO: Z.SI01 AGE: 65 REPORT TYPE: ELECTROCARDIOGRAM SEX: M ADMITTING PHYSICIAN:Prakash Gómez MD ATTENDING PHYSICIAN:Prakash Gómez MD Order: [id number] Test Reason : CAD/CAB/AFIB Test Date/Time Stamp: MonSep 18 2021 03:26:54 Blood Pressure : / mmHG Vent. Rate : 070 BPM Atrial Rate : 070 BPM P-R Int : 176 ms QRS Dur : 088 ms QT Int : 384 ms P-R-T Axes : 035 -09 009 degrees QTc Int : 414 ms Sinus rhythm with premature atrial complexes Nonspecific T wave abnormality Abnormal ECG When compared with ECG of 17-SEP-2021 08:13, premature atrial complexes are now present Confirmed by DILAN MURRAY ([id number]) on 09/18/2021 1:38:29 PM Referred By: Prakash Gómez Confirmed by:DILAN MURRAY at 1332 PATIENT NAME: MARK RIVAS [facility] 2021-09-17 16:50:00 [facility] ([facility]) Hospitalist Progress Note REPORT#:[id number] REPORT STATUS: Signed DATE:09/17/21 TIME: 1650 PATIENT: MARK RIVAS UNIT #: [id number] ROOM/BED: [facility] : 56 AGE: 65 SEX: M ATTEND: Prakash Gómez MD ADM AUTHOR: Scottie Hartman MD * ALL edits or amendments must be made on the electronic/computer document * Subjective Free Text Subj Notes Free Text Subj Notes: Patient reports feeling OK; reports lower back pain earlier this morning which has resolved. Continues to have cough with occasional phlegm. Objective General VS/I O: Vital Signs: Date Time Temp Pulse Resp B/P B/P Pulse O2 O2 Flow FiO2 Mean Ox Delivery Rate 09/17 1301 78 18 107/62 79 94 09/17 1201 84 21 102/68 81 95 09/17 1112 97.1 09/17 1101 78 104/62 77 96 09/17 1001 72 111/58 78 97 09/17 0945 24 09/17 0945 95 Nasal 4 36 cannula 09/17 0901 78 25 108/64 78 97 09/17 0830 82 23 96 09/17 0801 135/67 95 09/17 0701 88 24 120/64 84 97 09/17 0700 97.9 09/17 0550 84 27 95 09/17 0515 93 09/17 0501 80 17 123/56 81 09/17 0401 80 130/60 86 93 09/17 0400 98.3 09/17 0315 92 09/17 0301 78 17 116/65 85 09/17 0201 78 20 122/64 88 92 09/17 0101 76 16 123/57 82 92 09/17 0001 77 16 125/56 81 92 09/17 0000 98.2 09/16 2301 78 24 118/71 90 93 09/16 2201 82 20 118/61 80 09/16 2200 93 09/16 2101 83 19 132/69 90 92 09/16 2000 86 18 127/61 86 93 09/16 1930 98.6 97 16 156/80 105 94 Room air 09/16 1930 84 19 93 09/16 1925 95 Nasal 4 36 cannula 09/16 1915 87 24 94 09/16 1801 84 14 120/67 87 97 09/16 1701 84 18 106/61 78 69 24 hour I O ending at 0700: 09/17 0700 09/16 1900 Intake Total 200 1100 Output Total 800 Balance -600 1100 Intake, Oral 200 1100 Number 0 Bowel Movements Number Voids 3 3 Output, Urine 800 PATIENT WEIGHT: Weight (lb): 214 Weight (oz): 7.2 Weight (kg): 97.069 Medications: Active Meds + DC'd Last 24 Hrs Patient Own Medication (PATIENT'S OWN MEDICATION) OZEMPIC 0.5 MG Mo@0900 SUBQ Ferrous Sulfate (FEOSOL) 325 MG BID PO Metoprolol Tartrate (LOPRESSOR) 25 MG Q12HR PO (DC) Metoprolol Tartrate (LOPRESSOR) 12.5 MG Q12HR PO Metoprolol Tartrate (LOPRESSOR) 12.5 MG ONCE ONE PO (DC) Docusate Sodium (COLACE) 100 MG BID PO Metoprolol Tartrate (LOPRESSOR) 12.5 MG Q12HR PO (DC) Insulin Glargine (LANTUS/SEMGLEE) 14 UNITS DAILY SUBQ Benzocaine/Menthol (Cepacol Sore Throat Lozenge) 1 TAB Q2H PRN PRN MM ( CKD) Phenol (CHLORASEPTIC) 2 SPRAY Q4H PRN PRN TOPICAL Gabapentin (NEURONTIN) 100 MG 2100 PO Insulin Human Lispro (HumaLOG) LOW DOSE SLIDING SCALE AC HS SUBQ Dextrose/Water (DEXTROSE 50% IN WATER) 12.5 GM ASDIR PRN IV Dextrose/Water (DEXTROSE 50% IN WATER) 25 GM ASDIR PRN IV Calcium Gluconate/Sodium Chloride (Calcium Gluconate 1 GM/100ML NS) 100 ML ASDIR IV (CKD) Aspirin (CHILDREN'S ASPIRIN) 81 MG DAILY PO Clopidogrel Bisulfate (PLAVIX) 75 MG DAILY PO Famotidine (PEPCID) 20 MG BID PO Atorvastatin Calcium (LIPITOR) 40 MG BEDTIME PO Mupirocin (BACTROBAN NASAL - ADULT ICU) 1 APPLIC BID NASAL Meperidine HCl (DEMEROL (C-II)) 50 MG Q4H PRN PRN IM Dobutamine HCl/Dextrose (DOBUTamine HCL IN DEXTROSE) 250 ML ASDIR PRN IV Epinephrine (EPINEPHrine/NS 4MG/250ML) 250 ML ASDIR PRN IV Hydrocodone Bitart/Acetaminophen (NORCO 5/325 TABLET (C-II)) 1 TAB Q4H PRN PRN PO Hydrocodone Bitart/Acetaminophen (NORCO 5/325 TABLET (C-II)) 2 TAB Q4H PRN PRN PO Lidocaine HCl/Dextrose (Lidocaine 0.4% in D5w Soln) 500 ML ASDIR PRN IV (CKD) Magnesium Sulfate (MAG SULFATE 2GM PREMIX) 50 ML ASDIR PRN IV Magnesium Sulfate/Dextrose (Magnesium Sulfate) 100 ML ASDIR PRN IV Meperidine HCl (DEMEROL (C-II)) 25 MG Q4H PRN PRN IM Morphine Sulfate (morphine SULFATE (C-II)) 2 MG Q15M PRN PRN IV Nicardipine HCl (CARDENE I.V.) 25 MG ASDIR PRN IV (CKD) Sodium Chloride (SODIUM CHLORIDE 0.9%) 250 ML Ondansetron HCl (ZOFRAN) 4 MG Q8H PRN PRN IV Potassium Chloride (Potassium Chloride) 50 ML ASDIR PRN IV Nicardipine HCl (CARDENE I.V.) 25 MG ASDIR IV (CKD) Sodium Chloride (SODIUM CHLORIDE 0.9%) 250 ML Physical Exam General appearance: awake, no acute distress, conversational Head/Eyes: atraumatic, clear cornea, normal conjunctiva/sclera, PERRL ENT: moist mucosal membranes, normal ear left, normal ear right Neck: non-tender, supple/no meningismus Cardiovascular: normal heart sounds, regular rate rhythm Respiratory: aerating well, clear to auscultation, symmetric expansion, no distress Abdomen: non-tender, soft, no distention Genitourinary: urinary catheter Extremities: moves all, no clubbing, no cyanosis, no edema Musculoskeletal: normal inspection, no CVA tenderness, no midline vertebral tend , no muscle spasm Neuro/[employer]: alert, oriented X 3, normal speech, no motor deficits Wound/incision: Location: sternum RLE Site Condition: dressing clean dry Psychiatry: normal affect, normal judgment/insight, normal mood Results Findings/Data: Laboratory Tests 09/17 09/17 09/16 09/16 1108 0400 2020 1722 Chemistry Sodium (137 - 145 MMOL/L) 136 L Potassium (3.5 - 5.1 MMOL/L) 4.1 Chloride (98 - 107 MMOL/L) 101 Carbon Dioxide (22 - 30 MMOL/L) 30 Anion Gap (14 - 24 MMOL/L) 9 L BUN (9 - 20 MG/DL) 17 Creatinine (0.66 - 1.25 MG/DL) 0.80 Glomerular Filtr Rate > 60 Glucose (74 - 106 MG/DL) 126 H POC Glucose (60 - 99 MG/DL) 336 *H 153 H 145 H Calcium (8.4 - 10.2 MG/DL) 7.9 L Total Bilirubin (0.2 - 1.3 MG/DL) 1.0 AST (17 - 59 UNITS/L) 57 ALT (0 - 49 UNITS/L) 59 H Total Alk Phosphatase (38 - 126 UNITS/L) 180 H Total Protein (6.2 - 7.6 G/DL) 5.7 L Albumin (3.5 - 5.0 G/DL) 3.0 L Laboratory Tests 09/17 0400 Hematology WBC (3.8 - 9.8 K/MM3) 10.7 H RBC (3.95 - 5.67 M/MM3) 2.88 L Hgb (12.4 - 16.7 G/DL) 8.7 L Hct (35.9 - 49.5 %) 26.3 L MCV (81.7 - 96.1 fL) 91 MCH (27.6 - 33.2 pg) 30.2 MCHC (32.9 - 35.5 %) 33.1 RDW (12.1 - 15.2 %) 12.6 Plt Count (129 - 368 K/MM3) 152 MPV (7.4 - 10.4 fl) 10.7 H Neut % (Auto) (43 - 75 %) 63.0 Lymph % (Auto) (14 - 44 %) 23.4 [place] % (Auto) (4 - 13 %) 12.2 Eos % (Auto) (0 - 6 %) 0.7 Baso % (Auto) (0 - 2 %) 0.2 Neut # (Auto) (2.0 - 7.6 K/mm3) 6.74 Lymph # (Auto) (1.0 - 3.8 K/mm3) 2.50 [place] # (Auto) (0.1 - 0.8 K/mm3) 1.30 H Eos # (Auto) (0.0 - 0.2 K/mm3) 0.08 Baso # (Auto) (0.0 - 0.2 K/mm3) 0.02 Immature Gran % (0.0 - 2.0 %) 0.5 Nucleated RBC % (0 - 1.0 %) 0.0 Nucleated RBCs # (Man) (0.0 - 0.1 K/mm3) 0.00 Laboratory Tests 09/17 1533 Urines Urine Color (YELLOW) YELLOW Urine Appearance (CLEAR) CLEAR Urine pH (5.0 - 9.0) 6.0 Ur Specific [place] (1.003 - 1.030) 1.010 Urine Protein (NEGATIVE MG/DL) NEGATIVE Urine Glucose (UA) (NORMAL MG/DL) 250 H Urine Ketones (NEGATIVE MG/DL) NEGATIVE Urine Blood (NEGATIVE Stevan/mm3) NEGATIVE Urine Nitrite (NEGATIVE) NEGATIVE Urine Bilirubin (NEGATIVE MG/DL) NEGATIVE Urine Urobilinogen (NORMAL MG/DL) NORMAL Ur Leukocyte Esterase (NEGATIVE /mm3) NEGATIVE Radiology data: Recent Impressions: RADIOLOGY - XR CHEST 1V 09/17 0532 Report Impression - Status: SIGNED Entered: 09/17/2021 0803 IMPRESSION: Stable postoperative chest. Small left pleural effusion and left basilar atelectasis. No pneumothorax. Impression By: Rylie Adorno MD RADIOLOGY - XR ABDOMEN 1 V 09/17 1404 Report Impression - Status: SIGNED Entered: 09/17/2021 1515 IMPRESSION: No acute abnormality of the abdomen. No abnormal calcifications are identified. Impression By: Rylie Adorno MD Results: labs reviewed, vital signs reviewed, vital signs stable, rhythm personally rev'd (Sinus arrhythmia; PVCs), current med profile rev'd Diagnosis, Assessment Plan Problem List/A P: 1. Lumbago 2. Coronary artery disease s/p CABG on 09/13/2021. 3. Hyperlipidemia 4. Diabetes mellitus 5. HTN (hypertension) 6. Leukocytosis, unspecified resolving. 7. Acute postoperative anemia due to expected blood loss 8. Deafness in left ear Free Text DxA P Notes Free text DxA P notes: PLAN and HOSPITAL COURSE: 09/13/2021: - Post-op management as per CV surgery team. - Patient overall doing well; anticipate extubation later today. - Will resume home meds when patient able to tolerate PO. - Aggressive post-op. control of diabetes with Insulin drip. - Monitor labs. - Thank your Dr Gómez for allowing us to participate in the care of this patient. Will continue to follow along with you. 09/14/2021: - Patient doing well POD day 1. Hemodynamically stable; tolerating diet and activity. - Insulin drip has been discontinued; he takes Tresiba (Insulin) 20 units daily at home. Since it is nonformulary at this facility, we will start him on Lantus 14 units daily and titrate the dose based on blood sugar readings. Will also resume his home medication Ozempic, as he takes at home. - Sliding scale Insulin coverage. - Continue other treatment. 09/15/2021: - Patient doing well; ocampo catheter and A-line have been removed. Chest tube remains in place. - Started on Lantus. - Continue present treatment. 09/16/2021: - Chest tube has been removed. - Blood sugars improving. - Left hand numbness likely due to recent A-line which has been removed. Continue to observe for now. 09/17/2021: - Patient reassured regarding low back pain that it's most likely musculoskeletal and not related to urogenital problem. - Continue present treatment. - Anticipate d/c home in am. Quality: Gen Med Crit Care VTE Prophylaxis VTE prophylaxis initiated: yes Current Medications Current medication review: I attest that the foregoing medication list in the medical record is true, accurate, and complete to the best of my knowledge. at 2050 RPT #:[id number] END OF REPORT [facility] 2021-09-17 12:00:00 [facility] ([facility]) Cardiovascular Surgery Prog REPORT#:[id number] REPORT STATUS: Signed DATE:09/17/21 TIME: 1200 PATIENT: MARK RIVAS UNIT #: [id number] [address] AGE: 65 SEX: M ATTEND: Prakash Gómez MD ADM AUTHOR: Eula Jang * ALL edits or amendments must be made on the electronic/computer document * Eula Jang 09/17/21 1200: General Post-op: day 4 Status post: ACB x 4 Subjective Patient reports: No: complaints. Nursing reports: No: complaints. Comments: Pt. seen at bedside, doing well He denies having any chest pain or SOB Review of Systems Constitutional: Denies: chills, fatigue, fever, generalized weakness. Respiratory: Denies: PURVIS (dyspnea on exertion), SOB. Cardiovascular: Denies: chest pain, PURVIS (dyspnea on exertion), edema. Objective General VS/I O: Last Documented: Result Date Time Temp 36.2 09/17 1112 Pulse Ox 95 09/17 0945 FiO2 36 09/17 0945 O2 Delivery Nasal cannula 09/17 0945 O2 Flow Rate 4 09/17 0945 Pulse 82 09/17 0830 Resp 23 09/17 0830 B/P 135/67 09/17 0801 B/P Mean 95 09/17 0801 24 hour I O ending at 0700: 09/17 0700 09/16 1900 Intake Total 200 1100 Output Total 800 Balance -600 1100 Intake, Oral 200 1100 Number 0 Bowel Movements Number Voids 3 3 Output, Urine 800 PATIENT WEIGHT: Weight (lb): 214 Weight (oz): 7.2 Weight (kg): 97.069 Medications: Active Meds + DC'd Last 24 Hrs Patient Own Medication (PATIENT'S OWN MEDICATION) OZEMPIC 0.5 MG Mo@0900 SUBQ Metoprolol Tartrate (LOPRESSOR) 25 MG Q12HR PO Metoprolol Tartrate (LOPRESSOR) 12.5 MG ONCE ONE PO Docusate Sodium (COLACE) 100 MG BID PO Metoprolol Tartrate (LOPRESSOR) 12.5 MG Q12HR PO (DC) Insulin Glargine (LANTUS/SEMGLEE) 14 UNITS DAILY SUBQ Benzocaine/Menthol (Cepacol Sore Throat Lozenge) 1 TAB Q2H PRN PRN MM ( CKD) Phenol (CHLORASEPTIC) 2 SPRAY Q4H PRN PRN TOPICAL Gabapentin (NEURONTIN) 100 MG 2100 PO Insulin Human Lispro (HumaLOG) LOW DOSE SLIDING SCALE AC HS SUBQ Dextrose/Water (DEXTROSE 50% IN WATER) 12.5 GM ASDIR PRN IV Dextrose/Water (DEXTROSE 50% IN WATER) 25 GM ASDIR PRN IV Calcium Gluconate/Sodium Chloride (Calcium Gluconate 1 GM/100ML NS) 100 ML ASDIR IV (CKD) Aspirin (CHILDREN'S ASPIRIN) 81 MG DAILY PO Clopidogrel Bisulfate (PLAVIX) 75 MG DAILY PO Famotidine (PEPCID) 20 MG BID PO Atorvastatin Calcium (LIPITOR) 40 MG BEDTIME PO Mupirocin (BACTROBAN NASAL - ADULT ICU) 1 APPLIC BID NASAL Meperidine HCl (DEMEROL (C-II)) 50 MG Q4H PRN PRN IM Dobutamine HCl/Dextrose (DOBUTamine HCL IN DEXTROSE) 250 ML ASDIR PRN IV Epinephrine (EPINEPHrine/NS 4MG/250ML) 250 ML ASDIR PRN IV Hydrocodone Bitart/Acetaminophen (NORCO 5/325 TABLET (C-II)) 1 TAB Q4H PRN PRN PO Hydrocodone Bitart/Acetaminophen (NORCO 5/325 TABLET (C-II)) 2 TAB Q4H PRN PRN PO Lidocaine HCl/Dextrose (Lidocaine 0.4% in D5w Soln) 500 ML ASDIR PRN IV (CKD) Magnesium Sulfate (MAG SULFATE 2GM PREMIX) 50 ML ASDIR PRN IV Magnesium Sulfate/Dextrose (Magnesium Sulfate) 100 ML ASDIR PRN IV Meperidine HCl (DEMEROL (C-II)) 25 MG Q4H PRN PRN IM Morphine Sulfate (morphine SULFATE (C-II)) 2 MG Q15M PRN PRN IV Nicardipine HCl (CARDENE I.V.) 25 MG ASDIR PRN IV (CKD) Sodium Chloride (SODIUM CHLORIDE 0.9%) 250 ML Ondansetron HCl (ZOFRAN) 4 MG Q8H PRN PRN IV Potassium Chloride (Potassium Chloride) 50 ML ASDIR PRN IV Nicardipine HCl (CARDENE I.V.) 25 MG ASDIR IV (CKD) Sodium Chloride (SODIUM CHLORIDE 0.9%) 250 ML Physical Exam General appearance: alert, awake, oriented, no acute distress Wound/incision: Location: median sternotomy, right lower extremity Site condition: dressing clean dry, incision intact, no changes in wound, no drainage, no erythema, Sternum is stable Neck: non-tender, no bruit/NL carotids, no masses or swelling Cardiovascular: BP/pulses equal bilat., normal heart sounds, regular rate rhythm Respiratory: aerating well Abdomen: soft, non-tender, normal bowel sounds Extremities: no edema Neuro/[employer]: alert, oriented X 3 Results Findings/Data: Laboratory Tests 09/17 09/17 09/16 09/16 1108 0400 2020 1722 Chemistry Sodium (137 - 145 MMOL/L) 136 L Potassium (3.5 - 5.1 MMOL/L) 4.1 Chloride (98 - 107 MMOL/L) 101 Carbon Dioxide (22 - 30 MMOL/L) 30 Anion Gap (14 - 24 MMOL/L) 9 L BUN (9 - 20 MG/DL) 17 Creatinine (0.66 - 1.25 MG/DL) 0.80 Glomerular Filtr Rate > 60 Glucose (74 - 106 MG/DL) 126 H POC Glucose (60 - 99 MG/DL) 336 *H 153 H 145 H Calcium (8.4 - 10.2 MG/DL) 7.9 L Total Bilirubin (0.2 - 1.3 MG/DL) 1.0 AST (17 - 59 UNITS/L) 57 ALT (0 - 49 UNITS/L) 59 H Total Alk Phosphatase (38 - 126 UNITS/L) 180 H Total Protein (6.2 - 7.6 G/DL) 5.7 L Albumin (3.5 - 5.0 G/DL) 3.0 L Laboratory Tests 09/17 0400 Hematology WBC (3.8 - 9.8 K/MM3) 10.7 H RBC (3.95 - 5.67 M/MM3) 2.88 L Hgb (12.4 - 16.7 G/DL) 8.7 L Hct (35.9 - 49.5 %) 26.3 L MCV (81.7 - 96.1 fL) 91 MCH (27.6 - 33.2 pg) 30.2 MCHC (32.9 - 35.5 %) 33.1 RDW (12.1 - 15.2 %) 12.6 Plt Count (129 - 368 K/MM3) 152 MPV (7.4 - 10.4 fl) 10.7 H Neut % (Auto) (43 - 75 %) 63.0 Lymph % (Auto) (14 - 44 %) 23.4 [place] % (Auto) (4 - 13 %) 12.2 Eos % (Auto) (0 - 6 %) 0.7 Baso % (Auto) (0 - 2 %) 0.2 Neut # (Auto) (2.0 - 7.6 K/mm3) 6.74 Lymph # (Auto) (1.0 - 3.8 K/mm3) 2.50 [place] # (Auto) (0.1 - 0.8 K/mm3) 1.30 H Eos # (Auto) (0.0 - 0.2 K/mm3) 0.08 Baso # (Auto) (0.0 - 0.2 K/mm3) 0.02 Immature Gran % (0.0 - 2.0 %) 0.5 Nucleated RBC % (0 - 1.0 %) 0.0 Nucleated RBCs # (Man) (0.0 - 0.1 K/mm3) 0.00 Radiology data: Recent Impressions: RADIOLOGY - XR CHEST 1V 09/16 1230 Report Impression - Status: SIGNED Entered: 09/16/2021 1322 IMPRESSION: No pneumothorax is identified status post chest tube removal. Impression By: Brittney Guaman MD RADIOLOGY - XR CHEST 1V 09/17 0532 Report Impression - Status: SIGNED Entered: 09/17/2021 0803 IMPRESSION: Stable postoperative chest. Small left pleural effusion and left basilar atelectasis. No pneumothorax. Impression By: Rylie - Linda Adorno MD Diagnosis, Assessment Plan Free Text A P: Pt. with CAD and unstable angina S/P ACB x 4 Hypertension Hyperlipidemia Diabetes PLAN D/C pacer wires today Encourage use of IS and ambulation Continue Metoprolol, Aspirin, Clopidogrel and Atrovastatin Check o2 sats Plan for discahrge home in the morning Prakash Evans 09/17/21 1447: Diagnosis, Assessment Plan Free Text A P: Pt. is stable at 1206 at 1447 RPT #:[id number] END OF REPORT [facility] 2021-09-17 12:00:00 [facility] ([facility]) Cardiovascular Surgery Prog REPORT#:[id number] REPORT STATUS: Signed DATE:09/17/21 TIME: 1200 PATIENT: MARK RIVAS UNIT #: [id number] ROOM/BED: [address] : 57 AGE: 65 SEX: M ATTEND: Prakash Gómez MD ADM AUTHOR: Eula Jang * ALL edits or amendments must be made on the electronic/computer document * Eula Jang 09/17/21 1200: General Post-op: day 4 Status post: ACB x 4 Subjective Patient reports: No: complaints. Nursing reports: No: complaints. Comments: Pt. seen at bedside, doing well He denies having any chest pain or SOB Review of Systems Constitutional: Denies: chills, fatigue, fever, generalized weakness. Respiratory: Denies: PURVIS (dyspnea on exertion), SOB. Cardiovascular: Denies: chest pain, PURVIS (dyspnea on exertion), edema. Objective General VS/I O: Last Documented: Result Date Time Temp 36.2 09/17 1112 Pulse Ox 95 09/17 0945 FiO2 36 09/17 0945 O2 Delivery Nasal cannula 09/17 0945 O2 Flow Rate 4 09/17 0945 Pulse 82 09/17 0830 Resp 23 09/17 0830 B/P 135/67 09/17 0801 B/P Mean 95 09/17 0801 24 hour I O ending at 0700: 09/17 0700 09/16 1900 Intake Total 200 1100 Output Total 800 Balance -600 1100 Intake, Oral 200 1100 Number 0 Bowel Movements Number Voids 3 3 Output, Urine 800 PATIENT WEIGHT: Weight (lb): 214 Weight (oz): 7.2 Weight (kg): 97.069 Medications: Active Meds + DC'd Last 24 Hrs Patient Own Medication (PATIENT'S OWN MEDICATION) OZEMPIC 0.5 MG Mo@0900 SUBQ Metoprolol Tartrate (LOPRESSOR) 25 MG Q12HR PO Metoprolol Tartrate (LOPRESSOR) 12.5 MG ONCE ONE PO Docusate Sodium (COLACE) 100 MG BID PO Metoprolol Tartrate (LOPRESSOR) 12.5 MG Q12HR PO (DC) Insulin Glargine (LANTUS/SEMGLEE) 14 UNITS DAILY SUBQ Benzocaine/Menthol (Cepacol Sore Throat Lozenge) 1 TAB Q2H PRN PRN MM ( CKD) Phenol (CHLORASEPTIC) 2 SPRAY Q4H PRN PRN TOPICAL Gabapentin (NEURONTIN) 100 MG 2100 PO Insulin Human Lispro (HumaLOG) LOW DOSE SLIDING SCALE AC HS SUBQ Dextrose/Water (DEXTROSE 50% IN WATER) 12.5 GM ASDIR PRN IV Dextrose/Water (DEXTROSE 50% IN WATER) 25 GM ASDIR PRN IV Calcium Gluconate/Sodium Chloride (Calcium Gluconate 1 GM/100ML NS) 100 ML ASDIR IV (CKD) Aspirin (CHILDREN'S ASPIRIN) 81 MG DAILY PO Clopidogrel Bisulfate (PLAVIX) 75 MG DAILY PO Famotidine (PEPCID) 20 MG BID PO Atorvastatin Calcium (LIPITOR) 40 MG BEDTIME PO Mupirocin (BACTROBAN NASAL - ADULT ICU) 1 APPLIC BID NASAL Meperidine HCl (DEMEROL (C-II)) 50 MG Q4H PRN PRN IM Dobutamine HCl/Dextrose (DOBUTamine HCL IN DEXTROSE) 250 ML ASDIR PRN IV Epinephrine (EPINEPHrine/NS 4MG/250ML) 250 ML ASDIR PRN IV Hydrocodone Bitart/Acetaminophen (NORCO 5/325 TABLET (C-II)) 1 TAB Q4H PRN PRN PO Hydrocodone Bitart/Acetaminophen (NORCO 5/325 TABLET (C-II)) 2 TAB Q4H PRN PRN PO Lidocaine HCl/Dextrose (Lidocaine 0.4% in D5w Soln) 500 ML ASDIR PRN IV (CKD) Magnesium Sulfate (MAG SULFATE 2GM PREMIX) 50 ML ASDIR PRN IV Magnesium Sulfate/Dextrose (Magnesium Sulfate) 100 ML ASDIR PRN IV Meperidine HCl (DEMEROL (C-II)) 25 MG Q4H PRN PRN IM Morphine Sulfate (morphine SULFATE (C-II)) 2 MG Q15M PRN PRN IV Nicardipine HCl (CARDENE I.V.) 25 MG ASDIR PRN IV (CKD) Sodium Chloride (SODIUM CHLORIDE 0.9%) 250 ML Ondansetron HCl (ZOFRAN) 4 MG Q8H PRN PRN IV Potassium Chloride (Potassium Chloride) 50 ML ASDIR PRN IV Nicardipine HCl (CARDENE I.V.) 25 MG ASDIR IV (CKD) Sodium Chloride (SODIUM CHLORIDE 0.9%) 250 ML Physical Exam General appearance: alert, awake, oriented, no acute distress Wound/incision: Location: median sternotomy, right lower extremity Site condition: dressing clean dry, incision intact, no changes in wound, no drainage, no erythema, Sternum is stable Neck: non-tender, no bruit/NL carotids, no masses or swelling Cardiovascular: BP/pulses equal bilat., normal heart sounds, regular rate rhythm Respiratory: aerating well Abdomen: soft, non-tender, normal bowel sounds Extremities: no edema Neuro/[employer]: alert, oriented X 3 Results Findings/Data: Laboratory Tests 09/17 09/17 09/16 09/16 1108 0400 2020 1722 Chemistry Sodium (137 - 145 MMOL/L) 136 L Potassium (3.5 - 5.1 MMOL/L) 4.1 Chloride (98 - 107 MMOL/L) 101 Carbon Dioxide (22 - 30 MMOL/L) 30 Anion Gap (14 - 24 MMOL/L) 9 L BUN (9 - 20 MG/DL) 17 Creatinine (0.66 - 1.25 MG/DL) 0.80 Glomerular Filtr Rate > 60 Glucose (74 - 106 MG/DL) 126 H POC Glucose (60 - 99 MG/DL) 336 *H 153 H 145 H Calcium (8.4 - 10.2 MG/DL) 7.9 L Total Bilirubin (0.2 - 1.3 MG/DL) 1.0 AST (17 - 59 UNITS/L) 57 ALT (0 - 49 UNITS/L) 59 H Total Alk Phosphatase (38 - 126 UNITS/L) 180 H Total Protein (6.2 - 7.6 G/DL) 5.7 L Albumin (3.5 - 5.0 G/DL) 3.0 L Laboratory Tests 09/17 0400 Hematology WBC (3.8 - 9.8 K/MM3) 10.7 H RBC (3.95 - 5.67 M/MM3) 2.88 L Hgb (12.4 - 16.7 G/DL) 8.7 L Hct (35.9 - 49.5 %) 26.3 L MCV (81.7 - 96.1 fL) 91 MCH (27.6 - 33.2 pg) 30.2 MCHC (32.9 - 35.5 %) 33.1 RDW (12.1 - 15.2 %) 12.6 Plt Count (129 - 368 K/MM3) 152 MPV (7.4 - 10.4 fl) 10.7 H Neut % (Auto) (43 - 75 %) 63.0 Lymph % (Auto) (14 - 44 %) 23.4 [place] % (Auto) (4 - 13 %) 12.2 Eos % (Auto) (0 - 6 %) 0.7 Baso % (Auto) (0 - 2 %) 0.2 Neut # (Auto) (2.0 - 7.6 K/mm3) 6.74 Lymph # (Auto) (1.0 - 3.8 K/mm3) 2.50 [place] # (Auto) (0.1 - 0.8 K/mm3) 1.30 H Eos # (Auto) (0.0 - 0.2 K/mm3) 0.08 Baso # (Auto) (0.0 - 0.2 K/mm3) 0.02 Immature Gran % (0.0 - 2.0 %) 0.5 Nucleated RBC % (0 - 1.0 %) 0.0 Nucleated RBCs # (Man) (0.0 - 0.1 K/mm3) 0.00 Radiology data: Recent Impressions: RADIOLOGY - XR CHEST 1V 09/16 1230 Report Impression - Status: SIGNED Entered: 09/16/2021 1322 IMPRESSION: No pneumothorax is identified status post chest tube removal. Impression By: Brittney Guaman MD RADIOLOGY - XR CHEST 1V 09/17 0532 Report Impression - Status: SIGNED Entered: 09/17/2021 0803 IMPRESSION: Stable postoperative chest. Small left pleural effusion and left basilar atelectasis. No pneumothorax. Impression By: 16 - Linda Adorno MD Diagnosis, Assessment Plan Free Text A P: Pt. with CAD and unstable angina S/P ACB x 4 Hypertension Hyperlipidemia Diabetes PLAN D/C pacer wires today Encourage use of IS and ambulation Continue Metoprolol, Aspirin, Clopidogrel and Atrovastatin Check o2 sats Plan for discahrge home in the morning Prakash Evans 09/17/21 1447: Diagnosis, Assessment Plan Free Text A P: Pt. is stable at 1206 at 1447 at 2055 RPT #:[id number] END OF REPORT [facility] 2021-09-17 08:29:00 [facility] ([facility] Cardiology Progress Note REPORT#:[id number] REPORT STATUS: Signed DATE:09/17/21 TIME: 08 PATIENT: MARK RIVAS UNIT #: [id number] ROOM[address]BED: [address] : [address] AGE: 65 SEX: M ATTEND: Prakash Gómez MD ADM AUTHOR: Hay Low MD * ALL edits or amendments must be made on the electronic/computer document * Subjective Chief complaint: CAD Patient reports: No: chest pain, palpitations, shortness of breath. Objective General VS/I O: 24 hour I O ending at 0700: 09/17 0700 09/16 1900 Intake Total 200 1100 Output Total 800 Balance -600 1100 Intake, Oral 200 1100 Number 0 Bowel Movements Number Voids 3 3 Output, Urine 800 Vital Signs: Date Time Temp Pulse Resp B/P B/P Pulse O2 O2 Flow FiO2 Mean Ox Delivery Rate 09/17 0700 97.9 09/17 0550 84 27 95 09/17 0515 93 09/17 0501 80 17 123/56 81 09/17 0401 80 130/60 86 93 09/17 0400 98.3 09/17 0315 92 09/17 0301 78 17 116/65 85 09/17 0201 78 20 122/64 88 92 09/17 0101 76 16 123/57 82 92 09/17 0001 77 16 125/56 81 92 09/17 0000 98.2 09/16 2301 78 24 118/71 90 93 09/16 2201 82 20 118/61 80 09/16 2200 93 09/16 2101 83 19 132/69 90 92 09/16 2001 86 18 127/61 86 93 09/16 1930 98.6 97 16 156/80 105 94 Room air 09/16 1930 84 19 93 09/16 1925 95 Nasal 4 36 cannula 09/16 1915 87 24 94 09/16 1801 84 14 120/67 87 97 09/16 1701 84 18 106/61 78 69 04/21 1601 81 23 106/71 84 94 09/16 1600 97.1 09/16 1501 80 17 112/65 83 09/16 1500 94 09/16 1445 95 09/16 1401 80 20 110/65 82 09/16 1345 97 09/16 1315 23 09/16 1301 81 117/63 83 93 09/16 1245 96 09/16 1215 95 09/16 1211 97.2 09/16 1201 79 22 105/59 77 09/16 1101 75 22 96/58 71 86 09/16 1035 96 Nasal 4 36 cannula 09/16 1001 76 19 103/59 76 100 09/16 0901 89 20 129/57 77 99 09/16 0830 90 22 99 PATIENT WEIGHT: Weight (lb): 214 Weight (oz): 7.2 Weight (kg): 97.069 Medications: Active Meds + DC'd Last 24 Hrs Patient Own Medication (PATIENT'S OWN MEDICATION) OZEMPIC 0.5 MG Mo@0900 SUBQ Nifedipine (PROCARDIA) 10 MG .STK-MED ONE Z (DC) Sodium Bicarbonate (Sodium Bicarbonate) 100 MEQ .STK-MED ONE Z (DC) Docusate Sodium (COLACE) 100 MG BID PO Metoprolol Tartrate (LOPRESSOR) 12.5 MG Q12HR PO Insulin Glargine (LANTUS/SEMGLEE) 14 UNITS DAILY SUBQ Benzocaine/Menthol (Cepacol Sore Throat Lozenge) 1 TAB Q2H PRN PRN MM ( CKD) Phenol (CHLORASEPTIC) 2 SPRAY Q4H PRN PRN TOPICAL Gabapentin (NEURONTIN) 100 MG 2100 PO Insulin Human Lispro (HumaLOG) LOW DOSE SLIDING SCALE AC HS SUBQ Dextrose/Water (DEXTROSE 50% IN WATER) 12.5 GM ASDIR PRN IV Dextrose/Water (DEXTROSE 50% IN WATER) 25 GM ASDIR PRN IV Calcium Gluconate/Sodium Chloride (Calcium Gluconate 1 GM/100ML NS) 100 ML ASDIR IV (CKD) Aspirin (CHILDREN'S ASPIRIN) 81 MG DAILY PO Clopidogrel Bisulfate (PLAVIX) 75 MG DAILY PO Famotidine (PEPCID) 20 MG BID PO Atorvastatin Calcium (LIPITOR) 40 MG BEDTIME PO Mupirocin (BACTROBAN NASAL - ADULT ICU) 1 APPLIC BID NASAL Meperidine HCl (DEMEROL (C-II)) 50 MG Q4H PRN PRN IM Dobutamine HCl/Dextrose (DOBUTamine HCL IN DEXTROSE) 250 ML ASDIR PRN IV Epinephrine (EPINEPHrine/NS 4MG/250ML) 250 ML ASDIR PRN IV Hydrocodone Bitart/Acetaminophen (NORCO 5/325 TABLET (C-II)) 1 TAB Q4H PRN PRN PO Hydrocodone Bitart/Acetaminophen (NORCO 5/325 TABLET (C-II)) 2 TAB Q4H PRN PRN PO Lidocaine HCl/Dextrose (Lidocaine 0.4% in D5w Soln) 500 ML ASDIR PRN IV (CKD) Magnesium Sulfate (MAG SULFATE 2GM PREMIX) 50 ML ASDIR PRN IV Magnesium Sulfate/Dextrose (Magnesium Sulfate) 100 ML ASDIR PRN IV Meperidine HCl (DEMEROL (C-II)) 25 MG Q4H PRN PRN IM Morphine Sulfate (morphine SULFATE (C-II)) 2 MG Q15M PRN PRN IV Nicardipine HCl (CARDENE I.V.) 25 MG ASDIR PRN IV (CKD) Sodium Chloride (SODIUM CHLORIDE 0.9%) 250 ML Ondansetron HCl (ZOFRAN) 4 MG Q8H PRN PRN IV Potassium Chloride (Potassium Chloride) 50 ML ASDIR PRN IV Nicardipine HCl (CARDENE I.V.) 25 MG ASDIR IV (CKD) Sodium Chloride (SODIUM CHLORIDE 0.9%) 250 ML Physical Exam General appearance: alert, awake, oriented Head/Eyes: atraumatic, normocephalic ENT: moist mucosal membranes Neck: no JVD Cardiovascular: CV assessment: regular rate and rhythm Respiratory: clear to auscultation, no distress Lower extremity: LE assessment: no edema Musculoskeletal: full range of motion Skin: dry, intact Wound/incision: Location: Sternal Site condition: dressing clean dry Psychiatry: normal affect, normal judgment/insight, normal mood Results Findings/Data: Laboratory Tests 09/17 09/16 09/16 09/16 0400 2020 1722 1143 Chemistry Sodium (137 - 145 MMOL/L) 136 L Potassium (3.5 - 5.1 MMOL/L) 4.1 Chloride (98 - 107 MMOL/L) 101 Carbon Dioxide (22 - 30 MMOL/L) 30 Anion Gap (14 - 24 MMOL/L) 9 L BUN (9 - 20 MG/DL) 17 Creatinine (0.66 - 1.25 MG/DL) 0.80 Glomerular Filtr Rate > 60 Glucose (74 - 106 MG/DL) 126 H POC Glucose (60 - 99 MG/DL) 153 H 145 H 208 H Calcium (8.4 - 10.2 MG/DL) 7.9 L Total Bilirubin (0.2 - 1.3 MG/DL) 1.0 AST (17 - 59 UNITS/L) 57 ALT (0 - 49 UNITS/L) 59 H Total Alk Phosphatase (38 - 126 UNITS/L) 180 H Total Protein (6.2 - 7.6 G/DL) 5.7 L Albumin (3.5 - 5.0 G/DL) 3.0 L Laboratory Tests 09/17 0400 Hematology WBC (3.8 - 9.8 K/MM3) 10.7 H RBC (3.95 - 5.67 M/MM3) 2.88 L Hgb (12.4 - 16.7 G/DL) 8.7 L Hct (35.9 - 49.5 %) 26.3 L MCV (81.7 - 96.1 fL) 91 MCH (27.6 - 33.2 pg) 30.2 MCHC (32.9 - 35.5 %) 33.1 RDW (12.1 - 15.2 %) 12.6 Plt Count (129 - 368 K/MM3) 152 MPV (7.4 - 10.4 fl) 10.7 H Neut % (Auto) (43 - 75 %) 63.0 Lymph % (Auto) (14 - 44 %) 23.4 [place] % (Auto) (4 - 13 %) 12.2 Eos % (Auto) (0 - 6 %) 0.7 Baso % (Auto) (0 - 2 %) 0.2 Neut # (Auto) (2.0 - 7.6 K/mm3) 6.74 Lymph # (Auto) (1.0 - 3.8 K/mm3) 2.50 [place] # (Auto) (0.1 - 0.8 K/mm3) 1.30 H Eos # (Auto) (0.0 - 0.2 K/mm3) 0.08 Baso # (Auto) (0.0 - 0.2 K/mm3) 0.02 Immature Gran % (0.0 - 2.0 %) 0.5 Nucleated RBC % (0 - 1.0 %) 0.0 Nucleated RBCs # (Man) (0.0 - 0.1 K/mm3) 0.00 Radiology data: Recent Impressions: RADIOLOGY - XR CHEST 1V 09/16 1230 Report Impression - Status: SIGNED Entered: 09/16/2021 1322 IMPRESSION: No pneumothorax is identified status post chest tube removal. Impression By: Brittney Guaman MD RADIOLOGY - XR CHEST 1V 09/17 0532 Report Impression - Status: SIGNED Entered: 09/17/2021 0803 IMPRESSION: Stable postoperative chest. Small left pleural effusion and left basilar atelectasis. No pneumothorax. Impression By: Rylie Adorno MD Telemetry Interpretation: SR with PACs. Diagnosis, Assessment Plan Free Text DxA P Notes Free Text DxA P Notes: IMP: CAD s/p ACB X 4 with AMIN to the LAD, saphenous vein to the diagonal,the OM, and the right PDA HTN HLP DM PLAN: Continue current medical rx. Ambulate IS. at 0833 RPT #:[id number] END OF REPORT [facility] 2021-09-17 08:13:00 [id number] [address] PATIENT NAME: MARK RIVAS ADMIT DATE: 09/13/21 ACCOUNT NO: [id number] ROOM NO: [id number] AGE: 65 REPORT TYPE: ELECTROCARDIOGRAM SEX: M ADMITTING PHYSICIAN:Prakash Gómez MD ATTENDING PHYSICIAN:Prakash Gómez MD Order: [id number] Test Reason : CAD/CAB/AFIB Test Date/Time Stamp: MonSep 17 2021 08:13:43 Blood Pressure : / mmHG Vent. Rate : 084 BPM Atrial Rate : 084 BPM P-R Int : 000 ms QRS Dur : 092 ms QT Int : 356 ms P-R-T Axes : 000 -10 -27 degrees QTc Int : 420 ms Sinus rhythm Nonspecific T wave abnormality Abnormal ECG When compared with ECG of 21-APR-2022 05:36, Sinus rhythm has replaced Atrial fibrillation Criteria for Septal infarct are no longer present Confirmed by DILAN MURRAY ([id number]) on 09/17/2021 4:42:48 PM Referred By: Prakash Gómez Confirmed by:DILAN MURRAY at 1642 PATIENT NAME: MARK RIVAS [facility] 2021-09-16 21:14:00 [facility] [place] Cardiology Progress Note REPORT#:[id number] REPORT STATUS: Signed DATE:09/16/21 TIME: 2113 PATIENT: MARK RIVAS UNIT #: [id number] ROOM/BED: [address] : [birth year] AGE: 65 SEX: M ATTEND: Prakash Gómez MD ADM AUTHOR: Hay Low MD * ALL edits or amendments must be made on the electronic/computer document * Subjective Chief complaint: CAD Patient reports: No: chest pain, palpitations, shortness of breath. Objective General VS/I O: 24 hour I O ending at 0700: 09/16 0700 09/15 1900 Intake Total 150 Output Total 1430 470 Balance -1280 -470 Intake, Oral 150 Number 0 Bowel Movements Number Voids 3 Output, Chest 30 170 Tube Drainage Output, Urine 1400 300 Vital Signs: Date Time Temp Pulse Resp B/P B/P Pulse O2 O2 Flow FiO2 Mean Ox Delivery Rate 09/16 1929 98.6 97 16 156/80 105 94 Room air 09/16 1930 84 19 93 09/16 1925 95 Nasal 4 36 cannula 09/16 1915 87 24 94 09/16 1801 84 14 120/67 87 97 09/16 1701 84 18 106/61 78 69 09/16 1601 81 23 106/71 84 94 09/16 1600 97.1 09/16 1501 80 17 112/65 83 09/16 1500 94 09/16 1445 95 09/16 1401 80 20 110/65 82 09/16 1345 97 09/16 1315 23 09/16 1301 81 117/63 83 93 09/16 1245 96 09/16 1215 95 09/16 1211 97.2 09/16 1201 79 22 105/59 77 09/16 1101 75 22 96/58 71 86 09/16 1035 96 Nasal 4 36 cannula 09/16 1001 76 19 103/59 76 100 09/16 0901 89 20 129/57 77 99 09/16 0830 90 22 99 09/16 0801 84 24 142/70 97 99 09/16 0800 83 25 99 09/16 0730 85 23 100 09/16 0701 80 13 119/58 83 100 09/16 0700 97.9 09/16 0700 Nasal 2 cannula 09/16 0601 80 23 128/61 88 100 09/16 0527 81 20 111/76 89 99 09/16 0401 76 13 116/56 80 98 09/16 0301 74 12 117/64 86 100 09/16 0300 97.6 09/16 0201 71 13 115/70 87 100 09/16 0101 70 5 121/67 86 100 09/16 0001 71 14 108/55 76 100 09/15 2301 73 17 119/62 83 100 09/15 2300 97.6 09/15 2201 71 14 110/62 80 100 PATIENT WEIGHT: Weight (lb): 214 Weight (oz): 7.2 Weight (kg): 97.069 Medications: Active Meds + DC'd Last 24 Hrs Patient Own Medication (PATIENT'S OWN MEDICATION) OZEMPIC 0.5 MG Mo@0900 SUBQ Nifedipine (PROCARDIA) 10 MG .STK-MED ONE Z (DC) Sodium Bicarbonate (Sodium Bicarbonate) 100 MEQ .STK-MED ONE Z (DC) Docusate Sodium (COLACE) 100 MG BID PO Metoprolol Tartrate (LOPRESSOR) 12.5 MG Q12HR PO Insulin Glargine (LANTUS/SEMGLEE) 14 UNITS DAILY SUBQ Benzocaine/Menthol (Cepacol Sore Throat Lozenge) 1 TAB Q2H PRN PRN MM ( CKD) Phenol (CHLORASEPTIC) 2 SPRAY Q4H PRN PRN TOPICAL Gabapentin (NEURONTIN) 100 MG 2100 PO Insulin Human Lispro (HumaLOG) LOW DOSE SLIDING SCALE AC HS SUBQ Dextrose/Water (DEXTROSE 50% IN WATER) 12.5 GM ASDIR PRN IV Dextrose/Water (DEXTROSE 50% IN WATER) 25 GM ASDIR PRN IV Calcium Gluconate/Sodium Chloride (Calcium Gluconate 1 GM/100ML NS) 100 ML ASDIR IV (CKD) Aspirin (CHILDREN'S ASPIRIN) 81 MG DAILY PO Clopidogrel Bisulfate (PLAVIX) 75 MG DAILY PO Famotidine (PEPCID) 20 MG BID PO Atorvastatin Calcium (LIPITOR) 40 MG BEDTIME PO Mupirocin (BACTROBAN NASAL - ADULT ICU) 1 APPLIC BID NASAL Meperidine HCl (DEMEROL (C-II)) 50 MG Q4H PRN PRN IM Dobutamine HCl/Dextrose (DOBUTamine HCL IN DEXTROSE) 250 ML ASDIR PRN IV Epinephrine (EPINEPHrine/NS 4MG/250ML) 250 ML ASDIR PRN IV Hydrocodone Bitart/Acetaminophen (NORCO 5/325 TABLET (C-II)) 1 TAB Q4H PRN PRN PO Hydrocodone Bitart/Acetaminophen (NORCO 5/325 TABLET (C-II)) 2 TAB Q4H PRN PRN PO Lidocaine HCl/Dextrose (Lidocaine 0.4% in D5w Soln) 500 ML ASDIR PRN IV (CKD) Magnesium Sulfate (MAG SULFATE 2GM PREMIX) 50 ML ASDIR PRN IV Magnesium Sulfate/Dextrose (Magnesium Sulfate) 100 ML ASDIR PRN IV Meperidine HCl (DEMEROL (C-II)) 25 MG Q4H PRN PRN IM Morphine Sulfate (morphine SULFATE (C-II)) 2 MG Q15M PRN PRN IV Nicardipine HCl (CARDENE I.V.) 25 MG ASDIR PRN IV (CKD) Sodium Chloride (SODIUM CHLORIDE 0.9%) 250 ML Ondansetron HCl (ZOFRAN) 4 MG Q8H PRN PRN IV Potassium Chloride (Potassium Chloride) 50 ML ASDIR PRN IV Insulin Human Regular (HUMULIN R) 100 UNIT ASDIR IV (DC) Sodium Chloride (SODIUM CHLORIDE 0.9%) 100 ML Nicardipine HCl (CARDENE I.V.) 25 MG ASDIR IV (CKD) Sodium Chloride (SODIUM CHLORIDE 0.9%) 250 ML Physical Exam General appearance: alert, awake, oriented Head/Eyes: atraumatic, normocephalic ENT: moist mucosal membranes Neck: no JVD Cardiovascular: CV assessment: regular rate and rhythm Respiratory: clear to auscultation, no distress Lower extremity: LE assessment: no edema Musculoskeletal: full range of motion Skin: dry, intact Wound/incision: Location: Sternal Site condition: dressing clean dry Psychiatry: normal affect, normal judgment/insight, normal mood Results Findings/Data: Laboratory Tests 09/16 1722 1143 0710 Chemistry POC Glucose (60 - 99 MG/DL) 153 H 145 H 208 H 123 H Radiology data: Recent Impressions: RADIOLOGY - XR CHEST 1V 09/16 0720 Report Impression - Status: SIGNED Entered: 09/16/2021 0825 IMPRESSION: There are minimal patchy opacities in the lung bases bilaterally. This could be due to atelectasis or pneumonia. There is a shallow inspiration. Impression By: Brittney Guaman MD RADIOLOGY - XR CHEST 1V 09/16 1230 Report Impression - Status: SIGNED Entered: 09/16/2021 1322 IMPRESSION: No pneumothorax is identified status post chest tube removal. Impression By: Brittney Guaman MD Telemetry Interpretation: SR with PACs. Diagnosis, Assessment Plan Free Text DxA P Notes Free Text DxA P Notes: IMP: CAD s/p ACB X 4 with AMIN to the LAD, saphenous vein to the diagonal,the OM, and the right PDA HTN HLP DM PLAN: Continue current medical rx. Ambulate IS. AM Labs. at 2117 RPT #:[id number] END OF REPORT [facility] 2021-09-16 17:47:00 [facility] ([facility] Hospitalist Progress Note REPORT#:[id number] REPORT STATUS: Signed DATE:09/16/21 TIME: 1747 PATIENT: MARK RIVAS UNIT #: [id number] ROOM/BED: [address] : [birth year] AGE: 65 SEX: M ATTEND: Prakash Gómez MD ADM AUTHOR: Scottie Hartman MD * ALL edits or amendments must be made on the electronic/computer document * Subjective Free Text Subj Notes Free Text Subj Notes: Patient reports coughs with chest congestion. No dyspnea or chest pain. Reports slight numbness in the left hand. Objective General VS/I O: Vital Signs: Date Time Temp Pulse Resp B/P B/P Pulse O2 O2 Flow FiO2 Mean Ox Delivery Rate 09/16 1701 84 18 106/61 78 69 09/16 1601 81 23 106/71 84 94 09/16 1600 97.1 09/16 1501 80 17 112/65 83 09/16 1500 94 09/16 1445 95 09/16 1401 80 20 110/65 82 09/16 1345 97 09/16 1315 23 09/16 1301 81 117/63 83 93 09/16 1245 96 09/16 1215 95 09/16 1211 97.2 09/16 1201 79 22 105/59 77 09/16 1101 75 22 96/58 71 86 09/16 1035 96 Nasal 4 36 cannula 09/16 1001 76 19 103/59 76 100 09/16 0901 89 20 129/57 77 99 09/16 0830 90 22 99 09/16 0801 84 24 142/70 97 99 09/16 0800 83 25 99 09/16 0730 85 23 100 09/16 0701 80 13 119/58 83 100 09/16 0700 97.9 09/16 0700 Nasal 2 cannula 09/16 0601 80 23 128/61 88 100 09/16 0527 81 20 111/76 89 99 09/16 0401 76 13 116/56 80 98 09/16 0301 74 12 117/64 86 100 09/16 0300 97.6 09/16 0201 71 13 115/70 87 100 09/16 0101 70 5 121/67 86 100 09/16 0001 71 14 108/55 76 100 09/15 2301 73 17 119/62 83 100 09/15 2300 97.6 09/15 2201 71 14 110/62 80 100 09/15 2101 73 21 112/58 79 100 09/15 2000 75 19 104/57 75 94 09/15 1906 95 Nasal 4 36 cannula 09/15 1901 79 24 109/59 78 98 09/15 1900 97.4 Nasal 4 cannula 09/15 1900 Nasal 4 cannula 09/15 1801 82 24 114/68 87 100 24 hour I O ending at 0700: 09/16 0700 09/15 1900 Intake Total 150 Output Total 1430 470 Balance -1280 -470 Intake, Oral 150 Number 0 Bowel Movements Number Voids 3 Output, Chest 30 170 Tube Drainage Output, Urine 1400 300 PATIENT WEIGHT: Weight (lb): 214 Weight (oz): 7.2 Weight (kg): 97.069 Medications: Active Meds + DC'd Last 24 Hrs Patient Own Medication (PATIENT'S OWN MEDICATION) OZEMPIC 0.5 MG Mo@0900 SUBQ Nifedipine (PROCARDIA) 10 MG .STK-MED ONE Z (DC) Sodium Bicarbonate (Sodium Bicarbonate) 100 MEQ .STK-MED ONE Z (DC) Docusate Sodium (COLACE) 100 MG BID PO Metoprolol Tartrate (LOPRESSOR) 12.5 MG Q12HR PO Insulin Glargine (LANTUS/SEMGLEE) 14 UNITS DAILY SUBQ Benzocaine/Menthol (Cepacol Sore Throat Lozenge) 1 TAB Q2H PRN PRN MM ( CKD) Phenol (CHLORASEPTIC) 2 SPRAY Q4H PRN PRN TOPICAL Gabapentin (NEURONTIN) 100 MG 2100 PO Insulin Human Lispro (HumaLOG) LOW DOSE SLIDING SCALE AC HS SUBQ Dextrose/Water (DEXTROSE 50% IN WATER) 12.5 GM ASDIR PRN IV Dextrose/Water (DEXTROSE 50% IN WATER) 25 GM ASDIR PRN IV Calcium Gluconate/Sodium Chloride (Calcium Gluconate 1 GM/100ML NS) 100 ML ASDIR IV (CKD) Aspirin (CHILDREN'S ASPIRIN) 81 MG DAILY PO Clopidogrel Bisulfate (PLAVIX) 75 MG DAILY PO Famotidine (PEPCID) 20 MG BID PO Atorvastatin Calcium (LIPITOR) 40 MG BEDTIME PO Mupirocin (BACTROBAN NASAL - ADULT ICU) 1 APPLIC BID NASAL Meperidine HCl (DEMEROL (C-II)) 50 MG Q4H PRN PRN IM Dobutamine HCl/Dextrose (DOBUTamine HCL IN DEXTROSE) 250 ML ASDIR PRN IV Epinephrine (EPINEPHrine/NS 4MG/250ML) 250 ML ASDIR PRN IV Hydrocodone Bitart/Acetaminophen (NORCO 5/325 TABLET (C-II)) 1 TAB Q4H PRN PRN PO Hydrocodone Bitart/Acetaminophen (NORCO 5/325 TABLET (C-II)) 2 TAB Q4H PRN PRN PO Lidocaine HCl/Dextrose (Lidocaine 0.4% in D5w Soln) 500 ML ASDIR PRN IV (CKD) Magnesium Sulfate (MAG SULFATE 2GM PREMIX) 50 ML ASDIR PRN IV Magnesium Sulfate/Dextrose (Magnesium Sulfate) 100 ML ASDIR PRN IV Meperidine HCl (DEMEROL (C-II)) 25 MG Q4H PRN PRN IM Morphine Sulfate (morphine SULFATE (C-II)) 2 MG Q15M PRN PRN IV Nicardipine HCl (CARDENE I.V.) 25 MG ASDIR PRN IV (CKD) Sodium Chloride (SODIUM CHLORIDE 0.9%) 250 ML Ondansetron HCl (ZOFRAN) 4 MG Q8H PRN PRN IV Potassium Chloride (Potassium Chloride) 50 ML ASDIR PRN IV Insulin Human Regular (HUMULIN R) 100 UNIT ASDIR IV (DC) Sodium Chloride (SODIUM CHLORIDE 0.9%) 100 ML Nicardipine HCl (CARDENE I.V.) 25 MG ASDIR IV (CKD) Sodium Chloride (SODIUM CHLORIDE 0.9%) 250 ML Physical Exam General appearance: awake, no acute distress, pleasant, conversational Head/Eyes: atraumatic, clear cornea, normal conjunctiva/sclera, PERRL ENT: moist mucosal membranes, normal ear left, normal ear right Neck: non-tender, supple/no meningismus Cardiovascular: normal heart sounds, regular rate rhythm Respiratory: aerating well, clear to auscultation, symmetric expansion, no distress Abdomen: non-tender, soft, no distention Genitourinary: urinary catheter Extremities: moves all, no clubbing, no cyanosis, no edema Musculoskeletal: normal inspection, no muscle spasm Neuro/[employer]: alert, oriented X 3, normal speech, no motor deficits Wound/incision: Location: sternum RLE Site Condition: dressing clean dry Psychiatry: normal affect, normal judgment/insight, normal mood Results Findings/Data: Laboratory Tests 09/16 09/16 09/16 09/15 1722 1143 0710 2051 Chemistry POC Glucose (60 - 99 MG/DL) 145 H 208 H 123 H 93 Radiology data: Recent Impressions: RADIOLOGY - XR CHEST 1V 09/17 719 Report Impression - Status: SIGNED Entered: 09/16/2021 7580 IMPRESSION: There are minimal patchy opacities in the lung bases bilaterally. This could be due to atelectasis or pneumonia. There is a shallow inspiration. Impression By: Brittney Guaman MD RADIOLOGY - XR CHEST 1V 09/16 1230 Report Impression - Status: SIGNED Entered: 09/16/2021 1322 IMPRESSION: No pneumothorax is identified status post chest tube removal. Impression By: Brittney Guaman MD Results: no new labs, vital signs stable, rhythm personally rev'd, current med profile rev'd Diagnosis, Assessment Plan Problem List/A P: 1. Coronary artery disease s/p CABG on 09/13/2021. 2. Hyperlipidemia 3. Diabetes mellitus 4. HTN (hypertension) 5. Leukocytosis, unspecified resolving. 6. Acute postoperative anemia due to expected blood loss 7. Deafness in left ear Free Text DxA P Notes Free text DxA P notes: PLAN and HOSPITAL COURSE: 09/13/2021: - Post-op management as per CV surgery team. - Patient overall doing well; anticipate extubation later today. - Will resume home meds when patient able to tolerate PO. - Aggressive post-op. control of diabetes with Insulin drip. - Monitor labs. - Thank your Dr Gómez for allowing us to participate in the care of this patient. Will continue to follow along with you. 09/14/2021: - Patient doing well POD day 1. Hemodynamically stable; tolerating diet and activity. - Insulin drip has been discontinued; he takes Tresiba (Insulin) 20 units daily at home. Since it is nonformulary at this facility, we will start him on Lantus 14 units daily and titrate the dose based on blood sugar readings. Will also resume his home medication Ozempic, as he takes at home. - Sliding scale Insulin coverage. - Continue other treatment. 09/15/2021: - Patient doing well; ocampo catheter and A-line have been removed. Chest tube remains in place. - Started on Lantus. - Continue present treatment. 09/16/2021: - Chest tube has been removed. - Blood sugars improving. - Left hand numbness likely due to recent A-line which has been removed. Continue to observe for now. Quality: Gen Med Crit Care VTE Prophylaxis VTE prophylaxis initiated: yes Current Medications Current medication review: I attest that the foregoing medication list in the medical record is true, accurate, and complete to the best of my knowledge. at 2338 RPT #:[id number] END OF REPORT [facility] 2021-09-16 11:31:00 [facility] ([facility]) Cardiovascular Surgery Prog REPORT#:[id number] REPORT STATUS: Signed DATE:09/16/21 TIME: 1131 PATIENT: MARK RIVAS UNIT #: [id number] ROOM/BED: [address] : [birth year] AGE: 65 SEX: M ATTEND: Prakash Gómez MD ADM AUTHOR: Eula Jang * ALL edits or amendments must be made on the electronic/computer document * General Post-op: day 3 Status post: ACB x 4 Subjective Patient reports: No: complaints, chest pain, fever, nausea, vomiting, pain. Nursing reports: No: complaints. Comments: Pt. seen at bedside, doing well He denies having any Chest pain or SOB Review of Systems Constitutional: Denies: chills, fatigue, fever, generalized weakness. Respiratory: Denies: PURVIS (dyspnea on exertion), SOB. Cardiovascular: Denies: chest pain, PURVIS (dyspnea on exertion). Objective General VS/I O: Last Documented: Result Date Time Pulse Ox 96 09/16 1035 FiO2 36 09/16 1035 O2 Delivery Nasal cannula 09/16 1035 O2 Flow Rate 4 09/16 1035 B/P 129/57 09/16 0901 B/P Mean 77 09/16 0901 Pulse 89 09/16 0901 Resp 20 09/16 0901 Temp 36.6 09/16 0700 24 hour I O ending at 0700: 09/16 0700 09/15 1900 Intake Total 150 Output Total 1430 470 Balance -1280 -470 Intake, Oral 150 Number 0 Bowel Movements Number Voids 3 Output, Chest 30 170 Tube Drainage Output, Urine 1400 300 PATIENT WEIGHT: Weight (lb): 214 Weight (oz): 7.2 Weight (kg): 97.069 Medications: Active Meds + DC'd Last 24 Hrs Patient Own Medication (PATIENT'S OWN MEDICATION) OZEMPIC 0.5 MG Mo@0900 SUBQ Nifedipine (PROCARDIA) 10 MG .STK-MED ONE Z (DC) Sodium Bicarbonate (Sodium Bicarbonate) 100 MEQ .STK-MED ONE Z (DC) Docusate Sodium (COLACE) 100 MG BID PO Metoprolol Tartrate (LOPRESSOR) 12.5 MG Q12HR PO Insulin Glargine (LANTUS/SEMGLEE) 14 UNITS DAILY SUBQ Benzocaine/Menthol (Cepacol Sore Throat Lozenge) 1 TAB Q2H PRN PRN MM ( CKD) Phenol (CHLORASEPTIC) 2 SPRAY Q4H PRN PRN TOPICAL Gabapentin (NEURONTIN) 100 MG 2100 PO Insulin Human Lispro (HumaLOG) LOW DOSE SLIDING SCALE AC HS SUBQ Dextrose/Water (DEXTROSE 50% IN WATER) 12.5 GM ASDIR PRN IV Dextrose/Water (DEXTROSE 50% IN WATER) 25 GM ASDIR PRN IV Calcium Gluconate/Sodium Chloride (Calcium Gluconate 1 GM/100ML NS) 100 ML ASDIR IV (CKD) Aspirin (CHILDREN'S ASPIRIN) 81 MG DAILY PO Clopidogrel Bisulfate (PLAVIX) 75 MG DAILY PO Famotidine (PEPCID) 20 MG BID PO Atorvastatin Calcium (LIPITOR) 40 MG BEDTIME PO Mupirocin (BACTROBAN NASAL - ADULT ICU) 1 APPLIC BID NASAL Meperidine HCl (DEMEROL (C-II)) 50 MG Q4H PRN PRN IM Dobutamine HCl/Dextrose (DOBUTamine HCL IN DEXTROSE) 250 ML ASDIR PRN IV Epinephrine (EPINEPHrine/NS 4MG/250ML) 250 ML ASDIR PRN IV Hydrocodone Bitart/Acetaminophen (NORCO 5/325 TABLET (C-II)) 1 TAB Q4H PRN PRN PO Hydrocodone Bitart/Acetaminophen (NORCO 5/325 TABLET (C-II)) 2 TAB Q4H PRN PRN PO Lidocaine HCl/Dextrose (Lidocaine 0.4% in D5w Soln) 500 ML ASDIR PRN IV (CKD) Magnesium Sulfate (MAG SULFATE 2GM PREMIX) 50 ML ASDIR PRN IV Magnesium Sulfate/Dextrose (Magnesium Sulfate) 100 ML ASDIR PRN IV Meperidine HCl (DEMEROL (C-II)) 25 MG Q4H PRN PRN IM Morphine Sulfate (morphine SULFATE (C-II)) 2 MG Q15M PRN PRN IV Nicardipine HCl (CARDENE I.V.) 25 MG ASDIR PRN IV (CKD) Sodium Chloride (SODIUM CHLORIDE 0.9%) 250 ML Ondansetron HCl (ZOFRAN) 4 MG Q8H PRN PRN IV Potassium Chloride (Potassium Chloride) 50 ML ASDIR PRN IV Insulin Human Regular (HUMULIN R) 100 UNIT ASDIR IV (DC) Sodium Chloride (SODIUM CHLORIDE 0.9%) 100 ML Nicardipine HCl (CARDENE I.V.) 25 MG ASDIR IV (CKD) Sodium Chloride (SODIUM CHLORIDE 0.9%) 250 ML Physical Exam General appearance: alert, awake, oriented, no acute distress Wound/incision: Location: median sternotomy, right lower extremity Site condition: dressing clean dry, dressing intact, incision intact, no drainage, no erythema, Sternum is stable Neck: non-tender, no bruit/NL carotids, no masses or swelling Cardiovascular: BP/pulses equal bilat., normal heart sounds, regular rate rhythm Respiratory: aerating well Abdomen: soft, non-tender, normal bowel sounds Extremities: no edema Neuro/[employer]: alert, oriented X 3 Results Findings/Data: Laboratory Tests 09/16 09/15 09/15 0710 2052 1738 Chemistry POC Glucose (60 - 99 MG/DL) 123 H 93 86 Radiology data: Recent Impressions: RADIOLOGY - XR CHEST 1V 09/16 0720 Report Impression - Status: SIGNED Entered: 09/16/2021 0825 IMPRESSION: There are minimal patchy opacities in the lung bases bilaterally. This could be due to atelectasis or pneumonia. There is a shallow inspiration. Impression By: Brittney Guaman MD Diagnosis, Assessment Plan Free Text A P: Pt. with CAD and unstable angina S/P ACB x 4 Hypertension Hyperlipidemia Diabetes PLAN D/C chest tubes Encourage use of IS and ambulation Continue Metoprolol, Aspirin, Clopidogrel and Atrovastatin at 1135 RPT #:[id number] END OF REPORT [facility] 2021-09-16 11:31:00 [facility] ([facility]) Cardiovascular Surgery Prog REPORT#:[id number] REPORT STATUS: Signed DATE:09/16/21 TIME: 1131 PATIENT: MARK RIVAS UNIT #: [id number] [address] : [birth year] AGE: 65 SEX: M ATTEND: Prakash Gómez MD ADM AUTHOR: Eula Jang * ALL edits or amendments must be made on the electronic/computer document * General Post-op: day 3 Status post: ACB x 4 Subjective Patient reports: No: complaints, chest pain, fever, nausea, vomiting, pain. Nursing reports: No: complaints. Comments: Pt. seen at bedside, doing well He denies having any Chest pain or SOB Review of Systems Constitutional: Denies: chills, fatigue, fever, generalized weakness. Respiratory: Denies: PURVIS (dyspnea on exertion), SOB. Cardiovascular: Denies: chest pain, PURVIS (dyspnea on exertion). Objective General VS/I O: Last Documented: Result Date Time Pulse Ox 96 09/16 1035 FiO2 36 09/16 1035 O2 Delivery Nasal cannula 09/16 1035 O2 Flow Rate 4 09/16 1035 B/P 129/57 09/16 0901 B/P Mean 77 09/16 0901 Pulse 89 09/16 0901 Resp 20 09/16 0901 Temp 36.6 09/16 0700 24 hour I O ending at 0700: 09/16 0700 09/15 1900 Intake Total 150 Output Total 1430 470 Balance -1280 -470 Intake, Oral 150 Number 0 Bowel Movements Number Voids 3 Output, Chest 30 170 Tube Drainage Output, Urine 1400 300 PATIENT WEIGHT: Weight (lb): 214 Weight (oz): 7.2 Weight (kg): 97.069 Medications: Active Meds + DC'd Last 24 Hrs Patient Own Medication (PATIENT'S OWN MEDICATION) OZEMPIC 0.5 MG Mo@0900 SUBQ Nifedipine (PROCARDIA) 10 MG .STK-MED ONE Z (DC) Sodium Bicarbonate (Sodium Bicarbonate) 100 MEQ .STK-MED ONE Z (DC) Docusate Sodium (COLACE) 100 MG BID PO Metoprolol Tartrate (LOPRESSOR) 12.5 MG Q12HR PO Insulin Glargine (LANTUS/SEMGLEE) 14 UNITS DAILY SUBQ Benzocaine/Menthol (Cepacol Sore Throat Lozenge) 1 TAB Q2H PRN PRN MM ( CKD) Phenol (CHLORASEPTIC) 2 SPRAY Q4H PRN PRN TOPICAL Gabapentin (NEURONTIN) 100 MG 2100 PO Insulin Human Lispro (HumaLOG) LOW DOSE SLIDING SCALE AC HS SUBQ Dextrose/Water (DEXTROSE 50% IN WATER) 12.5 GM ASDIR PRN IV Dextrose/Water (DEXTROSE 50% IN WATER) 25 GM ASDIR PRN IV Calcium Gluconate/Sodium Chloride (Calcium Gluconate 1 GM/100ML NS) 100 ML ASDIR IV (CKD) Aspirin (CHILDREN'S ASPIRIN) 81 MG DAILY PO Clopidogrel Bisulfate (PLAVIX) 75 MG DAILY PO Famotidine (PEPCID) 20 MG BID PO Atorvastatin Calcium (LIPITOR) 40 MG BEDTIME PO Mupirocin (BACTROBAN NASAL - ADULT ICU) 1 APPLIC BID NASAL Meperidine HCl (DEMEROL (C-II)) 50 MG Q4H PRN PRN IM Dobutamine HCl/Dextrose (DOBUTamine HCL IN DEXTROSE) 250 ML ASDIR PRN IV Epinephrine (EPINEPHrine/NS 4MG/250ML) 250 ML ASDIR PRN IV Hydrocodone Bitart/Acetaminophen (NORCO 5/325 TABLET (C-II)) 1 TAB Q4H PRN PRN PO Hydrocodone Bitart/Acetaminophen (NORCO 5/325 TABLET (C-II)) 2 TAB Q4H PRN PRN PO Lidocaine HCl/Dextrose (Lidocaine 0.4% in D5w Soln) 500 ML ASDIR PRN IV (CKD) Magnesium Sulfate (MAG SULFATE 2GM PREMIX) 50 ML ASDIR PRN IV Magnesium Sulfate/Dextrose (Magnesium Sulfate) 100 ML ASDIR PRN IV Meperidine HCl (DEMEROL (C-II)) 25 MG Q4H PRN PRN IM Morphine Sulfate (morphine SULFATE (C-II)) 2 MG Q15M PRN PRN IV Nicardipine HCl (CARDENE I.V.) 25 MG ASDIR PRN IV (CKD) Sodium Chloride (SODIUM CHLORIDE 0.9%) 250 ML Ondansetron HCl (ZOFRAN) 4 MG Q8H PRN PRN IV Potassium Chloride (Potassium Chloride) 50 ML ASDIR PRN IV Insulin Human Regular (HUMULIN R) 100 UNIT ASDIR IV (DC) Sodium Chloride (SODIUM CHLORIDE 0.9%) 100 ML Nicardipine HCl (CARDENE I.V.) 25 MG ASDIR IV (CKD) Sodium Chloride (SODIUM CHLORIDE 0.9%) 250 ML Physical Exam General appearance: alert, awake, oriented, no acute distress Wound/incision: Location: median sternotomy, right lower extremity Site condition: dressing clean dry, dressing intact, incision intact, no drainage, no erythema, Sternum is stable Neck: non-tender, no bruit/NL carotids, no masses or swelling Cardiovascular: BP/pulses equal bilat., normal heart sounds, regular rate rhythm Respiratory: aerating well Abdomen: soft, non-tender, normal bowel sounds Extremities: no edema Neuro/[employer]: alert, oriented X 3 Results Findings/Data: Laboratory Tests 09/16 09/15 09/15 0710 2051 1738 Chemistry POC Glucose (60 - 99 MG/DL) 123 H 93 86 Radiology data: Recent Impressions: RADIOLOGY - XR CHEST 1V 09/16 0720 Report Impression - Status: SIGNED Entered: 09/16/2021 0825 IMPRESSION: There are minimal patchy opacities in the lung bases bilaterally. This could be due to atelectasis or pneumonia. There is a shallow inspiration. Impression By: Brittney Guaman MD Diagnosis, Assessment Plan Free Text A P: Pt. with CAD and unstable angina S/P ACB x 4 Hypertension Hyperlipidemia Diabetes PLAN D/C chest tubes Encourage use of IS and ambulation Continue Metoprolol, Aspirin, Clopidogrel and Atrovastatin at 1135 at 8206 RPT #:[id number] END OF REPORT [facility] 2021-09-16 05:36:00 [id number] [place] [address] PATIENT NAME: MARK RIVAS ADMIT DATE: 09/13/21 ACCOUNT NO: [id number] ROOM NO: Z.SI01 AGE: 65 REPORT TYPE: ELECTROCARDIOGRAM SEX: M ADMITTING PHYSICIAN:Prakash Gómez MD ATTENDING PHYSICIAN:Prakash Gómez MD Order: [id number] Test Reason : CAD/CAB Test Date/Time Stamp: MonSep 16 2021 05:36:36 Blood Pressure : / mmHG Vent. Rate : 082 BPM Atrial Rate : 075 BPM P-R Int : 000 ms QRS Dur : 084 ms QT Int : 372 ms P-R-T Axes : 000 005 -02 degrees QTc Int : 434 ms Atrial fibrillation Low voltage QRS Septal infarct , age undetermined Abnormal ECG When compared with ECG of 15-SEP-2021 06:57, Atrial fibrillation has replaced Sinus rhythm Non-specific change in ST segment in Anterior leads Confirmed by DILAN MURRAY ([id number]) on 09/16/2021 6:37:38 AM Referred By: Self Referred Confirmed by:DILAN MURRAY at 0637 PATIENT NAME: MARK RIVAS [facility] 2021-09-16 05:36:00 [id number] [place] [address] PATIENT NAME: MARK RIVAS ADMIT DATE: 09/13/21 ACCOUNT NO: [id number] ROOM NO: Z.SI01 AGE: 65 REPORT TYPE: ELECTROCARDIOGRAM SEX: M ADMITTING PHYSICIAN:Prakash Gómez MD ATTENDING PHYSICIAN:Prakash Gómez MD Order: [id number] Test Reason : CAD/CAB Test Date/Time Stamp: MonSep 16 2021 05:36:36 Blood Pressure : / mmHG Vent. Rate : 082 BPM Atrial Rate : 075 BPM P-R Int : 000 ms QRS Dur : 084 ms QT Int : 372 ms P-R-T Axes : 000 005 -02 degrees QTc Int : 434 ms Atrial fibrillation Low voltage QRS Septal infarct , age undetermined Abnormal ECG When compared with ECG of 15-SEP-2021 06:57, Atrial fibrillation has replaced Sinus rhythm Non-specific change in ST segment in Anterior leads Confirmed by DILAN MURRAY ([id number]) on 09/17/2021 6:59:36 AM Referred By: Self Referred Confirmed by:DILAN MURRAY at 0659 PATIENT NAME: MARK RIVAS [facility] 2021-09-15 14:17:00 [facility] ([facility]) Hospitalist Progress Note REPORT#:[id number] REPORT STATUS: Signed DATE:09/15/21 TIME: 1417 PATIENT: MARK RIVAS UNIT #: [id number] ROOM/BED: [address] : [birth year] AGE: 65 SEX: M ATTEND: Prakash Gómez MD ADM AUTHOR: Scottie Hartman MD * ALL edits or amendments must be made on the electronic/computer document * Subjective Free Text Subj Notes Free Text Subj Notes: Patient continues to improve on a daily basis. No specific complaints; slight pain at the surgical sites. Objective General VS/I O: Vital Signs: Date Time Temp Pulse Resp B/P B/P Pulse O2 O2 Flow FiO2 Mean Ox Delivery Rate 09/15 1101 80 115/68 87 97 09/15 1030 78 95 09/15 1019 22 09/15 1001 79 116/58 80 95 09/15 0926 96 Room air 21 09/15 0901 84 111/58 81 94 09/15 0845 85 16 94 09/15 0815 99 09/15 0720 97.7 09/15 0720 Nasal 2 cannula 09/15 0701 85 120/56 81 100 09/15 0601 83 23 132/58 84 99 09/15 0501 79 17 113/53 77 100 09/15 0401 80 14 115/55 79 100 09/15 0400 98.0 09/15 0400 Nasal 5 cannula 09/15 0316 78 18 123/58 82 100 09/15 0301 75 17 94/53 71 100 09/15 0201 81 22 117/57 82 100 09/15 0104 86 29 144/66 95 99 09/15 0100 86 22 99 09/15 0000 98.1 09/15 0000 84 17 134/61 87 100 09/14 2301 82 16 131/67 92 100 09/14 2200 80 27 125/59 85 94 09/14 2152 84 20 145/72 102 09/14 2133 86 27 109/57 75 95 09/14 2100 85 24 119/57 82 92 09/15 1999 97.9 09/15 1999 Nasal 5 cannula 09/15 1999 63 29 119/82 95 95 09/14 1920 97 Nasal 5 40 cannula 09/14 1900 71 25 115/57 79 96 09/14 1853 66 26 96 09/14 1845 70 31 96 09/14 1830 74 26 96 09/14 1815 78 29 96 09/14 1812 76 09/14 1812 22 96 09/14 1800 81 92/53 67 93 09/14 1747 86 26 110/67 83 96 09/14 1745 83 22 95 09/14 1741 88 29 94 09/14 1730 87 24 93 09/14 1715 84 23 94 09/14 1600 97.8 79 30 130/71 90 94 Nasal 5 cannula 09/14 1600 79 30 94 09/14 1545 79 36 94 09/14 1530 77 24 95 09/14 1515 75 22 96 09/14 1500 76 16 94 09/14 1445 76 15 95 09/14 1430 78 10 95 24 hour I O ending at 0700: 09/15 0700 09/14 1900 Intake Total 240 1580.00 Output Total 750 640 Balance -510 940.00 Intake, IV 830.00 Intake, Oral 240 750 Output, Chest 100 190 Tube Drainage Output, Urine 650 450 Patient 214 lb Weight PATIENT WEIGHT: Weight (lb): 214 Weight (oz): 7.2 Weight (kg): 97.069 Medications: Active Meds + DC'd Last 24 Hrs Patient Own Medication (PATIENT'S OWN MEDICATION) OZEMPIC 0.5 MG Mo@0900 SUBQ Metoprolol Tartrate (LOPRESSOR) 12.5 MG Q12HR PO Insulin Glargine (LANTUS/SEMGLEE) 14 UNITS DAILY SUBQ Benzocaine/Menthol (Cepacol Sore Throat Lozenge) 1 TAB Q2H PRN PRN MM ( CKD) Phenol (CHLORASEPTIC) 2 SPRAY Q4H PRN PRN TOPICAL Gabapentin (NEURONTIN) 100 MG 2100 PO Insulin Human Lispro (HumaLOG) LOW DOSE SLIDING SCALE AC HS SUBQ Dextrose/Water (DEXTROSE 50% IN WATER) 12.5 GM ASDIR PRN IV Dextrose/Water (DEXTROSE 50% IN WATER) 25 GM ASDIR PRN IV Calcium Gluconate/Sodium Chloride (Calcium Gluconate 1 GM/100ML NS) 100 ML ASDIR IV (CKD) Aspirin (CHILDREN'S ASPIRIN) 81 MG DAILY PO Clopidogrel Bisulfate (PLAVIX) 75 MG DAILY PO Famotidine (PEPCID) 20 MG BID PO Atorvastatin Calcium (LIPITOR) 40 MG BEDTIME PO Mupirocin (BACTROBAN NASAL - ADULT ICU) 1 APPLIC BID NASAL Cefuroxime Sodium (ZINACEF) 1.5 GM Q8H IV (DC) Meperidine HCl (DEMEROL (C-II)) 50 MG Q4H PRN PRN IM Albumin Human (ALBUMINAR-5) 250 ML ASDIR PRN IV (DC) Calcium Gluconate (CALCIUM GLUCONATE 10%) 1,000 MG ASDIR PRN IV (DC) Sodium Chloride (Sodium Chloride MINI-BAG) 100 ML Dextrose/Water (DEXTROSE 50% IN WATER) 12.5 GM ASDIR PRN IV (DC) Dextrose/Water (DEXTROSE 50% IN WATER) 25 GM ASDIR PRN IV (DC) Dobutamine HCl/Dextrose (DOBUTamine HCL IN DEXTROSE) 250 ML ASDIR PRN IV Epinephrine (EPINEPHrine/NS 4MG/250ML) 250 ML ASDIR PRN IV Hydrocodone Bitart/Acetaminophen (NORCO 5/325 TABLET (C-II)) 1 TAB Q4H PRN PRN PO Hydrocodone Bitart/Acetaminophen (NORCO 5/325 TABLET (C-II)) 2 TAB Q4H PRN PRN PO Insulin Human Regular (INSULIN DRIP) 100 ML ASDIR IV (DC) Lidocaine HCl/Dextrose (Lidocaine 0.4% in D5w Soln) 500 ML ASDIR PRN IV (CKD) Magnesium Sulfate (MAG SULFATE 2GM PREMIX) 50 ML ASDIR PRN IV Magnesium Sulfate/Dextrose (Magnesium Sulfate) 100 ML ASDIR PRN IV Meperidine HCl (DEMEROL (C-II)) 25 MG Q4H PRN PRN IM Morphine Sulfate (morphine SULFATE (C-II)) 2 MG Q15M PRN PRN IV Nicardipine HCl (CARDENE I.V.) 25 MG ASDIR PRN IV (CKD) Sodium Chloride (SODIUM CHLORIDE 0.9%) 250 ML Ondansetron HCl (ZOFRAN) 4 MG Q8H PRN PRN IV Potassium Chloride (Potassium Chloride) 50 ML ASDIR PRN IV Potassium Chloride/Dextrose/Sod Cl (DEXTROSE 5%-1/4NS-KCL 20MEQ) 1,000 ML .[id number] IV (DC) Insulin Human Regular (HUMULIN R) 100 UNIT ASDIR IV (CKD) Sodium Chloride (SODIUM CHLORIDE 0.9%) 100 ML Nicardipine HCl (CARDENE I.V.) 25 MG ASDIR IV (CKD) Sodium Chloride (SODIUM CHLORIDE 0.9%) 250 ML Physical Exam General appearance: awake, no acute distress, pleasant, conversational Head/Eyes: atraumatic, clear cornea, normal conjunctiva/sclera, PERRL ENT: moist mucosal membranes, normal ear left, normal ear right Neck: non-tender, supple/no meningismus Cardiovascular: normal heart sounds, regular rate rhythm Respiratory: aerating well, clear to auscultation, symmetric expansion, no distress Abdomen: non-tender, soft, no distention Genitourinary: urinary catheter Extremities: moves all, no clubbing, no cyanosis, no edema Musculoskeletal: normal inspection, no muscle spasm Neuro/[employer]: alert, oriented X 3, normal speech, no motor deficits Wound/incision: Location: sternum RLE Site Condition: dressing clean dry Psychiatry: normal affect, normal judgment/insight, normal mood Results Findings/Data: Laboratory Tests 09/15 09/15 09/14 09/14 09/14 1104 0733 2130 1718 1511 Chemistry POC Glucose (60 - 99 MG/DL) 252 H 221 H 198 H 137 H 72 Radiology data: Recent Impressions: RADIOLOGY - XR CHEST 1V 09/15 0840 Report Impression - Status: SIGNED Entered: 09/15/2021 0901 IMPRESSION: Interval removal of the Calvin-Sahra catheter. Mild vascular congestion and small left pleural effusion. Impression By: [email or web address] - Gurjit Ordaz MD Results: no new labs, vital signs reviewed, vital signs stable, current med profile rev'd Diagnosis, Assessment Plan Problem List/A P: 1. Coronary artery disease s/p CABG on 09/13/2021. 2. Hyperlipidemia 3. Diabetes mellitus 4. HTN (hypertension) 5. Leukocytosis, unspecified resolving. 6. Acute postoperative anemia due to expected blood loss 7. Deafness in left ear Free Text DxA P Notes Free text DxA P notes: PLAN and HOSPITAL COURSE: 09/13/2021: - Post-op management as per CV surgery team. - Patient overall doing well; anticipate extubation later today. - Will resume home meds when patient able to tolerate PO. - Aggressive post-op. control of diabetes with Insulin drip. - Monitor labs. - Thank your Dr Gómez for allowing us to participate in the care of this patient. Will continue to follow along with you. 09/14/2021: - Patient doing well POD day 1. Hemodynamically stable; tolerating diet and activity. - Insulin drip has been discontinued; he takes Tresiba (Insulin) 20 units daily at home. Since it is nonformulary at this facility, we will start him on Lantus 14 units daily and titrate the dose based on blood sugar readings. Will also resume his home medication Ozempic, as he takes at home. - Sliding scale Insulin coverage. - Continue other treatment. 09/15/2021: - Patient doing well; ocampo catheter and A-line have been removed. Chest tube remains in place. - Started on Lantus. - Continue present treatment. Quality: Gen Med Crit Care VTE Prophylaxis VTE prophylaxis initiated: yes Current Medications Current medication review: I attest that the foregoing medication list in the medical record is true, accurate, and complete to the best of my knowledge. at 1446 RPT #:[id number] END OF REPORT [facility] 2021-09-15 11:02:00 [facility] ([facility] Cardiology Progress Note REPORT#:[id number] REPORT STATUS: Signed DATE:09/15/21 TIME: 1102 PATIENT: MARK RIVAS UNIT #: [id number] ROOM/BED: SI01-A : 56 AGE: 65 SEX: M ATTEND: Prakash Gómez MD ADM AUTHOR: Hay Low MD * ALL edits or amendments must be made on the electronic/computer document * Subjective Chief complaint: CAD Patient reports: No: chest pain, palpitations, shortness of breath. Objective General VS/I O: 24 hour I O ending at 0700: 09/15 0700 09/14 1900 Intake Total 240 1580.00 Output Total 750 640 Balance -510 940.00 Intake, IV 830.00 Intake, Oral 240 750 Output, Chest 100 190 Tube Drainage Output, Urine 650 450 Patient 97.069 kg Weight Vital Signs: Date Time Temp Pulse Resp B/P B/P Pulse O2 O2 Flow FiO2 Mean Ox Delivery Rate 09/15 1019 22 09/15 1001 79 116/58 80 95 09/15 0926 96 Room air 21 09/15 0901 84 111/58 81 94 09/15 0845 85 16 94 09/15 0815 99 09/15 0720 97.7 09/15 0720 Nasal 2 cannula 09/15 0701 85 120/56 81 100 09/15 0601 83 23 132/58 84 99 09/15 0501 79 17 113/53 77 100 09/15 0401 80 14 115/55 79 100 09/15 0400 98.0 09/15 0400 Nasal 5 cannula 09/15 0316 78 18 123/58 82 100 09/15 0301 75 17 94/53 71 100 09/15 0201 81 22 117/57 82 100 09/15 0104 86 29 144/66 95 99 09/15 0100 86 22 99 09/15 0000 98.1 09/15 0000 84 17 134/61 87 100 09/14 2301 82 16 131/67 92 100 09/14 2200 80 27 125/59 85 94 09/14 2152 84 20 145/72 102 09/14 2133 86 27 109/57 75 95 09/14 2100 85 24 119/57 82 92 09/15 1999 97.9 09/15 1999 Nasal 5 cannula 09/15 1999 63 29 119/82 95 95 09/14 1920 97 Nasal 5 40 cannula 09/14 1900 71 25 115/57 79 96 09/14 1853 66 26 96 09/14 1845 70 31 96 09/14 1830 74 26 96 09/14 1815 78 29 96 09/14 1812 76 09/14 1812 22 96 09/14 1800 81 92/53 67 93 09/14 1747 86 26 110/67 83 96 09/14 1745 83 22 95 09/14 1741 88 29 94 09/14 1730 87 24 93 09/14 1715 84 23 94 09/14 1600 97.8 79 30 130/71 90 94 Nasal 5 cannula 09/14 1600 79 30 94 09/14 1545 79 36 94 09/14 1530 77 24 95 09/14 1515 75 22 96 09/14 1500 76 16 94 09/14 1445 76 15 95 09/14 1430 78 10 95 09/14 1415 81 21 97 09/14 1400 82 26 98 09/14 1345 82 25 96 09/14 1330 82 97 09/14 1300 90 97 09/14 1245 90 97 09/14 1230 89 97 09/14 1215 95 97 09/14 1200 97.9 96 25 140/74 96 96 Nasal 5 cannula 09/14 1200 96 96 09/14 1145 96 95 09/14 1130 94 95 09/14 1115 91 98 PATIENT WEIGHT: Weight (lb): 214 Weight (oz): 7.2 Weight (kg): 97.069 Medications: Active Meds + DC'd Last 24 Hrs Patient Own Medication (PATIENT'S OWN MEDICATION) OZEMPIC 0.5 MG Mo@0900 SUBQ Metoprolol Tartrate (LOPRESSOR) 12.5 MG Q12HR PO Insulin Glargine (LANTUS/SEMGLEE) 14 UNITS DAILY SUBQ Benzocaine/Menthol (Cepacol Sore Throat Lozenge) 1 TAB Q2H PRN PRN MM ( CKD) Phenol (CHLORASEPTIC) 2 SPRAY Q4H PRN PRN TOPICAL Gabapentin (NEURONTIN) 100 MG 2100 PO Insulin Human Lispro (HumaLOG) LOW DOSE SLIDING SCALE AC HS SUBQ Dextrose/Water (DEXTROSE 50% IN WATER) 12.5 GM ASDIR PRN IV Dextrose/Water (DEXTROSE 50% IN WATER) 25 GM ASDIR PRN IV Calcium Gluconate/Sodium Chloride (Calcium Gluconate 1 GM/100ML NS) 100 ML ASDIR IV (CKD) Aspirin (CHILDREN'S ASPIRIN) 81 MG DAILY PO Clopidogrel Bisulfate (PLAVIX) 75 MG DAILY PO Famotidine (PEPCID) 20 MG BID PO Atorvastatin Calcium (LIPITOR) 40 MG BEDTIME PO Mupirocin (BACTROBAN NASAL - ADULT ICU) 1 APPLIC BID NASAL Cefuroxime Sodium (ZINACEF) 1.5 GM Q8H IV (DC) Meperidine HCl (DEMEROL (C-II)) 50 MG Q4H PRN PRN IM Albumin Human (ALBUMINAR-5) 250 ML ASDIR PRN IV (DC) Calcium Gluconate (CALCIUM GLUCONATE 10%) 1,000 MG ASDIR PRN IV (DC) Sodium Chloride (Sodium Chloride MINI-BAG) 100 ML Dextrose/Water (DEXTROSE 50% IN WATER) 12.5 GM ASDIR PRN IV (DC) Dextrose/Water (DEXTROSE 50% IN WATER) 25 GM ASDIR PRN IV (DC) Dobutamine HCl/Dextrose (DOBUTamine HCL IN DEXTROSE) 250 ML ASDIR PRN IV Epinephrine (EPINEPHrine/NS 4MG/250ML) 250 ML ASDIR PRN IV Hydrocodone Bitart/Acetaminophen (NORCO 5/325 TABLET (C-II)) 1 TAB Q4H PRN PRN PO Hydrocodone Bitart/Acetaminophen (NORCO 5/325 TABLET (C-II)) 2 TAB Q4H PRN PRN PO Insulin Human Regular (INSULIN DRIP) 100 ML ASDIR IV (DC) Lidocaine HCl/Dextrose (Lidocaine 0.4% in D5w Soln) 500 ML ASDIR PRN IV (CKD) Magnesium Sulfate (MAG SULFATE 2GM PREMIX) 50 ML ASDIR PRN IV Magnesium Sulfate/Dextrose (Magnesium Sulfate) 100 ML ASDIR PRN IV Meperidine HCl (DEMEROL (C-II)) 25 MG Q4H PRN PRN IM Morphine Sulfate (morphine SULFATE (C-II)) 2 MG Q15M PRN PRN IV Nicardipine HCl (CARDENE I.V.) 25 MG ASDIR PRN IV (CKD) Sodium Chloride (SODIUM CHLORIDE 0.9%) 250 ML Ondansetron HCl (ZOFRAN) 4 MG Q8H PRN PRN IV Potassium Chloride (Potassium Chloride) 50 ML ASDIR PRN IV Potassium Chloride/Dextrose/Sod Cl (DEXTROSE 5%-1/4NS-KCL 20MEQ) 1,000 ML .[id number] IV (DC) Dextrose/Water (DEXTROSE 50% IN WATER) 12.5 GM ASDIR PRN IV (CAN) Dextrose/Water (DEXTROSE 50% IN WATER) 25 GM ASDIR PRN IV (CAN) Insulin Human Regular (HUMULIN R) 100 UNIT ASDIR IV (CKD) Sodium Chloride (SODIUM CHLORIDE 0.9%) 100 ML Nicardipine HCl (CARDENE I.V.) 25 MG ASDIR IV (CKD) Sodium Chloride (SODIUM CHLORIDE 0.9%) 250 ML Physical Exam General appearance: alert, awake, oriented Head/Eyes: atraumatic, normocephalic ENT: moist mucosal membranes Neck: no JVD Cardiovascular: CV assessment: regular rate and rhythm Respiratory: clear to auscultation, no distress Lower extremity: LE assessment: no edema Musculoskeletal: full range of motion Skin: dry, intact Wound/incision: Location: Sternal Site condition: dressing clean dry Psychiatry: normal affect, normal judgment/insight, normal mood Results Findings/Data: Laboratory Tests 09/15 09/14 09/14 09/14 09/14 0733 2130 1718 1511 1339 Chemistry POC Glucose (60 - 99 MG/DL) 221 H 198 H 137 H 72 110 H 09/14 09/14 1231 1117 Chemistry POC Glucose (60 - 99 MG/DL) 147 H 125 H Radiology data: Recent Impressions: RADIOLOGY - XR CHEST 1V 09/15 0840 Report Impression - Status: SIGNED Entered: 09/15/2021 09 IMPRESSION: Interval removal of the Calvin-Sahra catheter. Mild vascular congestion and small left pleural effusion. Impression By: [email or web address] - Gurjit Ordaz MD Diagnosis, Assessment Plan Free Text DxA P Notes Free Text DxA P Notes: IMP: CAD s/p ACB X 4 with AMIN to the LAD, saphenous vein to the diagonal,the OM, and the right PDA HTN HLP DM PLAN: Continue current medical rx. Ambulate IS. at 0222 RPT #:[id number] END OF REPORT [facility] 2021-09-15 10:00:00 [facility] ([facility]) Cardiovascular Surgery Prog REPORT#:[id number] REPORT STATUS: Signed DATE:09/15/21 TIME: 1000 PATIENT: MARK RIVAS UNIT #: [id number] ROOM[address]BED: [address] : [address] AGE: 65 SEX: M ATTEND: Prakash Gómez MD ADM AUTHOR: Eula Jang * ALL edits or amendments must be made on the electronic/computer document * General Post-op: day 2 Status post: ACB x 4 Subjective Patient reports: No: complaints. Nursing reports: No: complaints. Comments: pt. seen OOB- chair, doing well Review of Systems Constitutional: Denies: chills, fatigue, fever, generalized weakness. Respiratory: Denies: PURVIS (dyspnea on exertion), SOB. Cardiovascular: Denies: chest pain, PURVIS (dyspnea on exertion). Objective General VS/I O: Last Documented: Result Date Time Pulse Ox 96 09/15 925 FiO2 21 09/15 925 O2 Delivery Room air 09/15 925 B/P 111/58 09/15 900 B/P Mean 81 09/15 09 Pulse 84 09/15 09 Resp 16 09/15 0845 Temp 36.5 09/15 07 O2 Flow Rate 2 09/15 0720 24 hour I O ending at 0700: 09/15 0700 09/14 1900 Intake Total 240 1580.00 Output Total 750 640 Balance -510 940.00 Intake, IV 830.00 Intake, Oral 240 750 Output, Chest 100 190 Tube Drainage Output, Urine 650 450 Patient 97.069 kg Weight PATIENT WEIGHT: Weight (lb): 214 Weight (oz): 7.2 Weight (kg): 97.069 Medications: Active Meds + DC'd Last 24 Hrs Patient Own Medication (PATIENT'S OWN MEDICATION) OZEMPIC 0.5 MG Mo@0900 SUBQ Metoprolol Tartrate (LOPRESSOR) 12.5 MG Q12HR PO (UNV) Insulin Glargine (LANTUS/SEMGLEE) 14 UNITS DAILY SUBQ Benzocaine/Menthol (Cepacol Sore Throat Lozenge) 1 TAB Q2H PRN PRN MM ( CKD) Phenol (CHLORASEPTIC) 2 SPRAY Q4H PRN PRN TOPICAL Gabapentin (NEURONTIN) 100 MG 2100 PO Insulin Human Lispro (HumaLOG) LOW DOSE SLIDING SCALE AC HS SUBQ Dextrose/Water (DEXTROSE 50% IN WATER) 12.5 GM ASDIR PRN IV Dextrose/Water (DEXTROSE 50% IN WATER) 25 GM ASDIR PRN IV Calcium Gluconate/Sodium Chloride (Calcium Gluconate 1 GM/100ML NS) 100 ML ASDIR IV (CKD) Aspirin (CHILDREN'S ASPIRIN) 81 MG DAILY PO Clopidogrel Bisulfate (PLAVIX) 75 MG DAILY PO Famotidine (PEPCID) 20 MG BID PO Atorvastatin Calcium (LIPITOR) 40 MG BEDTIME PO Mupirocin (BACTROBAN NASAL - ADULT ICU) 1 APPLIC BID NASAL Cefuroxime Sodium (ZINACEF) 1.5 GM Q8H IV (DC) Meperidine HCl (DEMEROL (C-II)) 50 MG Q4H PRN PRN IM Albumin Human (ALBUMINAR-5) 250 ML ASDIR PRN IV (DC) Calcium Gluconate (CALCIUM GLUCONATE 10%) 1,000 MG ASDIR PRN IV (DC) Sodium Chloride (Sodium Chloride MINI-BAG) 100 ML Dextrose/Water (DEXTROSE 50% IN WATER) 12.5 GM ASDIR PRN IV (DC) Dextrose/Water (DEXTROSE 50% IN WATER) 25 GM ASDIR PRN IV (DC) Dobutamine HCl/Dextrose (DOBUTamine HCL IN DEXTROSE) 250 ML ASDIR PRN IV Epinephrine (EPINEPHrine/NS 4MG/250ML) 250 ML ASDIR PRN IV Hydrocodone Bitart/Acetaminophen (NORCO 5/325 TABLET (C-II)) 1 TAB Q4H PRN PRN PO Hydrocodone Bitart/Acetaminophen (NORCO 5/325 TABLET (C-II)) 2 TAB Q4H PRN PRN PO Insulin Human Regular (INSULIN DRIP) 100 ML ASDIR IV (DC) Lidocaine HCl/Dextrose (Lidocaine 0.4% in D5w Soln) 500 ML ASDIR PRN IV (CKD) Magnesium Sulfate (MAG SULFATE 2GM PREMIX) 50 ML ASDIR PRN IV Magnesium Sulfate/Dextrose (Magnesium Sulfate) 100 ML ASDIR PRN IV Meperidine HCl (DEMEROL (C-II)) 25 MG Q4H PRN PRN IM Morphine Sulfate (morphine SULFATE (C-II)) 2 MG Q15M PRN PRN IV Nicardipine HCl (CARDENE I.V.) 25 MG ASDIR PRN IV (CKD) Sodium Chloride (SODIUM CHLORIDE 0.9%) 250 ML Ondansetron HCl (ZOFRAN) 4 MG Q8H PRN PRN IV Potassium Chloride (Potassium Chloride) 50 ML ASDIR PRN IV Potassium Chloride/Dextrose/Sod Cl (DEXTROSE 5%-1/4NS-KCL 20MEQ) 1,000 ML .[id number] IV (DC) Dextrose/Water (DEXTROSE 50% IN WATER) 12.5 GM ASDIR PRN IV (CAN) Dextrose/Water (DEXTROSE 50% IN WATER) 25 GM ASDIR PRN IV (CAN) Insulin Human Regular (HUMULIN R) 100 UNIT ASDIR IV (CKD) Sodium Chloride (SODIUM CHLORIDE 0.9%) 100 ML Nicardipine HCl (CARDENE I.V.) 25 MG ASDIR IV (CKD) Sodium Chloride (SODIUM CHLORIDE 0.9%) 250 ML Physical Exam General appearance: alert, awake, oriented, no acute distress Wound/incision: Location: median sternotomy, right lower extremity Site condition: dressing clean dry, incision intact, no drainage, no erythema, Sternum is stable Neck: non-tender, no bruit/NL carotids, no masses or swelling Cardiovascular: BP/pulses equal bilat., normal heart sounds, regular rate rhythm Respiratory: aerating well Abdomen: soft, non-tender, normal bowel sounds Extremities: no edema Neuro/[employer]: alert, oriented X 3 Results Findings/Data: Laboratory Tests 09/15 09/14 09/14 09/14 09/14 0733 2130 1718 1511 1339 Chemistry POC Glucose (60 - 99 MG/DL) 221 H 198 H 137 H 72 110 H 09/14 09/14 1231 1117 Chemistry POC Glucose (60 - 99 MG/DL) 147 H 125 H Radiology data: Recent Impressions: RADIOLOGY - XR CHEST 1V 09/15 0840 Report Impression - Status: SIGNED Entered: 09/15/2021 0901 IMPRESSION: Interval removal of the Calvin-Sahra catheter. Mild vascular congestion and small left pleural effusion. Impression By: [email or web address] - Gurjit Ordaz MD Diagnosis, Assessment Plan Free Text A P: Pt. with CAD and unstable angina S/P ACB x 4 Hypertension Hyperlipidemia Diabetes PLAN D/C radial arterial line Encourage use of IS and ambulation Start Metoprolol 12.5 mg PO daily at 1005 RPT #:[id number] END OF REPORT [facility] 2021-09-15 10:00:00 [facility] ([facility]) Cardiovascular Surgery Prog REPORT#:[id number] REPORT STATUS: Signed DATE:09/15/21 TIME: 1000 PATIENT: MARK RIVAS UNIT #: [id number] ROOM/BED: Z.SI01-A : 56 AGE: 65 SEX: M ATTEND: Prakash Gómez MD ADM AUTHOR: Eula Jang * ALL edits or amendments must be made on the electronic/computer document * General Post-op: day 2 Status post: ACB x 4 Subjective Patient reports: No: complaints. Nursing reports: No: complaints. Comments: pt. seen OOB- chair, doing well Review of Systems Constitutional: Denies: chills, fatigue, fever, generalized weakness. Respiratory: Denies: PURVIS (dyspnea on exertion), SOB. Cardiovascular: Denies: chest pain, PURVIS (dyspnea on exertion). Objective General VS/I O: Last Documented: Result Date Time Pulse Ox 96 09/15 09 FiO2 21 09/15 0926 O2 Delivery Room air 09/15 0926 B/P 111/58 09/15 0901 B/P Mean 81 09/15 0901 Pulse 84 09/15 09 Resp 16 09/15 0845 Temp 36.5 09/15 0720 O2 Flow Rate 2 09/15 0720 24 hour I O ending at 0700: 09/15 0700 09/14 1900 Intake Total 240 1580.00 Output Total 750 640 Balance -510 940.00 Intake, IV 830.00 Intake, Oral 240 750 Output, Chest 100 190 Tube Drainage Output, Urine 650 450 Patient 97.069 kg Weight PATIENT WEIGHT: Weight (lb): 214 Weight (oz): 7.2 Weight (kg): 97.069 Medications: Active Meds + DC'd Last 24 Hrs Patient Own Medication (PATIENT'S OWN MEDICATION) OZEMPIC 0.5 MG Mo@0900 SUBQ Metoprolol Tartrate (LOPRESSOR) 12.5 MG Q12HR PO (UNV) Insulin Glargine (LANTUS/SEMGLEE) 14 UNITS DAILY SUBQ Benzocaine/Menthol (Cepacol Sore Throat Lozenge) 1 TAB Q2H PRN PRN MM ( CKD) Phenol (CHLORASEPTIC) 2 SPRAY Q4H PRN PRN TOPICAL Gabapentin (NEURONTIN) 100 MG 2100 PO Insulin Human Lispro (HumaLOG) LOW DOSE SLIDING SCALE AC HS SUBQ Dextrose/Water (DEXTROSE 50% IN WATER) 12.5 GM ASDIR PRN IV Dextrose/Water (DEXTROSE 50% IN WATER) 25 GM ASDIR PRN IV Calcium Gluconate/Sodium Chloride (Calcium Gluconate 1 GM/100ML NS) 100 ML ASDIR IV (CKD) Aspirin (CHILDREN'S ASPIRIN) 81 MG DAILY PO Clopidogrel Bisulfate (PLAVIX) 75 MG DAILY PO Famotidine (PEPCID) 20 MG BID PO Atorvastatin Calcium (LIPITOR) 40 MG BEDTIME PO Mupirocin (BACTROBAN NASAL - ADULT ICU) 1 APPLIC BID NASAL Cefuroxime Sodium (ZINACEF) 1.5 GM Q8H IV (DC) Meperidine HCl (DEMEROL (C-II)) 50 MG Q4H PRN PRN IM Albumin Human (ALBUMINAR-5) 250 ML ASDIR PRN IV (DC) Calcium Gluconate (CALCIUM GLUCONATE 10%) 1,000 MG ASDIR PRN IV (DC) Sodium Chloride (Sodium Chloride MINI-BAG) 100 ML Dextrose/Water (DEXTROSE 50% IN WATER) 12.5 GM ASDIR PRN IV (DC) Dextrose/Water (DEXTROSE 50% IN WATER) 25 GM ASDIR PRN IV (DC) Dobutamine HCl/Dextrose (DOBUTamine HCL IN DEXTROSE) 250 ML ASDIR PRN IV Epinephrine (EPINEPHrine/NS 4MG/250ML) 250 ML ASDIR PRN IV Hydrocodone Bitart/Acetaminophen (NORCO 5/325 TABLET (C-II)) 1 TAB Q4H PRN PRN PO Hydrocodone Bitart/Acetaminophen (NORCO 5/325 TABLET (C-II)) 2 TAB Q4H PRN PRN PO Insulin Human Regular (INSULIN DRIP) 100 ML ASDIR IV (DC) Lidocaine HCl/Dextrose (Lidocaine 0.4% in D5w Soln) 500 ML ASDIR PRN IV (CKD) Magnesium Sulfate (MAG SULFATE 2GM PREMIX) 50 ML ASDIR PRN IV Magnesium Sulfate/Dextrose (Magnesium Sulfate) 100 ML ASDIR PRN IV Meperidine HCl (DEMEROL (C-II)) 25 MG Q4H PRN PRN IM Morphine Sulfate (morphine SULFATE (C-II)) 2 MG Q15M PRN PRN IV Nicardipine HCl (CARDENE I.V.) 25 MG ASDIR PRN IV (CKD) Sodium Chloride (SODIUM CHLORIDE 0.9%) 250 ML Ondansetron HCl (ZOFRAN) 4 MG Q8H PRN PRN IV Potassium Chloride (Potassium Chloride) 50 ML ASDIR PRN IV Potassium Chloride/Dextrose/Sod Cl (DEXTROSE 5%-1/4NS-KCL 20MEQ) 1,000 ML .[id number] IV (DC) Dextrose/Water (DEXTROSE 50% IN WATER) 12.5 GM ASDIR PRN IV (CAN) Dextrose/Water (DEXTROSE 50% IN WATER) 25 GM ASDIR PRN IV (CAN) Insulin Human Regular (HUMULIN R) 100 UNIT ASDIR IV (CKD) Sodium Chloride (SODIUM CHLORIDE 0.9%) 100 ML Nicardipine HCl (CARDENE I.V.) 25 MG ASDIR IV (CKD) Sodium Chloride (SODIUM CHLORIDE 0.9%) 250 ML Physical Exam General appearance: alert, awake, oriented, no acute distress Wound/incision: Location: median sternotomy, right lower extremity Site condition: dressing clean dry, incision intact, no drainage, no erythema, Sternum is stable Neck: non-tender, no bruit/NL carotids, no masses or swelling Cardiovascular: BP/pulses equal bilat., normal heart sounds, regular rate rhythm Respiratory: aerating well Abdomen: soft, non-tender, normal bowel sounds Extremities: no edema Neuro/[employer]: alert, oriented X 3 Results Findings/Data: Laboratory Tests 09/15 09/14 09/14 09/14 09/14 0733 2130 1718 1511 1339 Chemistry POC Glucose (60 - 99 MG/DL) 221 H 198 H 137 H 72 110 H 09/14 09/14 1231 1117 Chemistry POC Glucose (60 - 99 MG/DL) 147 H 125 H Radiology data: Recent Impressions: RADIOLOGY - XR CHEST 1V 09/15 0840 Report Impression - Status: SIGNED Entered: 09/15/2021 0901 IMPRESSION: Interval removal of the Calvin-Sahra catheter. Mild vascular congestion and small left pleural effusion. Impression By: [email or web address] - Gurjit Ordaz MD Diagnosis, Assessment Plan Free Text A P: Pt. with CAD and unstable angina S/P ACB x 4 Hypertension Hyperlipidemia Diabetes PLAN D/C radial arterial line Encourage use of IS and ambulation Start Metoprolol 12.5 mg PO daily at 1005 at 2057 RPT #:[id number] END OF REPORT [facility] 2021-09-15 06:57:00 [id number] [address] PATIENT NAME: MARK RIVAS ADMIT DATE: 09/13/21 ACCOUNT NO: [id number] ROOM NO: [facility] AGE: 65 REPORT TYPE: ELECTROCARDIOGRAM SEX: M ADMITTING PHYSICIAN:Prakash Gómez MD ATTENDING PHYSICIAN:Prakash Gómez MD Order: [id number] Test Reason : CAD/CAB Test Date/Time Stamp: MonSep 15 2021 06:57:27 Blood Pressure : / mmHG Vent. Rate : 086 BPM Atrial Rate : 086 BPM P-R Int : 112 ms QRS Dur : 090 ms QT Int : 356 ms P-R-T Axes : 000 -09 -20 degrees QTc Int : 426 ms Normal sinus rhythm ST elevation, consider early repolarization, pericarditis, or injury Nonspecific T wave abnormality Abnormal ECG When compared with ECG of 14-SEP-2021 05:30, MA interval has decreased Confirmed by DILAN MURRAY ([id number]) on 09/15/2021 1:39:30 PM Referred By: Prakash Gómez Confirmed by:DILAN MURRAY at [id number] PATIENT NAME: MARK RIVAS [facility] 2021-09-14 19:10:00 [facility] ([facility]) Cardiovascular Surgery Prog REPORT#:[id number] REPORT STATUS: Signed DATE:09/14/21 TIME: 1909 PATIENT: MARK RIVAS UNIT #: [id number] ROOM/BED: [facility]-A : 56 AGE: 65 SEX: M ATTEND: Prakash Gómez MD ADM AUTHOR: Eula Jang * ALL edits or amendments must be made on the electronic/computer document * General Post-op: day 1 Status post: ACB x 4 Subjective Patient reports: No: complaints. Nursing reports: No: complaints. Comments: The patient is seen at bedside, doing well Review of Systems Constitutional: Denies: chills, fatigue, fever, generalized weakness. Respiratory: Denies: PURVIS (dyspnea on exertion), SOB. Cardiovascular: Denies: chest pain. Objective General VS/I O: Last Documented: Result Date Time Pulse Ox 96 09/14 1852 Pulse 66 09/14 1853 Resp 26 09/14 1853 B/P 92/53 09/14 1800 B/P Mean 67 09/14 1800 O2 Delivery Nasal cannula 09/14 1600 O2 Flow Rate 5 09/14 1600 Temp 36.6 09/14 1600 FiO2 40 09/14 2023 24 hour I O ending at 0700: 09/14 0700 09/13 1900 Intake Total 805.50 778.10 Output Total 3015 815 Balance -2209.50 -36.90 Intake, IV 805.50 728.10 Intake, Tube 50 Irrigant Output, Chest 190 90 Tube Drainage Output, 1200 Estimated Blood Loss Output, 0 Gastric Drainage Output, Urine 1625 725 Patient 97.273 kg Weight Weight Standing scale Measurement Method PATIENT WEIGHT: Weight (lb): 214 Weight (oz): 7.2 Weight (kg): 97.069 Medications: Active Meds + DC'd Last 24 Hrs Gabapentin (NEURONTIN) 100 MG 2100 PO Insulin Human Lispro (HumaLOG) LOW DOSE SLIDING SCALE AC HS SUBQ Dextrose/Water (DEXTROSE 50% IN WATER) 12.5 GM ASDIR PRN IV Dextrose/Water (DEXTROSE 50% IN WATER) 25 GM ASDIR PRN IV Calcium Gluconate/Sodium Chloride (Calcium Gluconate 1 GM/100ML NS) 100 ML ASDIR IV (CKD) Aspirin (CHILDREN'S ASPIRIN) 81 MG DAILY PO Clopidogrel Bisulfate (PLAVIX) 75 MG DAILY PO Famotidine (PEPCID) 20 MG BID PO Phenylephrine HCl (VIANEY-SYNEPHRINE/NS 10MG/100ML) 100 ML ONCALL ONE IV ( CAN) Atorvastatin Calcium (LIPITOR) 40 MG BEDTIME PO Famotidine (PEPCID) 20 MG BID IV (DC) Mupirocin (BACTROBAN) 1 ZOHRA BID TOPICAL (CAN) Mupirocin (BACTROBAN NASAL - ADULT ICU) 1 APPLIC BID NASAL Cefuroxime Sodium (ZINACEF) 1.5 GM Q8H IV Meperidine HCl (DEMEROL (C-II)) 50 MG Q4H PRN PRN IM Albumin Human (ALBUMINAR-5) 250 ML ASDIR PRN IV (DC) Calcium Gluconate (CALCIUM GLUCONATE 10%) 1,000 MG ASDIR PRN IV (DC) Sodium Chloride (Sodium Chloride MINI-BAG) 100 ML Dextrose/Water (DEXTROSE 50% IN WATER) 12.5 GM ASDIR PRN IV (DC) Dextrose/Water (DEXTROSE 50% IN WATER) 25 GM ASDIR PRN IV (DC) Dobutamine HCl/Dextrose (DOBUTamine HCL IN DEXTROSE) 250 ML ASDIR PRN IV Epinephrine (EPINEPHrine/NS 4MG/250ML) 250 ML ASDIR PRN IV Hydrocodone Bitart/Acetaminophen (NORCO 5/325 TABLET (C-II)) 1 TAB Q4H PRN PRN PO Hydrocodone Bitart/Acetaminophen (NORCO 5/325 TABLET (C-II)) 2 TAB Q4H PRN PRN PO Insulin Human Regular (INSULIN DRIP) 100 ML ASDIR IV (DC) Lidocaine HCl/Dextrose (Lidocaine 0.4% in D5w Soln) 500 ML ASDIR PRN IV (CKD) Magnesium Sulfate (MAG SULFATE 2GM PREMIX) 50 ML ASDIR PRN IV Magnesium Sulfate/Dextrose (Magnesium Sulfate) 100 ML ASDIR PRN IV Meperidine HCl (DEMEROL (C-II)) 25 MG Q4H PRN PRN IM Morphine Sulfate (morphine SULFATE (C-II)) 2 MG Q15M PRN PRN IV Nicardipine HCl (CARDENE I.V.) 25 MG ASDIR PRN IV (CKD) Sodium Chloride (SODIUM CHLORIDE 0.9%) 250 ML Ondansetron HCl (ZOFRAN) 4 MG Q8H PRN PRN IV Potassium Chloride (Potassium Chloride) 50 ML ASDIR PRN IV Potassium Chloride/Dextrose/Sod Cl (DEXTROSE 5%-1/4NS-KCL 20MEQ) 1,000 ML .[id number] IV Dextrose/Water (DEXTROSE 50% IN WATER) 12.5 GM ASDIR PRN IV (CAN) Dextrose/Water (DEXTROSE 50% IN WATER) 25 GM ASDIR PRN IV (CAN) Insulin Human Regular (HUMULIN R) 100 UNIT ASDIR IV (CKD) Sodium Chloride (SODIUM CHLORIDE 0.9%) 100 ML Nicardipine HCl (CARDENE I.V.) 25 MG ASDIR IV (CKD) Sodium Chloride (SODIUM CHLORIDE 0.9%) 250 ML Tranexamic Acid (CYKLOKAPRON) 2,910 MG ONCALL IV (DC) Sodium Chloride (SODIUM CHLORIDE 0.9%) 250 ML Tranexamic Acid (CYKLOKAPRON) 1,460 MG ONCALL IV (DC) Sodium Chloride (SODIUM CHLORIDE 0.9%) 50 ML Acetaminophen (TYLENOL) 650 MG Q4H PRN PRN PO (DC) Magnesium Hydroxide (MILK OF MAGNESIA) 30 ML ASDIR PRN PO (DC) Zolpidem Tartrate (AMBIEN (C-IV)) 5 MG BEDTIME PRN PRN PO (DC) Physical Exam General appearance: alert, awake, oriented, no acute distress Wound/incision: Location: median sternotomy, right lower extremity Site condition: dressing clean dry, incision intact, no drainage, no erythema, Sternum is stable Neck: non-tender, no bruit/NL carotids, no masses or swelling Cardiovascular: BP/pulses equal bilat., normal heart sounds, regular rate rhythm Respiratory: aerating well Abdomen: soft, non-tender, normal bowel sounds Extremities: no edema Neuro/[employer]: alert, oriented X 3 Results Findings/Data: Laboratory Tests 09/14 09/14 09/14 09/14 09/14 1511 1339 1231 1117 0922 Chemistry POC Glucose (60 - 99 MG/DL) 72 110 H 147 H 125 H 166 H 09/14 09/14 09/14 09/14 09/14 0826 0718 0607 0404 0400 Chemistry Sodium (137 - 145 MMOL/L) 142 Potassium (3.5 - 5.1 MMOL/L) 4.4 Chloride (98 - 107 MMOL/L) 110 H Carbon Dioxide (22 - 30 MMOL/L) 24 Anion Gap (14 - 24 MMOL/L) 12 L BUN (9 - 20 MG/DL) 19 Creatinine (0.66 - 1.25 MG/DL) 0.80 Glomerular Filtr Rate > 60 Glucose (74 - 106 MG/DL) 172 H POC Glucose (60 - 99 MG/DL) 220 H 182 H 187 H 170 H Calcium (8.4 - 10.2 MG/DL) 8.2 L Magnesium (1.6 - 2.3 MG/DL) 1.9 09/14 09/14 09/14 09/13 09/13 0308 0121 0007 2202 2118 Chemistry POC Glucose (60 - 99 MG/DL) 174 H 164 H 215 H 229 H 221 H 09/13 191 Chemistry POC Glucose (60 - 99 MG/DL) 228 H 230 H Laboratory Tests 09/14 0400 Hematology WBC (3.8 - 9.8 K/MM3) 19.4 H RBC (3.95 - 5.67 M/MM3) 3.83 L Hgb (12.4 - 16.7 G/DL) 11.5 L Hct (35.9 - 49.5 %) 34.9 L MCV (81.7 - 96.1 fL) 91 MCH (27.6 - 33.2 pg) 30.0 MCHC (32.9 - 35.5 %) 33.0 RDW (12.1 - 15.2 %) 13.2 Plt Count (129 - 368 K/MM3) 179 MPV (7.4 - 10.4 fl) 11.4 H Neut % (Auto) (43 - 75 %) 79.1 H Lymph % (Auto) (14 - 44 %) 7.0 L Billings % (Auto) (4 - 13 %) 13.2 H Eos % (Auto) (0 - 6 %) 0.0 Baso % (Auto) (0 - 2 %) 0.1 Neut # (Auto) (2.0 - 7.6 K/mm3) 15.33 H Lymph # (Auto) (1.0 - 3.8 K/mm3) 1.35 Billings # (Auto) (0.1 - 0.8 K/mm3) 2.56 H Eos # (Auto) (0.0 - 0.2 K/mm3) 0.00 Baso # (Auto) (0.0 - 0.2 K/mm3) 0.02 Immature Gran % (0.0 - 2.0 %) 0.6 Nucleated RBC % (0 - 1.0 %) 0.0 Nucleated RBCs # (Man) (0.0 - 0.1 K/mm3) 0.00 Radiology data: Recent Impressions: RADIOLOGY - XR CHEST 1V 09/14 0516 Report Impression - Status: SIGNED Entered: 09/14/2021 0750 IMPRESSION: Mild bibasilar atelectasis following extubation. Impression By: Tomeka Ferrara MD Diagnosis, Assessment Plan Free Text A P: Pt. with CAD and unstable angina S/P ACB x 4 Hypertension Hyperlipidemia Diabetes PLAN Calvin and Cordis removed Encourage use of IS and ambulation D/C femoral arterial line at 1915 at 2147 RPT #:[id number] END OF REPORT [facility] 2021-09-14 14:27:00 [facility] Hospitalist Progress Note REPORT#:[id number] REPORT STATUS: Signed DATE:09/14/21 TIME: 1427 PATIENT: MARK RIVAS UNIT #: [id number] RO[facility]BED: [facility]-A : 56 AGE: 65 SEX: M ATTEND: Prakash Gómez MD ADM AUTHOR: Scottie Hartman MD * ALL edits or amendments must be made on the electronic/computer document * Subjective Free Text Subj Notes Free Text Subj Notes: Patient reports feeling OK; no specific complaints. Walked in the hallway twice. Tolerating regular diet. No significant pain at the surgical sites. Objective General VS/I O: Vital Signs: Date Time Temp Pulse Resp B/P B/P Pulse O2 O2 Flow FiO2 Mean Ox Delivery Rate 09/14 1200 97.9 96 25 140/74 96 96 Nasal 5 cannula 09/14 1200 96 96 09/14 0930 94 97 09/14 0919 91 95 09/14 0915 92 96 09/14 0900 92 26 97 09/14 0815 96 32 96 09/14 0800 Nasal 5 cannula 09/14 0800 99.5 96 28 122/67 85 97 Nasal 3 cannula 09/14 0800 96 28 97 09/14 0753 95 Nasal 5 cannula 09/14 0745 95 29 96 09/14 0730 96 31 96 04/19 0719 93 29 96 04/19 0715 97 31 96 04/19 0700 98 27 92 04/19 0545 100 27 94 04/19 0530 102 95 04/19 0515 100 94 04/19 0500 103 20 04/19 0445 103 23 94 04/19 0430 96 04/19 0415 103 96 04/19 0400 98.6 105 20 114/60 78 95 Nasal 4 cannula 09/14 0400 104 29 95 04/19 0345 103 24 95 04/19 0330 103 28 95 04/19 0315 103 27 95 04/19 0300 106 20 94 04/19 0245 106 20 94 04/19 0230 105 22 94 04/19 0215 105 23 95 /19 0200 104 22 95 /19 0145 105 29 96 / 0130 102 23 95 /19 0115 103 23 96 /19 0100 104 22 95 /19 0045 105 22 95 /19 0030 105 24 96 / 0015 106 26 95 / 0000 Nasal 4 cannula 09/14 0000 98.6 100 20 123/62 82 96 Nasal 4 cannula 09/14 0000 105 22 95 04/18 2345 105 23 95 04/18 2330 106 22 04/18 2315 107 23 04/18 2300 109 95 /18 2245 106 26 99 04/18 2230 103 23 99 04/18 2215 104 20 99 04/18 2200 103 25 100 /18 2145 105 100 04/18 2130 104 100 04/18 2115 106 100 /18 2100 108 99 04/18 2045 100 20 100 /18 2042 20 100 04/18 2029 101 21 99 04/18 2023 102 100 40 18 2014 101 19 100 04/18 1999 101 19 100 04/18 1957 Ventilator 15 50 04/18 1957 99.6 100 18 123/62 82 100 Ventilator 15 50 04/18 1945 97 20 100 04/18 1930 98 17 100 04/18 1915 100 18 100 04/18 1900 97 15 100 04/18 1859 97 15 100 04/18 1845 96 14 100 04/18 1830 97 15 100 04/18 1815 97 100 04/18 1804 97 100 04/18 1800 97 100 04/18 1745 17 04/18 1745 96 100 04/18 1730 96 100 09/13 1730 99.4 96 15 107/80 89 100 Ventilator 70 09/13 1720 95 100 09/13 1715 95 100 09/13 1700 95 100 09/13 1648 Ventilator 80 09/13 1645 95 100 09/13 1630 93 100 09/13 1615 97 100 09/13 1614 98 100 09/13 1600 96 22 100 09/13 1530 88 13 100 09/13 1523 89 12 100 09/13 1513 87 100 09/13 1505 86 100 100 24 hour I O ending at 0700: 09/14 0700 09/13 1900 Intake Total 805.50 778.10 Output Total 3015 815 Balance -2209.50 -36.90 Intake, IV 805.50 728.10 Intake, Tube 50 Irrigant Output, Chest 190 90 Tube Drainage Output, 1200 Estimated Blood Loss Output, 0 Gastric Drainage Output, Urine 1625 725 Patient 214 lb Weight Weight Standing scale Measurement Method PATIENT WEIGHT: Weight (lb): 214 Weight (oz): 7.2 Weight (kg): 97.273 Medications: Active Meds + DC'd Last 24 Hrs Gabapentin (NEURONTIN) 100 MG 2100 PO Aspirin (CHILDREN'S ASPIRIN) 81 MG DAILY PO Clopidogrel Bisulfate (PLAVIX) 75 MG DAILY PO Famotidine (PEPCID) 20 MG BID PO Phenylephrine HCl (VIANEY-SYNEPHRINE/NS 10MG/100ML) 100 ML ONCALL ONE IV ( CAN) Atorvastatin Calcium (LIPITOR) 40 MG BEDTIME PO Famotidine (PEPCID) 20 MG BID IV (DC) Mupirocin (BACTROBAN) 1 ZOHRA BID TOPICAL (CAN) Mupirocin (BACTROBAN NASAL - ADULT ICU) 1 APPLIC BID NASAL Cefuroxime Sodium (ZINACEF) 1.5 GM Q8H IV Aspirin (CHILDREN'S ASPIRIN) 162 MG ONCE ONE PO (DC) Sodium Bicarbonate (Sodium Bicarbonate) 100 MEQ NOW ONE IV (DC) Meperidine HCl (DEMEROL (C-II)) 50 MG Q4H PRN PRN IM Albumin Human (ALBUMINAR-5) 250 ML ASDIR PRN IV Calcium Gluconate (CALCIUM GLUCONATE 10%) 1,000 MG ASDIR PRN IV Sodium Chloride (Sodium Chloride MINI-BAG) 100 ML Dextrose/Water (DEXTROSE 50% IN WATER) 12.5 GM ASDIR PRN IV Dextrose/Water (DEXTROSE 50% IN WATER) 25 GM ASDIR PRN IV Dobutamine HCl/Dextrose (DOBUTamine HCL IN DEXTROSE) 250 ML ASDIR PRN IV Epinephrine (EPINEPHrine/NS 4MG/250ML) 250 ML ASDIR PRN IV Hydrocodone Bitart/Acetaminophen (NORCO 5/325 TABLET (C-II)) 1 TAB Q4H PRN PRN PO Hydrocodone Bitart/Acetaminophen (NORCO 5/325 TABLET (C-II)) 2 TAB Q4H PRN PRN PO Insulin Human Regular (INSULIN DRIP) 100 ML ASDIR IV (CKD) Lidocaine HCl/Dextrose (Lidocaine 0.4% in D5w Soln) 500 ML ASDIR PRN IV (CKD) Magnesium Sulfate (MAG SULFATE 2GM PREMIX) 50 ML ASDIR PRN IV Magnesium Sulfate/Dextrose (Magnesium Sulfate) 100 ML ASDIR PRN IV Meperidine HCl (DEMEROL (C-II)) 25 MG Q4H PRN PRN IM Morphine Sulfate (morphine SULFATE (C-II)) 2 MG Q15M PRN PRN IV Nicardipine HCl (CARDENE I.V.) 25 MG ASDIR PRN IV (CKD) Sodium Chloride (SODIUM CHLORIDE 0.9%) 250 ML Ondansetron HCl (ZOFRAN) 4 MG Q8H PRN PRN IV Potassium Chloride (Potassium Chloride) 50 ML ASDIR PRN IV Potassium Chloride/Dextrose/Sod Cl (DEXTROSE 5%-1/4NS-KCL 20MEQ) 1,000 ML .[id number] IV Dextrose/Water (DEXTROSE 50% IN WATER) 12.5 GM ASDIR PRN IV (CAN) Dextrose/Water (DEXTROSE 50% IN WATER) 25 GM ASDIR PRN IV (CAN) Insulin Human Regular (HUMULIN R) 100 UNIT ASDIR IV (CKD) Sodium Chloride (SODIUM CHLORIDE 0.9%) 100 ML Nicardipine HCl (CARDENE I.V.) 25 MG ASDIR IV (CKD) Sodium Chloride (SODIUM CHLORIDE 0.9%) 250 ML Epinephrine (EPINEPHrine/NS 4MG/250ML) 250 ML ONCALL ONE IV (DC) Norepinephrine/Dextrose (NOREPINEPHRINE-D5W 4 MG/250 ML) 250 ML ONCALL ONE IV (DC) Tranexamic Acid (CYKLOKAPRON) 2,910 MG ONCALL IV (DC) Sodium Chloride (SODIUM CHLORIDE 0.9%) 250 ML Tranexamic Acid (CYKLOKAPRON) 1,460 MG ONCALL IV (DC) Sodium Chloride (SODIUM CHLORIDE 0.9%) 50 ML Acetaminophen (TYLENOL) 650 MG Q4H PRN PRN PO (DC) Cefuroxime Sodium (ZINACEF) 1.5 GM PREOP IV (DC) Magnesium Hydroxide (MILK OF MAGNESIA) 30 ML ASDIR PRN PO (DC) Zolpidem Tartrate (AMBIEN (C-IV)) 5 MG BEDTIME PRN PRN PO (DC) Physical Exam General appearance: awake, no acute distress, pleasant, conversational Head/Eyes: atraumatic, clear cornea, normal conjunctiva/sclera, PERRL ENT: moist mucosal membranes, normal ear left, normal ear right Neck: non-tender, supple/no meningismus Cardiovascular: normal heart sounds, regular rate rhythm Respiratory: aerating well, clear to auscultation, symmetric expansion, no distress Abdomen: non-tender, soft, no distention Genitourinary: urinary catheter Extremities: moves all, no clubbing, no cyanosis, no edema Musculoskeletal: normal inspection, no muscle spasm Neuro/[employer]: alert, oriented X 3, normal speech, no motor deficits Wound/incision: Location: sternum RLE Site Condition: dressing clean dry Psychiatry: normal affect, normal judgment/insight, normal mood Results Findings/Data: Laboratory Tests 09/13 09/13 1520 1452 Blood Gas Puncture Site LINE O2 Saturation (92.0 - 98.5 %) 99.9 H ABG pH (7.35 - 7.45 mmHg) 7.26 L 7.329 L ABG pCO2 (35.0 - 45.0 mmHg) 46.7 H 43.2 ABG pO2 (80.0 - 100.0 mmol/L) 234.8 H 315.6 *H ABG HCO3 (20.0 - 26.0 mmol/L) 20.3 22.7 ABG O2 Saturation (95.0 - 100.0 %) 99.4 ABG Base Excess (-3.0 - 3.0 mmol/L) -6.9 L -3.2 L Michael Test (CHECK) NA Sodium (135 - 141 MMOL/L) 143 H Potassium (3.7 - 4.7 MMOL/L) 3.8 Chloride (MEQ/L) 108 Ionized Calcium (1.13 - 1.32 MMOL/L) 1.18 Temperature (37 C) 37.0 O2 Delivery Device VENT Vent Mode A/C Vent Rate (/MIN) 12.0 FiO2 (%) 100 Tidal Volume (ml) 500.0 PEEP (cmH2O) 5.0 Instrument (Specimen Descript) Arterial Laboratory Tests 09/14 09/14 09/14 09/14 09/14 1339 1231 1117 0922 0826 Chemistry POC Glucose (60 - 99 MG/DL) 110 H 147 H 125 H 166 H 220 H 09/14 09/14 09/14 09/14 09/14 0718 0607 0404 0400 0308 Chemistry Sodium (137 - 145 MMOL/L) 142 Potassium (3.5 - 5.1 MMOL/L) 4.4 Chloride (98 - 107 MMOL/L) 110 H Carbon Dioxide (22 - 30 MMOL/L) 24 Anion Gap (14 - 24 MMOL/L) 12 L BUN (9 - 20 MG/DL) 19 Creatinine (0.66 - 1.25 MG/DL) 0.80 Glomerular Filtr Rate > 60 Glucose (74 - 106 MG/DL) 172 H POC Glucose (60 - 99 MG/DL) 182 H 187 H 170 H 174 H Calcium (8.4 - 10.2 MG/DL) 8.2 L Magnesium (1.6 - 2.3 MG/DL) 1.9 09/14 09/14 09/13 09/13 09/13 0121 0007 2202 2117 2018 Chemistry POC Glucose (60 - 99 MG/DL) 164 H 215 H 229 H 221 H 228 H 09/13 09/13 09/13 09/13 09/13 1917 1846 1734 1632 1524 Chemistry Sodium (137 - 145 MMOL/L) 141 Potassium (3.5 - 5.1 MMOL/L) 3.5 Chloride (98 - 107 MMOL/L) 111 H Carbon Dioxide (22 - 30 MMOL/L) 22 BUN (9 - 20 MG/DL) 23 H Creatinine (0.66 - 1.25 MG/DL) 0.70 Glomerular Filtr Rate > 60 Glucose (74 - 106 MG/DL) 192 H POC Glucose (60 - 99 MG/DL) 230 H 226 H 222 H 205 H Calcium (8.4 - 10.2 MG/DL) 8.1 L Magnesium (1.6 - 2.3 MG/DL) 2.9 H 09/13 09/13 09/13 1516 1452 1445 Chemistry Sodium (137 - 145 MMOL/L) 138 Potassium (3.5 - 5.1 MMOL/L) 3.6 Chloride (98 - 107 MMOL/L) 111 H Carbon Dioxide (22 - 30 MMOL/L) 21 L Anion Gap (14 - 24 MMOL/L) 10 L BUN (9 - 20 MG/DL) 23 H Creatinine (0.66 - 1.25 MG/DL) 0.70 Glomerular Filtr Rate > 60 Glucose (74 - 106 MG/DL) 185 H POC Glucose (60 - 99 MG/DL) 185 H 179 H POC Lactic Acid (0.7 - 2.0 mmol/L) 2.93 *H Calcium (8.4 - 10.2 MG/DL) 8.4 Laboratory Tests 09/13 09/13 1524 1445 Coagulation INR (0.86 - 1.14) 1.6 H 1.6 H APTT (26.2 - 35.4 SECONDS) 34.5 28.5 PT Patient/Control Mix (9.4 - 12.7 SECONDS) 18.1 H 18.5 H Laboratory Tests 09/14 09/13 09/13 0400 1524 1445 Hematology WBC (3.8 - 9.8 K/MM3) 19.4 H 29.2 H 27.5 H RBC (3.95 - 5.67 M/MM3) 3.83 L 3.82 L 3.74 L Hgb (12.4 - 16.7 G/DL) 11.5 L 11.7 L 11.4 L Hct (35.9 - 49.5 %) 34.9 L 35.1 L 34.0 L MCV (81.7 - 96.1 fL) 91 92 91 MCH (27.6 - 33.2 pg) 30.0 30.6 30.5 MCHC (32.9 - 35.5 %) 33.0 33.3 33.5 RDW (12.1 - 15.2 %) 13.2 13.0 12.9 Plt Count (129 - 368 K/MM3) 179 180 169 MPV (7.4 - 10.4 fl) 11.4 H 10.9 H 11.2 H Neut % (Auto) (43 - 75 %) 79.1 H 60.6 57.3 Lymph % (Auto) (14 - 44 %) 7.0 L 28.2 31.9 Billings % (Auto) (4 - 13 %) 13.2 H 9.7 9.3 Eos % (Auto) (0 - 6 %) 0.0 0.4 0.6 Baso % (Auto) (0 - 2 %) 0.1 0.3 0.3 Neut # (Auto) (2.0 - 7.6 K/mm3) 15.33 H 17.69 H 15.78 H Lymph # (Auto) (1.0 - 3.8 K/mm3) 1.35 8.25 H 8.78 H Billings # (Auto) (0.1 - 0.8 K/mm3) 2.56 H 2.84 H 2.55 H Eos # (Auto) (0.0 - 0.2 K/mm3) 0.00 0.13 0.17 Baso # (Auto) (0.0 - 0.2 K/mm3) 0.02 0.08 0.08 Immature Gran % (0.0 - 2.0 %) 0.6 0.8 0.6 Nucleated RBC % (0 - 1.0 %) 0.0 0.0 0.0 Nucleated RBCs # (Man) (0.0 - 0.1 K/mm3) 0.00 0.00 0.00 Radiology data: Recent Impressions: RADIOLOGY - XR CHEST 1V 09/13 1510 Report Impression - Status: SIGNED Entered: 09/13/2021 1705 IMPRESSION: Status post CABG procedure with interval placement of life support lines and tubes. Impression By: Lindsay Flynn MD RADIOLOGY - XR CHEST 1V 09/14 0516 Report Impression - Status: SIGNED Entered: 09/14/2021 0750 IMPRESSION: Mild bibasilar atelectasis following extubation. Impression By: Tomeka - Jonathan Ferrara MD Results: labs reviewed, vital signs reviewed, vital signs stable, rhythm personally rev'd, current med profile rev'd Diagnosis, Assessment Plan Problem List/A P: 1. Coronary artery disease 2. Hyperlipidemia 3. Diabetes mellitus 4. HTN (hypertension) 5. Leukocytosis, unspecified resolving. 6. Acute postoperative anemia due to expected blood loss 7. Deafness in left ear Free Text DxA P Notes Free text DxA P notes: PLAN and HOSPITAL COURSE: 09/13/2021: - Post-op management as per CV surgery team. - Patient overall doing well; anticipate extubation later today. - Will resume home meds when patient able to tolerate PO. - Aggressive post-op. control of diabetes with Insulin drip. - Monitor labs. - Thank your Dr Gómez for allowing us to participate in the care of this patient. Will continue to follow along with you. 09/14/2021: - Patient doing well POD day 1. Hemodynamically stable; tolerating diet and activity. - Insulin drip has been discontinued; he takes Tresiba (Insulin) 20 units daily at home. Since it is nonformulary at this facility, we will start him on Lantus 14 units daily and titrate the dose based on blood sugar readings. Will also resume his home medication Ozempic, as he takes at home. - Sliding scale Insulin coverage. - Continue other treatment. Quality: Gen Med Crit Care VTE Prophylaxis VTE prophylaxis initiated: yes Current Medications Current medication review: I attest that the foregoing medication list in the medical record is true, accurate, and complete to the best of my knowledge. at 2116 RPT #:[id number] END OF REPORT [facility] 2021-09-14 13:21:00 [facility] ([facility] Cardiology Progress Note REPORT#:[id number] REPORT STATUS: Signed DATE:09/14/21 TIME: 1321 PATIENT: MARK RIVAS UNIT #: [id number] ROOM/BED: SI01-A : 56 AGE: 65 SEX: M ATTEND: Praaksh Gómez MD ADM AUTHOR: Hay Low MD * ALL edits or amendments must be made on the electronic/computer document * Subjective Chief complaint: CAD Patient reports: No: chest pain, palpitations, shortness of breath. Objective General VS/I O: 24 hour I O ending at 0700: 09/14 0700 04/18 1900 Intake Total 805.50 778.10 Output Total 3015 815 Balance -2209.50 -36.90 Intake, IV 805.50 728.10 Intake, Tube 50 Irrigant Output, Chest 190 90 Tube Drainage Output, 1200 Estimated Blood Loss Output, 0 Gastric Drainage Output, Urine 1625 725 Patient 97.273 kg Weight Weight Standing scale Measurement Method Vital Signs: Date Time Temp Pulse Resp B/P B/P Pulse O2 O2 Flow FiO2 Mean Ox Delivery Rate 09/14 1200 97.9 96 25 140/74 96 96 Nasal 5 cannula 09/14 1200 96 96 09/14 0815 96 32 96 09/14 0800 Nasal 5 cannula 09/14 0800 99.5 96 28 122/67 85 97 Nasal 3 cannula 09/14 0800 96 28 97 09/14 0753 95 Nasal 5 cannula 09/14 0745 95 29 96 09/14 0730 96 31 96 09/14 0719 93 29 96 09/14 0715 97 31 96 09/14 0700 98 27 92 09/14 0545 100 27 94 09/14 0530 102 95 09/14 0515 100 94 09/14 0500 103 20 09/14 0445 103 23 94 09/14 0430 96 09/14 0415 103 96 09/14 0400 98.6 105 20 114/60 78 95 Nasal 4 cannula 09/14 0400 104 29 95 09/14 0345 103 24 95 09/14 0330 103 28 95 09/14 0315 103 27 95 09/14 0300 106 20 94 09/14 0245 106 20 94 09/14 0230 105 22 94 09/14 0215 105 23 95 09/14 0200 104 22 95 09/14 0145 105 29 96 09/14 0130 102 23 95 09/14 0115 103 23 96 09/14 0100 104 22 95 09/14 0045 105 22 95 09/14 0030 105 24 96 09/14 0015 106 26 95 09/14 0000 Nasal 4 cannula 09/14 0000 98.6 100 20 123/62 82 96 Nasal 4 cannula 09/14 0000 105 22 95 09/13 2345 105 23 95 09/13 2330 106 22 09/13 2315 107 23 09/13 2300 109 95 09/13 2245 106 26 99 09/13 2230 103 23 99 04/18 2215 104 20 99 09/130 103 25 100 09/135 105 100 09/130 104 100 09/13 2114 106 100 09/13 2099 108 99 09/13 2044 100 20 100 09/13 2041 20 100 09/13 2029 101 21 99 18 2023 102 100 40 09/13 2014 101 19 100 04/18 1999 101 19 100 04/18 195 Ventilator 15 50 04/18 1956 99.6 100 18 123/62 82 100 Ventilator 15 50 04/18 1945 97 20 100 04/18 1930 98 17 100 /18 1915 100 18 100 18 1900 97 15 100 18 1859 97 15 100 18 1845 96 14 100 09/13 1830 97 15 100 09/13 1815 97 100 09/13 1804 97 100 18 1800 97 100 18 1745 17 09/13 1745 96 100 18 1730 96 100 18 1730 99.4 96 15 107/80 89 100 Ventilator 70 09/13 1720 95 100 09/13 1715 95 100 /18 1700 95 100 /18 1648 Ventilator 80 /18 1645 95 100 18 1630 93 100 09/13 1615 97 100 09/13 1614 98 100 09/13 1600 96 22 100 09/13 1530 88 13 100 09/13 1523 89 12 100 09/13 1513 87 100 09/13 1505 86 100 100 PATIENT WEIGHT: Weight (lb): 214 Weight (oz): 7.2 Weight (kg): 97.273 Medications: Active Meds + DC'd Last 24 Hrs Gabapentin (NEURONTIN) 100 MG 2100 PO Aspirin (CHILDREN'S ASPIRIN) 81 MG DAILY PO Clopidogrel Bisulfate (PLAVIX) 75 MG DAILY PO Famotidine (PEPCID) 20 MG BID PO Phenylephrine HCl (VIANEY-SYNEPHRINE/NS 10MG/100ML) 100 ML ONCALL ONE IV ( CAN) Atorvastatin Calcium (LIPITOR) 40 MG BEDTIME PO Famotidine (PEPCID) 20 MG BID IV (DC) Mupirocin (BACTROBAN) 1 ZOHRA BID TOPICAL (CAN) Mupirocin (BACTROBAN NASAL - ADULT ICU) 1 APPLIC BID NASAL Cefuroxime Sodium (ZINACEF) 1.5 GM Q8H IV Aspirin (CHILDREN'S ASPIRIN) 162 MG ONCE ONE PO (DC) Sodium Bicarbonate (Sodium Bicarbonate) 100 MEQ NOW ONE IV (DC) Meperidine HCl (DEMEROL (C-II)) 50 MG Q4H PRN PRN IM Albumin Human (ALBUMINAR-5) 250 ML ASDIR PRN IV Calcium Gluconate (CALCIUM GLUCONATE 10%) 1,000 MG ASDIR PRN IV Sodium Chloride (Sodium Chloride MINI-BAG) 100 ML Dextrose/Water (DEXTROSE 50% IN WATER) 12.5 GM ASDIR PRN IV Dextrose/Water (DEXTROSE 50% IN WATER) 25 GM ASDIR PRN IV Dobutamine HCl/Dextrose (DOBUTamine HCL IN DEXTROSE) 250 ML ASDIR PRN IV Epinephrine (EPINEPHrine/NS 4MG/250ML) 250 ML ASDIR PRN IV Hydrocodone Bitart/Acetaminophen (NORCO 5/325 TABLET (C-II)) 1 TAB Q4H PRN PRN PO Hydrocodone Bitart/Acetaminophen (NORCO 5/325 TABLET (C-II)) 2 TAB Q4H PRN PRN PO Insulin Human Regular (INSULIN DRIP) 100 ML ASDIR IV (CKD) Lidocaine HCl/Dextrose (Lidocaine 0.4% in D5w Soln) 500 ML ASDIR PRN IV (CKD) Magnesium Sulfate (MAG SULFATE 2GM PREMIX) 50 ML ASDIR PRN IV Magnesium Sulfate/Dextrose (Magnesium Sulfate) 100 ML ASDIR PRN IV Meperidine HCl (DEMEROL (C-II)) 25 MG Q4H PRN PRN IM Morphine Sulfate (morphine SULFATE (C-II)) 2 MG Q15M PRN PRN IV Nicardipine HCl (CARDENE I.V.) 25 MG ASDIR PRN IV (CKD) Sodium Chloride (SODIUM CHLORIDE 0.9%) 250 ML Ondansetron HCl (ZOFRAN) 4 MG Q8H PRN PRN IV Potassium Chloride (Potassium Chloride) 50 ML ASDIR PRN IV Potassium Chloride/Dextrose/Sod Cl (DEXTROSE 5%-1/4NS-KCL 20MEQ) 1,000 ML .[id number] IV Dextrose/Water (DEXTROSE 50% IN WATER) 12.5 GM ASDIR PRN IV Dextrose/Water (DEXTROSE 50% IN WATER) 25 GM ASDIR PRN IV Insulin Human Regular (HUMULIN R) 100 UNIT ASDIR IV (CKD) Sodium Chloride (SODIUM CHLORIDE 0.9%) 100 ML Nicardipine HCl (CARDENE I.V.) 25 MG ASDIR IV (CKD) Sodium Chloride (SODIUM CHLORIDE 0.9%) 250 ML Protamine Sulfate (PROTAMINE SULFATE) 0 .STK-MED ONE .ROUTE (DC) Epinephrine (EPINEPHrine/NS 4MG/250ML) 250 ML ONCALL ONE IV (DC) Norepinephrine/Dextrose (NOREPINEPHRINE-D5W 4 MG/250 ML) 250 ML ONCALL ONE IV (DC) Tranexamic Acid (CYKLOKAPRON) 2,910 MG ONCALL IV (DC) Sodium Chloride (SODIUM CHLORIDE 0.9%) 250 ML Tranexamic Acid (CYKLOKAPRON) 1,460 MG ONCALL IV (DC) Sodium Chloride (SODIUM CHLORIDE 0.9%) 50 ML Acetaminophen (TYLENOL) 650 MG Q4H PRN PRN PO (DC) Cefuroxime Sodium (ZINACEF) 1.5 GM PREOP IV (DC) Magnesium Hydroxide (MILK OF MAGNESIA) 30 ML ASDIR PRN PO (DC) Zolpidem Tartrate (AMBIEN (C-IV)) 5 MG BEDTIME PRN PRN PO (DC) Physical Exam General appearance: alert, awake, oriented Head/Eyes: atraumatic, normocephalic ENT: moist mucosal membranes Neck: no JVD Cardiovascular: CV assessment: regular rate and rhythm Respiratory: clear to auscultation, no distress Lower extremity: LE assessment: no edema Musculoskeletal: full range of motion Skin: dry, intact Wound/incision: Location: Sternal Site condition: dressing clean dry Psychiatry: unable to evaluate Results Findings/Data: Laboratory Tests 09/13 09/13 09/13 1520 1452 1344 Blood Gas Puncture Site LINE O2 Saturation (92.0 - 98.5 %) 99.9 H 99.8 H ABG pH (7.35 - 7.45 mmHg) 7.26 L 7.329 L 7.307 L ABG pCO2 (35.0 - 45.0 mmHg) 46.7 H 43.2 51.6 *H ABG pO2 (80.0 - 100.0 mmol/L) 234.8 H 315.6 *H 244.6 *H ABG PO2/FiO2 Ratio (mm/Hg) 287.76 ABG HCO3 (20.0 - 26.0 mmol/L) 20.3 22.7 25.8 ABG O2 Saturation (95.0 - 100.0 %) 99.4 ABG Base Excess (-3.0 - 3.0 mmol/L) -6.9 L -3.2 L -0.8 Michael Test (CHECK) NA Sodium (135 - 141 MMOL/L) 143 H 141 Potassium (3.7 - 4.7 MMOL/L) 3.8 4.6 Chloride (MEQ/L) 108 105 Ionized Calcium (1.13 - 1.32 MMOL/L) 1.18 1.13 Temperature (37 C) 37.0 O2 Delivery Device VENT Vent Mode A/C Vent Rate (/MIN) 12.0 FiO2 (%) 100 85 Tidal Volume (ml) 500.0 PEEP (cmH2O) 5.0 Instrument (Specimen Descript) Arterial Arterial Laboratory Tests 09/14 09/14 09/14 09/14 09/14 1231 1117 0922 0826 0718 Chemistry POC Glucose (60 - 99 MG/DL) 147 H 125 H 166 H 220 H 182 H 09/14 09/14 09/14 09/14 09/14 0607 0404 0400 0308 0121 Chemistry Sodium (137 - 145 MMOL/L) 142 Potassium (3.5 - 5.1 MMOL/L) 4.4 Chloride (98 - 107 MMOL/L) 110 H Carbon Dioxide (22 - 30 MMOL/L) 24 Anion Gap (14 - 24 MMOL/L) 12 L BUN (9 - 20 MG/DL) 19 Creatinine (0.66 - 1.25 MG/DL) 0.80 Glomerular Filtr Rate > 60 Glucose (74 - 106 MG/DL) 172 H POC Glucose (60 - 99 MG/DL) 187 H 170 H 174 H 164 H Calcium (8.4 - 10.2 MG/DL) 8.2 L Magnesium (1.6 - 2.3 MG/DL) 1.9 09/14 09/13 09/13 09/13 09/13 0007 2203 2118 2019 1917 Chemistry POC Glucose (60 - 99 MG/DL) 215 H 229 H 221 H 228 H 230 H 09/13 09/13 09/13 09/13 09/13 1846 1734 1632 1524 1516 Chemistry Sodium (137 - 145 MMOL/L) 141 Potassium (3.5 - 5.1 MMOL/L) 3.5 Chloride (98 - 107 MMOL/L) 111 H Carbon Dioxide (22 - 30 MMOL/L) 22 BUN (9 - 20 MG/DL) 23 H Creatinine (0.66 - 1.25 MG/DL) 0.70 Glomerular Filtr Rate > 60 Glucose (74 - 106 MG/DL) 192 H POC Glucose (60 - 99 MG/DL) 226 H 222 H 205 H 185 H Calcium (8.4 - 10.2 MG/DL) 8.1 L Magnesium (1.6 - 2.3 MG/DL) 2.9 H 09/13 09/13 09/13 1452 1445 1344 Chemistry Sodium (137 - 145 MMOL/L) 138 Potassium (3.5 - 5.1 MMOL/L) 3.6 Chloride (98 - 107 MMOL/L) 111 H Carbon Dioxide (22 - 30 MMOL/L) 21 L Anion Gap (14 - 24 MMOL/L) 10 L BUN (9 - 20 MG/DL) 23 H Creatinine (0.66 - 1.25 MG/DL) 0.70 Glomerular Filtr Rate > 60 Glucose (74 - 106 MG/DL) 185 H POC Glucose (60 - 99 MG/DL) 179 H 165 H POC Lactic Acid (0.7 - 2.0 mmol/L) 2.93 *H 1.24 Calcium (8.4 - 10.2 MG/DL) 8.4 Laboratory Tests 09/13 09/13 1524 1445 Coagulation INR (0.86 - 1.14) 1.6 H 1.6 H APTT (26.2 - 35.4 SECONDS) 34.5 28.5 PT Patient/Control Mix (9.4 - 12.7 SECONDS) 18.1 H 18.5 H Laboratory Tests 09/14 09/13 09/13 0400 1524 1445 Hematology WBC (3.8 - 9.8 K/MM3) 19.4 H 29.2 H 27.5 H RBC (3.95 - 5.67 M/MM3) 3.83 L 3.82 L 3.74 L Hgb (12.4 - 16.7 G/DL) 11.5 L 11.7 L 11.4 L Hct (35.9 - 49.5 %) 34.9 L 35.1 L 34.0 L MCV (81.7 - 96.1 fL) 91 92 91 MCH (27.6 - 33.2 pg) 30.0 30.6 30.5 MCHC (32.9 - 35.5 %) 33.0 33.3 33.5 RDW (12.1 - 15.2 %) 13.2 13.0 12.9 Plt Count (129 - 368 K/MM3) 179 180 169 MPV (7.4 - 10.4 fl) 11.4 H 10.9 H 11.2 H Neut % (Auto) (43 - 75 %) 79.1 H 60.6 57.3 Lymph % (Auto) (14 - 44 %) 7.0 L 28.2 31.9 [place] % (Auto) (4 - 13 %) 13.2 H 9.7 9.3 Eos % (Auto) (0 - 6 %) 0.0 0.4 0.6 Baso % (Auto) (0 - 2 %) 0.1 0.3 0.3 Neut # (Auto) (2.0 - 7.6 K/mm3) 15.33 H 17.69 H 15.78 H Lymph # (Auto) (1.0 - 3.8 K/mm3) 1.35 8.25 H 8.78 H [place] # (Auto) (0.1 - 0.8 K/mm3) 2.56 H 2.84 H 2.55 H Eos # (Auto) (0.0 - 0.2 K/mm3) 0.00 0.13 0.17 Baso # (Auto) (0.0 - 0.2 K/mm3) 0.02 0.08 0.08 Immature Gran % (0.0 - 2.0 %) 0.6 0.8 0.6 Nucleated RBC % (0 - 1.0 %) 0.0 0.0 0.0 Nucleated RBCs # (Man) (0.0 - 0.1 K/mm3) 0.00 0.00 0.00 Laboratory Tests 09/14 09/13 0400 1524 Chemistry Magnesium (1.6 - 2.3 MG/DL) 1.9 2.9 H Laboratory Tests 09/13 09/13 1524 1445 Coagulation APTT (26.2 - 35.4 SECONDS) 34.5 28.5 Radiology data: Recent Impressions: RADIOLOGY - XR CHEST 1V 09/13 1510 Report Impression - Status: SIGNED Entered: 09/13/2021 1705 IMPRESSION: Status post CABG procedure with interval placement of life support lines and tubes. Impression By: Lindsay Flynn MD RADIOLOGY - XR CHEST 1V 09/14 0516 Report Impression - Status: SIGNED Entered: 09/14/2021 0750 IMPRESSION: Mild bibasilar atelectasis following extubation. Impression By: Tomeka Ferrara MD Diagnosis, Assessment Plan Free Text DxA P Notes Free Text DxA P Notes: IMP: CAD s/p ACB X 4 with AMIN to the LAD, saphenous vein to the diagonal,the OM, and the right PDA HTN HLP DM PLAN: Home medications when able. Ambulate when able. at 0746 RPT #:[id number] END OF REPORT [facility] 2021-09-14 05:30:00 [id number] [place] [address] PATIENT NAME: MARK RIVAS ADMIT DATE: 09/13/21 ACCOUNT NO: [id number] ROOM NO: [id number] AGE: 65 REPORT TYPE: ELECTROCARDIOGRAM SEX: M ADMITTING PHYSICIAN:Prakash Gómez MD ATTENDING PHYSICIAN:Prakash Gómez MD Order: [id number] Test Reason : CAD post CAB Test Date/Time Stamp: MonSep 14 2021 05:30:03 Blood Pressure : / mmHG Vent. Rate : 102 BPM Atrial Rate : 102 BPM P-R Int : 216 ms QRS Dur : 082 ms QT Int : 352 ms P-R-T Axes : 088 -05 063 degrees QTc Int : 458 ms Sinus tachycardia with 1st degree AV block Nonspecific T wave abnormality Abnormal ECG When compared with ECG of 13-SEP-2021 15:53, Sinus rhythm has replaced Electronic ventricular pacemaker Confirmed by DILAN MURRAY ([id number]) on 09/15/2021 6:32:11 AM Referred By: Self Referred Confirmed by:DILAN MURRAY at 0632 PATIENT NAME: MARK RIVAS [facility] 2021-09-14 05:30:00 [id number] [address] PATIENT NAME: MARK RIVAS ADMIT DATE: 09/13/21 ACCOUNT NO: [id number] ROOM NO: [facility] AGE: 65 REPORT TYPE: ELECTROCARDIOGRAM SEX: M ADMITTING PHYSICIAN:Prakash Gómez MD ATTENDING PHYSICIAN:Prakash Gómez MD Order: [id number] Test Reason : CAD post CAB Test Date/Time Stamp: MonSep 14 2021 05:30:03 Blood Pressure : / mmHG Vent. Rate : 102 BPM Atrial Rate : 102 BPM P-R Int : 216 ms QRS Dur : 082 ms QT Int : 352 ms P-R-T Axes : 088 -05 063 degrees QTc Int : 458 ms Sinus tachycardia with 1st degree AV block Nonspecific T wave abnormality Abnormal ECG When compared with ECG of 13-SEP-2021 15:53, Sinus rhythm has replaced Electronic ventricular pacemaker Confirmed by DILAN MURRAY ([id number]) on 09/14/2021 7:06:42 AM Referred By: Self Referred Confirmed by:DILAN MURRAY at 0706 PATIENT NAME: MARK RIVAS [facility] 2021-09-13 17:23:00 [facility] ([facility]) Cardiology Progress Note REPORT#:[id number] REPORT STATUS: Signed DATE:09/13/21 TIME: 1723 PATIENT: MARK RIVAS UNIT #: [id number] [address] AGE: 65 SEX: M ATTEND: Prakash Gómez MD ADM AUTHOR: Hay Low MD * ALL edits or amendments must be made on the electronic/computer document * Subjective Chief complaint: CAD HPI: 65 year old male with multivessel CAD, now s/p ACB X 4 with AMIN to the LAD, saphenous vein to the diagonal,the OM, and the right PDA. Objective General VS/I O: Vital Signs: Date Time Temp Pulse Resp B/P B/P Pulse O2 O2 Flow FiO2 Mean Ox Delivery Rate 09/13 1648 Ventilator 80 09/13 1530 88 13 100 09/13 1523 89 12 100 09/13 1513 87 100 09/13 1505 86 100 100 09/13 0600 97.0 56 18 142/88 98 Room air PATIENT WEIGHT: Weight (lb): 214 Weight (oz): 7.2 Weight (kg): 97.273 Medications: Active Meds + DC'd Last 24 Hrs Gabapentin (NEURONTIN) 100 MG 2100 PO Aspirin (CHILDREN'S ASPIRIN) 81 MG DAILY PO Clopidogrel Bisulfate (PLAVIX) 75 MG DAILY PO Phenylephrine HCl (VIANEY-SYNEPHRINE/NS 10MG/100ML) 100 ML ONCALL ONE IV ( CKD) Tranexamic Acid (CYKLOKAPRON) 1,459.095 MG ONCALL ONE IV (CAN) Sodium Chloride (SODIUM CHLORIDE 0.9%) 50 ML Tranexamic Acid (CYKLOKAPRON) 0.001 MG ONCALL ONE IV (CAN) Sodium Chloride (SODIUM CHLORIDE 0.9%) 250 ML Tranexamic Acid (CYKLOKAPRON) 1,459.095 MG ONCALL ONE IV (CAN) Sodium Chloride (SODIUM CHLORIDE 0.9%) 50 ML Tranexamic Acid (CYKLOKAPRON) 0.001 MG ONCALL ONE IV (CAN) Sodium Chloride (SODIUM CHLORIDE 0.9%) 250 ML Atorvastatin Calcium (LIPITOR) 40 MG BEDTIME PO Famotidine (PEPCID) 20 MG BID IV Mupirocin (BACTROBAN) 1 ZOHRA BID TOPICAL (CKD) Mupirocin (BACTROBAN NASAL - ADULT ICU) 1 APPLIC BID NASAL Cefuroxime Sodium (ZINACEF) 1.5 GM Q8H IV Aspirin (CHILDREN'S ASPIRIN) 162 MG ONCE ONE PO (DC) Sodium Bicarbonate (Sodium Bicarbonate) 100 MEQ NOW ONE IV (DC) Meperidine HCl (DEMEROL (C-II)) 50 MG Q4H PRN PRN IM Albumin Human (ALBUMINAR-5) 250 ML ASDIR PRN IV (CKD) Calcium Gluconate (CALCIUM GLUCONATE 10%) 1,000 MG ASDIR PRN IV Sodium Chloride (Sodium Chloride MINI-BAG) 100 ML Dextrose/Water (DEXTROSE 50% IN WATER) 12.5 GM ASDIR PRN IV Dextrose/Water (DEXTROSE 50% IN WATER) 25 GM ASDIR PRN IV Dobutamine HCl/Dextrose (DOBUTamine HCL IN DEXTROSE) 250 ML ASDIR PRN IV Epinephrine (EPINEPHrine/NS 4MG/250ML) 250 ML ASDIR PRN IV Hydrocodone Bitart/Acetaminophen (NORCO 5/325 TABLET (C-II)) 1 TAB Q4H PRN PRN PO Hydrocodone Bitart/Acetaminophen (NORCO 5/325 TABLET (C-II)) 2 TAB Q4H PRN PRN PO Insulin Human Regular (INSULIN DRIP) 100 ML ASDIR IV (CKD) Lidocaine HCl/Dextrose (Lidocaine 0.4% in D5w Soln) 500 ML ASDIR PRN IV (CKD) Magnesium Sulfate (MAG SULFATE 2GM PREMIX) 50 ML ASDIR PRN IV Magnesium Sulfate/Dextrose (Magnesium Sulfate) 100 ML ASDIR PRN IV Meperidine HCl (DEMEROL (C-II)) 25 MG Q4H PRN PRN IM Morphine Sulfate (morphine SULFATE (C-II)) 2 MG Q15M PRN PRN IV Nicardipine HCl (CARDENE I.V.) 25 MG ASDIR PRN IV (CKD) Sodium Chloride (SODIUM CHLORIDE 0.9%) 250 ML Ondansetron HCl (ZOFRAN) 4 MG Q8H PRN PRN IV Potassium Chloride (Potassium Chloride) 50 ML ASDIR PRN IV Potassium Chloride/Dextrose/Sod Cl (DEXTROSE 5%-1/4NS-KCL 20MEQ) 1,000 ML .[id number] IV Dextrose/Water (DEXTROSE 50% IN WATER) 12.5 GM ASDIR PRN IV Dextrose/Water (DEXTROSE 50% IN WATER) 25 GM ASDIR PRN IV Insulin Human Regular (HUMULIN R) 100 UNIT ASDIR IV (CKD) Sodium Chloride (SODIUM CHLORIDE 0.9%) 100 ML Nicardipine HCl (CARDENE I.V.) 25 MG ASDIR IV (CKD) Sodium Chloride (SODIUM CHLORIDE 0.9%) 250 ML Protamine Sulfate (PROTAMINE SULFATE) 0 .STK-MED ONE .ROUTE (DC) Calcium Chloride (CALCIUM CHLORIDE) 0 .STK-MED ONE .ROUTE (DC) Methylprednisolone Sodium Succinate (SOLU-Medrol) 0 .STK-MED ONE .ROUTE (DC) Insulin Human Regular (HUMULIN R) 0 .STK-MED ONE .ROUTE (DC) Hydrocortisone Sodium Succinate (Solu-CORTEF) 0 .STK-MED ONE .ROUTE (DC) Diphenhydramine HCl (BENADRYL) 0 .STK-MED ONE .ROUTE (DC) Famotidine (PEPCID) 0 .STK-MED ONE .ROUTE (DC) Cardioplegic Solution (PLEGISOL) 5,000 ML .STK-MED ONE IV (DC) Bupivacaine HCl (SENSORCAINE 0.5%) 0 .STK-MED ONE .ROUTE (DC) Gentamicin Sulfate/Sodium Chloride (GENTAMICIN SULFATE IN NS) 100 ML .STK- MED ONE IV (DC) Heparin Sodium/Sodium Chloride (HEPARIN 1000 UNITS/NS 500ML) 500 ML .STK-MED ONE IV (DC) Papaverine HCl (PAPAVERINE HCL) 0 .STK-MED ONE .ROUTE (DC) Phenylephrine HCl (VIANEY-SYNEPHRINE/NS 10MG/100ML) 100 ML .STK-MED ONE IV (DC) Protamine Sulfate (PROTAMINE SULFATE) 0 .STK-MED ONE .ROUTE (DC) Rocuronium [place] (ZEMURON) 0 .STK-MED ONE .ROUTE (DC) Epinephrine (EPINEPHrine/NS 4MG/250ML) 250 ML ONCALL ONE IV (DC) Norepinephrine/Dextrose (NOREPINEPHRINE-D5W 4 MG/250 ML) 250 ML ONCALL ONE IV (DC) Esmolol HCl (BREVIBLOC) 0 .STK-MED ONE .ROUTE (DC) Rocuronium [place] (ZEMURON) 0 .STK-MED ONE .ROUTE (DC) Heparin Sodium (Porcine) (Heparin Sodium) 0 .STK-MED ONE .ROUTE (DC) Heparin Sodium (Porcine) (Heparin Sodium) 0 .STK-MED ONE .ROUTE (DC) Lidocaine HCl (LIDOCAINE HCL) 0 .STK-MED ONE .ROUTE (DC) Fentanyl Citrate (Fentanyl 1,000 Mcg/20 Ml Vial) 0 .STK-MED ONE .ROUTE ( DC) Midazolam HCl (VERSED (C-IV)) 0 .STK-MED ONE .ROUTE (DC) Propofol (DIPRIVAN) 0 .STK-MED ONE .ROUTE (DC) Lidocaine HCl (XYLOCAINE 1%) 5 ML .STK-MED ONE IV (DC) Tranexamic Acid (CYKLOKAPRON) 2,910 MG ONCALL IV (DC) Sodium Chloride (SODIUM CHLORIDE 0.9%) 250 ML Tranexamic Acid (CYKLOKAPRON) 1,460 MG ONCALL IV (DC) Sodium Chloride (SODIUM CHLORIDE 0.9%) 50 ML Tranexamic Acid (CYKLOKAPRON) 2,910 MG ONCALL IV (CKD) Sodium Chloride (SODIUM CHLORIDE 0.9%) 250 ML Tranexamic Acid (CYKLOKAPRON) 1,460 MG ONCALL IV (CKD) Sodium Chloride (SODIUM CHLORIDE 0.9%) 50 ML Cefuroxime Sodium (ZINACEF) 0 .STK-MED ONE .ROUTE (DC) Acetaminophen (TYLENOL) 650 MG Q4H PRN PRN PO Cefuroxime Sodium (ZINACEF) 1.5 GM PREOP IV (DC) Magnesium Hydroxide (MILK OF MAGNESIA) 30 ML ASDIR PRN PO Zolpidem Tartrate (AMBIEN (C-IV)) 5 MG BEDTIME PRN PRN PO Physical Exam General appearance: alert, awake, oriented Head/Eyes: atraumatic, normocephalic ENT: moist mucosal membranes Neck: no JVD Cardiovascular: CV assessment: regular rate and rhythm Respiratory: clear to auscultation, no distress Lower extremity: LE assessment: no edema Musculoskeletal: full range of motion Skin: dry, intact Wound/incision: Location: Sternal Site condition: dressing clean dry Psychiatry: unable to evaluate Results Findings/Data: Laboratory Tests 09/13 09/13 09/13 09/13 1452 1344 1318 1243 Blood Gas O2 Saturation (92.0 - 98.5 %) 99.9 H 99.8 H 99.9 H 99.9 H ABG pH (7.35 - 7.45) 7.329 L 7.307 L 7.405 7.395 ABG pCO2 (35.0 - 45.0 mmHg) 43.2 51.6 *H 41.7 42.4 ABG pO2 (75.0 - 100.0) 315.6 *H 244.6 *H 278.9 *H 284.3 *H ABG PO2/FiO2 Ratio (mm/Hg) 287.76 348.62 516.90 ABG HCO3 (20.0 - 26.0 MMOL/L) 22.7 25.8 26.1 H 26.0 ABG Base Excess (-3.0 - 3.0 MMOL/L) -3.2 L -0.8 1.3 0.9 Sodium (135 - 141 MMOL/L) 143 H 141 142 H 140 Potassium (3.7 - 4.7 MMOL/L) 3.8 4.6 5.9 H 5.5 H Chloride (MEQ/L) 108 105 109 106 Ionized Calcium (1.13 - 1.32 MMOL/L) 1.18 1.13 1.12 L 1.06 L FiO2 (21 - 100 %) 85 80 55 Instrument (Specimen Descript) Arterial Arterial Arterial Arterial 09/13 09/13 09/13 09/13 1216 1124 0939 0756 Blood Gas O2 Saturation (92.0 - 98.5 %) 100.0 H 100.0 H 100.0 H 97.1 ABG pH (7.35 - 7.45) 7.407 7.411 7.423 7.392 ABG pCO2 (35.0 - 45.0 mmHg) 44.3 40.2 37.3 43.8 ABG pO2 (75.0 - 100.0) 434.7 *H 526.3 *H 374.9 *H 93.1 ABG HCO3 (20.0 - 26.0 MMOL/L) 27.8 H 25.5 24.4 26.6 H ABG Base Excess (-3.0 - 3.0 MMOL/L) 2.8 0.8 0.1 1.3 Sodium (135 - 141 MMOL/L) 141 142 H 142 H 142 H Potassium (3.7 - 4.7 MMOL/L) 4.3 4.4 4.2 4.3 Chloride (MEQ/L) 100 106 106 108 Ionized Calcium (1.13 - 1.32 MMOL/L) 0.86 L 1.15 1.17 1.27 Instrument (Specimen Descript) Arterial Arterial Arterial Arterial Laboratory Tests 09/13 09/13 09/13 09/13 09/13 1524 1452 1445 1344 1318 Chemistry Sodium (137 - 145 MMOL/L) 141 138 Potassium (3.5 - 5.1 MMOL/L) 3.5 3.6 Chloride (98 - 107 MMOL/L) 111 H 111 H Carbon Dioxide (22 - 30 MMOL/L) 22 21 L Anion Gap (14 - 24 MMOL/L) 10 L BUN (9 - 20 MG/DL) 23 H 23 H Creatinine (0.66 - 1.25 MG/DL) 0.70 0.70 Glomerular Filtr Rate > 60 > 60 Glucose (74 - 106 MG/DL) 192 H 185 H POC Glucose (60 - 99 MG/DL) 179 H 165 H 145 H POC Lactic Acid (0.7 - 2.0 mmol/L) 2.93 *H 1.24 0.72 Calcium (8.4 - 10.2 MG/DL) 8.1 L 8.4 Magnesium (1.6 - 2.3 MG/DL) 2.9 H 09/13 09/13 09/13 09/13 09/13 1243 1216 1124 0955 0945 Chemistry Sodium (137 - 145 MMOL/L) 140 Potassium (3.5 - 5.1 MMOL/L) 4.0 Chloride (98 - 107 MMOL/L) 107 Carbon Dioxide (22 - 30 MMOL/L) 24 Anion Gap (14 - 24 MMOL/L) 13 L BUN (9 - 20 MG/DL) 27 H Creatinine (0.66 - 1.25 MG/DL) 0.60 L Glomerular Filtr Rate > 60 Glucose (74 - 106 MG/DL) 154 H POC Glucose (60 - 99 MG/DL) 150 H 128 H 150 H 148 H POC Lactic Acid (0.7 - 2.0 mmol/L) 0.95 1.20 1.46 1.05 Calcium (8.4 - 10.2 MG/DL) 8.5 09/13 0756 Chemistry POC Glucose (60 - 99 MG/DL) 192 H POC Lactic Acid (0.7 - 2.0 mmol/L) 0.63 L Laboratory Tests 09/13 09/13 1524 1445 Coagulation INR (0.86 - 1.14) 1.6 H 1.6 H APTT (26.2 - 35.4 SECONDS) 34.5 28.5 PT Patient/Control Mix (9.4 - 12.7 SECONDS) 18.1 H 18.5 H Laboratory Tests 09/13 09/13 09/13 1524 1445 0945 Hematology WBC (3.8 - 9.8 K/MM3) 29.2 H 27.5 H 7.8 RBC (3.95 - 5.67 M/MM3) 3.82 L 3.74 L 4.09 Hgb (12.4 - 16.7 G/DL) 11.7 L 11.4 L 12.2 L Hct (35.9 - 49.5 %) 35.1 L 34.0 L 36.7 MCV (81.7 - 96.1 fL) 92 91 90 MCH (27.6 - 33.2 pg) 30.6 30.5 29.8 MCHC (32.9 - 35.5 %) 33.3 33.5 33.2 RDW (12.1 - 15.2 %) 13.0 12.9 12.8 Plt Count (129 - 368 K/MM3) 180 169 207 MPV (7.4 - 10.4 fl) 10.9 H 11.2 H 10.9 H Neut % (Auto) (43 - 75 %) 60.6 57.3 43.6 Lymph % (Auto) (14 - 44 %) 28.2 31.9 44.6 H Billings % (Auto) (4 - 13 %) 9.7 9.3 9.2 Eos % (Auto) (0 - 6 %) 0.4 0.6 1.8 Baso % (Auto) (0 - 2 %) 0.3 0.3 0.5 Neut # (Auto) (2.0 - 7.6 K/mm3) 17.69 H 15.78 H 3.42 Lymph # (Auto) (1.0 - 3.8 K/mm3) 8.25 H 8.78 H 3.50 Bill[place] # (Auto) (0.1 - 0.8 K/mm3) 2.84 H 2.55 H 0.72 Eos # (Auto) (0.0 - 0.2 K/mm3) 0.13 0.17 0.14 Baso # (Auto) (0.0 - 0.2 K/mm3) 0.08 0.08 0.04 Immature Gran % (0.0 - 2.0 %) 0.8 0.6 0.3 Nucleated RBC % (0 - 1.0 %) 0.0 0.0 0.0 Nucleated RBCs # (Man) (0.0 - 0.1 K/mm3) 0.00 0.00 0.00 Laboratory Tests 09/13 1524 Chemistry Magnesium (1.6 - 2.3 MG/DL) 2.9 H Laboratory Tests 09/13 09/13 1524 1445 Coagulation APTT (26.2 - 35.4 SECONDS) 34.5 28.5 Radiology data: Recent Impressions: RADIOLOGY - XR CHEST 1V 09/13 1510 Report Impression - Status: SIGNED Entered: 09/13/2021 1705 IMPRESSION: Status post CABG procedure with interval placement of life support lines and tubes. Impression By: Lindsay Flynn MD Diagnosis, Assessment Plan Free Text DxA P Notes Free Text DxA P Notes: IMP: CAD s/p ACB X 4 with AMIN to the LAD, saphenous vein to the diagonal,the OM, and the right PDA HTN HLP DM PLAN: Home medications when able. Ambulate when able. at 0746 RPT #:[id number] END OF REPORT [facility] 2021-09-13 16:22:00 [facility] ([facility]) Hospitalist Consultation REPORT#:[id number] REPORT STATUS: Signed DATE:09/13/21 TIME: 1622 PATIENT: MARK RIVAS UNIT #: [id number] [address] AGE: 65 SEX: M ATTEND: Prakash Gómez MD ADM AUTHOR: Scottie Hartman MD * ALL edits or amendments must be made on the electronic/computer document * History of Present Illness Requesting Clinician: Dr. Prakash Gómez Reason for consult: Management of medical problems HPI: Patient is a 65-year-old male with known HTN, DM, HLD, and recent diagnosis of coronary artery disease who underwent CABG earlier today and is now admitted to the intensive care unit. I am seeing the patient for internal medicine/ hospitalist consultation. Patient is still intubated and unable to provide any information; history was obtained from his and his daughter who are both at the bedside. 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 Patient was referred to Dr. Adalberto Murray in July to have further evaluation after he was noted to have an abnormal stress test revealing severe LAD and RCA territory ischemia with an ejection fraction of about 50%. Dr. Murray performed left heart catheterization and coronary angiogram on September 04, 2021 which showed severe three-vessel coronary artery disease, heavily calcified arteries, and a normal ejection fraction. He was seen by Dr. Gómez in consultation who arranged CABG as outpatient which was performed earlier today. Patient is intubated and somnolent but arousable. He reports discomfort due to the tubes in his throat. History - Adult longitudinal Additional medical history: HTN; DM; HYPERLIPIDEMIA, PARTIAL DEAFNESS. Additional surgical history: NEGATIVE Additional family history: Both partents of old age related complications. 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 ; has 3 kids. Very active lifestyle. Medications: Home Medications: Medication Dose/Rte/Freq Days Qty Entered Last Max Daily Dose Reviewed ATORVASTATIN (LIPITOR) 40 MG PO DAILY 09/03/21 Strength: 40 MG TAB 1612 LOSARTAN (COZAAR) 50 MG PO DAILY 09/03/21 Strength: 50 MG TAB 1612 ASPIRIN 81 MG PO DAILY 09/03/21 Strength: 81 MG TAB.CHEW 1612 [OZEMPIC] 0.5 UNITS SUBQ Q7D 09/10/21 Strength: 1309 Insulin Degludec 20 UNITS SUBQ DAILY 09/10/21 (TRESIBA FLEXTOUCH 1309 U-100 (3mL)) Strength: 100 UNIT/ML PEN.INJCTR INSULIN LISPRO 1 DOSE SUBQ TID AC 09/10/21 (HumaLOG KWIKPEN (3mL)) 1310 Strength: 100 UNIT/ML INSULN.PEN MUPIROCIN 1 APPLIC TOPICAL BID 09/10/21 (BACTROBAN 2%) 1310 Strength: 2 % OINTMENT Current Hospital Medications: Anti-Infective Agents Sig/Tiesha Start time Last Medication Dose Route Stop Time Status Admin Cefuroxime Sodium 1.5 GM Q8H 09/13 1800 AC (ZINACEF) IV 09/15 1001 Gentamicin Sulfate/ 100 ML .STK-MED ONE 09/13 1036 DC Sodium Chloride IV (GENTAMICIN SULFATE IN NS) Cefuroxime Sodium 0 .STK-MED ONE 09/13 0648 DC (ZINACEF) .ROUTE Cefuroxime Sodium 1.5 GM PREOP 09/13 0600 DC (ZINACEF) IV 09/14 0801 Antihistamine Drugs Sig/Tiesha Start time Last Medication Dose Route Stop Time Status Admin Diphenhydramine HCl 0 .STK-MED ONE 09/13 1125 DC (BENADRYL) .ROUTE Autonomic Drugs Sig/Tiesha Start time Last Medication Dose Route Stop Time Status Admin Phenylephrine HCl 100 ML ONCALL ONE 09/14 0700 CKD (VIANEY-SYNEPHRINE/NS IV 09/14 0701 10MG/100ML) Dobutamine HCl/ 250 ML ASDIR PRN 09/13 1500 AC Dextrose IV 10/13 1501 (DOBUTamine HCL IN DEXTROSE) Epinephrine 250 ML ASDIR PRN 09/13 1500 AC (EPINEPHrine/NS 4MG/ IV 10/13 1501 250ML) Phenylephrine HCl 100 ML .STK-MED ONE 09/13 1036 DC (VIANEY-SYNEPHRINE/NS IV 10MG/100ML) Rocuronium [place]brook 0 .STK-MED ONE 09/13 1028 DC (ZEMURON) .ROUTE Epinephrine 250 ML ONCALL ONE 09/13 0900 DC (EPINEPHrine/NS 4MG/ IV 09/13 1514 250ML) Norepinephrine/ 250 ML ONCALL ONE 09/13 0900 DC Dextrose IV 09/13 1514 (NOREPINEPHRINE-D5W 4 MG/250 ML) Rocuronium [place] 0 .STK-MED ONE 09/13 0838 DC (ZEMURON) .ROUTE Blood Derivatives Sig/Tiesha Start time Last Medication Dose Route Stop Time Status Admin Albumin Human 250 ML ASDIR PRN 09/13 1500 CKD (ALBUMINAR-5) IV 09/14 1501 Blood Formation,Coagulation Sig/Tiesha Start time Last Medication Dose Route Stop Time Status Admin Clopidogrel Bisulfate 75 MG DAILY 09/14 0900 AC (PLAVIX) PO 10/14 0901 Tranexamic Acid 1,459.095 MG ONCALL ONE 09/14 0700 CAN (CYKLOKAPRON) IV 09/14 0738 Sodium Chloride 50 ML (SODIUM CHLORIDE 0.9%) Tranexamic Acid 0.001 MG ONCALL ONE 09/14 0700 CAN (CYKLOKAPRON) IV 09/14 1314 Sodium Chloride 250 ML (SODIUM CHLORIDE 0.9%) Tranexamic Acid 1,459.095 MG ONCALL ONE 09/14 0700 CAN (CYKLOKAPRON) IV 09/14 0738 Sodium Chloride 50 ML (SODIUM CHLORIDE 0.9%) Tranexamic Acid 0.001 MG ONCALL ONE 09/14 0700 CAN (CYKLOKAPRON) IV 09/14 1314 Sodium Chloride 250 ML (SODIUM CHLORIDE 0.9%) Protamine Sulfate 0 .STK-MED ONE 09/13 1425 DC (PROTAMINE SULFATE) .ROUTE Heparin Sodium/ 500 ML .STK-MED ONE 09/13 1036 DC Sodium Chloride IV (HEPARIN 1000 UNITS/ NS 500ML) Protamine Sulfate 0 .STK-MED ONE 09/13 1036 DC (PROTAMINE SULFATE) .ROUTE Heparin Sodium 0 .STK-MED ONE 09/13 0837 DC (Porcine) .ROUTE (Heparin Sodium) Heparin Sodium 0 .STK-MED ONE 09/13 0837 DC (Porcine) .ROUTE (Heparin Sodium) Tranexamic Acid 2,910 MG ONCALL 09/13 0700 DC (CYKLOKAPRON) IV 09/14 0701 Sodium Chloride 250 ML (SODIUM CHLORIDE 0.9%) Tranexamic Acid 1,460 MG ONCALL 09/13 0700 DC (CYKLOKAPRON) IV 09/14 0801 Sodium Chloride 50 ML (SODIUM CHLORIDE 0.9%) Tranexamic Acid 2,910 MG ONCALL 09/13 0700 CKD (CYKLOKAPRON) IV 10/13 0701 Sodium Chloride 250 ML (SODIUM CHLORIDE 0.9%) Tranexamic Acid 1,460 MG ONCALL 09/13 0700 CKD (CYKLOKAPRON) IV 10/13 0701 Sodium Chloride 50 ML (SODIUM CHLORIDE 0.9%) Cardiovascular Drugs Sig/Tiesha Start time Last Medication Dose Route Stop Time Status Admin Atorvastatin Calcium 40 MG BEDTIME 09/13 2100 AC (LIPITOR) PO 10/13 2101 Lidocaine HCl/ 500 ML ASDIR PRN 09/13 1500 CKD Dextrose IV 10/13 1501 (Lidocaine 0.4% in D5w Soln) Nicardipine HCl 25 MG ASDIR PRN 09/13 1500 CKD (CARDENE I.V.) IV 10/13 1501 Sodium Chloride 250 ML (SODIUM CHLORIDE 0.9%) Nicardipine HCl 25 MG ASDIR 09/13 1445 CKD (CARDENE I.V.) IV 10/13 1446 Sodium Chloride 250 ML (SODIUM CHLORIDE 0.9%) Papaverine HCl 0 .STK-MED ONE 09/13 1036 DC (PAPAVERINE HCL) .ROUTE Esmolol HCl 0 .STK-MED ONE 09/13 0838 DC (BREVIBLOC) .ROUTE Lidocaine HCl 0 .STK-MED ONE 09/13 0837 DC (LIDOCAINE HCL) .ROUTE Lidocaine HCl 5 ML .STK-MED ONE 09/13 0739 DC (XYLOCAINE 1%) IV Central Nervous System Agents Sig/Tiesha Start time Last Medication Dose Route Stop Time Status Admin Gabapentin 100 MG 2100 09/14 2100 AC (NEURONTIN) PO 09/17 2100 Aspirin 81 MG DAILY 09/14 0900 AC (CHILDREN'S ASPIRIN) PO 10/14 0901 Aspirin 162 MG ONCE ONE 09/13 1656 DC 09/13 (CHILDREN'S ASPIRIN) PO 09/13 1657 1559 Meperidine HCl 50 MG Q4H PRN PRN 09/13 1505 AC (DEMEROL (C-II)) IM 10/13 1501 Hydrocodone Bitart/ 1 TAB Q4H PRN PRN 09/13 1500 AC Acetaminophen PO 10/13 1501 (NORCO 5/325 TABLET (C-II)) Hydrocodone Bitart/ 2 TAB Q4H PRN PRN 09/13 1500 AC Acetaminophen PO 10/13 1501 (NORCO 5/325 TABLET (C-II)) Magnesium Sulfate/ 100 ML ASDIR PRN 09/13 1500 AC Dextrose IV 10/13 1501 (Magnesium Sulfate) Meperidine HCl 25 MG Q4H PRN PRN 09/13 1500 AC (DEMEROL (C-II)) IM 10/13 1501 Morphine Sulfate 2 MG Q15M PRN PRN 09/13 1500 AC 09/13 (morphine SULFATE (C- IV 10/13 1501 1549 II)) Fentanyl Citrate 0 .STK-MED ONE 09/13 0835 DC (Fentanyl 1,000 Mcg/ .ROUTE 20 Ml Vial) Midazolam HCl 0 .STK-MED ONE 09/13 0835 DC (VERSED (C-IV)) .ROUTE Propofol 0 .STK-MED ONE 09/13 0835 DC (DIPRIVAN) .ROUTE Acetaminophen 650 MG Q4H PRN PRN 09/13 0600 AC (TYLENOL) PO 09/14 0800 Zolpidem Tartrate 5 MG BEDTIME PRN PRN 09/13 0600 AC (AMBIEN (C-IV)) PO 09/14 0800 Electrolytic, Caloric, And Hannah Sig/Tiesha Start time Last Medication Dose Route Stop Time Status Admin Calcium Gluconate 1,000 MG ASDIR PRN 09/13 1500 AC (CALCIUM GLUCONATE IV 10/13 1501 10%) Sodium Chloride 100 ML (Sodium Chloride MINI-BAG) Dextrose/Water 12.5 GM ASDIR PRN 09/13 1500 AC (DEXTROSE 50% IN IV 10/13 1501 WATER) Dextrose/Water 25 GM ASDIR PRN 09/13 1500 AC (DEXTROSE 50% IN IV 10/13 1501 WATER) Potassium Chloride 50 ML ASDIR PRN 09/13 1500 AC 09/13 (Potassium Chloride) IV 10/13 1501 1641 Potassium Chloride/ 1,000 ML .[id number] 09/13 1500 AC 09/13 Dextrose/Sod Cl IV 10/13 1501 1550 (DEXTROSE 5%-1/4NS- KCL 20MEQ) Dextrose/Water 12.5 GM ASDIR PRN 09/13 1445 AC (DEXTROSE 50% IN IV 10/13 1446 WATER) Dextrose/Water 25 GM ASDIR PRN 09/13 1445 AC (DEXTROSE 50% IN IV 10/13 1446 WATER) Calcium Chloride 0 .STK-MED ONE 09/13 1310 DC (CALCIUM CHLORIDE) .ROUTE Cardioplegic Solution 5,000 ML .STK-MED ONE 09/13 1037 DC (PLEGISOL) IV Gastrointestinal Drugs Sig/Tiesha Start time Last Medication Dose Route Stop Time Status Admin Famotidine 20 MG BID 09/13 2100 AC (PEPCID) IV 10/13 2101 Ondansetron HCl 4 MG Q8H PRN PRN 09/13 1500 AC (ZOFRAN) IV 10/13 1501 Famotidine 0 .STK-MED ONE 09/13 1125 DC (PEPCID) .ROUTE Magnesium Hydroxide 30 ML ASDIR PRN 09/13 0600 AC (MILK OF MAGNESIA) PO 09/14 0800 Hormones And Synthetic Substit Sig/Tiesha Start time Last Medication Dose Route Stop Time Status Admin Insulin Human Regular 100 ML ASDIR 09/13 1500 CKD (INSULIN DRIP) IV 10/13 1501 Insulin Human Regular 100 UNIT ASDIR 09/13 1445 CKD 09/13 (HUMULIN R) IV 10/13 1446 1546 Sodium Chloride 100 ML (SODIUM CHLORIDE 0.9%) Methylprednisolone 0 .STK-MED ONE 09/13 1149 DC Sodium Succinate .ROUTE (SOLU-Medrol) Insulin Human Regular 0 .STK-MED ONE 09/13 1147 DC (HUMULIN R) .ROUTE Hydrocortisone 0 .STK-MED ONE 09/13 1145 DC Sodium Succinate .ROUTE (Solu-CORTEF) Local Anesthetics (Parenteral) Sig/Tiesha Start time Last Medication Dose Route Stop Time Status Admin Bupivacaine HCl 0 .STK-MED ONE 09/13 1036 DC (SENSORCAINE 0.5%) .ROUTE Miscellaneous Therapeutic Agen Sig/Tiesha Start time Last Medication Dose Route Stop Time Status Admin Magnesium Sulfate 50 ML ASDIR PRN 09/13 1500 AC (MAG SULFATE 2GM IV 10/13 1501 PREMIX) Skin And Mucous Membrane Agent Sig/Tiesha Start time Last Medication Dose Route Stop Time Status Admin Mupirocin 1 ZOHRA BID 09/13 2100 CKD (BACTROBAN) TOPICAL 09/20 2101 Mupirocin 1 APPLIC BID 09/13 2100 AC (BACTROBAN NASAL - NASAL 09/18 0901 ADULT ICU) Allergies: Coded Allergies: No Known Allergies (09/04/21) Pt reports no significant: past surgical history Ambulatory status: Independent Review of Systems Unable to obtain due to: intubated Objective VS/I O Last Documented: Result Date Time Pulse Ox 100 09/13 1505 FiO2 100 09/13 1505 Pulse 86 09/13 1505 B/P 142/88 09/13 0600 O2 Delivery Room air 09/13 0600 Temp 97.0 09/13 0600 Resp 18 09/13 0600 General appearance: respiratory support (intubated), arousable; follows commands. Head/Eyes: atraumatic, clear cornea, normal conjunctiva/sclera, PERRL ENT: intubated, moist mucosal membranes Cardiovascular: normal heart sounds, regular rate rhythm Respiratory: aerating well, clear to auscultation, symmetric expansion, no distress Abdomen: non-tender, soft, no distention Genitourinary: urinary catheter Extremities: moves all, no clubbing, no cyanosis, no edema Musculoskeletal: normal inspection, no muscle spasm Neuro/[employer]: patient somnolent but arousable; follow commands; nods appropriately; moves all 4 extremities. Wound/incision: Location: sternum RLE Site Condition: dressing clean dry Psychiatry: unable to evaluate Results Findings/Data: Laboratory Tests: 09/13 09/13 09/13 1524 1452 1445 Blood Gas O2 Saturation (92.0 - 98.5 %) 99.9 H ABG pH (7.35 - 7.45) 7.329 L ABG pCO2 (35.0 - 45.0 mmHg) 43.2 ABG pO2 (75.0 - 100.0) 315.6 *H ABG HCO3 (20.0 - 26.0 MMOL/L) 22.7 ABG Base Excess (-3.0 - 3.0 MMOL/L) -3.2 L Sodium (135 - 141 MMOL/L) 143 H Potassium (3.7 - 4.7 MMOL/L) 3.8 Chloride (MEQ/L) 108 Ionized Calcium (1.13 - 1.32 MMOL/L) 1.18 Instrument (Specimen Descript) Arterial Chemistry Sodium (137 - 145 MMOL/L) 138 Potassium (3.5 - 5.1 MMOL/L) 3.6 Chloride (98 - 107 MMOL/L) 111 H Carbon Dioxide (22 - 30 MMOL/L) 21 L Anion Gap (14 - 24 MMOL/L) 10 L BUN (9 - 20 MG/DL) 23 H Creatinine (0.66 - 1.25 MG/DL) 0.70 Glomerular Filtr Rate > 60 Glucose (74 - 106 MG/DL) 185 H POC Glucose (60 - 99 MG/DL) 179 H POC Lactic Acid (0.7 - 2.0 mmol/L) 2.93 *H Calcium (8.4 - 10.2 MG/DL) 8.4 Coagulation INR (0.86 - 1.14) 1.6 H 1.6 H APTT (26.2 - 35.4 SECONDS) 34.5 28.5 PT Patient/Control Mix (9.4 - 12.7 SECONDS) 18.1 H 18.5 H Hematology WBC (3.8 - 9.8 K/MM3) 29.2 H 27.5 H RBC (3.95 - 5.67 M/MM3) 3.82 L 3.74 L Hgb (12.4 - 16.7 G/DL) 11.7 L 11.4 L Hct (35.9 - 49.5 %) 35.1 L 34.0 L MCV (81.7 - 96.1 fL) 92 91 MCH (27.6 - 33.2 pg) 30.6 30.5 MCHC (32.9 - 35.5 %) 33.3 33.5 RDW (12.1 - 15.2 %) 13.0 12.9 Plt Count (129 - 368 K/MM3) 180 169 MPV (7.4 - 10.4 fl) 10.9 H 11.2 H Neut % (Auto) (43 - 75 %) 60.6 57.3 Lymph % (Auto) (14 - 44 %) 28.2 31.9 Billings % (Auto) (4 - 13 %) 9.7 9.3 Eos % (Auto) (0 - 6 %) 0.4 0.6 Baso % (Auto) (0 - 2 %) 0.3 0.3 Neut # (Auto) (2.0 - 7.6 K/mm3) 17.69 H 15.78 H Lymph # (Auto) (1.0 - 3.8 K/mm3) 8.25 H 8.78 H Billings # (Auto) (0.1 - 0.8 K/mm3) 2.84 H 2.55 H Eos # (Auto) (0.0 - 0.2 K/mm3) 0.13 0.17 Baso # (Auto) (0.0 - 0.2 K/mm3) 0.08 0.08 Immature Gran % (0.0 - 2.0 %) 0.8 0.6 Nucleated RBC % (0 - 1.0 %) 0.0 0.0 Nucleated RBCs # (Man) (0.0 - 0.1 K/mm3) 0.00 0.00 09/13 09/13 09/13 09/13 1344 1318 1243 1216 Blood Gas O2 Saturation (92.0 - 98.5 %) 99.8 H 99.9 H 99.9 H 100.0 H ABG pH (7.35 - 7.45) 7.307 L 7.405 7.395 7.407 ABG pCO2 (35.0 - 45.0 mmHg) 51.6 *H 41.7 42.4 44.3 ABG pO2 (75.0 - 100.0) 244.6 *H 278.9 *H 284.3 *H 434.7 *H ABG PO2/FiO2 Ratio (mm/Hg) 287.76 348.62 516.90 ABG HCO3 (20.0 - 26.0 MMOL/L) 25.8 26.1 H 26.0 27.8 H ABG Base Excess (-3.0 - 3.0 MMOL/L) -0.8 1.3 0.9 2.8 Sodium (135 - 141 MMOL/L) 141 142 H 140 141 Potassium (3.7 - 4.7 MMOL/L) 4.6 5.9 H 5.5 H 4.3 Chloride (MEQ/L) 105 109 106 100 Ionized Calcium (1.13 - 1.32 MMOL/L) 1.13 1.12 L 1.06 L 0.86 L FiO2 (21 - 100 %) 85 80 55 Instrument (Specimen Descript) Arterial Arterial Arterial Arterial Chemistry POC Glucose (60 - 99 MG/DL) 165 H 145 H 150 H 128 H POC Lactic Acid (0.7 - 2.0 mmol/L) 1.24 0.72 0.95 1.20 09/13 09/13 09/13 09/13 1124 0955 0945 0756 Blood Gas O2 Saturation (92.0 - 98.5 %) 100.0 H 100.0 H 97.1 ABG pH (7.35 - 7.45) 7.411 7.423 7.392 ABG pCO2 (35.0 - 45.0 mmHg) 40.2 37.3 43.8 ABG pO2 (75.0 - 100.0) 526.3 *H 374.9 *H 93.1 ABG HCO3 (20.0 - 26.0 MMOL/L) 25.5 24.4 26.6 H ABG Base Excess (-3.0 - 3.0 MMOL/L) 0.8 0.1 1.3 Sodium (135 - 141 MMOL/L) 142 H 142 H 142 H Potassium (3.7 - 4.7 MMOL/L) 4.4 4.2 4.3 Chloride (MEQ/L) 106 106 108 Ionized Calcium (1.13 - 1.32 MMOL/L) 1.15 1.17 1.27 Instrument (Specimen Descript) Arterial Arterial Arterial Chemistry Sodium (137 - 145 MMOL/L) 140 Potassium (3.5 - 5.1 MMOL/L) 4.0 Chloride (98 - 107 MMOL/L) 107 Carbon Dioxide (22 - 30 MMOL/L) 24 Anion Gap (14 - 24 MMOL/L) 13 L BUN (9 - 20 MG/DL) 27 H Creatinine (0.66 - 1.25 MG/DL) 0.60 L Glomerular Filtr Rate > 60 Glucose (74 - 106 MG/DL) 154 H POC Glucose (60 - 99 MG/DL) 150 H 148 H 192 H POC Lactic Acid (0.7 - 2.0 mmol/L) 1.46 1.05 0.63 L Calcium (8.4 - 10.2 MG/DL) 8.5 Hematology WBC (3.8 - 9.8 K/MM3) 7.8 RBC (3.95 - 5.67 M/MM3) 4.09 Hgb (12.4 - 16.7 G/DL) 12.2 L Hct (35.9 - 49.5 %) 36.7 MCV (81.7 - 96.1 fL) 90 MCH (27.6 - 33.2 pg) 29.8 MCHC (32.9 - 35.5 %) 33.2 RDW (12.1 - 15.2 %) 12.8 Plt Count (129 - 368 K/MM3) 207 MPV (7.4 - 10.4 fl) 10.9 H Neut % (Auto) (43 - 75 %) 43.6 Lymph % (Auto) (14 - 44 %) 44.6 H Billings % (Auto) (4 - 13 %) 9.2 Eos % (Auto) (0 - 6 %) 1.8 Baso % (Auto) (0 - 2 %) 0.5 Neut # (Auto) (2.0 - 7.6 K/mm3) 3.42 Lymph # (Auto) (1.0 - 3.8 K/mm3) 3.50 Billings # (Auto) (0.1 - 0.8 K/mm3) 0.72 Eos # (Auto) (0.0 - 0.2 K/mm3) 0.14 Baso # (Auto) (0.0 - 0.2 K/mm3) 0.04 Immature Gran % (0.0 - 2.0 %) 0.3 Nucleated RBC % (0 - 1.0 %) 0.0 Nucleated RBCs # (Man) (0.0 - 0.1 K/mm3) 0.00 Results: labs reviewed, vital signs stable, current med profile rev'd Diagnosis, Assessment Plan Problem List/A P: 1. Coronary artery disease Permanent Comment s/p CABG. 2. Hyperlipidemia 3. Diabetes mellitus 4. HTN (hypertension) 5. Leukocytosis, unspecified Permanent Comment most likely reactive plus perio-operative steriod administration. Free Text DxA P Notes Free Text DxA P Notes: - Post-op management as per CV surgery team. - Patient overall doing well; anticipate extubation later today. - Will resume home meds when patient able to tolerate PO. - Aggressive post-op. control of diabetes with Insulin drip. - Monitor labs. - Thank your Dr Gómez for allowing us to participate in the care of this patient. Will continue to follow along with you. Quality: Gen Med Crit Care VTE Prophylaxis VTE prophylaxis initiated: yes Current Medications Current medication review: I attest that the foregoing medication list in the medical record is true, accurate, and complete to the best of my knowledge. at 1725 RPT #:[id number] END OF REPORT [facility] 2021-09-13 15:53:00 [id number] [place] [address] PATIENT NAME: MARK RIVAS ADMIT DATE: 09/13/21 ACCOUNT NO: [id number] ROOM NO: Z.SI01 AGE: 65 REPORT TYPE: ELECTROCARDIOGRAM SEX: M ADMITTING PHYSICIAN:Prakash Gómez MD ATTENDING PHYSICIAN:Prakash Gómez MD Order: [id number] Test Reason : CAD post op CAb Test Date/Time Stamp: MonSep 13 2021 15:53:31 Blood Pressure : / mmHG Vent. Rate : 094 BPM Atrial Rate : 094 BPM P-R Int : 144 ms QRS Dur : 162 ms QT Int : 470 ms P-R-T Axes : 087 -84 109 degrees QTc Int : 587 ms Poor data quality, interpretation may be adversely affected Electronic ventricular pacemaker Significant changes have occurred Confirmed by DILAN MURRAY ([id number]) on 09/13/2021 5:04:46 PM Referred By: Self Referred Confirmed by:DILAN MURRAY at 1704 PATIENT NAME: MARK RIVAS [facility] 2021-09-13 15:53:00 [phone] [place] [address] PATIENT NAME: MARK RIVAS ADMIT DATE: 09/13/21 ACCOUNT NO: [id number] ROOM NO: Z.SI01 AGE: 65 REPORT TYPE: ELECTROCARDIOGRAM SEX: M ADMITTING PHYSICIAN:Prakash Gómez MD ATTENDING PHYSICIAN:Prakash Gómez MD Order: [id number] Test Reason : CAD post op CAb Test Date/Time Stamp: MonSep 13 2021 15:53:31 Blood Pressure : / mmHG Vent. Rate : 094 BPM Atrial Rate : 094 BPM P-R Int : 144 ms QRS Dur : 162 ms QT Int : 470 ms P-R-T Axes : 087 -84 109 degrees QTc Int : 587 ms Poor data quality, interpretation may be adversely affected Electronic ventricular pacemaker Significant changes have occurred Confirmed by DILAN MURRAY ([id number]) on 09/14/2021 7:05:54 AM Referred By: Self Referred Confirmed by:DILAN MURRAY at 0705 PATIENT NAME: MARK RIVAS [facility] 2021-09-13 15:24:00 [id number] [place] [id number] PATIENT NAME: MARK RIVAS ADMIT DATE: 09/13/21 ACCOUNT NO: [id number] ROOM NO: Z.SI01 AGE: 65 REPORT TYPE: OPERATIVE REPORT SEX: M ADMITTING PHYSICIAN:Parkash Gómez MD ATTENDING PHYSICIAN:Prakash Gómez MD OPERATION DATE: 09/13/2021 CARDIAC SURGERY SERVICE PREOPERATIVE DIAGNOSES: Coronary artery disease, hypertension, hyperlipidemia, and diabetes. POSTOPERATIVE DIAGNOSES: Coronary artery disease, hypertension, hyperlipidemia, and diabetes. PROCEDURE: Right CVP insertion, left femoral arterial monitoring line insertion, ultrasound-guided access with SonoSite, right subclavian vein, aortocoronary bypass x4 with AMIN to the LAD, saphenous vein to the diagonal, the OM, and the right PDA, endoscopic vein harvesting, right greater saphenous vein. SURGEON: Prakash Gómez MD FEATHER SEPARATOR: Eula Jang PA-C ANESTHESIA: General. COMPLICATIONS: None. DISPOSITION: The patient to surgical ICU in stable condition. PROCEDURE IN DETAIL: On 09/13/2021, the patient was brought to the operating room, placed on the operating table in supine position, prepped and draped in usual fashion. Following introduction of satisfactory general anesthesia, placement of appropriate monitoring line, Ocampo catheter, hips, shoulders and elbows were padded in usual fashion. The right subclavian CVP was placed and left femoral arterial monitoring line was placed using Seldinger percutaneous guidewire technique, ultrasound-guided access with SonoSite, right subclavian vein, left common femoral artery. The patient was prepped and draped in usual fashion. Greater saphenous vein was harvested from the right leg using endoscopic vein harvesting technique. Leg was closed. Simultaneously, a median sternotomy performed. Left SHERRELL was harvested. The patient was heparinized, cannulated, put on full bypass, cooled to 23 centigrade. Topical iced saline was placed pericardial well. Aorta cross clamped. Cold potassium cardioplegia solution infused at root, re-infused after each anastomosis. The patient had continuous retrograde coronary sinus cardioplegia infused to 15-Welsh CalMed line. The aorta was cannulated with a 24-Welsh Benitez aortic cannula. We PATIENT NAME: MARK RIVAS used Benitez 29 x 37 atrial caval cannula. The patient was put on full bypass, cooled to 23 centigrade. Topical iced saline placed pericardial well. Aorta cross clamped. Cold potassium cardioplegia solution infused at aortic root, re-infused after each anastomosis. The patient had continuous retrograde crystalloid cardioplegia infused during ischemic period. Distal bypass done with 7-0 Prolene suture end-to-side with saphenous vein to the right PDA to the diagonal and to the distal circumflex coronary artery, left SHERRELL to the LAD anastomosed with running 7-0 Prolene suture. The patient placed in Trendelenburg. Aortic cross-clamp was removed. Air was purged through aortic sump cannula. Partial clamps were placed. Aortotomy was made with 4-0 punch, proximal anastomosis with 5-0 Prolene suture, partial clamp removed. Air was purged with 27-gauge needle. The patient defibrillated, rewarmed, weaned from bypass, stable output rhythm, protamine infused, decannulated. All surgical sites were inspected and hemostatic. One mediastinal pleural chest tube placed. Temporary ventricular, atrial and skin wire placed. Chest wall closed in standard fashion and the patient was taken to the surgical ICU in stable condition. Dictated By: Prakash Gómez MD WT: OP:WALESKA/REY/MARIO Conf#: [id number]/DID#: [id number] cc: Dilan Murray MD Authenticated by Prakash Gómez MD On 09/19/2021 03:44:34 PM at 0344 PATIENT NAME: MARK RIVAS [facility] 2021-09-13 08:04:00 [phone] [address] PATIENT NAME: MARK RIVAS ADMIT DATE: ACCOUNT NO: [id number] ROOM NO: AGE: 65 REPORT TYPE: ELECTROCARDIOGRAM SEX: M ADMITTING PHYSICIAN:Prakash Gómez MD ATTENDING PHYSICIAN:Prakash Gómez MD Order: [id number] Test Reason : PRE-OP Test Date/Time Stamp: MonSep 13 2021 08:04:21 Blood Pressure : / mmHG Vent. Rate : 059 BPM Atrial Rate : 059 BPM P-R Int : 150 ms QRS Dur : 092 ms QT Int : 396 ms P-R-T Axes : 262 026 118 degrees QTc Int : 392 ms Unusual P axis, possible ectopic atrial bradycardia with occasional premature ventricular complexes Nonspecific T wave abnormality Abnormal ECG When compared with ECG of 04-SEP-2021 08:09, Ectopic atrial rhythm has replaced Sinus rhythm Confirmed by DILAN MURRAY ([id number]) on 09/13/2021 1:39:21 PM Referred By: Prakash Gómez Confirmed by:DILAN MURRAY at 1339 PATIENT NAME: MARK RIVAS [facility] 2021-09-04 15:00:00 [id number] [place] [id number] PATIENT NAME: MARK RIVAS ADMIT DATE: 09/04/21 ACCOUNT NO: [id number] ROOM NO: AGE: 65 REPORT TYPE: CONSULTATION REPORT SEX: M ADMITTING PHYSICIAN: ATTENDING PHYSICIAN:Dilan Murray MD CONSULTATION DATE: 09/04/2021 CONSULTING PHYSICIAN: Prakash Gómez MD CARDIAC SURGERY SERVICE DIAGNOSES: Coronary artery disease, hypertension, and hyperlipidemia. 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 He had a positive PET CT stress, which was positive for significant coronary artery disease. The patient had cardiac cath today showing severe multivessel coronary artery disease, ejection fraction about 55% on ventriculogram, on echocardiogram about 40% to 45% with some dilatation of the left ventricle. The patient has a high-grade 99% stenosis in the LAD, 75% in the diagonal, 60% plus in the distal circumflex and 99% and 100% in the distal RCA, PDA fills via collaterals. REVIEW OF SYSTEMS: Otherwise, is negative. No history of hemophilia, coagulopathy, varicose vein stripping or phlebitis. The patient has hypertension, hyperlipidemia, and diabetes. He is on aspirin 81 mg. The patient is on Ozempic and metformin. REVIEW OF SYSTEMS: Otherwise is negative. The patient denies having had previous surgery. FAMILY HISTORY: Positive. SOCIAL HISTORY: Never been a smoker. Patient does not drink alcohol. Carotid duplex imaging is less than 20% bilaterally. PHYSICAL EXAMINATION: GENERAL: Demonstrates a well-nourished male, in no apparent distress. NECK: There are no carotid bruits. Carotid pulse present. Radial pulse present. CHEST: Clear. HEART: Regular rate and rhythm without murmur. ABDOMEN: Soft and nontender without masses. Femoral, popliteal and pedal pulse present. BREASTS AND RECTAL: Not done. NEUROLOGIC: Physiological. ASSESSMENT: Severe multivessel coronary artery disease. PATIENT NAME: MARK RIVAS RECOMMENDATION: Plan for this patient to have a coronary artery bypass surgery. The procedure, the alternatives, possible risks and complications including the inherent and other risks of surgery were explained to the patient and he understood and accept and want to proceed. They had a chance to ask question and want to proceed. Dictated By: Prakash Gómez MD WT: CON:WALESKA/REY/MARIO Conf#: [id number]/DID#: [id number] Authenticated by Prakash Gómez MD On 09/19/2021 03:09:58 PM at 0309 PATIENT NAME: MARK RIVAS [facility] 2021-09-04 12:41:00 [id number] [place] [address] PATIENT NAME: MARK RIVAS ADMIT DATE: 09/04/21 ACCOUNT NO: [id number] ROOM NO: AGE: 65 REPORT TYPE: ECHOCARDIOGRAM SEX: M ADMITTING PHYSICIAN: ATTENDING PHYSICIAN:Dilan Murray MD *[facility]* [address] [place], [place] [id number] Transthoracic Echocardiogram Patient: Mark Rivas Study Date: 09/04/2021 BP: 156 / 76 Location: [facility] URN: [id number] : 1955 Age: 65 Height: 72 in / 182.9 cm Gender: M Weight: 213.6 lb / 97.1 kg BMI/BSA: 29 kg/m 2 / 2.24 m 2 *Ordering Physician: * Dilan Murray MD *Interpreting Physician: * Dilan Murray MD *Head Stock Operator: * Chris Iraheta BS, [facility], RVS Indications: CAD [place] Vessel. Study data: Transthoracic echocardiogram. Procedure: Transthoracic echocardiography was performed. Images were obtained using a Scoopshot cardiac ultrasound machine. Image quality was adequate. M-mode, complete 2D, complete spectral Doppler, and color Doppler. Location: Catheterization laboratory. Patient status: Outpatient. Patient room number: Bristle Machine Operator Holding Room 3. Study status: Add on. Findings Left ventricle: The cavity size is normal. There is no hypertrophy. Systolic function is mildly reduced. The estimated ejection fraction is 45-49%. Regional wall motion abnormalities: Mild hypokinesis of the lateral myocardium. The pulmonary vein flow pattern is normal. The tissue Doppler parameters are normal. Left ventricular diastolic PATIENT NAME: MARK RIVAS function parameters are normal. Right ventricle: The cavity size is normal. Systolic function is normal. Systolic pressure is within the normal range. Ventricular septum: The ventricular septum is normal. Left atrium: The atrium is normal in size. Right atrium: The atrium is normal in size. Atrial septum: No defect or patent foramen ovale is identified. Aorta: The aorta is not visualized. Aortic valve: The valve is trileaflet. The leaflets are mildly thickened. There is no evidence of stenosis. There is trivial regurgitation. Mitral valve: The leaflets are mildly thickened. There is no evidence of stenosis. There is trivial regurgitation. Tricuspid valve: The leaflets are normal thickness. There is mild regurgitation. Pulmonic valve: The leaflets are normal thickness. There is trivial regurgitation. Pericardium: There is no pericardial effusion. Systemic veins: Inferior vena cava: Not well visualized. Measurements Left ventricle Value Ref SOPHIE, LAX 4.9 cm 4.2 - 5.8 ESD, LAX 3.3 cm 2.5 - 4.0 ESD/bsa, LAX 1.5 cm/m 2 1.3 - 2.1 FS, LAX 33 % 25 - 43 ESD/bsa major ax, 3.2 cm/m 2 A4C SOPHIE/bsa minor ax, 3.2 cm/m 2 A4C SOPHIE major ax, A2C 7.8 cm SOPHIE/bsa major ax, 3.5 cm/m 2 A2C PW, ED 1.4 cm 0.6 - 1.0 PW, ES 1.3 cm IVS/PW, ED 0.97 EF 62 % 52 - 72 E', lat christiane, TDI 5.0 cm/sec >=10.0 E/e', lat christiane, TDI 15 E', med christiane, TDI 9.0 cm/sec >=7.0 E/e', med christiane, TDI 8 E', avg, TDI 7.0 cm/sec E/e', avg, TDI 11 <=14 LVOT Value Ref Diam, S 2.21 cm Area 3.8 cm 2 Peak leonardo, S 0.94 m/sec Mean leonardo, S 0.62 m/sec VTI, S 19.7 cm Peak grad, S 4 mm Hg PATIENT NAME: MARK RIVAS Mean grad, S 2 mm Hg SV 75 ml SV/bsa 34 ml/m 2 Ventricular septum Value Ref IVS, ED 1.4 cm 0.6 - 1.0 IVS, ES 1.4 cm Right ventricle Value Ref SOPHIE, LAX 3.3 cm TAPSE, MM 1.9 cm 1.7 - 3.1 Pressure, S 31 mm Hg S' lateral 13.0 cm/sec 6.0 - 13.4 RVOT Value Ref Peak v, S 0.8 m/sec Peak grad, S 3 mm Hg Left atrium Value Ref AP dim, ES 4.02 cm 3.00 - 4.00 Aortic valve Value Ref Leaflet sep, MM 2.30 cm Peak v, S 1.07 m/sec Mean v, S 0.75 m/sec VTI, S 31.5 cm Mean grad, S 2.6 mm Hg Peak grad, S 4.6 mm Hg LVOT/AV, VTI ratio 0.62 EBONIE, VTI 2.40 cm 2 LVOT/AV, Vpeak ratio 0.88 EBONIE, Vmax 3.21 cm 2 Mitral valve Value Ref E-septal separation 0.8 cm Peak E 0.75 m/sec Peak A 0.51 m/sec Mean v, D 0.65 m/sec VTI leaflet coapt 24.4 cm Decel time 209 ms Mean grad, D 1.8 mm Hg Peak grad, D 3.2 mm Hg Peak E/A ratio 1.47 Pulmonic valve Value Ref MA peak v 1.22 m/sec MA peak grad 6 mm Hg Tricuspid valve Value Ref TR peak v 2.28 m/sec <=2.8 Peak RV-RA grad, S 21 mm Hg Aortic root Value Ref PATIENT NAME: MARK RIVAS Root diam, ED MM 3.96 cm Pulmonary artery Value Ref Pressure, S 27.1 mm Hg Systemic veins Value Ref Estimated CVP 10 mm Hg Conclusions Summary: 1. Left ventricle: The cavity size is normal. Systolic function is mildly reduced. The estimated ejection fraction is 45-49%. Mild hypokinesis of the lateral myocardium. Left ventricular diastolic function parameters are normal. 2. Right ventricle: Systolic pressure is within the normal range. The RV pressure during systole by Doppler is 31 mm Hg. Prepared and electronically signed by Dilan Murray MD 09/04/2021 12:41 at 1241 PATIENT NAME: MARK RIVAS [facility] 2021-09-04 12:41:00 [id number] [facility] [id number] [place] [address] PATIENT NAME: MARK RIVAS ADMIT DATE: 09/04/21 ACCOUNT NO: [id number] ROOM NO: AGE: 65 REPORT TYPE: eCAROTID ULTRASOUND SEX: M ADMITTING PHYSICIAN: ATTENDING PHYSICIAN:Dilan Murray MD *[facility]* [address] [place] [address] Carotid Duplex Study Patient: Mark Rivas Study Date: 09/04/2021 BP: 140 / 66 Location: [facility] URN: [id number] : 1955 Age: 65 Height: 72 in / 182.9 cm Gender: M Weight: 214 lb / 97.3 kg BMI/BSA: 29.1 kg/m 2 / 2.24 m 2 *Ordering Physician: * Dilan Murray MD *Interpreting Physician: * Dilan Murray MD *Head Stock Operator: * Chris CHARLES, RCS, RVS Indications: CAD. Study data: Carotid duplex study. Bilateral evaluation with grayscale 2D imaging, color Doppler imaging, and spectral Doppler analysis. Location: Catheterization laboratory. Patient status: Outpatient. Patient room number: Bristle Machine Operator Holding Room 3. Procedure: A vascular evaluation was performed with the patient in the supine position. Images were obtained using a Scoopshot vascular ultrasound machine. Image quality was adequate. Study status: Add on. Findings Carotid/vertebral arteries: Right common carotid: The vessel is normal; it has no evidence of disease. Right internal carotid: The vessel is poorly visualized. Proximal vessel lesion: There is a 1-19%stenosis. PATIENT NAME: MARK RIVAS Right external carotid: The vessel is normal; it has no evidence of disease. Right vertebral: The arterial flow direction is antegrade. Left vertebral: The arterial flow direction is antegrade. Left common carotid: The vessel is normal; it has no evidence of disease. Left internal carotid: The vessel is poorly visualized. Proximal vessel lesion: There is a 1-19%stenosis. Left external carotid: The vessel is normal; it has no evidence of disease. Arterial flow: Location PSV* EDV* PSV Stenosis Location PSV* EDV* PSV Stenosis ratio ratio R CCA, prox 40 12 ----- -------- L CCA, 67 18 ----- -------- prox R CCA, 58 21 ----- -------- L CCA, 85 20 ----- -------- distal distal R ICA, prox 46 15 0.79 1-19% L ICA, 45 16 0.53 1-19% prox R ICA, mid 65 26 1.12 -------- L ICA, 52 18 0.6 -------- mid R ECA 75 9 ----- -------- L ECA 52 10 ----- -------- ---- ---- ----- -------- L ICA, 58 21 0.68 -------- distal R vertebral 45 11 ----- -------- L 32 12 ----- -------- vertebra l *Velocities are expressed in cm/sec, Diameters are expressed in cm Conclusions 1. Study suggests 1-19% stenosis involving the right internal carotid artery and left internal carotid artery. 2. Antegrade flow noted in the right vertebral artery and left vertebral artery. Prepared and electronically signed by Dilan Murray MD 09/04/2021 12:41 at 1241 PATIENT NAME: MARK RIVAS [facility] 2021-09-04 08:09:00 [id number] [place] [address] PATIENT NAME: MARK RIVAS ADMIT DATE: 09/04/21 ACCOUNT NO: [id number] ROOM NO: AGE: 65 REPORT TYPE: ELECTROCARDIOGRAM SEX: M ADMITTING PHYSICIAN: ATTENDING PHYSICIAN:Dilan Murray MD Order: [id number] Test Reason : CAD/PVC's Test Date/Time Stamp: MonSep 04 2021 08:09:17 Blood Pressure : / mmHG Vent. Rate : 056 BPM Atrial Rate : 056 BPM P-R Int : 176 ms QRS Dur : 094 ms QT Int : 448 ms P-R-T Axes : 000 069 051 degrees QTc Int : 432 ms Sinus bradycardia with marked sinus arrhythmia Nonspecific T wave abnormality Abnormal ECG When compared with ECG of 04-SEP-2021 06:03, Criteria for Septal infarct are no longer present Confirmed by DILAN MURRAY ([id number]) on 09/04/2021 11:02:45 AM Referred By: Self Referred Confirmed by:DILAN MURRAY at 1102 PATIENT NAME: MARK RIVAS [facility] 2021-09-04 08:09:00 [id number] [place] [id number] PATIENT NAME: MARK RIVAS ADMIT DATE: 09/04/21 ACCOUNT NO: [id number] ROOM NO: AGE: 65 REPORT TYPE: ELECTROCARDIOGRAM SEX: M ADMITTING PHYSICIAN: ATTENDING PHYSICIAN:Dilan Murray MD Order: [id number] Test Reason : CAD/PVC's Test Date/Time Stamp: [facility] Sep 04 2021 08:09:17 Blood Pressure : / mmHG Vent. Rate : 056 BPM Atrial Rate : 056 BPM P-R Int : 176 ms QRS Dur : 094 ms QT Int : 448 ms P-R-T Axes : 000 069 051 degrees QTc Int : 432 ms Sinus bradycardia with marked sinus arrhythmia Nonspecific T wave abnormality Abnormal ECG When compared with ECG of 04-SEP-2021 06:03, Criteria for Septal infarct are no longer present Confirmed by DILAN MURRAY ([id number]) on 09/06/2021 12:56:31 PM Referred By: Self Referred Confirmed by:DILAN MURRAY at 1256 PATIENT NAME: MARK RIVAS [facility] 2021-09-04 06:55:00 [id number] [address] PATIENT NAME: MARK RIVAS ADMIT DATE: 09/04/21 ACCOUNT NO: [id number] ROOM NO: AGE: 65 REPORT TYPE: CARDIAC CATHETERIZATION REPORT SEX: M ADMITTING PHYSICIAN: ATTENDING PHYSICIAN:Dilan Murray MD PROCEDURE DATE: NEUROSURGICAL NURSE PRACTITIONER: Dilan Murray MD TITLE OF THE PROCEDURE: 1. Left heart catheterization. 2. Left subclavian and AMIN angiogram. INDICATION FOR THE PROCEDURE: Coronary artery disease and ischemia. ESTIMATED BLOOD LOSS: Minimal. COMPLICATIONS: None. CONTRAST: 60 mL. ANESTHESIA: Conscious sedation with Versed and fentanyl and 1% lidocaine for local anesthesia. FINAL DIAGNOSES: Severe three-vessel coronary artery disease, heavily calcified arteries, normal ejection fraction and left ventricular end-diastolic pressure. Recommendation is bypass to the LAD, diagonal 1, left posterolateral branch of the circumflex and PDA of the right. PROCEDURE IN DETAIL: After informed consent, the patient was brought to the cardiac catheterization lab in a stable fasting nonsedated state. He was prepped and draped in the usual sterile fashion. After conscious sedation, 1% lidocaine was administered to the right common femoral artery area for local anesthesia. A 6-Welsh sheath was placed in the right common femoral artery using standard techniques and fluoroscopy. After heparinization, left coronary angiogram showed heavily calcified arteries. The circumflex has a mid-lesion to distal at 60%. Has a good size posterolateral branch. The LAD starts off okay, then after the first diagonal has 99% subtotal lesion and then diffuse 90% lesion to the [id number] vessel after the second diagonal, distally at the apex 30%. The LAD gives collaterals to the right PDA. The first diagonal has an eccentric lesion 75% proximal seen only in certain views. It is a decent size diagonal. Right coronary angiogram showed 45% proximal to mid, then 99% followed by 100% occlusion distal. Left subclavian and selective AMIN angiogram showed 30% plaque in the left subclavian eccentric and good left internal mammary artery for bypass. Left ventricular angiogram showed ejection fraction of 55%. No wall motion abnormalities. Left ventricular end-diastolic pressure PATIENT NAME: MARK RIVAS of 15 and no aortic valve gradient. The right groin was sealed using Mynx. There were no complications. The patient tolerated the procedure well. The patient will be transferred back to the holding area for observation, to be evaluated by surgery for bypass. Dictated By: Dilan Murray MD WT: CATH:GAYATHRI/STEPHANIE/MARIO Conf#: [id number]/DID#: [id number] Authenticated by Dilan Murray MD On 09/04/2021 11:10:33 AM at 1110 PATIENT NAME: MARK RIVAS [facility] 2021-09-04 06:03:00 [id number] [place] [id number] PATIENT NAME: MARK RIVAS ADMIT DATE: 09/04/21 ACCOUNT NO: [id number] ROOM NO: AGE: 65 REPORT TYPE: ELECTROCARDIOGRAM SEX: M ADMITTING PHYSICIAN: ATTENDING PHYSICIAN:Dilan Murray MD Order: [id number] Test Reason : PRE-OP Test Date/Time Stamp: [facility] Sep 04 2021 06:03:12 Blood Pressure : / mmHG Vent. Rate : 062 BPM Atrial Rate : 066 BPM P-R Int : 000 ms QRS Dur : 088 ms QT Int : 418 ms P-R-T Axes : 000 047 061 degrees QTc Int : 424 ms Sinus rhythm with premature ventricular or aberrantly conducted complexes Septal infarct , age undetermined Abnormal ECG No previous ECGs available Confirmed by DILAN MURRAY ([id number]) on 09/04/2021 6:15:09 AM Referred By: Self Referred Confirmed by:DILAN MURRAY at 0615 PATIENT NAME: MARK RIVAS [facility] 2021-09-04 06:03:00 [phone] [place] [id number] PATIENT NAME: MARK RIVAS ADMIT DATE: 09/04/21 ACCOUNT NO: [id number] ROOM NO: AGE: 65 REPORT TYPE: ELECTROCARDIOGRAM SEX: M ADMITTING PHYSICIAN: ATTENDING PHYSICIAN:Dilan Murray MD Order: [id number] Test Reason : PRE-OP Test Date/Time Stamp: MonSep 04 2021 06:03:12 Blood Pressure : / mmHG Vent. Rate : 062 BPM Atrial Rate : 066 BPM P-R Int : 000 ms QRS Dur : 088 ms QT Int : 418 ms P-R-T Axes : 000 047 061 degrees QTc Int : 424 ms Sinus rhythm with premature ventricular or aberrantly conducted complexes Septal infarct , age undetermined Abnormal ECG No previous ECGs available Confirmed by DILAN MURRAY ([id number]) on 09/06/2021 12:56:52 PM Referred By: Self Referred Confirmed by:DILAN MURRAY at 1256 PATIENT NAME: MARK RIVAS [facility] 2021-09-03 07:17:00 [phone] [place] [address] PATIENT NAME: MARK RIVAS ADMIT DATE: ACCOUNT NO: [id number] ROOM NO: AGE: 65 REPORT TYPE: HISTORY AND PHYSICAL SEX: M ADMITTING PHYSICIAN: ATTENDING PHYSICIAN:Dilan Murray MD PATIENT NAME: MARK RIVAS ADMIT DATE:09/04/2021 ADMISSION DATE: 09/04/2021 NEUROSURGICAL NURSE PRACTITIONER: Dilan Murray MD REASON FOR ADMISSION: Cardiac catheterization for newly diagnosed ischemic cardiomyopathy with severe ischemia. HISTORY OF PRESENT ILLNESS: Mark is a 65-year-old patient who is new to me started seeing him for the first time on 08/25/2021. The patient had most of his evaluation by other cardiologists and was scheduled for cardiac catheterization, but his insurance changed and he came in to me for that procedure. The patient basically denies any cardiac symptoms, but he has multiple cardiovascular risk factors. He had an EKG, which was misread at one point as atrial fibrillation. The patient has multiple PACs. I did not see in the records any evidence of atrial fibrillation. He had a 48-hour monitor that showed frequent premature atrial contractions and frequent MAT and PSVT runs with rates up to 174, but no clear-cut atrial fibrillation. His minimum heart rate was 38, average heart rate was 68, and maximum was 150. He had a carotid Doppler that showed less than 30% disease. Had an echocardiogram that showed an ejection fraction of 45% to 50% with global hypokinesis, had a chemical PET scan with dipyridamole that showed severe LAD and RCA ischemia with ejection fraction of 58%/56%. The patient was advised cardiac catheterization and he is here for that. The patient was placed on appropriate medical therapy. PAST MEDICAL HISTORY: Remarkable for the above in addition to hypertension, hyperlipidemia, diabetes, hearing loss, especially of the left ear, COVID in January of 2021 and allergies. PAST SURGICAL HISTORY: None. ALLERGIES: NO KNOWN DRUG ALLERGIES. MEDICATIONS: He is on metformin; is on hold now, atorvastatin 40 mg daily, losartan 50 mg daily, and aspirin 81 mg daily. SOCIAL HISTORY: There is no history of smoking, alcohol, or street drug use. FAMILY HISTORY: Positive for atherosclerotic cardiovascular disease. REVIEW OF SYSTEMS: Remarkable for allergies, decreased hearing. No acute GI or symptoms. No TIAs or strokes. PATIENT NAME: MARK RIVAS PHYSICAL EXAMINATION: GENERAL: Reveals a pleasant middle-aged male, in no acute distress. VITAL SIGNS: Blood pressure 130/73, pulse 64 and regular, respiratory rate 16 and unlabored, and temperature afebrile. HEENT: Head, atraumatic and normocephalic. Eyes ENT examination within normal for age except for hearing loss, especially of the left ear. NECK: Supple. No jugular venous distention, bruits, or lymphadenopathy. Normal upstroke. LUNGS: Clear and resonant. HEART: Regular rate and rhythm due to PACs. No murmurs or gallops. ABDOMEN: Soft. No tenderness, no organomegaly, no masses or bruits. EXTREMITIES: 2+ distal pulses. No edema, cyanosis, or clubbing. NEUROLOGIC: Alert and oriented x3. The examination appears to be nonfocal. LABORATORY DATA: Pending. Noninvasive cardiovascular workup enclosed. IMPRESSION: This is a 65-year-old patient who denies any symptoms, who has evidence of ischemic cardiomyopathy by echo, abnormal nuclear stress test with severe ischemia in the LAD and RCA distribution. He has significant arrhythmias with PSVT, MAT and frequent PACs. The patient appears to have significant coronary artery disease and he will benefit from revascularization. The recommendation is to proceed with left heart catheterization and possible revascularization. Risks and benefits of the planned procedures were discussed in detail with the patient and available family members and he is willing to proceed. Rest as per orders. Dictated By: Dilan Murray MD WT: HP:WALESKA/STEPHANIE/MARIO Conf#: [id number]/DID#: [id number] Authenticated and Edited by Dilan Murray MD On 09/03/21 4:38:06 PM at 0439 PATIENT NAME: MARK RIVAS HCAWU
--- NOTE | 2024-09-26 16:24 | RAD REPORT ---
EXAMINATION: XR LEFT FOOT CLINICAL INDICATION: PAIN TECHNIQUE: Multiple projections of the left foot were obtained. COMPARISON: No prior exam. FINDINGS: Tiny posterior and large plantar calcaneal spurs noted. Destructive changes are seen involv ing the medial aspect of the distal phalanx great toe most compatible with osteomyelitis.
[2024-09-26 16:25] LABS: Absolute Basophils 0.1 K/uL (0-0.5); Absolute Lymphocytes (CBC) 1.8 K/uL (0.7-4.9); Absolute Monocytes 1.3 K/uL (0.1-1.3); Basophils % 0.6 % (0-1.3); Eosinophils % 0.3 % (0-4.4); Hematocrit 39.2 % (39.6-49.0); Hemoglobin 13.3 g/dL (13.6-17.9); MCH 29.7 pg (27.0-35.0); MCV 87.3 fL (80-100); MPV 8.8 fL (7.6-11.3); Monocytes % 11.4 % (3.3-12.3); Neutrophils % 71.7 % (41.7-73.7); Nucleated Red Blood Cells % 0.1 % (0-0); Platelets 246 thou/uL (152-406); RBC Red Blood Cell Count 4.49 M/uL (4.33-5.43); Red Cell Distribution Width 12.8 % (12.1-15.2)
--- NOTE | 2024-09-26 16:45 | ER ---
Nurse's Notes [facility] Name: Alex Rivas Age: 68 yrs Sex: Male : 1955 Arrival Date: 09/26/2024 Time: 14:50 Bed 6 Private MD: Diagnosis: Cellulitis of left lower limb;Osteomyelitis, unspecified Presentation: 09/26 15:00 Chief complaint: Patient states: Left big toe with wound, taking antibiotic and it's jl7 gotten worse. Coronavirus screen: At this time, the client does not indicate any symptoms associated with coronavirus-19. Ebola Screen: No symptoms or risks identified at this time. Initial Sepsis Screen: Does the patient meet any 2 criteria? No. Patient's initial sepsis screen is negative. Does the patient have a suspected source of infection? No. Patient's initial sepsis screen is negative. Risk Assessment: Do you want to hurt yourself or someone else? Patient reports no desire to harm self or others. Onset of symptoms is unknown. 15:00 Method Of Arrival: Ambulatory jl7 15:00 Acuity: NORTH 3 jl7 Triage Assessment: 15:02 General: Appears in no apparent distress. uncomfortable, Behavior is calm, cooperative, jl7 appropriate for age. Pain: Denies pain. Historical: - Allergies: 15:02 No Known Allergies; jl7 - PMHx: 15:02 Diabetes - NIDDM; Hypertension; jl7 - PSHx: 15:02 CABG; jl7 - Immunization history:: Adult Immunizations unknown. - Infectious Disease History:: Denies. - Social history:: Smoking status: Patient denies any tobacco usage or history of. - Family history:: not pertinent. - Hospitalizations: : No recent hospitalization is reported. Screenin:47 [facility] ED Fall Risk Assessment (Adult) History of falling in the last 3 months, dd2 including since admission No falls in past 3 months (0 pts) Confusion or Disorientation No (0 pts) Intoxicated or Sedated No (0 pts) Impaired Gait No (0 pts) Mobility Assist Device Used No (0 pt) Altered Elimination No (0 pt) Score/Fall Risk Level 0 - 2 = Low Risk Oriented to surroundings, Maintained a safe environment, Educated pt \T\ family on fall prevention, incl call for assistance when getting out of bed, Assessed \T\ reinforced patient's understanding of fall precautions, Hourly rounding (assess needs \T\ fall precautionary measures) done. Abuse screen: Denies threats or abuse. Denies injuries from another. Nutritional screening: No deficits noted. Tuberculosis screening: No symptoms or risk factors identified. Assessment: 17:40 Reassessment: PT PLACED IN ROOM. ASSUMING CARE OF PT. dd2 17:58 General: Appears in no apparent distress. comfortable, Behavior is calm, cooperative, dd2 appropriate for age. Pain: Denies pain. Neuro: Level of Consciousness is awake, alert, obeys commands, Oriented to person, place, time, situation, Appropriate for age. Cardiovascular: No deficits noted. Patient's skin is warm and dry. Respiratory: No deficits noted. Airway is patent Respiratory effort is even, unlabored, Respiratory pattern is regular, symmetrical. GI: No deficits noted. Abdomen is non-distended, Bowel sounds present X 4 quads. Abd is soft and non tender X 4 quads. : No deficits noted. No signs and/or symptoms were reported regarding the genitourinary system. EENT: No deficits noted. No signs and/or symptoms were reported regarding the EENT system. Derm: Wound noted plantar aspect of right first toe Wound is LT GREAT TOE EDEMA, WOUNF TO PLANTER LT GREAT TOE, SLOUGH PRESENT Denies pain. Musculoskeletal: No deficits noted. No signs and/or symptoms reported regarding the musculoskeletal system. Circulation, motion, and sensation intact. Range of motion: intact in all extremities. Vital Signs: 15:00 BP 162 / 88; Pulse 95; Resp 15; Temp 98.5; Pulse Ox 96% ; Pain 0/10; jl7 17:47 BP 129 / 86; Pulse 76; Resp 16; Pulse Ox 99% on R/A; dd2 19:35 BP 145 / 80; Pulse 81; Resp 16; Pulse Ox 98% on R/A; dd2 15:00 Pain Scale: Adult jl7 ED Course: 14:52 Patient arrived in ED. im 14:53 Roni Zurita MD is Attending Physician. rn 15:02 Triage completed. jl7 15:02 Arm band placed on right wrist. jl7 15:41 XRAY Foot LEFT 3 View In Process Unspecified. EDMS 16:18 Basic Metabolic Panel Sent. cc6 16:18 CBC with Diff Sent. cc6 16:18 Initial lab(s) drawn, by me, sent to lab. Inserted saline lock: 20 gauge in left cc6 forearm, using aseptic technique. Blood collected. Flushed with 10 mL NS. 16:43 Cristobal Llamas is Hospitalizing Provider. rn 17:47 Patient has correct armband on for positive identification. Bed in low position. Call dd2 light in reach. Side rails up X 1. Client placed on continuous cardiac and pulse oximetry monitoring. NIBP monitoring applied. Door closed. Noise minimized. Pillow given. Verbal reassurance given. 17:47 No provider procedures requiring assistance completed. Patient maintains SpO2 dd2 saturation greater than 95% on room air. 18:15 MARIA A DUMAS, RN is Primary Nurse. dd2 20:29 Provided Education on: admission instructions. dd2 20:29 Patient admitted, IV remains in place. dd2 Administered Medications: 18:16 Drug: vancoMYCIN IVPB 1 grams IVPB once over 2 hrs Route: IVPB; Infused Over: 2 hrs; dd2 Site: left hand; 20:15 Follow up: IV Status: Completed infusion; IV Intake: 250ml dd2 Medication: 17:47 VIS not applicable for this client. dd2 Intake: 20:15 IV: 250ml; Total: 250ml. dd2 Outcome: 16:45 Decision to Hospitalize by Provider. rn 20:35 Admitted to Med/surg accompanied by tech, via wheelchair, with chart, dd2 20:35 Condition: stable 20:35 Instructed on the need for admit, Demonstrated understanding of instructions, 20:35 Patient left the ED. dd2 Signatures: Dispatcher [employer] EDMS Roni Zurita MD MD rn Leal, Jahala, RN RN jl7 Lynda Middleton Cassandra cc6 MARIA A DUMAS, RN RN dd2
--- NOTE | 2024-09-26 16:45 | EDPHYS ---
Physician Documentation [facility] Name: Alex Rivas Age: 68 yrs Sex: Male : 1955 Arrival Date: 09/26/2024 Time: 14:50 Bed 6 Private MD: ED Physician Roni Zurita HPI: 09/26 15:38 This 68 yrs old Male presents to ER via Ambulatory with complaints of Wound rn Check - left big toe. 15:38 Patient presents to ED for recheck of: cellulitis. The affected area is on the left rn foot. 15:39 The patient presents with cellulitis of the left foot. Patient reports has been seeing rn Dr. Mcduffie for wound care, recently placed on antibiotics, unknown antibiotic for about 1 week, reports this morning his blister to the left great toe popped and is draining. No fever or chills. Reports increased swelling and redness to the left great toe. No systemic symptoms. Historical: - Allergies: 15:02 No Known Allergies; jl7 - PMHx: 15:02 Diabetes - NIDDM; Hypertension; jl7 - PSHx: 15:02 CABG; jl7 - Immunization history:: Adult Immunizations unknown. - Infectious Disease History:: Denies. - Social history:: Smoking status: Patient denies any tobacco usage or history of. - Family history:: not pertinent. - Hospitalizations: : No recent hospitalization is reported. ROS: 15:39 Constitutional: Negative for fever, chills, and weight loss, MS/Extremity: Positive for external relations director to the bottom of the left great toe with swelling and redness Exam: 15:39 Constitutional: This is a well developed, well nourished patient who is awake, alert, rn and in no acute distress. Cardiovascular: Regular rate and rhythm. No pulse deficits. Respiratory: No increased work of breathing, no retractions or nasal flaring. MS/ Extremity: Pulses equal, no cyanosis. Neurovascular intact. Plantar surface of left great toe with open ulceration, surrounding erythema and warmth, no purulence, ulceration is very superficial. Vital Signs: 15:00 BP 162 / 88; Pulse 95; Resp 15; Temp 98.5; Pulse Ox 96% ; Pain 0/10; jl7 17:47 BP 129 / 86; Pulse 76; Resp 16; Pulse Ox 99% on R/A; dd2 19:35 BP 145 / 80; Pulse 81; Resp 16; Pulse Ox 98% on R/A; dd2 15:00 Pain Scale: Adult jl7 MDM: 14:53 Medical Screening Exam initiated rn 16:39 Differential diagnosis: cellulitis, Osteomyelitis. Data reviewed: vital signs, nurses rn notes, radiologic studies, plain films, and as a result, I will admit patient. Consideration of Admission/Observation Patient was admitted/placed on observation. Escalation of care including admission/observation considered. Counseling: I had a detailed discussion with the patient and/or guardian regarding the historical points, exam findings, and any diagnostic results supporting the discharge/admit diagnosis, radiology results, the need for further work-up and treatment in the hospital. ED course: Patient with worsening symptoms despite being on oral antibiotics, has been on antibiotics at least a week and increased cellulitis as well as possible osteomyelitis on imaging. Failure of outpatient therapy. Will admit to hospitalist for IV antibiotics.. 09/26 15:03 Order name: CBC with Diff; Complete Time: 16:41 rn 09/26 15:03 Order name: Basic Metabolic Panel; Complete Time: 16:57 rn 09/26 16:41 Order name: Wound Culture rn 09/26 17:38 Order name: Basic Metabolic Panel EDMS 09/26 17:38 Order name: Basic Metabolic Panel EDMS 09/26 17:38 Order name: Basic Metabolic Panel EDMS 09/26 17:38 Order name: Basic Metabolic Panel EDMS 09/26 17:38 Order name: CBC with Automated Diff EDMS 09/26 17:38 Order name: CBC with Automated Diff EDMS 09/26 17:38 Order name: CBC with Automated Diff EDMS 09/26 17:38 Order name: CBC with Automated Diff EDMS 09/26 17:50 Order name: Hemoglobin A1c EDMS 09/26 17:50 Order name: Hemoglobin A1c EDMS 09/26 15:03 Order name: XRAY Foot LEFT 3 View; Complete Time: 16:28 rn 09/26 17:45 Order name: Foot Left Wo Cont EDMS 09/26 15:03 Order name: IV Start; Complete Time: 16:18 rn Administered Medications: 18:16 Drug: vancoMYCIN IVPB 1 grams IVPB once over 2 hrs Route: IVPB; Infused Over: 2 hrs; dd2 Site: left hand; 20:15 Follow up: IV Status: Completed infusion; IV Intake: 250ml dd2 Disposition Summary: 09/26/24 16:45 Hospitalization Ordered Notes: Hospitalization Status: Inpatient Admission rn Provider: Cristobal Llamas rn Condition: Stable rn Problem: new rn Symptoms: have worsened rn Bed/Room Type: Standard rn Location: Telemetry/MedSurg (Inpatient)(09/26/24 19:15) Room Assignment: [facility](09/26/24 19:15) Diagnosis - Cellulitis of left lower limb rn - Osteomyelitis, unspecified rn Forms: - Medication Reconciliation Form rn - SBAR form rn - Leadership Thank You Letter rn Signatures: Dispatcher [employer] EDMS Roni Zurita MD MD rn Blanchard, Shelby RN RN Mike Zapien FNP-C [id number] Meliza Cano RN RN jl7 Amber Alonso, RN RN melinda3 MARIA A DUMAS RN RN dd2 Corrections: (The following items were deleted from the chart) 18:37 16:45 Telemetry/MedSurg (Inpatient) rn kb3 18:37 16:45 rn kb3 19:15 18:37 [facility] ER HOLD kb3 ss 19:15 18:37 ERHOLD- kb3 ss
[2024-09-26 16:48] LABS: Anion Gap 10.3 mEq/L (5.0-15.0); Potassium 4.3 mEq/L (3.5-5.1)
[2024-09-26] MEDS ORDERED: ONDANSETRON 4 MG/2 ML VIAL IV PRN (17:32)
[2024-09-26] MEDS ORDERED: ACETAMINOPHEN 325 MG TABLET PO PRN (17:32)
[2024-09-26] MEDS ORDERED: VANCOMYCIN 1 GM in NA CHLORIDE 0.9% 250 ML IVPB SCH (17:35)
--- NOTE | 2024-09-26 17:48 | P.HP ---
Certification for Inpatient Patient admitted to: Inpatient With expected LOS: >2 Midnights Patient will require the following post-hospital care: None Practitioner: I am a practitioner with admitting privileges, knowledge of patient current condition, hospital course, and medical plan of care. Services: Services provided to patient in accordance with Admission requirements found in Title 42 Section 412.3 of the Code of Federal Regulations Patient History Date of Service: 09/26/24 Reason for admission: Osteomyelitis History of Present Illness: 68-year-old male with history of jxn-xcdrgjk-yaabkcijd diabetes, hypertension presents to the emergency department chief complaint of left great toe wound. He has been seeing Dr. Mcduffie the general surgeon and been on antibiotics for last 8 days but his wound has gotten worse and now there is surrounding erythema. Patient was evaluated in the emergency department his labs are significant for a white blood cell count of 11.1 glucose of 376 sodium 129 x-ray was performed of the left foot which showed destructive changes are seen involving the medial aspect of the distal phalanx of the great toe most compatible osteomyelitis. Case was discussed with general surgeryDrAbilio Mcduffie he will be out of town tomorrow and requested we consult Dr. Kidd. Dr. Kidd consulted. Allergies No Known Allergies Allergy (Verified 06/30/22 09:39) Home Medications: Atorvastatin Calcium [Lipitor] 80 mg PO DAILY 07/07/19 Empagliflozin [Jardiance] 10 mg PO DAILY 07/07/19 Losartan Potassium 50 mg PO DAILY 07/07/19 Silver Sulfadiazine Crm [Silvadene*] 1 appl TOP DAILY 07/07/19 Clopidogrel Bisulfate [Plavix*] 75 mg PO DAILY 06/16/22 Docusate Sodium 100 mg PO BID 06/16/22 Famotidine 20 mg PO BID 06/16/22 Ferrous Sulfate 325 mg PO BID 06/16/22 Alcohol Antiseptic Pads [Alcohol Prep Pads] 1 each TP DAILY #1 box 06/21/22 Blood Sugar Diagnostic [Blood Glucose Test Strip] 1 each MC DAILY #30 strip 06/21/22 Blood-Glucose Meter [Blood Glucose Monitoring] 1 each MC DAILY #1 kit 06/21/22 Hydrocodone 5/APAP 325 [[place] 5/325*] 1 tab PO Q6H PRN #12 tab 06/21/22 Insulin Glargine,Hum.rec.anlog [Lantus Solostar] 15 unit SQ DAILY #15 ml 06/21/22 Metformin HCl 500 mg PO BID #60 tab 06/21/22 Metoprolol Tartrate [Lopressor*] 25 mg PO BID #60 tab 06/21/22 Pen Needle, Diabetic [Insulin Pen Needle] 1 dis.ndl MC DAILY #30 dis.ndl 06/21/22 - Past Medical/Surgical History Diabetic: Yes -: Diabetes mellitus type 2insulin-dependent -: HTN -: CAD with prior CABG -: CABG August 2019 Psychosocial/ Personal History: 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, lives at home with his - Family History Father -: Diabetes Sister -: Cancer - Social History Alcohol use: No CD- Drugs: No Caffeine use: No Place of Residence: Home Review of Systems 10-point ROS is otherwise unremarkable Musculoskeletal: Foot Pain Integumentary: As per HPI Physical Examination - Physical Exam General: Alert, In no apparent distress, Oriented x3 HEENT: Atraumatic, PERRLA Neck: Supple, 2+ carotid pulse no bruit, No LAD Respiratory: Clear to auscultation bilaterally, Normal air movement Cardiovascular: Regular rate/rhythm, Normal S1 S2 Gastrointestinal: Normal bowel sounds, No tenderness Musculoskeletal: No tenderness Integumentary: Other (Wound to left great toe with surrounding erythema) Neurological: Normal gait, Normal speech, Normal strength at 5/5 x4 extr, Normal affect - Studies Laboratory Data (last 24 hrs) 09/26/24 09/26/24 16:15 16:15 WBC 11.10 H Hgb 13.3 L Hct 39.2 L Plt Count 246 Sodium 129 L Potassium 4.3 BUN 19 H Creatinine 1.10 Glucose 376 H Assessment and Plan - Plan Assessment: Diabetic foot wound left great toe with suspected osteomyelitis Diabetes mellitus type 7ouu-mmibfps-xcsrcirfd with hyperglycemia Hypertension Plan: Diabetic foot wound left great toe with suspected osteomyelitis X-ray concerning for osteomyelitis Case discussed with general surgery N.p.o. for midnight for possible debridement broad-spectrum antibiotics vancomycin/cefepime MRI ordered Diabetes mellitus type 0cth-pbpjppd-pqdouwags with hyperglycemia Diabetic diet ACHS Accu-Chek, sliding scale insulin Hypertension Continue home medications once verified DVT PPX: SCD Code status: Full Discharge Plan: Home Plan to discharge in: Greater than 2 days - Advance Directives Does patient have a Living Will: No Does patient have a Durable POA for Healthcare: No - Code Status/Comfort Care Code Status Assessed: Yes (Full code) Critical Care: No Time Spent Managing Pts Care (In Minutes): 64
[2024-09-26] MEDS: VANCOMYCIN 1 GM in NA CHLORIDE 0.9% 250 ML IVPB ONE (18:00)
[2024-09-26] MEDS ORDERED: NA CHLORIDE 0.9% 250 ML ONE (18:05)
[2024-09-26] MEDS ORDERED: VANCOMYCIN 1 GM/VIAL ONE (18:05)
[2024-09-26] MEDS: INSULIN REGULAR (HUMAN) 100 UNIT/ML SQ SCH (20:52)
[2024-09-26] MEDS: CEFEPIME 2 GM in NA CHLORIDE 0.9% 100 ML IV SCH (20:52)
[2024-09-26 21:45] VITALS: BMI 26.4
[2024-09-26] MEDS: NA CHLORIDE 0.9% 1,000 ML IV SCH (22:22)
[2024-09-26] MEDS: VANCOMYCIN 500 MG in NA CHLORIDE 0.9% 100 ML IVPB ONE (22:22)
[2024-09-27 05:08] LABS: Absolute Basophils 0.1 K/uL (0-0.5); Absolute Eosinophils 0.1 K/uL (0-0.5); Absolute Lymphocytes (CBC) 2.3 K/uL (0.7-4.9); Absolute Monocytes 1.2 K/uL (0.1-1.3); Absolute Neutrophil 4.9 K/uL (1.8-8.0); Basophils % 0.7 % (0-1.3); Eosinophils % 1.2 % (0-4.4); Hematocrit 35.7 % (39.6-49.0); Hemoglobin 12.3 g/dL (13.6-17.9); Lymphocytes % 26.5 % (15.3-44.8); MCH 29.9 pg (27.0-35.0); MCHC 34.4 g/dL (32.0-36.0); MPV 8.8 fL (7.6-11.3); Monocytes % 14.3 % (3.3-12.3); Neutrophils % 57.3 % (41.7-73.7); Platelets 222 thou/uL (152-406); RBC Red Blood Cell Count 4.11 M/uL (4.33-5.43); Red Cell Distribution Width 12.7 % (12.1-15.2)
[2024-09-27 05:27] LABS: Anion Gap 11.2 mEq/L (5.0-15.0); Potassium 4.2 mEq/L (3.5-5.1)
[2024-09-27] MEDS: PNEUMOCOCCAL VACCINE 0.5 ML IMVAC ONE (08:00)
[2024-09-27] MEDS: INSULIN REGULAR (HUMAN) 100 UNIT/ML SQ ONE (09:49)
--- NOTE | 2024-09-27 10:00 | RAD REPORT ---
EXAM: Foot Left Wo Cont HISTORY: eval for osteo COMPARISON: Yesterday's radiograph, MRI 08/17/2022 TECHNIQUE: Multiplanar multisequence MR images were obtained of the imaged foot without contrast. FINDINGS: Cortical destruction at the great toe distal phalanx with abnormal T2 edema and T1 low signal intensi ty consistent with osteomyelitis of the great toe distal phalanx. An overlying ulcer is present. There is also edema involving the mid and distal portions of the great toe proximal phalanx with slig ht T1 hypointensity. No fracture line is seen. This is nonspecific but could reflect changes of early osteomyelitis. No acute fractures seen. No other areas of bone destruction or significant malal ignment identified. IMPRESSION: Great toe distal phalanx osteomyelitis. Mild edema at the great toe proximal phalanx and slight T1 hypointensity at the mid and distal portio n of the proximal first phalanx could represent either reactive hyperemia or early osteomyelitis as well.
--- NOTE | 2024-09-27 10:33 | P.PN ---
Date of Service: 09/27/24 Subjective: No acute events overnight Seen by general surgery who states patient does not need surgical debridement at this time MRI performed, results pending Continue antibiotics ROS: 10 point ROS as noted above, otherwise negative Physical exam GEN: Alert, oriented, NAD HEENT: Normal conjunctiva, sclera anicteric CV: Regular rate and rhythm, no edema Pulm: Nonlabored respirations on room air ABD: Soft, nontender, nondistended MSK: No joint tenderness Integumentary: Wound to left great toe with dressing in place Neuro: Normal speech, normal affect Vitals reviewed Assessment: Diabetic foot wound left great toe with suspected osteomyelitis Diabetes mellitus type 2rhs-ggxigpq-neiwieckz with hyperglycemia Hypertension Plan: Diabetic foot wound left great toe with suspected osteomyelitis X-ray concerning for osteomyelitis Case discussed with general surgery broad-spectrum antibiotics vancomycin/cefepime MRI ordered-results pending Diabetes mellitus type 0wan-gtacaeh-jigjgiyvt with hyperglycemia Diabetic diet A1c greater than 14 Will start long-acting insulin and sliding scale ACHS Accu-Chek, sliding scale insulin Hypertension Continue home medications once verified DVT PPX: Lovenox Code status: Full Discharge Plan: Home Plan to discharge in: Greater than 2 days Time Spent Managing Pts Care (In Minutes): 35
[2024-09-27] MEDS: COLLAGENASE 30 GM OINTMENT TOP SCH (12:00)
[2024-09-27] MEDS: VANCOMYCIN 1.5 GM in NA CHLORIDE 0.9% 500 ML IVPB SCH (12:41)
--- NOTE | 2024-09-27 15:19 | P.CNS ---
Date of Consult: 09/27/24 Reason for consult: diabetic foot wound with OM to left great toe History of Present Illness: 68-year-old male with history of gpf-dmtkoup-wdislsqxq diabetes, hypertension presents to the emergency department for worsening diabetic foot wound. He has been seeing Dr. Mcduffie the general surgeon and been on antibiotics for last 8 days but report his wound has gotten worse with erythema. Foot MRI shows Great toe distal phalanx osteomyelitis. Mild edema at the great toe proximal phalanx and slight T1 hypointensity at the mid and distal portion of the proximal first phalanx could represent either reactive hyperemia or early osteomyelitis as well. Pt is currently being treated with Cefepime and Vancomycin Allergies No Known Allergies Allergy (Verified 06/30/22 09:39) Current Medications Acetaminophen (Acetaminophen 325 Mg Tablet) 650 mg PO Q4HP PRN PRN Reason: Pain scale 2-4 (Mild) Aspirin (Aspirin 81 Mg Chewable Tablet) 81 mg PO DAILY [facility] Atorvastatin Calcium (Atorvastatin 80 Mg Tab) 80 mg PO BEDTIME [facility] Clopidogrel Bisulfate (Clopidogrel 75 Mg Tablet) 75 mg PO DAILY [facility] Collagenase (Collagenase 30 Gm Ointment) 1 appl TOP DAILY [facility] Last Admin: 09/27/24 12:00 Dose: 1 appl Sodium Chloride (Ns 1000 Ml Ivbag) 1,000 mls @ 100 mls/hr IV .Q10H [facility] Last Admin: 09/27/24 10:56 Dose: 1,000 mls Cefepime HCl 2 gm/ Sodium (Chloride) 100 mls @ 200 mls/hr IV Q12HR [facility]; Protocol Last Admin: 09/27/24 09:06 Dose: 100 mls Vancomycin HCl 1.5 gm/ Sodium (Chloride) 500 mls @ 250 mls/hr IVPB Q18H [facility] Last Admin: 09/27/24 12:41 Dose: 500 mls Insulin Glargine (Insulin Glargine 100 Unit/Ml) 15 unit SQ BID [facility] Insulin Human Regular (Insulin Regular (Human) 100 Unit/Ml) 0 unit SQ ACHS [facility]; Protocol Last Admin: 09/27/24 12:13 Dose: 9 unit Losartan Potassium (Losartan Potassium 50 Mg Tablet) 25 mg PO DAILY [facility] Metoprolol Tartrate (Metoprolol Tar 25 Mg Tab) 12.5 mg PO DAILY [facility] Mupirocin (Mupirocin Nasal 2 Appl/1 Gm Tube) 1 appl EMERALD BID [facility] Stop: 10/02/24 09:01 Ondansetron HCl (Ondansetron 4 Mg/2 Ml Vial) 4 mg IV Q6HP PRN PRN Reason: NAUSEA / VOMITING - Past Medical/Surgical History Diabetic: Yes -: Diabetes mellitus type 2insulin-dependent -: HTN -: CAD with prior CABG -: CABG August 2019 Psychosocial/ Personal History: 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, 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 at home with his - Family History Father -: Diabetes Sister -: Cancer - Social History Alcohol use: No CD- Drugs: No Caffeine use: No Place of Residence: Home Review of Systems 10-point ROS is otherwise unremarkable Musculoskeletal: Foot Pain Integumentary: As per HPI Physical Examination - Physical Exam General: Alert, In no apparent distress, Oriented x3 HEENT: Atraumatic, PERRLA Neck: Supple, 2+ carotid pulse no bruit, No LAD Respiratory: CTA Cardiovascular: RRR Gastrointestinal: BS present, NT, ND Integumentary: Other (Wound to left great toe with surrounding erythema) Neurological: Normal gait, Normal speech, Normal strength at 5/5 x4 extr, Normal affect - Studies Laboratory Data (last 24 hrs) WBC 8.6, Hgb 12.3,Platelet 222, BUN 18, cr 0.99 Laboratory Results WBC 11.10 thou/uL (4.3-10.9) H 09/26/24 16:15 RBC 4.49 M/uL (4.33-5.43) 09/26/24 16:15 Hgb 13.3 g/dL (13.6-17.9) L 09/26/24 16:15 Hct 39.2 % (39.6-49.0) L 09/26/24 16:15 MCV 87.3 fL (80-100) 09/26/24 16:15 MCH 29.7 pg (27.0-35.0) 09/26/24 16:15 MCHC 34.0 g/dL (32.0-36.0) 09/26/24 16:15 RDW 12.8 % (12.1-15.2) 09/26/24 16:15 Plt Count 246 thou/uL (152-406) 09/26/24 16:15 MPV 8.8 fL (7.6-11.3) 09/26/24 16:15 Neutrophils % 71.7 % (41.7-73.7) 09/26/24 16:15 Lymphocytes % 16.0 % (15.3-44.8) 09/26/24 16:15 Monocytes % 11.4 % (3.3-12.3) 09/26/24 16:15 Eosinophils % 0.3 % (0-4.4) 09/26/24 16:15 Basophils % 0.6 % (0-1.3) 09/26/24 16:15 Absolute Neutrophils 8.0 K/uL (1.8-8.0) 09/26/24 16:15 Absolute Lymphocytes 1.8 K/uL (0.7-4.9) 09/26/24 16:15 Absolute Monocytes 1.3 K/uL (0.1-1.3) 09/26/24 16:15 Absolute Eosinophils 0.0 K/uL (0-0.5) 09/26/24 16:15 Absolute Basophils 0.1 K/uL (0-0.5) 09/26/24 16:15 Sodium 129 mEq/L (136-145) L 09/26/24 16:15 Potassium 4.3 mEq/L (3.5-5.1) 09/26/24 16:15 Chloride 96 mEq/L (98-107) L 09/26/24 16:15 Carbon Dioxide 27 mEq/L (21-32) 09/26/24 16:15 Anion Gap 10.3 mEq/L (5.0-15.0) 09/26/24 16:15 BUN 19 mg/dL (7-18) H 09/26/24 16:15 Creatinine 1.10 mg/dL (0.70-1.30) 09/26/24 16:15 Est GFR (CKD-EPI) 74 ml/min (=/>90) L 09/26/24 16:15 Glucose 376 mg/dL (74-106) H 09/26/24 16:15 Calcium 9.2 mg/dL (8.5-10.1) 09/26/24 16:15 Assessment and Plan Diabetic foot wound with OM to left great toe continue broad-spectrum antibiotics vancomycin/cefepime Pt will need 6 weeks of abx. tentative stop date november 07 pending wound culture continue wound care support monitor wbc and fever trend will continue to see patient as needed Diabetes mellitus type 3qrs-zjfrpfo-uxxhylvln with hyperglycemia Diabetic diet ACHS Accu-Chek, sliding scale insulin Hypertension losartan and metoprolol Thank you for consult case discussed with dr Hartman
--- NOTE | 2024-09-27 18:37 | RAD REPORT ---
Procedure: Chest Single View HISTORY: PICC line placement FINDINGS: PICC line has been placed into the SVC
--- NOTE | 2024-09-27 19:46 | CON ---
Date of Consultation: 09/27/2024 Diagnosis: Left toe open wound. History Of Present Illness: This is the case of a 68-year-old patient, who [facility] and maybe [facility] by Dr. Mcduffie, he is out of town this week, so they a sked me to take a look at the patient. [facility]. The wounds were clean, no need for debridement, but he noticed in the last 3 days of tenderness and redness sin ce he has an open wound in that area. He comes to the ER, diagnosed with cellulitis, and a surgical consult was obtained. He denies any trauma, any new changes, any dysuria, hematuria, hematochezia, m breanna, any recent traveling out of the country, any family member sick at home, any shortness of irene th, any chest pain, or any fever. Review of Systems: Ten points otherwise unremarkable. Allergies: NONE. Medications: Include collagenase Santyl for the wound, cefepime, vancomycin, insulin, losartan, meto prolol. Past Medical History: Diabetes, hypertension, coronary artery disease. Past Surgical History: Surgeries include CABG. Family History: Diabetes. Social History: He does not smoke. He does drink alcohol. Physical Examination: Vital Signs: Reviewed. General: The patient is awake, alert. No distress. Oriented x3. HEENT: Pupils are equal and reactive. Anicteric. Neck: Supple. Chest: Clear. Heart: S1, S2. Abdomen: Soft and depressible. No guarding or rebound. Integumentary: Shows an open wound over the left great toe area. Mild erythema, but no fluctuance s een. No crepitus. The wound is clean. No purulent discharge. No cyanosis. Dorsalis pedis pulses diminished, but was still present. Laboratory Data: MRI shows great toe distal phalanx osteomyelitis. X-ray confirmed that. WBC count 7.10, hemoglobin 13.3, potassium 4.3, glucose 401. Assessment: A 68-year-old patient with nonhealing wound over the toe, osteomyelitis present. The pa tient is on antibiotics. Re-evaluation for IV antibiotics for the treatment in process. In the mean time, we are going to continue with Santyl. HM/MODL Voice ID: [id number] Report ID: [id number]
[2024-09-27] MEDS: ATORVASTATIN 80 MG TAB PO SCH (20:13)
[2024-09-27] MEDS: Mupirocin NASAL 2 APPL/1 GM TUBE NAS SCH (20:13)
[2024-09-27] MEDS: INSULIN GLARGINE 100 UNIT/ML SQ SCH (20:14)
[2024-09-27] MEDS ORDERED: INSULIN GLARGINE 100 UNIT/ML SQ SCH (21:00)
[2024-09-28 06:04] LABS: Absolute Eosinophils 0.1 K/uL (0-0.5); Absolute Lymphocytes (CBC) 2.5 K/uL (0.7-4.9); Absolute Monocytes 0.9 K/uL (0.1-1.3); Basophils % 0.5 % (0-1.3); Eosinophils % 1.7 % (0-4.4); Hematocrit 33.2 % (39.6-49.0); Hemoglobin 11.3 g/dL (13.6-17.9); MCH 29.8 pg (27.0-35.0); MCHC 34.2 g/dL (32.0-36.0); MPV 8.1 fL (7.6-11.3); Monocytes % 14.4 % (3.3-12.3); Neutrophils % 45.4 % (41.7-73.7); Nucleated Red Blood Cells % 0.1 % (0-0); Platelets 234 thou/uL (152-406); RBC Red Blood Cell Count 3.81 M/uL (4.33-5.43); Red Cell Distribution Width 12.7 % (12.1-15.2)
[2024-09-28 06:19] LABS: Anion Gap 10.3 mEq/L (5.0-15.0); Potassium 4.3 mEq/L (3.5-5.1)
[2024-09-28] MEDS: LOSARTAN POTASSIUM 50 MG TABLET PO SCH (08:31)
[2024-09-28] MEDS: METOPROLOL TAR 25 MG TAB PO SCH (08:31)
[2024-09-28] MEDS: ASPIRIN 81 MG CHEWABLE TABLET PO SCH (08:32)
[2024-09-28] MEDS: CLOPIDOGREL 75 MG TABLET PO SCH (08:32)
[2024-09-28] MEDS ORDERED: HOME MED 1 EA UNK (Losartan Potassium [Losartan Potassium] 25 MG Tablet) PO SCH (09:00)
--- NOTE | 2024-09-28 09:52 | P.PN ---
Date of Service: 09/28/24 Subjective: PICC line in place No complaints today No acute events overnight ROS: 10 point ROS as noted above, otherwise negative Physical exam GEN: Alert, oriented, NAD HEENT: Normal conjunctiva, sclera anicteric CV: Regular rate and rhythm, no edema Pulm: Nonlabored respirations on room air ABD: Soft, nontender, nondistended MSK: No joint tenderness Integumentary: Wound to left great toe with dressing in place Neuro: Normal speech, normal affect Vitals reviewed Assessment: Diabetic foot wound left great toe with osteomyelitis Diabetes mellitus type 6yxs-hbqenrh-smywntjbw with hyperglycemia Hypertension Plan: Diabetic foot wound left great toe with osteomyelitis X-ray concerning for osteomyelitis MRI positive for osteomyelitis PICC line in place, arranging for home IV antibiotics General Surgery following, no need for debridement now Diabetes mellitus type 3fbb-xjxjrbk-satumjnga with hyperglycemia Diabetic diet A1c greater than 14 Will start long-acting insulin and sliding scale ACHS Accu-Chek, sliding scale insulin Titrating long-acting insulin Hypertension Continue home medications once verified DVT PPX: Lovenox Code status: Full Discharge Plan: Home Plan to discharge in: Greater than 2 days Time Spent Managing Pts Care (In Minutes): 35
--- NOTE | 2024-09-28 13:55 | PN ---
Date of Progress Note: 09/28/2024 Subjective: The patient is doing well. The leg redness is improved. The foot redness is improved. The toe ulcer looks clean with no fluctuance, no necrotic tissue. Plan: Continue service per primary doctors. May discharge home, whenever they believe is needed. F rom the surgical standpoint, he is cleared, just follow up [facility] when he gets discharged. YANNI/HERNANDEZ Voice ID: [id number] Report ID: [id number]
[2024-09-28] MEDS: INSULIN GLARGINE 100 UNIT/ML SQ SCH (21:46)
[2024-09-28 23:08] VITALS: O2SAT 99
[2024-09-29 06:15] LABS: Absolute Eosinophils 0.2 K/uL (0-0.5); Absolute Lymphocytes (CBC) 2.2 K/uL (0.7-4.9); Absolute Monocytes 0.8 K/uL (0.1-1.3); Absolute Neutrophil 3.9 K/uL (1.8-8.0); Basophils % 0.7 % (0-1.3); Eosinophils % 2.1 % (0-4.4); Hematocrit 34.5 % (39.6-49.0); Hemoglobin 11.9 g/dL (13.6-17.9); Lymphocytes % 31.1 % (15.3-44.8); MCH 29.8 pg (27.0-35.0); MCHC 34.3 g/dL (32.0-36.0); MCV 86.9 fL (80-100); MPV 8.6 fL (7.6-11.3); Neutrophils % 55.1 % (41.7-73.7); Nucleated Red Blood Cells % 0.1 % (0-0); Platelets 251 thou/uL (152-406); RBC Red Blood Cell Count 3.98 M/uL (4.33-5.43); Red Cell Distribution Width 12.7 % (12.1-15.2)
[2024-09-29 06:37] LABS: Anion Gap 6.1 mEq/L (5.0-15.0); Potassium 4.1 mEq/L (3.5-5.1)
--- NOTE | 2024-09-29 09:59 | P.PN ---
Date of Service: 09/29/24 Subjective: PICC line in place Blood sugars improved No complaints overnight ROS: 10 point ROS as noted above, otherwise negative Physical exam GEN: Alert, oriented, NAD HEENT: Normal conjunctiva, sclera anicteric CV: Regular rate and rhythm, no edema Pulm: Nonlabored respirations on room air ABD: Soft, nontender, nondistended MSK: No joint tenderness Integumentary: Wound to left great toe with dressing in place Neuro: Normal speech, normal affect Vitals reviewed Assessment: Diabetic foot wound left great toe with osteomyelitis Diabetes mellitus type 1fbp-qgszxxg-idelchpos with hyperglycemia Hypertension Plan: Diabetic foot wound left great toe with osteomyelitis X-ray concerning for osteomyelitis MRI positive for osteomyelitis PICC line in place, arranging for home IV antibiotics General Surgery following, no need for debridement now Diabetes mellitus type 7znn-cbhnwuw-mmughgswe with hyperglycemia Diabetic diet A1c greater than 14 Tolerating Semglee 20 units twice daily with good result so far ACHS Accu-Chek, sliding scale insulin Hypertension Continue home medications once verified DVT PPX: Lovenox Code status: Full Discharge Plan: Home Plan to discharge in: Greater than 2 days Time Spent Managing Pts Care (In Minutes): 35
[2024-09-29] MEDS: VANCOMYCIN 1.75 GM in NA CHLORIDE 0.9% 500 ML IVPB SCH (17:42)
[2024-09-30 12:07] VITALS: TEMP 98
--- NOTE | 2024-09-30 15:40 | P.PN ---
Date of Service: 09/30/24 Subjective: PICC line in place Blood sugars improved No complaints overnight Attempting to set up IV antibiotics outpatient ROS: 10 point ROS as noted above, otherwise negative Physical exam GEN: Alert, oriented, NAD HEENT: Normal conjunctiva, sclera anicteric CV: Regular rate and rhythm, no edema Pulm: Nonlabored respirations on room air ABD: Soft, nontender, nondistended MSK: No joint tenderness Integumentary: Wound to left great toe with dressing in place Neuro: Normal speech, normal affect Vitals reviewed Assessment: Diabetic foot wound left great toe with osteomyelitis Diabetes mellitus type [id number]-[id number] with hyperglycemia Hypertension Plan: Diabetic foot wound left great toe with osteomyelitis X-ray concerning for osteomyelitis MRI positive for osteomyelitis PICC line in place, arranging for home IV antibiotics General Surgery following, no need for debridement now Diabetes mellitus type 6rsz-babqudt-xhhuftarh with hyperglycemia Diabetic diet A1c greater than 14 Tolerating Semglee 20 units twice daily with good result so far Prescription sent to pharmacy for Toujeo 20 units twice daily Further adjustment through primary care doctor ACHS Accu-Chek, sliding scale insulin Hypertension Continue home medications once verified DVT PPX: Lovenox Code status: Full Discharge Plan: Home Plan to discharge in: Greater than 2 days Time Spent Managing Pts Care (In Minutes): 35
--- NOTE | 2024-09-30 15:46 | P.PN ---
Date of Service: 09/30/24 Subjective 10 point ROS reviewed and negative. pt denied pain, NVD. Denied problem with abx Physical Examination - Physical Exam General: Alert, In no apparent distress, Oriented x3 HEENT: Atraumatic, PERRLA Neck: Supple, 2+ carotid pulse no bruit, No LAD Respiratory: CTA Cardiovascular: RRR Gastrointestinal: BS present, NT, ND Integumentary: Other (Wound to left great toe with surrounding erythema) dressing intact Neurological: Normal gait, Normal speech, Normal strength at 5/5 x4 extr, Normal affect - Studies Laboratory Data WBC 7.1, Hgb 11.9,Platelet 251, BUN 16, cr 0.83 Assessment and Plan Diabetic foot wound with OM to left great toe continue broad-spectrum antibiotics vancomycin/cefepime Pt will need 6 weeks of abx. tentative stop date november 07 pending wound culture continue wound care support monitor wbc and fever trend will continue to see patient as needed Diabetes mellitus type [id number]-[id number]-nfplttxaz with hyperglycemia Diabetic diet ACHS Accu-Chek, sliding scale insulin Hypertension losartan and metoprolol case discussed with dr Hartman
--- NOTE | 2024-09-30 15:55 | P.DS ---
Admission Date: 09/26/24 Discharge Date: 09/30/24 Disposition: DC HOME/HOME HEALTH CARE Discharge Condition: GOOD Reason for Admission: Osteomyelitis Brief History of Present Illness: 68-year-old male with history of ajy-qwnloov-kfrqnbwhm diabetes, hypertension presents to the emergency department chief complaint of left great toe wound. He has been seeing Dr. Mcduffie the general surgeon and been on antibiotics for last 8 days but his wound has gotten worse and now there is surrounding erythema. Patient was evaluated in the emergency department his labs are significant for a white blood cell count of 11.1 glucose of 376 sodium 129 x-ray was performed of the left foot which showed destructive changes are seen involving the medial aspect of the distal phalanx of the great toe most compatible osteomyelitis. Case was discussed with general surgeryDr. Mcduffie he will be out of town tomorrow and requested we consult Dr. Kidd. Dr. Kidd consulted. Hospital Course: Assessment: Diabetic foot wound left great toe with osteomyelitis Diabetes mellitus type 4gjx-rziseah-fbqycyiso with hyperglycemia Hypertension Patient was admitted for osteomyelitis of his left great toe. He was seen a general surgery who determined there is no need for surgical debridement at this time. He will need 6 weeks of IV antibiotics, PICC line has been inserted and he is to receive 6 weeks of IV vancomycin and cefepime. Blood sugar was very elevated on admission A1c was checked and it was greater than 14. Patient has been without insurance for some time but he now does have healthcare insurance. We initiated long-acting insulin and titrated to effect, he seems to be tolerating 20 units of long-acting insulinSemglee twice daily. At discharge he will be provided a prescription for long-acting insulin 20 units twice daily. He will need to follow-up with his primary care doctor for further titration of his insulin as well as monitoring his other chronic conditions. Vital Signs/Physical Exam: Temp Pulse Resp BP Pulse Ox 98 F 59 16 132/71 99 09/30/24 12:00 09/30/24 12:00 09/30/24 12:00 09/30/24 12:09/30/24 12:00 General: Alert, In no apparent distress, Oriented x3 HEENT: Atraumatic, PERRLA Neck: Supple, JVD not distended Respiratory: Clear to auscultation bilaterally, Normal air movement Cardiovascular: Regular rate/rhythm, Normal S1 S2 Gastrointestinal: Normal bowel sounds, No tenderness Musculoskeletal: No tenderness Integumentary: Erythema, Warmth (Left great toe with ulceration present at the distal end) Neurological: Normal speech Laboratory Data at Discharge: WBC 7.10 thou/uL (4.3-10.9) 09/29/24 06:00 Hgb 11.9 g/dL (13.6-17.9) L 09/29/24 06:00 Hct 34.5 % (39.6-49.0) L 09/29/24 06:00 Plt Count 251 thou/uL (152-406) 09/29/24 06:00 Sodium 135 mEq/L (136-145) L 09/29/24 06:00 Potassium 4.1 mEq/L (3.5-5.1) 09/29/24 06:00 BUN 16 mg/dL (7-18) 09/29/24 06:00 Creatinine 0.83 mg/dL (0.70-1.30) 09/29/24 06:00 Glucose 236 mg/dL (74-106) H 09/29/24 06:00 Home Medications: Atorvastatin Calcium [Lipitor] 80 mg PO DAILY 07/07/19 Losartan Potassium 25 mg PO DAILY 07/07/19 Clopidogrel Bisulfate [Plavix*] 75 mg PO DAILY 06/16/22 Hydrocodone 5/APAP 325 [Pomerene 5/325*] 1 tab PO Q6H PRN #12 tab 06/21/22 Aspirin 81 mg PO DAILY 09/26/24 Metoprolol Tartrate [Lopressor*] 12.5 mg PO DAILY 09/26/24 Collagenase [Santyl Ointment*] 1 appl TOP DAILY gm 09/30/24 Insulin Glargine,Hum.rec.anlog [Toujeo Solostar] 20 unit SQ BID #15 ml 09/30/24 New Medications: Insulin Glargine,Hum.rec.anlog [Toujeo Solostar] 20 unit SQ BID #15 ml Physician Discharge Instructions: Patient was admitted for osteomyelitis of his left great toe. He was seen a general surgery who determined there is no need for surgical debridement at this time. He will need 6 weeks of IV antibiotics, PICC line has been inserted and he is to receive 6 weeks of IV vancomycin and cefepime. Blood sugar was very elevated on admission A1c was checked and it was greater than 14. Patient has been without insurance for some time but he now does have healthcare insurance. We initiated long-acting insulin and titrated to effect, he seems to be tolerating 20 units of long-acting insulinSemglee twice daily. At discharge he will be provided a prescription for long-acting insulin 20 units twice daily. He will need to follow-up with his primary care doctor for further titration of his insulin as well as monitoring his other chronic conditions. Diet: ADA Activity: Ad yayo Followup: NONE,NONE [Primary Care Provider] - 1 Week Alexander Mcduffie MD [ACTIVE - CAN ADMIT] - 2-3 Days Time spent managing pt's care (in minutes): 48
[2024-09-30 17:36] VITALS: BP 152/75
[2024-09-30] MEDS: WATER FOR INJ,STERILE 10 ML IV SCH (19:07)
[2024-09-30] MEDS: ALTEPLASE 2 MG/VIAL IV SCH (19:08)
== END 2024-09-30 21:51 | disposition home health service (06) | DRG 638 ==
LOC: ER 14:50 → 4TH 17:31
PROVIDERS: ADMIT Internal Medicine; ATTEND Internal Medicine
PROC: 02HV33Z Insertion of Infusion Device into Superior Vena Cava, Percutaneous Approach (ICD-10-PCS; principal; 2024-09-27)
DX: E11.69 Type 2 diabetes mellitus with other specified complication (principal); L03.116 Cellulitis of left lower limb; M86.172 Other acute osteomyelitis, left ankle and foot; E11.65 Type 2 diabetes mellitus with hyperglycemia; I10 Essential (primary) hypertension; I25.10 Atherosclerotic heart disease of native coronary artery without angina pectoris; Z95.1 Presence of aortocoronary bypass graft; Z79.4 Long term (current) use of insulin; Z79.84 Long term (current) use of oral hypoglycemic drugs; Z79.02 Long term (current) use of antithrombotics/antiplatelets; Z79.82 Long term (current) use of aspirin; Z79.899 Other long term (current) drug therapy
CPT/HCPCS: 36415; 36569; 71045; 80048; 80202; 82947; 83036; 85025; 96365; 96366; 99213; 99285; J0692; J1815; J2997; J3370; J3590; J7030; J7040; J7050

== ENCOUNTER 2024-10-06 11:36 | Emergency (ER) | payer OTHER ==
--- OUTSIDE RECORDS SUMMARY | 2024-10-06 11:43 | XMS REPORT | Continuity of Care Document ---
Author Name Unknown Address [address] [facility] [address] [place] [address] [facility] Address [address] [facility] [address] [place] [address] Care Team Providers Care Dryland Farmer Name Role Phone Unknown, Physician Primary Care Physician TALI Roberson Attending Clinician Unavailable VALERIE CORNELL Attending Clinician Unavailable SETH RESENDIZ Attending Clinician Unavailable Prakash Gómez Attending Clinician UnavailiDlan Abraham Attending Clinician Unavailable Louis Clifton MD Attending Clinician [phone] Antonia Bailey LVN Attending Clinician UnavailKeagan Gracia MD Attending Clinician [phone] Jasiel Galindo MD Attending Clinician [phone] Prakash Gómez Admitting Clinician Unavailroscoe jordan Physician, No Primary or Family Admitting Clinic courtney Unavailable Payers Payer Name Policy Type Policy Number Effective Date Expirati on Date Source AET[employer] CHOICE POS II [id number] 2000 00:00:00 Problems Condition Name Condition Details Condition Category Status Onset Date Resolution Date Last Treatment Date Treating Clinician Comments Source Elevated lipoprotei n(a) Elevated lipoprotei n(a) Disease Active 08-16 00:00: 00 Overview: Formattin g of this note might be different from the original. Lp(a) ( 2): 50 [facility] CAD (coronary artery disease) CAD (coronary artery [...] 58% at rest and 56% at stress. [facility] Chronic systolic heart failure Chronic systolic heart failure Disease Active - 00:00: 00 Overview: Formattin g of this note might be different from the original. TTE ( 2): LVEF 45-50%, normal LA size, no valvular heart disease, normal RVSP.On Losartan. Cannot tolerate betablock er due to bradycard ia.May need to screen for ischemia in the setting of poorly controlle d type 2 diabetes. [facility] Monsalve's palsy Monsalve's palsy Disease Active - 00:00: 00 [facility] Arrhythmia Arrhythmia Disease Active - 00:00: 00 [...] another opinion after being contacted by EP. [facility] Erectile dysfunctio n Erectile dysfunctio n Disease Active 06-18 00:00: 00 [facility] Peripheral neuropathy Peripheral neuropathy Disease Active 06-18 00:00: 00 [facility] Diabetes mellitus type II, non insulin dependent [...] increased dose of Metformin in July 2021. [facility] Essential hypertensi on Essential hypertensi on Disease Active 06-16 00:00: 00 Overview: Formattin g of this note might be different from the original. Previousl y on Losartan 25 mg daily and increased to 50 mg on 07/12/2021 due to the TTE showing an LVEF 45-50%. [facility] Hyperlipid emia Hyperlipid emia Disease Active 06-16 00:00: 00 Overview: Formattin g of this note might be different from the original. 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 of [...] s DA Active U 09-04 00:00: 00 [facility] Social History Social Habit Start Date Stop Date Quantity Comments Source History SDOH Alcohol Std Drinks [facility] History SDOH Alcohol Binge [facility] History SDOH Alcohol Comment [facility] Exposure to SARS-CoV-2 (event) Not sure [facility] Alcohol intake 2021-10-26 00:00:00 2021-10-26 00:00:00 Lifetime non-drinker (finding) [facility] Tobacco use and exposure 2021-07-29 00:00:00 [...] 100 UNIT/ML injection 09-09 00:00: 00 Yes [id number] Inject 7 units under the skin up to three times daily plus insulin sliding scale (1:50>150) for max 33 units per day [facility] atorvastati n (Lipitor) 80 MG tablet 09-09 00:00: 00 09-10 04:59 :00 No [id number] 80mg QD Take 1 tablet (80 mg total) by mouth 1 (one) time each day. [facility] semaglutide (Ozempic) 2 MG/1.5ML solution pen-injecto r 09-09 00:00: 00 09-10 04:59 :00 No [id number] 1mg Inject 1 mg under the skin 1 (one) time per week. [facility] insulin degludec (Tresiba FlexTouch) 100 UNIT/ML injection 09-09 00:00: 00 09-10 04:59 :00 No [id number] 20U Inject 20 Units under the skin 1 (one) time each day in the morning. [facility] insulin lispro (HumaLOG) 100 UNIT/ML injection 09-09 00:00: 00 09-09 00:00 :00 No [id number] Inject 7 units under the skin up to three times daily plus insulin sliding scale (1:50>150) for max 33 units per day [facility] Aspirin 81 MG capsule 08-30 09:15: 02 Yes QD Take by mouth 1 (one) time each day. [facility] Aspirin 81 MG capsule 08-16 08:01: 04 Yes QD Take by mouth 1 (one) time each day. [facility] dapaglifloz in (Farxiga) 10 MG - 00:00: 00 07-30 05:59 :00 No [id number] 10mg QD Take 1 tablet (10 mg total) by mouth 1 (one) time each day. [facility] metFORMIN (Glucophage ) 1000 MG tablet - 00:00: 00 07-30 05:59 :00 No [id number] 1000mg Take 1 tablet (1,000 mg total) by mouth 2 (two) times a day with meals. [facility] semaglutide (Ozempic) 2 MG/1.5ML solution pen-injecto r 07-29 00:00: 00 09-09 00:00 :00 No [id number] Inject 0.25 mg once weekly for 4 weeks, then increase to 0.5 mg once weekly after that [facility] rivaroxaban (Xarelto) 20 MG tablet 07-27 00:00: 00 07-28 05:59 :00 No [id number] 20mg Take 1 tablet (20 mg total) by mouth 1 (one) time each day with dinner. Take with food. [facility] tadalafil (Cialis) 5 MG tablet 07-26 00:00: 00 Yes [id number] 5mg QD Take 1 tablet (5 mg total) by mouth 1 (one) time each day. [facility] apixaban (Eliquis) 5 MG tablet 07-26 00:00: 00 07-27 05:59 :00 No [id number] 5mg Q.5D Take 1 tablet (5 mg total) by mouth 2 (two) times a day. [facility] losartan (Cozaar) 50 MG tablet 07-12 00:00: 00 07-13 05:59 :00 No [id number] 50mg QD Take 1 tablet (50 mg total) by mouth 1 (one) time each day. [facility] aspirin 81 MG EC tablet 06-21 11:00: 08 06-21 00:00 :00 No 81mg QD Take 81 mg by mouth 1 (one) time each day. [facility] losartan (Cozaar) 25 MG tablet 06-21 00:00: 00 06-22 05:59 :00 No [id number] 25mg QD Take 1 tablet (25 mg total) by mouth 1 (one) time each day. [facility] atorvastati n (Lipitor) 40 MG tablet 06-21 00:00: 00 09-09 00:00 :00 No [id number] 40mg QD Take 1 tablet (40 mg total) by mouth 1 (one) time each day. [facility] metFORMIN (Glucophage ) 500 MG tablet 06-21 00:00: 00 07-29 00:00 :00 No [id number] 500mg Take 1 tablet (500 mg total) by mouth 2 (two) times a day with meals. [facility] aspirin 81 MG EC tablet 06-21 00:00: 00 07-26 00:00 :00 No [id number] 81mg QD Take 1 tablet (81 mg total) by mouth 1 (one) time each day. [facility] metFORMIN XR (Glucophage -XR) 500 MG 24 hr tablet 2020-05- 00:00: 00 06-21 00:00 :00 No [facility] atorvastati n (Lipitor) 40 MG tablet 2020-05 0- 00:00: 00 06-21 00:00 :00 No [facility] losartan (Cozaar) 25 MG tablet 8-15 00:00: 00 06-21 00:00 :00 No [facility] Lamisil 2-17 00:00: 00 Yes Wyatt [place] 1 tab(s) [place] Vital Signs Vital Name Observation Time Observation Value Comments S ource Systolic blood pressure 2021-09-09 13:33:00 125 mm[Hg] [facility] Diastolic blood pressure 2021-09-09 13:33:00 78 mm[Hg] [facility] Heart rate 2021-09-09 13:33:00 51 /min [facility] Respiratory rate 2021-09-09 13:33:00 17 /min [facility] Body height 2021-09-09 13:33:00 180.3 cm [facility] Body weight 2021-09-09 13:33:00 97.07 [facility] BMI 2021-09-09 13:33:00 29.85 kg/m2 [facility] Systolic blood pressure 2021-10-26 13:20:00 122 mm[Hg] [facility] Diastolic blood pressure 2021-10-26 13:20:00 79 mm[Hg] [facility] Heart rate 2021-10-26 13:20:00 74 /min [...] alth Respiratory rate 2021-07-26 14:03:00 16 /min [facility] Body height 2021-07-26 14:03:00 177.8 cm [facility] Body weight 2021-07-26 14:03:00 97.342 [facility] BMI 2021-07-26 14:03:00 30.79 kg/m2 [facility] Oxygen saturation in Arterial blood by Pulse oximetry 2021-07-26 14:03:00 96 /min [facility] Systolic blood pressure 2021-07-26 14:03:00 132 mm[Hg] [facility] Diastolic blood pressure 2021-07-26 14:03:00 79 mm[Hg] [facility] Systolic blood pressure 2021-06-21 16:29:00 144 mm[Hg] [facility] Diastolic blood pressure 2021-06-21 16:29:00 84 mm[Hg] [facility] Heart rate 2021-06-21 16:29:00 67 /min [facility] Respiratory rate 2021-06-21 16:29:00 16 /min [facility] Body height 2021-06-21 16:29:00 177.8 cm [facility] Body weight 2021-06-21 16:29:00 97.16 kg [facility] BMI 2021-06-21 16:29:00 30.73 kg/m2 [facility] Oxygen saturation in Arterial blood by Pulse oximetry 2021-06-21 16:29:00 97 /min [facility] Procedures Procedure Date / Time Performed Performing Clinicia n Source POCT GLUCOSE 2021-10-26 13:24:00 [facility]endiz [facility] [id number] 2021-09-13 00:00:00 [facility] [id number] 2021-09-13 00:00:00 [facility] [id number] 2021-09-13 00:00:00 [facility] [id number] 2021-09-13 00:00:00 [facility] [id number] 2021-09-13 00:00:00 [facility] [id number] 2021-09-13 00:00:00 [facility] [id number] 2021-09-13 00:00:00 [facility] [id number] 2021-09-13 00:00:00 [facility] POCT GLYCOSYLATED HEMOGLOBIN (HGB A1C) 2021-09-09 13:59:00 [facility] POCT GLUCOSE 2021-09-09 13:58:00 [facility] POCT GLUCOSE 2021-07-29 14:01:00 [facility] Valerie [facility] ECG 12-LEAD 2021-07-26 15:19:36 [facility] 2021-06-21 21:53:09 [facility]ona [facility] Start Date/Time End Date/Time Encounter Type Admission Type Attending [facility] Facility Care Department Encounter ID Source 2022-11-21 11:16:24 Outpatient [facility] [id number] [facility] 2021-08-16 09:12:07 Outpatient POLA TALI [facility] [id number] [facility] 2021-07-29 08:39:40 Outpatient VALERIE CORNELL [facility] [id number] [facility] 2021-07-26 09:19:48 Outpatient VALERIE CORNELL [facility] [id number] [facility] 2021-06-21 11:28:17 Outpatient [facility] [id number] [facility] 2021-06-21 11:25:57 Outpatient [facility] [id number] [facility] 2022-02-24 08:40:00 2022-02-24 08:40:00 Outpatient VEESETH STRATTON [facility] [id number] [facility] 2021-10-26 08:40:00 2021-10-26 09:36:24 Office Visit Seth Resendiz [email or web address] [id number] 1.2.840.114 350.1.13.58 9.2.7.2.686 [id number] [facility] 2021-09-13 14:12:00 2021-09-18 12:54:00 Inpatient Prakash Adams [facility] [id number] [facility] 2021-09-09 09:00:00 2021-09-09 09:07:48 Office Visit Valerie Cornell [facility] [address] 1.2.840.114 350.1.13.58 9.2.7.2.686 [id number] [facility] 2021-09-04 05:14:00 2021-09-04 05:14:00 Outpatient Dilan Haque [facility] [id number] [facility] 2021-08-27 00:00:00 2021-08-27 00:00:00 Telephone Tali Escalona [address] 1.2.840.114 350.1.13.58 9.2.7.2.686 [id number] [facility] 2021-08-25 00:00:00 2021-08-25 00:00:00 Telephone Tali Escalona [address] 1.2.840.114 350.1.13.58 9.2.7.2.686 [id number] [facility] 2021-08-19 00:00:00 2021-08-19 00:00:00 Telephone Tali Escalona [address] 1.2.840.114 350.1.13.58 9.2.7.2.686 [id number] [facility] 2021-08-16 08:00:00 2021-08-16 09:12:09 Office Visit Tali Escalona [address] 1.2.840.114 350.1.13.58 9.2.7.2.686 [id number] [facility] 2021-07-29 08:00:00 2021-07-29 08:39:56 Office Visit Valerie Cornell [facility] [address] 1.2.840.114 350.1.13.58 9.2.7.2.686 [id number] [facility] 2021-07-26 08:00:00 2021-07-26 09:19:54 Office Visit Tali Escalona [facility] [address] 1.2.840.114 350.1.13.58 9.2.7.2.686 [id number] [facility] 2021-07-20 00:00:00 2021-07-20 00:00:00 Telephone Louis Clifton [facility] [address] 1.2.840.114 350.1.13.58 9.2.7.2.686 [id number] [facility] 2021-07-02 00:00:00 2021-07-02 00:00:00 Telephone Antonia Bailey Melissa [facility] [address] 1.2.840.114 350.1.13.58 9.2.7.2.686 [id number] [facility] 2021-06-22 00:00:00 2021-06-22 00:00:00 Telephone Tali Escalona [facility] [address] 1.2.840.114 350.1.13.58 9.2.7.2.686 [id number] [facility] 2021-06-21 10:00:00 2021-06-21 11:28:57 Office Visit Tali Escalona [facility] [address] 1.2.840.114 350.1.13.58 9.2.7.2.686 [id number] [facility] 2021-06-11 00:00:00 2021-06-11 00:00:00 Telephone Bobby Keagan Lyon [facility] [address] 1.2.840.114 350.1.13.58 9.2.7.2.686 [id number] [facility] 2021-06-11 00:00:00 2021-06-11 00:00:00 Telephone Jasiel Galindo [facility] [address] 1.2.840.114 350.1.13.58 9.2.7.2.686 [id number] [facility] 2015-04-20 18:00:00 2015-04-21 05:59:00 Outpt Diag Services nullFlavo r [facility] Outpatient Imaging Thor [id number] [place] Results Test Description Test Time Test Comments Results Result Co mments Source [facility] [id number] 20:17:00* Test Item Value Reference Range Interpretation Comme [facility] GLUCOSE BEDSIDE TESTING (jagjit t code = GLUBED) 237 MG/DL 60-99 H BASIC METABOLIC [id number] 04:25:00* Test Item Value Reference Range Interpretation [...] CA) 8.2 MG/DL 8.4-10.2 L CBC W/AUTO [id number] 04:05:00* Test Item Value Reference Range Interpretation [...] code = NRBC#) 0.06 K/mm3 0.0-0.1 N [id number] 23:13:00* Test Item Value Reference Range Interpretation Comme nts POTASSIUM (test code = K) 3.6 MMOL/L 3.5-5.1 N [id number] 23:13:00* Test Item Value Reference Range Interpretation Comme nts CALCIUM (test code = CA) 7.8 MG/DL 8.4-10.2 L [id number] 23:13:00* Test Item Value Reference Range Interpretation Comme nts MAGNESIUM (test code = MAG) 2.0 MG/DL 1.6-2.3 N GLUCOSE BEDSIDE [id number] 20:24:00* Test Item Value Reference Range Interpretation Comme nts GLUCOSE BEDSIDE TESTING (jagjit t code = GLUBED) 161 MG/DL 60-99 H GLUCOSE BEDSIDE [id number] 18:08:00* Test Item Value Reference Range Interpretation Comme nts GLUCOSE BEDSIDE TESTING (jagjit t code = GLUBED) 200 MG/DL 60-99 H URINALYSIS [id number] 17:16:00* Test Item Value Reference Range Interpretation [...] SOURCE OF URINE: VOIDED- XR ABDOMEN 1 [id number] 15:12:00 [facility] 1955 Sex: M Patient Name: MARK RIVAS Unit No: [id number] EXAMS: CPT CODE: [id number] XR ABDOMEN 1 V 46629 EXAM: ABDOMEN ONE VIEW INDICATION: KIDNEY PAIN [...] [email or web address] Orig Print D/T: S: 09/17/2021 (1514) [facility] NAME: MARK RIVAS [id number] PHYS: [place] [address] : 1955 AGE: 65 SEX: M LOC: Z.SI01 A PHONE #: [phone] EXAM DATE: 09/17/2021 STATUS: ADM IN FAX #: [phone] RADIOLOGY NO: PAGE 1 Signed ReportGLUCOSE BEDSIDE [id number] 11:11:00* Test Item Value Reference Range Interpretation Comme nts GLUCOSE BEDSIDE TESTING (jagjit t code = GLUBED) 336 MG/DL 60-99 HH - XR CHEST [id number] 08:00:00 [facility] : 1955 Sex: M Patient Name: MARK RIVAS Unit No: [id number] EXAMS: CPT CODE: [id number] XR CHEST 1V 43912 EXAM: CHEST ONE VIEW INDICATION: S/P CABG [...] (0800) 16Orig Print D/T: S: 09/17/2021 (0803) [facility] NAME: MARK RIVAS [id number] PHYS: [place] [address] : 1955 AGE: 65 SEX: M LOC: Z.SI01 APHONE #: [phone] EXAM DATE: 09/17/2021 STATUS: ADM IN FAX #: [phone] RADIOLOGY NO: PAGE 1 Signed ReportCOMPREHENSIVE METABOLIC [id number] 04:35:00* Test Item Value Reference Range Interpretation [...] and aplastic anemia) with specific assayson the [employer] (SDI)s 5600 of which Total Protein is one [...] ALKP) 180 UNITS/L 38-126 H CBC W/AUTO [id number] 04:12:00* Test Item Value Reference Range Interpretation [...] NRBC#) 0.00 K/mm3 0.0-0.1 N GLUCOSE BEDSIDE [id number] 20:21:00* Test Item Value Reference Range Interpretation Comme nts GLUCOSE BEDSIDE TESTING (jagjit t code = GLUBED) 153 MG/DL 60-99 H GLUCOSE BEDSIDE [id number] 17:25:00* Test Item Value Reference Range Interpretation Comme nts GLUCOSE BEDSIDE TESTING (jagjit t code = GLUBED) 145 MG/DL 60-99 H - XR CHEST [id number] 13:19:00 [facility] : 1955 Sex: M Patient Name: MARK RIVAS Unit No: [id number] EXAMS: CPT CODE: [id number] XR CHEST 1V 92753 Chest Radiograph History: CHEST TUBE REMOVAL - NURSE WILL CALL WHEN READY Comparison: September 16, 2021 Location: [facility] single frontal view of the chest is [...] DelmarPMT Orig Print D/T: S: 09/16/2021 (1322) [facility] NAME: MARK RIVAS [id number] PHYS: [place] [address] : 1955 AGE: 65 SEX: M LOC: Z.SI01 A PHONE #: [phone] EXAM DATE: 09/16/2021 STATUS: ADM IN FAX #: [phone] RADIOLOGY NO: PAGE 1 Signed ReportGLUCOSE BEDSIDE [id number] 11:45:00* Test Item Value Reference Range Interpretation Comme nts GLUCOSE BEDSIDE TESTING (jagjit t code = GLUBED) 208 MG/DL 60-99 H - XR CHEST [id number] 08:22:00 [facility] : 1955 Sex: M Patient Name: MARK RIVAS Unit No: [id number] EXAMS: CPT CODE: [id number] XR CHEST 1V 80908 Chest Radiograph History: S/P CABG Comparison: September 15, [address]: [facility] A single frontal view of the chest [...] t.SDR.PMT Orig Print D/T: S: 09/16/2021 (08) [facility] NAME: MARK RIVAS [id number] PHYS: [place] [address] : 1955 AGE: 65 SEX: M LOC: Z.SI01 A PHONE #: [phone] EXAM DATE: 09/16/2021 STATUS: ADM INFAX #: [phone] RADIOLOGY NO: PAGE 1 Signed ReportGLUCOSE BEDSIDE [id number] 07:12:00* Test Item Value Reference Range Interpretation Comme nts GLUCOSE BEDSIDE TESTING (jagjit t code = GLUBED) 123 MG/DL 60-99 H GLUCOSE BEDSIDE [id number] 20:54:00* Test Item Value Reference Range Interpretation Comme nts GLUCOSE BEDSIDE TESTING (jagjit t code = GLUBED) 93 MG/DL 60-99 N GLUCOSE BEDSIDE [id number] 17:39:00* Test Item Value Reference Range Interpretation Comme nts GLUCOSE BEDSIDE TESTING (jagjit t code = GLUBED) 86 MG/DL 60-99 N GLUCOSE BEDSIDE [id number] 11:06:00* Test Item Value Reference Range Interpretation Comme nts GLUCOSE BEDSIDE TESTING (jagjit t code = GLUBED) 252 MG/DL 60-99 H - XR CHEST [id number] 08:58:00 [facility] : 1955 Sex: M Patient Name: MARK RIVAS Unit No: [id number] EXAMS: CPT CODE: [id number] XR CHEST 1V 03822 Dictation location: U19. CHEST, FRONTAL VIEW HISTORY: S/P CABG FINDINGS: Since 09/14/21, the [place]-Sah[place] catheter has been removed. Right subclavian line remains in SVC. Continued cardiomegaly with mild central vascular congestion, small left pleural effusion and basilar atelectasis. Sternotomy wires. Thoracic spond ylosis. No pneumothorax. Probable mediastinal left pleural drains. IMPRESSION: Interval removal of the [place]-Sahra catheter. Mild vascular congestion and small left pleural effusion. at 0858 Reported and signed by: Gurjit Ordaz MD CC: Dilan Murray MD Technologist: Candace Wilburn (RT)(R) Transcrpt Date/Tm/Trnsp: 09/15/2021 (0858) WillaR.[email or web address] Orig Print D/T: S: 09/15/2021 (0901) [facility] NAME: MARK RIVAS [id number] PHYS: [place] [address] : 1955 AGE: 65 SEX: M LOC: Z.SI01 A PHONE #: [phone] EXAM DATE: 09/15/2021 STATUS: ADM IN FAX #: [phone] RADIOLOGY NO: PAGE 1 Signed ReportGLUCOSE BEDSIDE [id number] 07:34:00* Test Item Value Reference Range Interpretation Comme nts GLUCOSE BEDSIDE TESTING (jagjit t code = GLUBED) 221 MG/DL 60-99 H GLUCOSE BEDSIDE [id number] 21:31:00* Test Item Value Reference Range Interpretation Comme nts GLUCOSE BEDSIDE TESTING (jagjit t code = GLUBED) 198 MG/DL 60-99 H GLUCOSE BEDSIDE [id number] 21:25:00* Test Item Value Reference Range Interpretation Comme nts GLUCOSE BEDSIDE TESTING (jagjit t code = GLUBED) 137 MG/DL 60-99 H GLUCOSE BEDSIDE [id number] 15:14:00* Test Item Value Reference Range Interpretation Comme nts GLUCOSE BEDSIDE TESTING (test code = GLUBED) 72 MG/DL 60-99 N Doctor Noti fied~ GLUCOSE BEDSIDE [id number] 13:40:00* Test Item Value Reference Range Interpretation Comme nts GLUCOSE BEDSIDE TESTING (jagjit t code = GLUBED) 110 MG/DL 60-99 H GLUCOSE BEDSIDE [id number] 12:33:00* Test Item Value Reference Range Interpretation Comme nts GLUCOSE BEDSIDE TESTING (jagjit t code = GLUBED) 147 MG/DL 60-99 H GLUCOSE BEDSIDE [id number] 12:30:00* Test Item Value Reference Range Interpretation Comme nts GLUCOSE BEDSIDE TESTING (jagjit t code = GLUBED) 125 MG/DL 60-99 H GLUCOSE BEDSIDE [id number] 09:24:00* Test Item Value Reference Range Interpretation Comme nts GLUCOSE BEDSIDE TESTING (jagjit t code = GLUBED) 166 MG/DL 60-99 H GLUCOSE BEDSIDE [id number] 08:28:00* Test Item Value Reference Range Interpretation Comme nts GLUCOSE BEDSIDE TESTING (jagjit t code = GLUBED) 220 MG/DL 60-99 H GLUCOSE BEDSIDE [id number] 08:27:00* Test Item Value Reference Range Interpretation Comme nts GLUCOSE BEDSIDE TESTING (jagjit t code = GLUBED) 182 MG/DL 60-99 H - XR CHEST [id number] 07:46:00 [facility] : 1955 Sex: M Patient Name: MARK RIVAS Unit No: [id number] EXAMS: CPT CODE: [id number] XR CHEST 1V 90306 - XR CHEST 1V INDICATION:Postop, extubated LOCATION: [...] MD CC: Dilan Murray MD Technologist: Esteban Curz (RT) Transcrpt Date/Tm/Trnsp: 09/14/2021 (0746) [place] Orig Print D/T: S: 09/14/2021 (0750) [facility] NAME: MARK RIVAS [id number] PHYS: [place] [address] : 1955 AGE: 65 SEX: M : Z.SI01 A PHONE #: [phone] EXAM DATE: 09/14/2021 STATUS: ADM IN FAX #: [phone] RADIOLOGY NO: PAGE 1 Signed ReportGLUCOSE BEDSIDE [id number] 06:41:00* Test Item Value Reference Range Interpretation Comme nts GLUCOSE BEDSIDE TESTING (jagjit t code = GLUBED) 187 MG/DL 60-99 H CBC W/AUTO [id number] 04:52:00* Test Item Value Reference Range Interpretation [...] NRBC#) 0.00 K/mm3 0.0-0.1 N BASIC METABOLIC [id number] 04:30:00* Test Item Value Reference Range Interpretation [...] code = CA) 8.2 MG/DL 8.4-10.2 L [id number] 04:30:00* Test Item Value Reference Range Interpretation Comme nts MAGNESIUM (test code = MAG) 1.9 MG/DL 1.6-2.3 GLUCOSE BEDSIDE [id number] 04:05:00* Test Item Value Reference Range Interpretation Comme nts GLUCOSE BEDSIDE TESTING (jagjit t code = GLUBED) 170 MG/DL 60-99 H GLUCOSE BEDSIDE [id number] 03:10:00* Test Item Value Reference Range Interpretation Comme nts GLUCOSE BEDSIDE TESTING (jagjit t code = GLUBED) 174 MG/DL 60-99 H GLUCOSE BEDSIDE [id number] 01:23:00* Test Item Value Reference Range Interpretation Comme nts GLUCOSE BEDSIDE TESTING (jagjit t code = GLUBED) 164 MG/DL 60-99 H GLUCOSE BEDSIDE [id number] 00:08:00* Test Item Value Reference Range Interpretation Comme nts GLUCOSE BEDSIDE TESTING (jagjit t code = GLUBED) 215 MG/DL 60-99 H GLUCOSE BEDSIDE [id number] 22:05:00* Test Item Value Reference Range Interpretation Comme nts GLUCOSE BEDSIDE TESTING (jagjit t code = GLUBED) 229 MG/DL 60-99 H GLUCOSE BEDSIDE [id number] 21:19:00* Test Item Value Reference Range Interpretation Comme nts GLUCOSE BEDSIDE TESTING (jagjit t code = GLUBED) 221 MG/DL 60-99 H GLUCOSE BEDSIDE [id number] 20:20:00* Test Item Value Reference Range Interpretation Comme nts GLUCOSE BEDSIDE TESTING (jagjit t code = GLUBED) 228 MG/DL 60-99 H GLUCOSE BEDSIDE [id number] 20:17:00* Test Item Value Reference Range Interpretation Comme nts GLUCOSE BEDSIDE TESTING (jagjit t code = GLUBED) 185 MG/DL 60-99 H ARTERIAL BLOOD [id number] 17:54:00* Test Item Value Reference Range Interpretation [...] code = COHBGFFIO2) 100 % BASIC METABOLIC [id number] 16:26:00* Test Item Value Reference Range Interpretation [...] code = CA) 8.1 MG/DL 8.4-10.2 L [id number] 16:26:00* Test Item Value Reference Range Interpretation Comme nts MAGNESIUM (test code = MAG) 2.9 MG/DL 1.6-2.3 H PROTHROMBIN [id number] 15:55:00* Test Item Value Reference Range Interpretation [...] recurrent systemic embolism. 3.0 - 4.5 PTT [id number] 15:55:00* Test Item Value Reference Range Interpretation Comme nts PTT ACTIVATED (test code = APTT) 34.5 SECONDS 26.2-35.4 CBC W/AUTO [id number] 15:39:00* Test Item Value Reference Range Interpretation [...] NRBC#) 0.00 K/mm3 0.0-0.1 N BASIC METABOLIC [id number] 15:38:00* Test Item Value Reference Range Interpretation [...] 8.4 MG/DL 8.4-10.2 N - XR CHEST [id number] 15:38:00 [facility] 1955 Sex: M Patient Name: MARK RIVAS Unit No: [id number] EXAMS: CPT CODE: [id number] XR CHEST 1V 79997 B2 EXAM: - XR CHEST 1V DATE: 09/13/2021 3:04 PM HISTORY: S/P CABG COMPARISON: Chest x-ray 09/10/2021 FINDINGS: Interval medial sternotomy. Interval placement of an endotracheal tube ending approximately 2.5 cm above the little. Interval placement of an enteric tube ending below the level of the GE junction. Left tho racostomy tube and mediastinal drain in place. Right internal jugular [place]-Sahra catheter ending in the region of the [...] (1538) t.ALANR.MOP Orig Print D/T: S: 09/13/2021 (5532) [facility] NAME: MARK RIVAS [address] PHYS: [place] [address] : 1955 AGE: 65 SEX: M LOC: Z.SI01 A PHONE #: [phone] EXAM DATE: 09/13/2021 STATUS: ADM IN FAX #: [phone] RADIOLOGY NO: PAGE 1 Signed ReportPROTHROMBIN TIME [...] recurrent systemic embolism. 3.0 - 4.5 PTT [id number] 15:20:00* Test Item Value Reference Range Interpretation Comme nts PTT ACTIVATED (test code = APTT) 28.5 SECONDS 26.2-35.4 CBC W/AUTO [id number] 15:08:00* Test Item Value Reference Range Interpretation [...] 0.00 K/mm3 0.0-0.1 N POC ARTERIAL BLOOD [id number] 14:57:00* Test Item Value Reference Range Interpretation Comme nts POC ARTERIAL BLOOD GAS PH (test code = POCPHA) 7.329 7.35-7.45 L POC ARTERIAL BLOOD GAS PCO2 (test code = KKUBDP1L) 43.2 mmHg 35.0-45.0 N POC ARTERIAL BLOOD GAS PO2 (test code = XNYFB0Z) 315.6 75.0-100.0 HH POC HCO3 ARTERIAL (test code = EZJOHO4K) 22.7 MMOL/L 20.0-26.0 N POC BASE EXCESS [...] 2.93 mmol/L 0.7-2.0 HH POC ARTERIAL BLOOD [id number] 13:49:00* Test Item Value Reference Range Interpretation Comme [facility] POC ARTERIAL BLOOD GAS PH (test code = POCPHA) 7.307 7.35-7.45 L POC ARTERIAL BLOOD GAS PCO2 (test code = CDVSSX4W) 51.6 mmHg 35.0-45.0 HH POC ARTERIAL BLOOD GAS PO2 (test code = XKBNL0R) 244.6 75.0-100.0 HH POC HCO3 ARTERIAL (test code = YJPJLT4U) 25.8 MMOL/L 20.0-26.0 N POC BASE EXCESS (test code = POCBEA) -0.8 MMOL/L -3.0-3.0 N POC O2 SATURATION (test code = POCO2S) 99.8 % 92.0-98.5 H FIO2 (test code = FIO2A) 85 % 21-100 PaO2/FiO2 (test code = NBD0ONI6) 287.76 mm/Hg SODIUM (test code = NA/ABG) [...] 1.24 mmol/L 0.7-2.0 N POC ARTERIAL BLOOD [id number] 13:23:00* Test Item Value Reference Range Interpretation Comme [facility] POC ARTERIAL BLOOD GAS PH (test code = POCPHA) 7.405 7.35-7.45 N POC ARTERIAL BLOOD GAS PCO2 (test code = GKREMA6A) 41.7 mmHg 35.0-45.0 N POC ARTERIAL BLOOD GAS PO2 (test code = YAOIZ4S) 278.9 75.0-100.0 HH POC HCO3 ARTERIAL (test code = WZRWJH7W) 26.1 MMOL/L 20.0-26.0 H POC BASE EXCESS (test code = POCBEA) 1.3 MMOL/L -3.0-3.0 N POC O2 SATURATION (test code = POCO2S) 99.9 % 92.0-98.5 H FIO2 (test code = FIO2A) 80 % 21-100 PaO2/FiO2 (test code = LDF5YRT1) 348.62 mm/Hg SODIUM (test code = NA/ABG) [...] 0.72 mmol/L 0.7-2.0 N POC ARTERIAL BLOOD [id number] 12:48:00* Test Item Value Reference Range Interpretation Comme [facility] POC ARTERIAL BLOOD GAS PH (test code = POCPHA) 7.395 7.35-7.45 N POC ARTERIAL BLOOD GAS PCO2 (test code = EBAQNJ9S) 42.4 mmHg 35.0-45.0 N POC ARTERIAL BLOOD GAS PO2 (test code = TOSVO6E) 284.3 75.0-100.0 HH POC HCO3 ARTERIAL (test code = ZICJCI3K) 26.0 MMOL/L 20.0-26.0 N POC BASE EXCESS (test code = POCBEA) 0.9 MMOL/L -3.0-3.0 N POC O2 SATURATION (test code = POCO2S) 99.9 % 92.0-98.5 H FIO2 (test code = FIO2A) 55 % 21-100 N PaO2/FiO2 (test code = BGB2ALX9) 516.90 mm/Hg SODIUM (test code = NA/ABG) [...] 0.95 mmol/L 0.7-2.0 N POC ARTERIAL BLOOD [id number] 12:19:00* Test Item Value Reference Range Interpretation Comme nts POC ARTERIAL BLOOD GAS PH (test code = POCPHA) 7.407 7.35-7.45 N POC ARTERIAL BLOOD GAS PCO2 (test code = XPXBDB5C) 44.3 mmHg 35.0-45.0 N POC ARTERIAL BLOOD GAS PO2 (test code = WXCVM4Q) 434.7 75.0-100.0 HH POC HCO3 ARTERIAL (test code = JKTCNT5C) 27.8 MMOL/L 20.0-26.0 H POC BASE EXCESS [...] 1.20 mmol/L 0.7-2.0 N POC ARTERIAL BLOOD [id number] 11:28:00* Test Item Value Reference Range Interpretation Comme nts POC ARTERIAL BLOOD GAS PH (test code = POCPHA) 7.411 7.35-7.45 N POC ARTERIAL BLOOD GAS PCO2 (test code = TCEDCM2P) 40.2 mmHg 35.0-45.0 N POC ARTERIAL BLOOD GAS PO2 (test code = UCGEN0C) 526.3 75.0-100.0 HH POC HCO3 ARTERIAL (test code = SBPUQM3V) 25.5 MMOL/L 20.0-26.0 N POC BASE EXCESS [...] LACTP) 1.46 mmol/L 0.7-2.0 N BASIC METABOLIC [id number] 11:01:00* Test Item Value Reference Range Interpretation [...] N PLEASE CALL RESULTS TO PHONE #: [phone] W/AUTO [id number] 10:22:00* Test Item Value Reference Range Interpretation [...] N PLEASE CALL RESULTS TO PHONE #: [phone] [facility] ARTERIAL BLOOD [id number] 09:59:00* Test Item Value Reference Range Interpretation Comme nts POC ARTERIAL BLOOD GAS PH (test code = POCPHA) 7.423 7.35-7.45 N POC ARTERIAL BLOOD GAS PCO2 (test code = YNHLKN6O) 37.3 mmHg 35.0-45.0 N POC ARTERIAL BLOOD GAS PO2 (test code = CINKO3B) 374.9 75.0-100.0 HH POC HCO3 ARTERIAL (test code = AFTQIY8Z) 24.4 MMOL/L 20.0-26.0 N POC BASE EXCESS [...] 1.05 mmol/L 0.7-2.0 N POC ARTERIAL BLOOD [id number] 08:09:00* Test Item Value Reference Range Interpretation Comme nts POC ARTERIAL BLOOD GAS PH (test code = POCPHA) 7.392 7.35-7.45 N POC ARTERIAL BLOOD GAS PCO2 (test code = OPAZHV8T) 43.8 mmHg 35.0-45.0 N POC ARTERIAL BLOOD GAS PO2 (test code = CTKGE0W) 93.1 75.0-100.0 N POC HCO3 ARTERIAL (test code = MBBPCW7W) 26.6 MMOL/L 20.0-26.0 H POC BASE EXCESS [...] = LACTP) 0.63 mmol/L 0.7-2.0 L PROTHROMBIN [id number] 14:18:00* Test Item Value Reference Range [facility]ation [facility] (test code = [...] recurrent systemic embolism. 3.0 - 4.5 PTT [id number] 14:18:00* Test Item Value Reference Range [facility]ation [facility] P[facility] ACTIVATED (test code = APTT) 42.5 SECONDS 26.2-35.4 H HIV 12 AB [id number] 13:27:00* Test Item Value Reference Range Interpretation Comme [facility] HIV 1 2 COMBO AG/AB SCREEN (test code = GFK41EUOQX) AB/AG NON REACTIVE NONREACTIVE GLYCOSYLATED HEMOGLOBIN [id number] 12:41:00* Test Item Value Reference Range Interpretation [...] MBG) 286 MG/DL 70-110 H COMPREHENSIVE METABOLIC [id number] 12:41:00* Test Item Value Reference Range Interpretation [...] UNITS/L 38-126 N - XR CHEST 2 [id number] 12:30:00 [facility] : 1955 Sex: M Patient Name: MARK RIVAS Unit No: [id number] EXAMS: CPT CODE: [id number] XR CHEST 2 V 34369 C3 EXAM: - XRCHEST 2 V DATE: [...] Santoslogist: Candace Wilburn (RT)(R) Transcrpt Date/Tm/Trnsp: 09/10/2021 (8801) DelmarMOP Orig Print D/T: S: 09/10/2021 (9432) [facility] NAME: MARK RIVAS [address] [address] PHYS: [place] [address] : 1955 AGE: 65 SEX: M LOC: U PHONE #: [phone] EXAM DATE: 09/10/2021 STATUS: PRE IN FAX #: [phone] RADIOLOGY NO: PAGE 1 Signed ReportPLT RESPONSE TO [id number] 12:21:00* Test Item Value Reference Range Interpretation [...] K/mm3 0.0-0.1 N COVID 19 Asymptomatic IH [id number] 12:07:00* Test Item Value Reference Range Interpretation [...] sample." POCT glycosylated hemoglobin (Hb A1C) docked [id number] 13:59:00* Test Item Value Reference Range Interpretation Comme [facility] Hemoglobin A1C (test code = 4548-4) 11.7 % 4.0-6.0 A Lab Interpretation (test cod e = 56654-4) Abnormal [facility] glucose manually naxtllwp5163-01-34 13:58:00* Test Item Value Reference Range Interpretation Comme [facility] Glucose Blood, POC (test cod e = 0366933) 232 mg/dL 70-180 A Lab Interpretation (test cod e = 28564-4) [facility] 06:09:00* Test Item Value Reference Range Interpretation Comme [facility] TRIGLYCERIDES (test code = TRIG) 133 [...] mg/dL HIGH.........160-189 mg/dL VERY HIGH.........>/= 190 mg/dL [id number] 06:09:00* Test Item Value Reference Range Interpretation Comme [facility] MAGNESIUM (test code = MAG) 1.7 MG/DL 1.6-2.3 N BASIC METABOLIC [id number] 06:09:00* Test Item Value Reference Range Interpretation Comme [facility] SODIUM (test code = NA) 137 [...] = CA) 9.7 MG/DL 8.4-10.2 N PROTHROMBIN [id number] 05:53:00* Test Item Value Reference Range Interpretation Comme [facility] PROTHROMBIN TIME PATIENT (test code = [...] recurrent systemic embolism. 3.0 - 4.5 PTT [id number] 05:53:00* Test Item Value Reference Range Interpretation Comme nts PTT ACTIVATED (test code = APTT) 32.8 SECONDS 26.2-35.4 N CBC W/AUTO [id number] 05:41:00* Test Item Value Reference Range Interpretation [...] K/mm3 0.0-0.1 N COVID 19 Asymptomatic IH [id number] 05:14:00* Test Item Value Reference Range Interpretation [...] (antigen) in the sample." POCT glucose manually aehtwztu2659-44-62 14:01:00* Test Item Value Reference Range Interpretation Comme nts Glucose Blood, POC (test cod e = 3004297) 278 mg/dL 70-180 A Lab Interpretation (test cod e = 42478-5) Abnormal [facility] Notes Date/Time Note Provider Source 2021 19:57:00 [id number] [place] [address] PATIENT NAME: MARK RIVAS ADMIT DATE: 09/13/21 ACCOUNT NO: [id number] ROOM NO: Z.SI01 AGE: 66 REPORT TYPE: [...] pain and underwent cardiac catheterization by his client solutions specialist, Dr. Murray and was found to [...] for Prakash Gómez MD WT: DS:WALESKA/LILIA/MARIO Conf#: [id number]#: [id number] Authenticated by ASHLEIGH Esposito On 11/06/2021 03:13:30 PM Authenticated by Prakash Gómez MD On 11/06/2021 04:03:21 PM at 0403 at 0313 PATIENT NAME: MARK RIVAS [facility] 2021-09-18 14:54:00 [facility] Hospitalist Progress Note REPORT#:[id number] REPORT STATUS: Signed DATE:09/18/21 TIME: 1454 PATIENT: MARK RIVAS UNIT #: [id number] [address] AGE: 65 SEX: M [...] midline vertebral tend , no muscle spasm Neuro/LABOR COMMISSIONER: alert, oriented X 3, normal speech, no [...] % (Auto) (14 - 44 %) 28.0 [place] % (Auto) (4 - 13 %) 13.6 H Eos % (Auto) (0 - 6 %) 1.5 Baso % (Auto) (0 - 2 %) 0.3 Neut # (Auto) (2.0 - 7.6 K/mm3) 5.91 Lymph # (Auto) (1.0 - 3.8 K/mm3) 2.96 [place] # (Auto) (0.1 - 0.8 K/mm3) 1.44 [...] pH (5.0 - 9.0) 6.0 Ur Specific [place] (1.003 - 1.030) 1.010 Urine Protein (NEGATIVE [...] best of my knowledge. at 2258 RPT #:[id number] END OF REPORT [facility] 2021-09-18 06:12:00 [facility] ([facility] Cardiology Progress Note REPORT#:[id number] REPORT STATUS: Signed DATE:09/18/21 TIME: 611 PATIENT: MARK RIVAS UNIT #: [id number] [address] AGE: 65 SEX: M [...] peripheral pulses Musculoskeletal: full range of motion Neuro/LABOR COMMISSIONER: alert, oriented X 3, CN II-XII intact, [...] % (Auto) (14 - 44 %) 28.0 [place] % (Auto) (4 - 13 %) 13.6 H Eos % (Auto) (0 - 6 %) 1.5 Baso % (Auto) (0 - 2 %) 0.3 Neut # (Auto) (2.0 - 7.6 K/mm3) 5.91 Lymph # (Auto) (1.0 - 3.8 K/mm3) 2.96 [place] # (Auto) (0.1 - 0.8 K/mm3) 1.44 [...] pH (5.0 - 9.0) 6.0 Ur Specific [place] (1.003 - 1.030) 1.010 Urine Protein (NEGATIVE [...] D/C Discussed in detail at 0617 RPT #:[id number] END OF REPORT [facility] 2021-09-18 03:26:00 [id number] [place] [address] PATIENT NAME: MARK RIVAS ADMIT DATE: 09/13/21 ACCOUNT NO: [id number] ROOM NO: Z.SI01 AGE: 65 REPORT TYPE: ELECTROCARDIOGRAM SEX: M ADMITTING PHYSICIAN:Prakash Gómez MD ATTENDING PHYSICIAN:Prakash Gómez MD Order: [id number] Test Reason : CAD/CAB/AFIB Test Date/Time Stamp: [...] By: Prakash Gómez Confirmed by:DILAN MURRAY at 1336 PATIENT NAME: MARK RIVAS [facility] 2021-09-17 16:50:00 [facility] ([facility]) Hospitalist Progress Note REPORT#:[id number] REPORT STATUS: Signed DATE:09/17/21 TIME: 1650 PATIENT: MARK RIVAS UNIT #: [id number] ROOM/BED: [facility] : 56 AGE: 65 SEX: M [...] midline vertebral tend , no muscle spasm Neuro/LABOR COMMISSIONER: alert, oriented X 3, normal speech, no [...] % (Auto) (14 - 44 %) 23.4 [place] % (Auto) (4 - 13 %) 12.2 Eos % (Auto) (0 - 6 %) 0.7 Baso % (Auto) (0 - 2 %) 0.2 Neut # (Auto) (2.0 - 7.6 K/mm3) 6.74 Lymph # (Auto) (1.0 - 3.8 K/mm3) 2.50 [place] # (Auto) (0.1 - 0.8 K/mm3) 1.30 [...] pH (5.0 - 9.0) 6.0 Ur Specific [place] (1.003 - 1.030) 1.010 Urine Protein (NEGATIVE [...] best of my knowledge. at 2050 RPT #:[id number] END OF REPORT [facility] 2021-09-17 12:00:00 [facility] ([facility]) Cardiovascular Surgery Prog REPORT#:[id number] REPORT STATUS: Signed DATE:09/17/21 TIME: 1200 PATIENT: MARK RIVAS UNIT #: [id number] [address] AGE: 65 SEX: M [...] non-tender, normal bowel sounds Extremities: no edema Neuro/LABOR COMMISSIONER: alert, oriented X 3 Results Findings/Data: Laboratory [...] % (Auto) (14 - 44 %) 23.4 [place] % (Auto) (4 - 13 %) 12.2 Eos % (Auto) (0 - 6 %) 0.7 Baso % (Auto) (0 - 2 %) 0.2 Neut # (Auto) (2.0 - 7.6 K/mm3) 6.74 Lymph # (Auto) (1.0 - 3.8 K/mm3) 2.50 [place] # (Auto) (0.1 - 0.8 K/mm3) 1.30 [...] is stable at 1206 at 1447 RPT #:[id number] END OF REPORT [facility] 2021-09-17 12:00:00 [facility] ([facility]) Cardiovascular Surgery Prog REPORT#:[id number] REPORT STATUS: Signed DATE:09/17/21 TIME: 1200 PATIENT: MARK RIVAS UNIT #: [id number] ROOM/BED: SI01-A : 57 AGE: 65 SEX: [...] non-tender, normal bowel sounds Extremities: no edema Neuro/LABOR COMMISSIONER: alert, oriented X 3 Results Findings/Data: Laboratory [...] % (Auto) (14 - 44 %) 23.4 [place] % (Auto) (4 - 13 %) 12.2 Eos % (Auto) (0 - 6 %) 0.7 Baso % (Auto) (0 - 2 %) 0.2 Neut # (Auto) (2.0 - 7.6 K/mm3) 6.74 Lymph # (Auto) (1.0 - 3.8 K/mm3) 2.50 [place] # (Auto) (0.1 - 0.8 K/mm3) 1.30 [...] at 1206 at 1447 at 2055 RPT #:[id number] END OF REPORT [facility] 2021-09-17 08:29:00 [facility] ([facility] Cardiology Progress Note REPORT#:[id number] REPORT STATUS: Signed DATE:09/17/21 TIME: 08 PATIENT: MARK RIVAS UNIT #: [id number] ROOM/BED: [address] : [birth year] AGE: 65 SEX: M ATTEND: Prakash Gómez MD ADM AUTHOR: Hay Lwo MD * ALL edits or amendments must [...] % (Auto) (14 - 44 %) 23.4 [place] % (Auto) (4 - 13 %) 12.2 Eos % (Auto) (0 - 6 %) 0.7 Baso % (Auto) (0 - 2 %) 0.2 Neut # (Auto) (2.0 - 7.6 K/mm3) 6.74 Lymph # (Auto) (1.0 - 3.8 K/mm3) 2.50 [place] # (Auto) (0.1 - 0.8 K/mm3) 1.30 [...] status post chest tube removal. Impression By: Britntey Guaman MD RADIOLOGY - XR CHEST 1V [...] medical rx. Ambulate IS. at 0833 RPT #:[id number] END OF REPORT [facility] 2021-09-17 08:13:00 [id number] [address] PATIENT NAME: MARK RIVAS ADMIT DATE: 09/13/21 ACCOUNT NO: [id number] ROOM NO: Z.SI01 AGE: 65 REPORT TYPE: ELECTROCARDIOGRAM SEX: M ADMITTING PHYSICIAN:Prakash Gómez MD ATTENDING PHYSICIAN:Prakash Gómez MD Order: [id number] Test Reason : CAD/CAB/AFIB Test Date/Time Stamp: [...] MURRAY at 1642 PATIENT NAME: MARK RIVAS [facility] 2021-09-16 21:14:00 [facility] Cardiology Progress Note REPORT#:[id number] REPORT STATUS: Signed DATE:09/16/21 TIME: 2113 PATIENT: MARK RIVAS UNIT #: [id number] ROOM/BED: [address] : [birth year] AGE: 65 SEX: M [...] Ambulate IS. AM Labs. at 2117 RPT #:[id number] END OF REPORT [facility] 2021-09-16 17:47:00 [facility] ([facility] Hospitalist Progress Note REPORT#:[id number] REPORT STATUS: Signed DATE:09/16/21 TIME: 1747 PATIENT: MARK RIVAS UNIT #: [id number] ROOM/BED: [address] : [birth year] AGE: 65 SEX: M [...] edema Musculoskeletal: normal inspection, no muscle spasm Neuro/LABOR COMMISSIONER: alert, oriented X 3, normal speech, no [...] Report Impression - Status: SIGNED Entered: 09/16/2021 1404 IMPRESSION: There are minimal patchy opacities in [...] best of my knowledge. at 2338 RPT #:[id number] END OF REPORT [facility] 2021-09-16 11:31:00 [facility] ([facility]) Cardiovascular Surgery Prog REPORT#:[id number] REPORT STATUS: Signed DATE:09/16/21 TIME: 1131 PATIENT: MARK RIVAS UNIT #: [id number] ROOM/BED: [address] : [birth year] AGE: 65 SEX: M [...] non-tender, normal bowel sounds Extremities: no edema Neuro/LABOR COMMISSIONER: alert, oriented X 3 Results Findings/Data: Laboratory [...] Aspirin, Clopidogrel and Atrovastatin at 1135 RPT #:[id number] END OF REPORT [facility] 2021-09-16 11:31:00 [facility] ([facility]) Cardiovascular Surgery Prog REPORT#:[id number] REPORT STATUS: Signed DATE:09/16/21 TIME: 1131 PATIENT: MARK RIVAS UNIT #: [id number] [address] [birth year] AGE: 65 SEX: M [...] non-tender, normal bowel sounds Extremities: no edema Neuro/LABOR COMMISSIONER: alert, oriented X 3 Results Findings/Data: Laboratory [...] Aspirin, Clopidogrel and Atrovastatin at 1135 at 6366 RPT #:[id number] END OF REPORT [facility] 2021-09-16 05:36:00 [id number] [place] [address] PATIENT NAME: MARK RIVAS ADMIT DATE: 09/13/21 ACCOUNT NO: [id number] ROOM NO: Z.SI01 AGE: 65 REPORT TYPE: ELECTROCARDIOGRAM SEX: M ADMITTING PHYSICIAN:Prakash Gómez MD ATTENDING PHYSICIAN:Prakash Gómez MD Order: [id number] Test Reason : CAD/CAB Test Date/Time Stamp: [...] ST segment in Anterior leads Confirmed by DILNA MURRAY ([id number]) on 09/16/2021 6:37:38 AM Referred By: Self Referred Confirmed by:DILAN MURRAY at 0637 PATIENT NAME: MARK RIVAS [facility] 2021-09-16 05:36:00 [id number] [place] [address] PATIENT NAME: MARK RIVAS ADMIT DATE: 09/13/21 ACCOUNT NO: [id number] ROOM NO: Z.SI01 AGE: 65 REPORT TYPE: ELECTROCARDIOGRAM SEX: M ADMITTING PHYSICIAN:Prakash Gómez MD ATTENDING PHYSICIAN:Prakash Gómez MD Order: [id number] Test Reason : CAD/CAB Test Date/Time Stamp: [...] MURRAY at 0659 PATIENT NAME: MARK RIVAS [facility] 2021-09-15 14:17:00 [facility] ([facility]) Hospitalist Progress Note REPORT#:[id number] REPORT STATUS: Signed DATE:09/15/21 TIME: 1417 PATIENT: MARK RIVAS UNIT #: [id number] ROOM/BED: [address] : [birth year] AGE: 65 SEX: M [...] Chloride/Dextrose/Sod Cl (DEXTROSE 5%-1/4NS-KCL 20MEQ) 1,000 ML .D09E36O IV (DC) Insulin Human Regular (HUMULIN R) [...] edema Musculoskeletal: normal inspection, no muscle spasm Neuro/LABOR COMMISSIONER: alert, oriented X 3, normal speech, no [...] 09/15/2021 0901 IMPRESSION: Interval removal of the [place]-Sahra catheter. Mild vascular congestion and small left [...] best of my knowledge. at 1446 RPT #:[id number] END OF REPORT [facility] 2021-09-15 11:02:00 [facility] ([facility] Cardiology Progress Note REPORT#:[id number] REPORT STATUS: Signed DATE:09/15/21 TIME: 1102 PATIENT: MARK RIVAS UNIT #: [id number] ROOM/BED: SI01-A : 57 AGE: 65 SEX: [...] Chloride/Dextrose/Sod Cl (DEXTROSE 5%-1/4NS-KCL 20MEQ) 1,000 ML .W00W54T IV (DC) Dextrose/Water (DEXTROSE 50% IN WATER) [...] 09/15/2021 09 IMPRESSION: Interval removal of the [place]-Sahra catheter. Mild vascular congestion and small left pleural effusion. Impression By: [email or web address] - Gurjit Ordaz MD Diagnosis, Assessment Plan Free Text DxA P Notes Free Text DxA P Notes: IMP: CAD s/p ACB X 4 with AMIN to the LAD, saphenous vein to the diagonal,the OM, and the right PDA HTN HLP DM PLAN: Continue current medical rx. Ambulate IS. at 0222 RPT #:[id number] END OF REPORT [facility] 2021-09-15 10:00:00 [facility] ([facility]) Cardiovascular Surgery Prog REPORT#:[id number] REPORT STATUS: Signed DATE:09/15/21 TIME: 1000 PATIENT: MARK RIVAS UNIT #: [id number] ROOM/BED: [address] : [address] AGE: 65 SEX: M [...] Chloride/Dextrose/Sod Cl (DEXTROSE 5%-1/4NS-KCL 20MEQ) 1,000 ML .[id number] IV (DC) Dextrose/Water (DEXTROSE 50% IN WATER) [...] non-tender, normal bowel sounds Extremities: no edema Neuro/LABOR COMMISSIONER: alert, oriented X 3 Results Findings/Data: Laboratory [...] 09/15/2021 0901 IMPRESSION: Interval removal of the [place]-Sahra catheter. Mild vascular congestion and small left pleural effusion. Impression By: [email or web address] - Gurjit Ordaz MD Diagnosis, Assessment Plan Free Text A P: Pt. with CAD and unstable angina S/P ACB x 4 Hypertension Hyperlipidemia Diabetes PLAN D/C radial arterial line Encourage use of IS and ambulation Start Metoprolol 12.5 mg PO daily at 1005 RPT #:[id number] END OF REPORT [facility] 2021-09-15 10:00:00 [facility] ([facility]) Cardiovascular Surgery Prog REPORT#:[id number] REPORT STATUS: Signed DATE:09/15/21 TIME: 1000 PATIENT: MARK RIVAS UNIT #: [id number] ROOM/BED: Z.SI01-A : 56 AGE: 65 SEX: [...] Chloride/Dextrose/Sod Cl (DEXTROSE 5%-1/4NS-KCL 20MEQ) 1,000 ML .[id number] IV (DC) Dextrose/Water (DEXTROSE 50% IN WATER) [...] non-tender, normal bowel sounds Extremities: no edema Neuro/LABOR COMMISSIONER: alert, oriented X 3 Results Findings/Data: Laboratory [...] 09/15/2021 0901 IMPRESSION: Interval removal of the [place]-Sahra catheter. Mild vascular congestion and small left pleural effusion. Impression By: [email or web address] - Gurjit Ordaz MD Diagnosis, Assessment Plan Free Text A P: Pt. with CAD and unstable angina S/P ACB x 4 Hypertension Hyperlipidemia Diabetes PLAN D/C radial arterial line Encourage use of IS and ambulation Start Metoprolol 12.5 mg PO daily at 1005 at 2057 RPT #:[id number] END OF REPORT [facility] 2021-09-15 06:57:00 [id number] [address] PATIENT NAME: MARK RIVAS ADMIT DATE: 09/13/21 ACCOUNT NO: [id number] ROOM NO: [facility] AGE: 65 REPORT TYPE: ELECTROCARDIOGRAM SEX: M ADMITTING PHYSICIAN:Prakash Gómez MD ATTENDING PHYSICIAN:Prakash Gómez MD Order: [id number] Test Reason : CAD/CAB Test Date/Time Stamp: [...] When compared with ECG of 14-SEP-2021 05:30, OR interval has decreased Confirmed by DILAN MURRAY ([id number]) on 09/15/2021 1:39:30 PM Referred By: Prakash Gómez Confirmed by:DILAN MURRAY at [id number] PATIENT NAME: MARK RIVAS [facility] 2021-09-14 19:10:00 [facility] ([facility]) Cardiovascular Surgery Prog REPORT#:[id number] REPORT STATUS: Signed DATE:09/14/21 TIME: 1909 PATIENT: MARK RIVAS UNIT #: [id number] [facility] [facility] : 57 AGE: 65 SEX: M [...] Chloride/Dextrose/Sod Cl (DEXTROSE 5%-1/4NS-KCL 20MEQ) 1,000 ML .[id number] IV Dextrose/Water (DEXTROSE 50% IN WATER) 12.5 [...] non-tender, normal bowel sounds Extremities: no edema Neuro/LABOR COMMISSIONER: alert, oriented X 3 Results Findings/Data: Laboratory [...] (Auto) (14 - 44 %) 7.0 L [place] % (Auto) (4 - 13 %) 13.2 H Eos % (Auto) (0 - 6 %) 0.0 Baso % (Auto) (0 - 2 %) 0.1 Neut # (Auto) (2.0 - 7.6 K/mm3) 15.33 H Lymph # (Auto) (1.0 - 3.8 K/mm3) 1.35 Buckingham # (Auto) (0.1 - 0.8 K/mm3) 2.56 [...] ACB x 4 Hypertension Hyperlipidemia Diabetes PLAN [place] and [place] removed Encourage use of IS and ambulation D/C femoral arterial line at 1915 at 2147 RPT #:[id number] END OF REPORT [facility] 2021-09-14 14:27:00 [facility] Hospitalist Progress Note REPORT#:[id number] REPORT STATUS: Signed DATE:09/14/21 TIME: 1427 PATIENT: MARK RIVAS UNIT #: [id number] ROOM/BED: [facility] : [facility] AGE: 65 SEX: M ATTEND: [...] Chloride/Dextrose/Sod Cl (DEXTROSE 5%-1/4NS-KCL 20MEQ) 1,000 ML .[id number] IV Dextrose/Water (DEXTROSE 50% IN WATER) 12.5 [...] edema Musculoskeletal: normal inspection, no muscle spasm Neuro/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 at 2116 RPT #:[id number] END OF REPORT [facility] 2021-09-14 13:21:00 [facility] ([facility] Cardiology Progress Note REPORT#:[id number] REPORT STATUS: Signed DATE:09/14/21 TIME: 1321 PATIENT: MARK RIVAS UNIT #: [id number] ROOM/BED: SI01-A : 56 AGE: 65 SEX: [...] Chloride/Dextrose/Sod Cl (DEXTROSE 5%-1/4NS-KCL 20MEQ) 1,000 ML .[id number] IV Dextrose/Water (DEXTROSE 50% IN WATER) 12.5 [...] - 44 %) 7.0 L 28.2 31.9 Buckingham % (Auto) (4 - 13 %) 13.2 H 9.7 9.3 Eos % (Auto) (0 - 6 %) 0.0 0.4 0.6 Baso % (Auto) (0 - 2 %) 0.1 0.3 0.3 Neut # (Auto) (2.0 - 7.6 K/mm3) 15.33 H 17.69 H 15.78 H Lymph # (Auto) (1.0 - 3.8 K/mm3) 1.35 8.25 H 8.78 H Buck[place] # (Auto) (0.1 - 0.8 K/mm3) 2.56 [...] able. Ambulate when able. at 0746 RPT #:[id number] END OF REPORT [facility] 2021-09-14 05:30:00 [id number] [place] [address] PATIENT NAME: MARK RIVAS ADMIT DATE: 09/13/21 ACCOUNT NO: [id number] ROOM NO: Z.SI01 AGE: 65 REPORT TYPE: ELECTROCARDIOGRAM SEX: M ADMITTING PHYSICIAN:Prakash Gómez MD ATTENDING PHYSICIAN:Prakash Gómez MD Order: [id number] Test Reason : CAD post CAB Test [...] MURRAY at 0632 PATIENT NAME: MARK RIVAS [facility] 2021-09-14 05:30:00 [id number] [address] PATIENT NAME: MARK RIVAS ADMIT DATE: 09/13/21 ACCOUNT NO: [id number] ROOM NO: [facility] AGE: 65 REPORT TYPE: ELECTROCARDIOGRAM SEX: M ADMITTING PHYSICIAN:Prakash Gómez MD ATTENDING PHYSICIAN:Prakash Gómez MD Order: [id number] Test Reason : CAD post CAB Test [...] MURRAY at 0706 PATIENT NAME: MARK RIVAS [facility] 2021-09-13 17:23:00 [facility] ([facility]) Cardiology Progress Note REPORT#:[id number] REPORT STATUS: Signed DATE:09/13/21 TIME: 1723 PATIENT: MARK RIVAS UNIT #: [id number] [address] AGE: 65 SEX: M [...] Chloride/Dextrose/Sod Cl (DEXTROSE 5%-1/4NS-KCL 20MEQ) 1,000 ML .[id number] IV Dextrose/Water (DEXTROSE 50% IN WATER) 12.5 [...] SULFATE) 0 .STK-MED ONE .ROUTE (DC) Rocuronium [place] (ZEMURON) 0 .STK-MED ONE .ROUTE (DC) Epinephrine (EPINEPHrine/NS 4MG/250ML) 250 ML ONCALL ONE IV (DC) Norepinephrine/Dextrose (NOREPINEPHRINE-D5W 4 MG/250 ML) 250 ML ONCALL ONE IV (DC) Esmolol HCl (BREVIBLOC) 0 .STK-MED ONE .ROUTE (DC) Rocuronium [place] (ZEMURON) 0 .STK-MED ONE .ROUTE (DC) Heparin [...] Arterial 09/13 09/13 09/13 09/13 1216 1124 0991 0756 Blood Gas O2 Saturation (92.0 - [...] - 44 %) 28.2 31.9 44.6 H [place] % (Auto) (4 - 13 %) 9.7 9.3 9.2 Eos % (Auto) (0 - 6 %) 0.4 0.6 1.8 Baso % (Auto) (0 - 2 %) 0.3 0.3 0.5 Neut # (Auto) (2.0 - 7.6 K/mm3) 17.69 H 15.78 H 3.42 Lymph # (Auto) (1.0 - 3.8 K/mm3) 8.25 H 8.78 H 3.50 [place] # (Auto) (0.1 - 0.8 K/mm3) 2.84 [...] able. Ambulate when able. at 0746 RPT #:[id number] END OF REPORT [facility] 2021-09-13 16:22:00 [facility] ([facility]) Hospitalist Consultation REPORT#:[id number] REPORT STATUS: Signed DATE:09/13/21 TIME: 1622 PATIENT: MARK RIVAS UNIT #: [id number] [address] AGE: 65 SEX: M [...] from review of his medical records including client solutions specialist's notes. Patient was referred to Dr. 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 ; has 3 kids. Very active lifestyle. [...] 09/13 1036 DC (VIANEY-SYNEPHRINE/NS IV 10MG/100ML) Rocuronium [place] 0 .STK-MED ONE 09/13 1028 DC (ZEMURON) .ROUTE Epinephrine 250 ML ONCALL ONE 09/13 0900 DC (EPINEPHrine/NS 4MG/ IV 09/13 1514 250ML) Norepinephrine/ 250 ML ONCALL ONE 09/13 0900 DC Dextrose IV 09/13 1514 (NOREPINEPHRINE-D5W 4 MG/250 ML) Rocuronium [place] 0 .STK-MED ONE 09/13 0838 DC (ZEMURON) [...] 10/13 1501 1641 Potassium Chloride/ 1,000 ML .[id number] 09/13 1500 AC 09/13 Dextrose/Sod Cl IV [...] edema Musculoskeletal: normal inspection, no muscle spasm Neuro/LABOR COMMISSIONER: patient somnolent but arousable; follow commands; nods [...] (Auto) (14 - 44 %) 28.2 31.9 [place] % (Auto) (4 - 13 %) 9.7 9.3 Eos % (Auto) (0 - 6 %) 0.4 0.6 Baso % (Auto) (0 - 2 %) 0.3 0.3 Neut # (Auto) (2.0 - 7.6 K/mm3) 17.69 H 15.78 H Lymph # (Auto) (1.0 - 3.8 K/mm3) 8.25 H 8.78 H [place] # (Auto) (0.1 - 0.8 K/mm3) 2.84 [...] (Auto) (14 - 44 %) 44.6 H [place] % (Auto) (4 - 13 %) 9.2 Eos % (Auto) (0 - 6 %) 1.8 Baso % (Auto) (0 - 2 %) 0.5 Neut # (Auto) (2.0 - 7.6 K/mm3) 3.42 Lymph # (Auto) (1.0 - 3.8 K/mm3) 3.50 [place] # (Auto) (0.1 - 0.8 K/mm3) 0.72 [...] best of my knowledge. at 1725 RPT #:[id number] END OF REPORT [facility] 2021-09-13 15:53:00 [id number] [place] [address] PATIENT NAME: MARK RIVAS ADMIT DATE: 09/13/21 ACCOUNT NO: [id number] ROOM NO: Z.SI01 AGE: 65 REPORT TYPE: ELECTROCARDIOGRAM SEX: M ADMITTING PHYSICIAN:Prakash Gómez MD ATTENDING PHYSICIAN:Prakash Gómez MD Order: [id number] Test Reason : CAD post op CAb [...] MURRAY at 1704 PATIENT NAME: MARK RIVAS [facility] 2021-09-13 15:53:00 [id number] [place] [address] PATIENT NAME: MARK RIVAS ADMIT DATE: 09/13/21 ACCOUNT NO: [id number] ROOM NO: Z.SI01 AGE: 65 REPORT TYPE: ELECTROCARDIOGRAM SEX: M ADMITTING PHYSICIAN:Prakash Gómez MD ATTENDING PHYSICIAN:Prakash Gómez MD Order: [id number] Test Reason : CAD post op CAb [...] MURRAY at 0705 PATIENT NAME: MARK RIVAS [facility] 2021-09-13 15:24:00 [id number] [place] [id number] PATIENT NAME: MARK RIVAS ADMIT DATE: 09/13/21 ACCOUNT NO: [id number] ROOM NO: Z.SI01 AGE: 65 REPORT TYPE: OPERATIVE REPORT SEX: M ADMITTING PHYSICIAN:Prakash Gómez MD ATTENDING PHYSICIAN:Prakash Gómez MD OPERATION [...] greater saphenous vein. SURGEON: Prakash Gómez MD GLUE JOINTER FEEDER: Eula Jang PA-C ANESTHESIA: General. COMPLICATIONS: None. [...] continuous retrograde coronary sinus cardioplegia infused to 15-Faroese CalMed line. The aorta was cannulated with a 24-Faroese Benitez aortic cannula. We PATIENT NAME: MARK [...] By: Prakash Gómez MD WT: OP:WALESKA/REY/MARIO Conf#: [id number]/DID#: [id number] cc: Dilan Murray MD Authenticated by Prakash Gómez MD On 09/19/2021 03:44:34 PM at 0344 PATIENT NAME: MARK RIVAS [facility] 2021-09-13 08:04:00 [id number] [address] PATIENT NAME: MARK RIVAS ADMIT DATE: ACCOUNT NO: [id number] ROOM NO: AGE: 65 REPORT TYPE: ELECTROCARDIOGRAM SEX: M ADMITTING PHYSICIAN:Prakash Gómez MD ATTENDING PHYSICIAN:Prakash Gómez MD Order: [id number] Test Reason : PRE-OP Test Date/Time Stamp: [...] MURRAY at 1339 PATIENT NAME: MARK RIVAS [facility] 2021-09-04 15:00:00 [id number] [place] [id number] PATIENT NAME: MARK RIVAS ADMIT DATE: 09/04/21 ACCOUNT NO: [id number] ROOM NO: AGE: 65 REPORT TYPE: CONSULTATION REPORT SEX: M ADMITTING PHYSICIAN: ATTENDING PHYSICIAN:Dilan Murray MD CONSULTATION DATE: 09/04/2021 CONSULTING PHYSICIAN: Prakash Gómez MD CARDIAC SURGERY SERVICE DIAGNOSES: Coronary artery disease, hypertension, and hyperlipidemia. 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 He had a positive PET CT stress, [...] By: Prakash Gómez MD WT: CON:WALESKA/REY/MARIO Conf#: [id number]/DID#: [id number] Authenticated by Prakash Gómez MD On 09/19/2021 03:09:58 PM at 0309 PATIENT NAME: MARK RIVAS [facility] 2021-09-04 12:41:00 [id number] [place] [address] PATIENT NAME: MARK RIVAS ADMIT DATE: 09/04/21 ACCOUNT NO: [id number] ROOM NO: AGE: 65 REPORT TYPE: ECHOCARDIOGRAM SEX: M ADMITTING PHYSICIAN: ATTENDING PHYSICIAN:Dilan Murray MD *[facility]* [address] [place], [place] [id number] Transthoracic Echocardiogram Patient: Mark Rivas Study Date: 09/04/2021 BP: 156 / 76 Location: [facility] URN: [id number] : 1955 Age: 65 Height: 72 in / 182.9 cm Gender: M Weight: 213.6 lb / 97.1 kg BMI/BSA: 29 kg/m 2 / 2.24 m 2 *Ordering Physician: * Dilan Murray MD *Interpreting Physician: * Dilan Murray MD *Follow Up Rep: * Chris Iraheta BS, [facility], RVS Indications: CAD Chinik Vessel. Study data: Transthoracic echocardiogram. Procedure: Transthoracic echocardiography was performed. Images were obtained using a Semantria cardiac ultrasound machine. Image quality was adequate. M-mode, complete 2D, complete spectral Doppler, and color Doppler. Location: Catheterization laboratory. Patient status: Outpatient. Patient room number: Photographic Plate Maker Holding Room 3. Study status: Add on. [...] E/A ratio 1.47 Pulmonic valve Value Ref OR peak v 1.22 m/sec OR peak grad 6 mm Hg Tricuspid valve [...] 12:41 at 1241 PATIENT NAME: MARK RIVAS [facility] 2021-09-04 12:41:00 [id number] [facility] [id number] [place] [address] PATIENT NAME: MARK RIVAS ADMIT DATE: 09/04/21 ACCOUNT NO: [id number] ROOM NO: AGE: 65 REPORT TYPE: eCAROTID ULTRASOUND SEX: M ADMITTING PHYSICIAN: ATTENDING PHYSICIAN:Dilan Murray MD *[facility]* [address] [place] [address] Carotid Duplex Study Patient: Mark Rivas Study Date: 09/04/2021 BP: 140 / 66 Location: [facility] URN: [id number] : 1955 Age: 65 Height: 72 in / 182.9 cm Gender: M Weight: 214 lb / 97.3 kg BMI/BSA: 29.1 kg/m 2 / 2.24 m 2 *Ordering Physician: * Dilan Murray MD *Interpreting Physician: * Dilan Murray MD *Follow Up Rep: * Chris CHARLES, RCS, RVS Indications: CAD. Study data: Carotid duplex study. Bilateral evaluation with grayscale 2D imaging, color Doppler imaging, and spectral Doppler analysis. Location: Catheterization laboratory. Patient status: Outpatient. Patient room number: Photographic Plate Maker Holding Room 3. Procedure: A vascular evaluation was performed with the patient in the supine position. Images were obtained using a Semantria vascular ultrasound machine. Image quality was adequate. [...] 12:41 at 1241 PATIENT NAME: MARK RIVAS [facility] 2021-09-04 08:09:00 [phone] [place] [address] PATIENT NAME: MARK RIVAS ADMIT DATE: 09/04/21 ACCOUNT NO: [id number] ROOM NO: AGE: 65 REPORT TYPE: ELECTROCARDIOGRAM SEX: M ADMITTING PHYSICIAN: ATTENDING PHYSICIAN:Dilan Murray MD Order: [id number] Test Reason : CAD/PVC's Test Date/Time Stamp: [...] MURRAY at 1102 PATIENT NAME: MARK RIVAS [facility] 2021-09-04 08:09:00 [id number] [place] [id number] PATIENT NAME: MARK RIVAS ADMIT DATE: 09/04/21 ACCOUNT NO: [id number] ROOM NO: AGE: 65 REPORT TYPE: ELECTROCARDIOGRAM SEX: M ADMITTING PHYSICIAN: ATTENDING PHYSICIAN:Dilan Murray MD Order: [id number] Test Reason : CAD/PVC's Test Date/Time Stamp: [facility] Sep 04 2021 08:09:17 Blood [...] MURRAY at 1256 PATIENT NAME: MARK RIVAS [facility] 2021-09-04 06:55:00 [id number] [address] PATIENT NAME: MARK RIVAS ADMIT DATE: 09/04/21 ACCOUNT NO: [id number] ROOM NO: AGE: 65 REPORT TYPE: CARDIAC CATHETERIZATION REPORT SEX: M ADMITTING PHYSICIAN: ATTENDING PHYSICIAN:Dilan Murray MD PROCEDURE DATE: REAL ESTATE INSTRUCTOR: Dilan Murray MD TITLE OF THE PROCEDURE: [...] femoral artery area for local anesthesia. A 6-Faroese sheath was placed in the right common femoral artery using standard techniques and fluoroscopy. After heparinization, left coronary angiogram showed heavily calcified arteries. The circumflex has a mid-lesion to distal at 60%. Has a good size posterolateral branch. The LAD starts off okay, then after the first diagonal has 99% subtotal lesion and then diffuse 90% lesion to the jbh-gn-zylawv vessel after the second diagonal, distally at [...] By: Dilan Murray MD WT: CATH:GAYATHRI/STEPHANIE/MARIO Conf#: [id number]/DID#: [id number] Authenticated by Dilan Murray MD On 09/04/2021 11:10:33 AM at 1110 PATIENT NAME: MARK RIVAS [facility] 2021-09-04 06:03:00 [id number] [place] [id number] PATIENT NAME: MARK RIVAS ADMIT DATE: 09/04/21 ACCOUNT NO: [id number] ROOM NO: AGE: 65 REPORT TYPE: ELECTROCARDIOGRAM SEX: M ADMITTING PHYSICIAN: ATTENDING PHYSICIAN:Dilan Murray MD Order: [id number] Test Reason : PRE-OP Test Date/Time Stamp: [facility] Sep 04 2021 06:03:12 Blood [...] MURRAY at 0615 PATIENT NAME: MARK RIVAS [facility] 2021-09-04 06:03:00 [id number] [place] [id number] PATIENT NAME: MARK RIVAS ADMIT DATE: 09/04/21 ACCOUNT NO: [id number] ROOM NO: AGE: 65 REPORT TYPE: ELECTROCARDIOGRAM SEX: M ADMITTING PHYSICIAN: ATTENDING PHYSICIAN:Dilan Murray MD Order: [id number] Test Reason : PRE-OP Test Date/Time Stamp: [...] MURRAY at 1256 PATIENT NAME: MARK RIVAS [facility] 2021-09-03 07:17:00 [phone] [place] [address] PATIENT NAME: MARK RIVAS ADMIT DATE: ACCOUNT NO: [id number] ROOM NO: AGE: 65 REPORT TYPE: HISTORY AND PHYSICAL SEX: M ADMITTING PHYSICIAN: ATTENDING PHYSICIAN:Dilan Murray MD PATIENT NAME: MARK RIVAS ADMIT DATE:09/04/2021 ADMISSION DATE: 09/04/2021 REAL ESTATE INSTRUCTOR: Dilan Murray MD REASON FOR ADMISSION: Cardiac [...] By: Dilan Murray MD WT: HP:WALESKA/STEPHANIE/MARIO Conf#: [id number]/DID#: [id number] Authenticated and Edited by Dilan Murray MD On 09/03/21 4:38:06 PM at 0439 PATIENT NAME: MARK RIVAS [facility]
--- NOTE | 2024-10-06 12:02 | EDPHYS ---
Physician Documentation [facility] Name: Alex Rivas Age: 68 yrs Sex: Male : 1955 Arrival Date: 10/06/2024 Time: 11:36 Bed 8 Private MD: ED Physician Roni Zurita HPI: 10/06 11:55 This 68 yrs old Male presents to ER via Ambulatory with complaints of Picc kb Line Issues. 11:55 Pt is a 68 year old male who presents for possible PICC line infection. States he kb noticed some redness yesterday and his home health nurse told him to come get it evaluated. Denies fever, pain. Pt has had the PICC in place for 10 days, receiving vancomycin and cefepime. . Historical: - Allergies: 11:45 No Known Allergies; ss - PMHx: 11:45 Diabetes - NIDDM; Hypertension; ss - PSHx: 11:45 CABG; ss - Immunization history:: Adult Immunizations unknown. - Infectious Disease History:: Denies. - Social history:: Smoking status: Patient denies any tobacco usage or history of. ROS: 11:53 Constitutional: As per HPI kb Exam: 11:53 Constitutional: This is a well developed, well nourished patient who is awake, alert, kb and in no acute distress. Head/Face: Normocephalic, atraumatic. ENT: Moist Mucous membranes Cardiovascular: Regular rate Respiratory: Respirations even and unlabored. No increased work of breathing. Talking in full sentences MS/ Extremity: Pulses equal, no cyanosis. Neurovascular intact. Full, normal range of motion. Neuro: Awake and alert, GCS 15, oriented to person, place, time, and situation. 11:53 Skin: PICC line to right upper arm with slight erythema around biopatch. No cellulitis, swelling, warmth. skin irritation under biopatch from 10 o'clock to 3 o'clock. . Vital Signs: 11:44 Weight 88.45 kg; Height 5 ft. 11 in. ; Pain 0/10; ss 11:48 BP 146 / 75; Pulse 76; Resp 16; Pulse Ox 100% on R/A; ss 11:44 Body Mass Index 27.20 (88.45 kg, 180.34 cm) ss 11:44 Pain Scale: Adult ss MDM: 11:43 Medical Screening Exam initiated kb 11:59 Data reviewed: vital signs, nurses notes. kb 12:00 Differential diagnosis: skin irritation, cellulitis. Counseling: I had a detailed kb discussion with the patient and/or guardian regarding the historical points, exam findings, and any diagnostic results supporting the discharge/admit diagnosis, the need for outpatient follow up, a family practitioner, to return to the emergency department if symptoms worsen or persist or if there are any questions or concerns that arise at home. ED course: Pt educated to monitor area for worsening symptoms, return precautions and follow up. New PICC dressing applied. . 10/06 11:48 Order name: Misc. Order: PICC line dressing change; Complete Time: 12:12 kb Administered Medications: No medications were administered Disposition: 12:15 Co-signature as Attending Physician, Roni Zurita MD I reviewed the patient's care rn provided by the Advanced Practice Provider and agree with the diagnosis and treatment plan. Disposition Summary: 10/06/24 12:01 Discharge Ordered Notes: Location: Home kb Condition: Stable kb Diagnosis - Rash and other nonspecific skin eruption - skin irriation from dressing kb Followup: kb - With: Emergency Department - When: As needed - Reason: Worsening of condition Followup: kb - With: Private Physician - When: 2 - 3 days - Reason: Recheck today's complaints, Continuance of care, Re-evaluation by your physician Discharge Instructions: - Discharge Summary Sheet kb - PICC Home Care Guide kb Forms: - Medication Reconciliation Form kb - Antibiotic Education kb - Prescription Opioid Use kb - Patient Portal Instructions kb - Leadership Thank You Letter kb Signatures: Gela Clark, WAFER PRODUCTION LEAD WORKER-C WAFER PRODUCTION LEAD WORKER-Roni Miranda MD MD rn Blanchard, Shelby, RN RN ss Cara Treadwell RN RN ph Corrections: (The following items were deleted from the chart) 12:00 11:53 Skin: PICC line to right upper arm with slight erythema around biopatch. No kb cellulitis, swelling, warmth. kb
--- NOTE | 2024-10-06 12:02 | ER ---
Nurse's Notes [facility] Name: Alex Rivas Age: 68 yrs Sex: Male : 1955 Arrival Date: 10/06/2024 Time: 11:36 Bed 8 Private MD: Diagnosis: Rash and other nonspecific skin eruption-skin irriation from dressing Presentation: 10/06 11:44 Chief complaint: Patient states: Redness noted to R upper arm PICC insertion site that ss began yesterday. PICC placed 10 days ago. Coronavirus screen: Client denies travel out of the [place] in the last 14 days. Ebola Screen: Patient denies exposure to infectious person. Patient denies travel to an Ebola-affected area in the 21 days before illness onset. Initial Sepsis Screen: Does the patient meet any 2 criteria? No. Patient's initial sepsis screen is negative. Does the patient have a suspected source of infection? No. Patient's initial sepsis screen is negative. Risk Assessment: Do you want to hurt yourself or someone else? Patient reports no desire to harm self or others. Onset of symptoms was October 04, 2024. 11:44 Method Of Arrival: Ambulatory ss 11:44 Acuity: NORTH 4 ss Historical: - Allergies: 11:45 No Known Allergies; ss - PMHx: 11:45 Diabetes - NIDDM; Hypertension; ss - PSHx: 11:45 CABG; ss - Immunization history:: Adult Immunizations unknown. - Infectious Disease History:: Denies. - Social history:: Smoking status: Patient denies any tobacco usage or history of. Screenin:11 [facility] ED Fall Risk Assessment (Adult) History of falling in the last 3 months, ph including since admission No falls in past 3 months (0 pts) Confusion or Disorientation No (0 pts) Intoxicated or Sedated No (0 pts) Impaired Gait No (0 pts) Mobility Assist Device Used No (0 pt) Altered Elimination No (0 pt) Score/Fall Risk Level 0 - 2 = Low Risk Oriented to surroundings, Maintained a safe environment, Hourly rounding (assess needs \T\ fall precautionary measures) done. Abuse screen: Denies threats or abuse. Denies injuries from another. Nutritional screening: No deficits noted. Tuberculosis screening: No symptoms or risk factors identified. Assessment: 12:09 General: Appears in no apparent distress. comfortable, well groomed, Behavior is calm, ph cooperative, appropriate for age. Pain: Denies pain. Neuro: Level of Consciousness is awake, alert, obeys commands, Oriented to person, place, time, situation. Derm: PICC line to ISAAC, removed dressing, mild skin irritation noted under top of bio-patch,pt reports some itching to area, PICC site redressed per hospital protocol. Vital Signs: 11:44 Weight 88.45 kg; Height 5 ft. 11 in. ; Pain 0/10; ss 11:48 BP 146 / 75; Pulse 76; Resp 16; Pulse Ox 100% on R/A; ss 11:44 Body Mass Index 27.20 (88.45 kg, 180.34 cm) ss 11:44 Pain Scale: Adult ss ED Course: 11:41 Patient arrived in ED. cj3 11:43 Gela Clark FNP-C is PHCP. kb 11:43 Roni Zurita MD is Attending Physician. kb 11:44 Cara Treadwell, RN is Primary Nurse. ph 11:45 Triage completed. ss 11:45 Arm band placed on right wrist. ss 12:12 Patient has correct armband on for positive identification. Bed in low position. ph 12:12 No provider procedures requiring assistance completed. Patient did not have IV access ph during this emergency room visit. Administered Medications: No medications were administered Medication: 12:12 VIS not applicable for this client. ph Outcome: 12:01 Discharge ordered by MD. kb 12:12 Discharged to home ambulatory, ph 12:12 Condition: good 12:12 Discharge instructions given to patient, Instructed on discharge instructions, follow up and referral plans. Demonstrated understanding of instructions, follow-up care, 12:13 Patient left the ED. ph Signatures: Gela Clark FNP-C FNP-Ckb Blanchard, Shelby, RN RN ss Cara Treadwell RN RN Liane Mckee cj3
[2024-10-06 12:21] VITALS: BP 146/75; O2SAT 100
== END 2024-10-06 12:13 | disposition home or self-care (01) ==
LOC: ER 11:36
DX: R21 Rash and other nonspecific skin eruption (principal); T82.898A Other specified complication of vascular prosthetic devices, implants and grafts, initial encounter
CPT/HCPCS: 99282

== ENCOUNTER 2024-10-07 11:45 | Emergency (ER) | payer OTHER ==
--- OUTSIDE RECORDS SUMMARY | 2024-10-07 11:52 | XMS REPORT | Continuity of Care Document ---
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 Role Phone Unknown, Physician Primary Care Physician TALI Roberson Attending Clinician Unavailable VALERIE CORNELL Attending Clinician Unavailable SETH RESENDIZ Attending Clinician Unavailable Prakash Gómez Attending Clinician UnavailDilan Abraham Attending Clinician Unavailable Louis Clifton MD Attending Clinician [phone] Antonia Bailey LVN Attending Clinician UnavailJasiel Zamora MD Attending Clinician [phone] Keagan Vora MD Attending Clinician [phone] Prakash Gómez Admitting Clinician Unavailroscoe jordan Physician, No Primary or Family Admitting Clinic courtney Unavailable Payers Payer Name Policy Type Policy Number Effective Date Expirati on Date Source [employer] CHOICE POS II [id number] 2000 00:00:00 Problems Condition Name Condition Details Condition Category Status Onset Date Resolution Date Last Treatment Date Treating Clinician Comments Source Elevated lipoprotei n(a) Elevated lipoprotei n(a) Disease Active 08-16 00:00: 00 Overview: Formattin g of this note might be different from the original. Lp(a) ( 2): 50 [facility] CAD (coronary artery disease) CAD (coronary artery [...] 58% at rest and 56% at stress. [facility] Chronic systolic heart failure Chronic systolic heart failure Disease Active - 00:00: 00 Overview: Formattin g of this note might be different from the original. TTE ( 2): LVEF 45-50%, normal LA size, no valvular heart disease, normal RVSP.On Losartan. Cannot tolerate betablock er due to bradycard ia.May need to screen for ischemia in the setting of poorly controlle d type 2 diabetes. [facility] Monsalve's palsy Monsalve's palsy Disease Active - 00:00: 00 [facility] Arrhythmia Arrhythmia Disease Active - 00:00: 00 [...] another opinion after being contacted by EP. [facility] Erectile dysfunctio n Erectile dysfunctio n Disease Active 06-18 00:00: 00 [facility] Peripheral neuropathy Peripheral neuropathy Disease Active 06-18 00:00: 00 [facility] Diabetes mellitus type II, non insulin dependent [...] increased dose of Metformin in July 2021. [facility] Essential hypertensi on Essential hypertensi on Disease Active 06-16 00:00: 00 Overview: Formattin g of this note might be different from the original. Previousl y on Losartan 25 mg daily and increased to 50 mg on 07/12/2021 due to the TTE showing an LVEF 45-50%. [facility] Hyperlipid emia Hyperlipid emia Disease Active 06-16 00:00: 00 Overview: Formattin g of this note might be different from the original. 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 ulceration of [...] s DA Active U 09-04 00:00: 00 [facility] Social History Social Habit Start Date Stop Date Quantity Comments Source History SDOH Alcohol Std Drinks [facility] History SDOH Alcohol Binge [facility] History SDOH Alcohol Comment [facility] Exposure to SARS-CoV-2 (event) Not sure [facility] Alcohol intake 2021-10-26 00:00:00 2021-10-26 00:00:00 Lifetime non-drinker (finding) [facility] Tobacco use and exposure 2021-07-29 00:00:00 [...] 100 UNIT/ML injection 09-09 00:00: 00 Yes [id number] Inject 7 units under the skin up to three times daily plus insulin sliding scale (1:50>150) for max 33 units per day [facility] atorvastati n (Lipitor) 80 MG tablet 09-09 00:00: 00 09-10 04:59 :00 No [id number] 80mg QD Take 1 tablet (80 mg total) by mouth 1 (one) time each day. [facility] semaglutide (Ozempic) 2 MG/1.5ML solution pen-injecto r 09-09 00:00: 00 09-10 04:59 :00 No [id number] 1mg Inject 1 mg under the skin 1 (one) time per week. [facility] insulin degludec (Tresiba FlexTouch) 100 UNIT/ML injection 09-09 00:00: 00 09-10 04:59 :00 No [id number] 20U Inject 20 Units under the skin 1 (one) time each day in the morning. [facility] insulin lispro (HumaLOG) 100 UNIT/ML injection 09-09 00:00: 00 09-09 00:00 :00 No [id number] Inject 7 units under the skin up to three times daily plus insulin sliding scale (1:50>150) for max 33 units per day [facility] Aspirin 81 MG capsule 08-30 09:15: 02 Yes QD Take by mouth 1 (one) time each day. [facility] Aspirin 81 MG capsule 08-16 08:01: 04 Yes QD Take by mouth 1 (one) time each day. [facility] dapaglifloz in (Farxiga) 10 MG - 00:00: 00 07-30 05:59 :00 No [id number] 10mg QD Take 1 tablet (10 mg total) by mouth 1 (one) time each day. [facility] metFORMIN (Glucophage ) 1000 MG tablet - 00:00: 00 07-30 05:59 :00 No [id number] 1000mg Take 1 tablet (1,000 mg total) by mouth 2 (two) times a day with meals. [facility] semaglutide (Ozempic) 2 MG/1.5ML solution pen-injecto r 07-29 00:00: 00 09-09 00:00 :00 No [id number] Inject 0.25 mg once weekly for 4 weeks, then increase to 0.5 mg once weekly after that [facility] rivaroxaban (Xarelto) 20 MG tablet 07-27 00:00: 00 07-28 05:59 :00 No [id number] 20mg Take 1 tablet (20 mg total) by mouth 1 (one) time each day with dinner. Take with food. [facility] tadalafil (Cialis) 5 MG tablet 07-26 00:00: 00 Yes [id number] 5mg QD Take 1 tablet (5 mg total) by mouth 1 (one) time each day. [facility] apixaban (Eliquis) 5 MG tablet 07-26 00:00: 00 07-27 05:59 :00 No [id number] 5mg Q.5D Take 1 tablet (5 mg total) by mouth 2 (two) times a day. [facility] losartan (Cozaar) 50 MG tablet 07-12 00:00: 00 07-13 05:59 :00 No [id number] 50mg QD Take 1 tablet (50 mg total) by mouth 1 (one) time each day. [facility] aspirin 81 MG EC tablet 06-21 11:00: 08 06-21 00:00 :00 No 81mg QD Take 81 mg by mouth 1 (one) time each day. [facility] losartan (Cozaar) 25 MG tablet 06-21 00:00: 00 06-22 05:59 :00 No [id number] 25mg QD Take 1 tablet (25 mg total) by mouth 1 (one) time each day. [facility] atorvastati n (Lipitor) 40 MG tablet 06-21 00:00: 00 09-09 00:00 :00 No [id number] 40mg QD Take 1 tablet (40 mg total) by mouth 1 (one) time each day. [facility] metFORMIN (Glucophage ) 500 MG tablet 06-21 00:00: 00 07-29 00:00 :00 No [id number] 500mg Take 1 tablet (500 mg total) by mouth 2 (two) times a day with meals. [facility] aspirin 81 MG EC tablet 06-21 00:00: 00 07-26 00:00 :00 No [id number] 81mg QD Take 1 tablet (81 mg total) by mouth 1 (one) time each day. [facility] metFORMIN XR (Glucophage -XR) 500 MG 24 hr tablet 2020-05- 00:00: 00 06-21 00:00 :00 No [facility] atorvastati n (Lipitor) 40 MG tablet 2020-05 0- 00:00: 00 06-21 00:00 :00 No [facility] losartan (Cozaar) 25 MG tablet 8-15 00:00: 00 06-21 00:00 :00 No [facility] Lamisil 2-17 00:00: 00 Yes Waytt Shelton 1 tab(s) [place] Vital Signs Vital Name Observation Time Observation Value Comments S ource Systolic blood pressure 2021-09-09 13:33:00 125 mm[Hg] [facility] Diastolic blood pressure 2021-09-09 13:33:00 78 mm[Hg] [facility] Heart rate 2021-09-09 13:33:00 51 /min [facility] Respiratory rate 2021-09-09 13:33:00 17 /min [facility] Body height 2021-09-09 13:33:00 180.3 [facility] Body weight 2021-09-09 13:33:00 97.07 kg [facility] BMI 2021-09-09 13:33:00 29.85 kg/m2 [facility] Systolic blood pressure 2021-10-26 13:20:00 122 mm[Hg] [facility] Diastolic blood pressure 2021-10-26 13:20:00 79 mm[Hg] [facility] Heart rate 2021-10-26 13:20:00 74 /min [...] alth Respiratory rate 2021-07-26 14:03:00 16 /min [facility] Body height 2021-07-26 14:03:00 177.8 cm [facility] Body weight 2021-07-26 14:03:00 97.342 kg [facility] BMI 2021-07-26 14:03:00 30.79 kg/m2 [facility] Oxygen saturation in Arterial blood by Pulse oximetry 2021-07-26 14:03:00 96 /min [facility] Systolic blood pressure 2021-07-26 14:03:00 132 mm[Hg] [facility] Diastolic blood pressure 2021-07-26 14:03:00 79 mm[Hg] [facility] Systolic blood pressure 2021-06-21 16:29:00 144 mm[Hg] [facility] Diastolic blood pressure 2021-06-21 16:29:00 84 mm[Hg] [facility] Heart rate 2021-06-21 16:29:00 67 /min [facility] Respiratory rate 2021-06-21 16:29:00 16 /min [facility] Body height 2021-06-21 16:29:00 177.8 cm [facility] Body weight 2021-06-21 16:29:00 97.16 kg [facility] BMI 2021-06-21 16:29:00 30.73 kg/m2 [facility] Oxygen saturation in Arterial blood by Pulse oximetry 2021-06-21 16:29:00 97 /min [facility] Procedures Procedure Date / Time Performed Performing Clinicia n Source POCT GLUCOSE 2021-10-26 13:24:00 Seth Resendiz MD [facility] [id number] 2021-09-13 00:00:00 [facility] [id number] 2021-09-13 00:00:00 [facility] [id number] 2021-09-13 00:00:00 [facility] [id number] 2021-09-13 00:00:00 [facility] [id number] 2021-09-13 00:00:00 [facility] [id number] 2021-09-13 00:00:00 [facility] [id number] 2021-09-13 00:00:00 [facility] [id number] 2021-09-13 00:00:00 [facility] POCT GLYCOSYLATED HEMOGLOBIN (HGB A1C) 2021-09-09 13:59:00 [facility] POCT GLUCOSE 2021-09-09 13:58:00 Juwanaudrey [facility] alth POCT GLUCOSE 2021-07-29 14:01:00 Juwana[place]rey Valerie MD He alth ECG 12-LEAD 2021-07-26 15:19:36 Pola Tali MD Healt h ECG 12-LEAD 2021-06-21 21:53:09 Tali Escalona MD Healt h Encounters Start Date/Time End Date/Time Encounter Type Admission Type Attending [facility] Facility Care Department Encounter ID Source 2022-11-21 11:16:24 Outpatient [facility] [id number] [facility] 2021-08-16 09:12:07 Outpatient POLA TALI [facility] [id number] [facility] 2021-07-29 08:39:40 Outpatient VALERIE CORNELL [facility] [id number] [facility] 2021-07-26 09:19:48 Outpatient VALERIE CORNELL [facility] [id number] [facility] 2021-06-21 11:28:17 Outpatient [facility] [id number] [facility] 2021-06-21 11:25:57 Outpatient [facility] [id number] [facility] 2022-02-24 08:40:00 2022-02-24 08:40:00 Outpatient VEESETH STRATTON [facility] [id number] [facility] 2021-10-26 08:40:00 2021-10-26 09:36:24 Office Visit Seth Resendiz [facility] [address] 1.2.840.114 350.1.13.58 9.2.7.2.686 [id number] [facility] 2021-09-13 14:12:00 2021-09-18 12:54:00 Inpatient Prakash Adams [facility] [id number] [facility] 2021-09-09 09:00:00 2021-09-09 09:07:48 Office Visit Valerie Cornell [facility] [address] 1.2.840.114 350.1.13.58 9.2.7.2.686 [id number] [facility] 2021-09-04 05:14:00 2021-09-04 05:14:00 Outpatient Dilan Haque [facility] [id number] [facility] 2021-08-27 00:00:00 2021-08-27 00:00:00 Telephone Tali Escalona [address] 1.2.840.114 350.1.13.58 9.2.7.2.686 [id number] [facility] 2021-08-25 00:00:00 2021-08-25 00:00:00 Telephone Tali Escalona [address] 1.2.840.114 350.1.13.58 9.2.7.2.686 [id number] [facility] 2021-08-19 00:00:00 2021-08-19 00:00:00 Telephone Tali Escalona [address] 1.2.840.114 350.1.13.58 9.2.7.2.686 [id number] [facility] 2021-08-16 08:00:00 2021-08-16 09:12:09 Office Visit Tali Escalona [address] 1.2.840.114 350.1.13.58 9.2.7.2.686 [id number] [facility] 2021-07-29 08:00:00 2021-07-29 08:39:56 Office Visit Valerie Cornell [facility] [address] 1.2.840.114 350.1.13.58 9.2.7.2.686 [id number] [facility] 2021-07-26 08:00:00 2021-07-26 09:19:54 Office Visit Tali Escalona [facility] [address] 1.2.840.114 350.1.13.58 9.2.7.2.686 [id number] [facility] 2021-07-20 00:00:00 2021-07-20 00:00:00 Telephone Louis Clifton [facility] [address] 1.2.840.114 350.1.13.58 9.2.7.2.686 [id number] [facility] 2021-07-02 00:00:00 2021-07-02 00:00:00 Telephone Antonia Bailey Melissa [facility] [address] 1.2.840.114 350.1.13.58 9.2.7.2.686 [id number] [facility] 2021-06-22 00:00:00 2021-06-22 00:00:00 Telephone Tali Escalona [facility] [address] 1.2.840.114 350.1.13.58 9.2.7.2.686 [id number] [facility] 2021-06-21 10:00:00 2021-06-21 11:28:57 Office Visit Tali Escalona [facility] [address] 1.2.840.114 350.1.13.58 9.2.7.2.686 [id number] [facility] 2021-06-11 00:00:00 2021-06-11 00:00:00 Telephone Jasiel Galindo [facility] [address] 1.2.840.114 350.1.13.58 9.2.7.2.686 [id number] [facility] 2021-06-11 00:00:00 2021-06-11 00:00:00 Telephone Keagan Vora [facility] [address] 1.2.840.114 350.1.13.58 9.2.7.2.686 [id number] [facility] 2015-04-20 18:00:00 2015-04-21 05:59:00 Outpt Diag Services nullFlavo r [facility] Outpatient Imaging Thor [id number] [place] [facility] Results Test Description Test Time Test Comments Results Result Co mments Source [facility] [id number] 20:17:00* Test Item Value Reference Range Interpretation Comme [facility] GLUCOSE BEDSIDE TESTING (jagjit t code = GLUBED) 237 MG/DL 60-99 H BASIC METABOLIC [id number] 04:25:00* Test Item Value Reference Range Interpretation [...] CA) 8.2 MG/DL 8.4-10.2 L CBC W/AUTO [id number] 04:05:00* Test Item Value Reference Range Interpretation [...] code = NRBC#) 0.06 K/mm3 0.0-0.1 N [id number] 23:13:00* Test Item Value Reference Range Interpretation Comme nts POTASSIUM (test code = K) 3.6 MMOL/L 3.5-5.1 N [id number] 23:13:00* Test Item Value Reference Range Interpretation Comme nts CALCIUM (test code = CA) 7.8 MG/DL 8.4-10.2 L [id number] 23:13:00* Test Item Value Reference Range Interpretation Comme nts MAGNESIUM (test code = MAG) 2.0 MG/DL 1.6-2.3 N GLUCOSE BEDSIDE [id number] 20:24:00* Test Item Value Reference Range Interpretation Comme nts GLUCOSE BEDSIDE TESTING (jagjit t code = GLUBED) 161 MG/DL 60-99 H GLUCOSE BEDSIDE [id number] 18:08:00* Test Item Value Reference Range Interpretation Comme nts GLUCOSE BEDSIDE TESTING (jagjit t code = GLUBED) 200 MG/DL 60-99 H URINALYSIS [id number] 17:16:00* Test Item Value Reference Range Interpretation [...] SOURCE OF URINE: VOIDED- XR ABDOMEN 1 [id number] 15:12:[address] [facility] [place] [facility] [place] [facility] : 1955 Sex: M Patient Name: MARK RIVAS Unit No: [id number] EXAMS: CPT CODE: [id number] XR ABDOMEN 1 V 42769 EXAM: ABDOMEN ONE VIEW INDICATION: KIDNEY PAIN [...] [email or web address] Orig Print D/T: S: 09/17/2021 (1514) [facility] NAME: MARK RIVAS [id number] [address] PHYS: [place] [address] : 1955 AGE: 65 SEX: M LOC: Z.SI01 A PHONE #: [phone] EXAM DATE: 09/17/2021 STATUS: ADM IN FAX #: [phone] RADIOLOGY NO: PAGE 1 Signed ReportGLUCOSE BEDSIDE [id number] 11:11:00* Test Item Value Reference Range Interpretation Comme nts GLUCOSE BEDSIDE TESTING (jagjit t code = GLUBED) 336 MG/DL 60-99 HH - XR CHEST [id number] 08:00:[address] [facility] [place] [place] : 1955 Sex: M Patient Name: MARK RIVAS Unit No: [id number] EXAMS: CPT CODE: [id number] XR CHEST 1V 88134 EXAM: CHEST ONE VIEW INDICATION: S/P CABG [...] (0800) 16Orig Print D/T: S: 09/17/2021 (0803) [facility] NAME: MARK RIVAS [id number] [address] PHYS: [place] [address] : 1955 AGE: 65 SEX: M LOC: Z.SI01 APHONE #: [phone] EXAM DATE: 09/17/2021 STATUS: ADM IN FAX #: [phone] RADIOLOGY NO: PAGE 1 Signed ReportCOMPREHENSIVE METABOLIC [id number] 04:35:00* Test Item Value Reference Range Interpretation [...] and aplastic anemia) with specific assayson the SMR SITEs 5600 of which Total Protein is one [...] ALKP) 180 UNITS/L 38-126 H CBC W/AUTO [id number] 04:12:00* Test Item Value Reference Range Interpretation [...] NRBC#) 0.00 K/mm3 0.0-0.1 N GLUCOSE BEDSIDE [id number] 20:21:00* Test Item Value Reference Range Interpretation Comme nts GLUCOSE BEDSIDE TESTING (jagjit t code = GLUBED) 153 MG/DL 60-99 H GLUCOSE BEDSIDE [id number] 17:25:00* Test Item Value Reference Range Interpretation Comme nts GLUCOSE BEDSIDE TESTING (jagjit t code = GLUBED) 145 MG/DL 60-99 H - XR CHEST [id number] 13:19:[address] [facility] [place] [place] [facility] : 1955 Sex: M Patient Name: MARK RIVAS Unit No: [id number] EXAMS: CPT CODE: [id number] XR CHEST 1V 17961 Chest Radiograph History: CHEST TUBE REMOVAL - NURSE WILL CALL WHEN READY Comparison: September 16, 2021 Location: [facility] single frontal view of the chest is [...] DelmarPMT Orig Print D/T: S: 09/16/2021 (1322) [facility] NAME: MARK RIVAS [id number] [address] PHYS: [place] [address] : 1955 AGE: 65 SEX: M LOC: Z.SI01 A PHONE #: [phone] EXAM DATE: 09/16/2021 STATUS: ADM IN FAX #: [phone] RADIOLOGY NO: PAGE 1 Signed ReportGLUCOSE BEDSIDE [id number] 11:45:00* Test Item Value Reference Range Interpretation Comme nts GLUCOSE BEDSIDE TESTING (jagjit t code = GLUBED) 208 MG/DL 60-99 H - XR CHEST [id number] 08:22:[address] [facility] [place] [place] [facility] : 1955 Sex: M Patient Name: MARK RIVAS Unit No: [id number] EXAMS: CPT CODE: [id number] XR CHEST 1V 50968 Chest Radiograph History: S/P CABG Comparison: September 15, 2021 Location: [facility] A single frontal view of the [...] t.SDR.PMT Orig Print D/T: S: 09/16/2021 (08) [facility] NAME: MARK RIVAS [id number] [address] PHYS: [place] [address] : 1955 AGE: 65 SEX: M LOC: Z.SI01 A PHONE #: [phone] EXAM DATE: 09/16/2021 STATUS: ADM INFAX #: [phone] RADIOLOGY NO: PAGE 1 Signed ReportGLUCOSE BEDSIDE [id number] 07:12:00* Test Item Value Reference Range Interpretation Comme nts GLUCOSE BEDSIDE TESTING (jagjit t code = GLUBED) 123 MG/DL 60-99 H GLUCOSE BEDSIDE [id number] 20:54:00* Test Item Value Reference Range Interpretation Comme nts GLUCOSE BEDSIDE TESTING (jagjit t code = GLUBED) 93 MG/DL 60-99 N GLUCOSE BEDSIDE [id number] 17:39:00* Test Item Value Reference Range Interpretation Comme nts GLUCOSE BEDSIDE TESTING (jagjit t code = GLUBED) 86 MG/DL 60-99 N GLUCOSE BEDSIDE [id number] 11:06:00* Test Item Value Reference Range Interpretation Comme nts GLUCOSE BEDSIDE TESTING (jagjit t code = GLUBED) 252 MG/DL 60-99 H - XR CHEST [id number] 08:58:[address] [facility] [place] [place] [facility] : 1955 Sex: M Patient Name: MARK RIVAS Unit No: [id number] EXAMS: CPT CODE: [id number] XR CHEST 1V 83183 Dictation location: U19. CHEST, FRONTAL VIEW HISTORY: S/P CABG FINDINGS: Since 09/14/21, the Winston-Sahra catheter has been removed. Right subclavian line remains in SVC. Continued cardiomegaly with mild central vascular congestion, small left pleural effusion and basilar atelectasis. Sternotomy wires. Thoracic spond ylosis. No pneumothorax. Probable mediastinal left pleural drains. IMPRESSION: Interval removal of the Winston-Sahra catheter. Mild vascular congestion and small left pleural effusion. at 0858 Reported and signed by: Gurjit Ordaz MD CC: Dilan Murray MD Technologist: Candace Wilburn (RT)(R) Transcrpt Date/Tm/Trnsp: 09/15/2021 (0858) WillaR.[email or web address] Orig Print D/T: S: 09/15/2021 (0901) [facility] NAME: MARK RIVAS [address] [address] PHYS: [place] [address] : 1955 AGE: 65 SEX: M LOC: Z.SI01 A PHONE #: [phone] EXAM DATE: 09/15/2021 STATUS: ADM IN FAX #: [phone] RADIOLOGY NO: PAGE 1 Signed ReportGLUCOSE BEDSIDE [id number] 07:34:00* Test Item Value Reference Range Interpretation Comme nts GLUCOSE BEDSIDE TESTING (jagjit t code = GLUBED) 221 MG/DL 60-99 H GLUCOSE BEDSIDE [id number] 21:31:00* Test Item Value Reference Range Interpretation Comme nts GLUCOSE BEDSIDE TESTING (jagjit t code = GLUBED) 198 MG/DL 60-99 H GLUCOSE BEDSIDE [id number] 21:25:00* Test Item Value Reference Range Interpretation Comme nts GLUCOSE BEDSIDE TESTING (jagjit t code = GLUBED) 137 MG/DL 60-99 H GLUCOSE BEDSIDE [id number] 15:14:00* Test Item Value Reference Range Interpretation Comme nts GLUCOSE BEDSIDE TESTING (test code = GLUBED) 72 MG/DL 60-99 N Doctor Noti fied~ GLUCOSE BEDSIDE [id number] 13:40:00* Test Item Value Reference Range Interpretation Comme nts GLUCOSE BEDSIDE TESTING (jagjit t code = GLUBED) 110 MG/DL 60-99 H GLUCOSE BEDSIDE [id number] 12:33:00* Test Item Value Reference Range Interpretation Comme nts GLUCOSE BEDSIDE TESTING (jagjit t code = GLUBED) 147 MG/DL 60-99 H GLUCOSE BEDSIDE [id number] 12:30:00* Test Item Value Reference Range Interpretation Comme nts GLUCOSE BEDSIDE TESTING (jagjit t code = GLUBED) 125 MG/DL 60-99 H GLUCOSE BEDSIDE [id number] 09:24:00* Test Item Value Reference Range Interpretation Comme nts GLUCOSE BEDSIDE TESTING (jagjit t code = GLUBED) 166 MG/DL 60-99 H GLUCOSE BEDSIDE [id number] 08:28:00* Test Item Value Reference Range Interpretation Comme nts GLUCOSE BEDSIDE TESTING (jagjit t code = GLUBED) 220 MG/DL 60-99 H GLUCOSE BEDSIDE [id number] 08:27:00* Test Item Value Reference Range Interpretation Comme nts GLUCOSE BEDSIDE TESTING (jagjit t code = GLUBED) 182 MG/DL 60-99 H - XR CHEST [id number] 07:46:[address] [facility] [place] [place] [facility] [facility] : 1955 Sex: M Patient Name: MARK RIVAS Unit No: [id number] EXAMS: CPT CODE: [id number] XR CHEST 1V 02409 - XR CHEST 1V INDICATION:Postop, extubated LOCATION: [...] Tomeka Orig Print D/T: S: 09/14/2021 (0750) [facility] NAME: MARK RIVAS [address] [address] PHYS: [place] [address] : 1955 AGE: 65 SEX: M : Z.SI01 A PHONE #: [phone] EXAM DATE: 09/14/2021 STATUS: ADM IN FAX #: [phone] RADIOLOGY NO: PAGE 1 Signed ReportGLUCOSE BEDSIDE [id number] 06:41:00* Test Item Value Reference Range Interpretation Comme nts GLUCOSE BEDSIDE TESTING (jagjit t code = GLUBED) 187 MG/DL 60-99 H CBC W/AUTO [id number] 04:52:00* Test Item Value Reference Range Interpretation [...] NRBC#) 0.00 K/mm3 0.0-0.1 N BASIC METABOLIC [id number] 04:30:00* Test Item Value Reference Range Interpretation [...] code = CA) 8.2 MG/DL 8.4-10.2 L [id number] 04:30:00* Test Item Value Reference Range Interpretation Comme nts MAGNESIUM (test code = MAG) 1.9 MG/DL 1.6-2.3 GLUCOSE BEDSIDE [id number] 04:05:00* Test Item Value Reference Range Interpretation Comme nts GLUCOSE BEDSIDE TESTING (jagjit t code = GLUBED) 170 MG/DL 60-99 H GLUCOSE BEDSIDE [id number] 03:10:00* Test Item Value Reference Range Interpretation Comme nts GLUCOSE BEDSIDE TESTING (jagjit t code = GLUBED) 174 MG/DL 60-99 H GLUCOSE BEDSIDE [id number] 01:23:00* Test Item Value Reference Range Interpretation Comme nts GLUCOSE BEDSIDE TESTING (jagjit t code = GLUBED) 164 MG/DL 60-99 H GLUCOSE BEDSIDE [id number] 00:08:00* Test Item Value Reference Range Interpretation Comme nts GLUCOSE BEDSIDE TESTING (jagjit t code = GLUBED) 215 MG/DL 60-99 H GLUCOSE BEDSIDE [id number] 22:05:00* Test Item Value Reference Range Interpretation Comme nts GLUCOSE BEDSIDE TESTING (jagjit t code = GLUBED) 229 MG/DL 60-99 H GLUCOSE BEDSIDE [id number] 21:19:00* Test Item Value Reference Range Interpretation Comme nts GLUCOSE BEDSIDE TESTING (jagjit t code = GLUBED) 221 MG/DL 60-99 H GLUCOSE BEDSIDE [id number] 20:20:00* Test Item Value Reference Range Interpretation Comme nts GLUCOSE BEDSIDE TESTING (jagjit t code = GLUBED) 228 MG/DL 60-99 H GLUCOSE BEDSIDE [id number] 20:17:00* Test Item Value Reference Range Interpretation Comme nts GLUCOSE BEDSIDE TESTING (jagjit t code = GLUBED) 185 MG/DL 60-99 H ARTERIAL BLOOD [id number] 17:54:00* Test Item Value Reference Range Interpretation [...] code = COHBGFFIO2) 100 % BASIC METABOLIC [id number] 16:26:00* Test Item Value Reference Range Interpretation [...] code = CA) 8.1 MG/DL 8.4-10.2 L [id number] 16:26:00* Test Item Value Reference Range Interpretation Comme nts MAGNESIUM (test code = MAG) 2.9 MG/DL 1.6-2.3 H PROTHROMBIN [id number] 15:55:00* Test Item Value Reference Range Interpretation [...] recurrent systemic embolism. 3.0 - 4.5 PTT [id number] 15:55:00* Test Item Value Reference Range Interpretation Comme nts PTT ACTIVATED (test code = APTT) 34.5 SECONDS 26.2-35.4 CBC W/AUTO [id number] 15:39:00* Test Item Value Reference Range Interpretation [...] NRBC#) 0.00 K/mm3 0.0-0.1 N BASIC METABOLIC [id number] 15:38:00* Test Item Value Reference Range Interpretation [...] 8.4 MG/DL 8.4-10.2 N - XR CHEST [id number] 15:38:[address] [facility] [place]: [place] RIVAS : 1955 Sex: M Patient Name: MARK RIVAS Unit No: [id number] EXAMS: CPT CODE: [id number] XR CHEST 1V 16065 B2 EXAM: - XR CHEST 1V DATE: 09/13/2021 3:04 PM HISTORY: S/P CABG COMPARISON: Chest x-ray 09/10/2021 FINDINGS: Interval medial sternotomy. Interval placement of an endotracheal tube ending approximately 2.5 cm above the little. Interval placement of an enteric tube ending below the level of the GE junction. Left tho racostomy tube and mediastinal drain in place. Right internal jugular Winston-Sahra catheter ending in the region of the [...] (1538) t.ALANR.MOP Orig Print D/T: S: 09/13/2021 (4482) [facility] NAME: MARK RIVAS [address] PHYS: [place] [address] : 1955 AGE: 65 SEX: M LOC: Z.SI01 A PHONE #: [phone] EXAM DATE: 09/13/2021 STATUS: ADM IN FAX #: [phone] RADIOLOGY NO: PAGE 1 Signed ReportPROTHROMBIN TIME [...] recurrent systemic embolism. 3.0 - 4.5 PTT [id number] 15:20:00* Test Item Value Reference Range Interpretation Comme nts PTT ACTIVATED (test code = APTT) 28.5 SECONDS 26.2-35.4 CBC W/AUTO [id number] 15:08:00* Test Item Value Reference Range Interpretation [...] 0.00 K/mm3 0.0-0.1 N POC ARTERIAL BLOOD [id number] 14:57:00* Test Item Value Reference Range Interpretation Comme nts POC ARTERIAL BLOOD GAS PH (test code = POCPHA) 7.329 7.35-7.45 L POC ARTERIAL BLOOD GAS PCO2 (test code = DMYHXP3K) 43.2 mmHg 35.0-45.0 N POC ARTERIAL BLOOD GAS PO2 (test code = AHPON8N) 315.6 75.0-100.0 HH POC HCO3 ARTERIAL (test code = SBKDPA5Y) 22.7 MMOL/L 20.0-26.0 N POC BASE EXCESS [...] 2.93 mmol/L 0.7-2.0 HH POC ARTERIAL BLOOD [id number] 13:49:00* Test Item Value Reference Range Interpretation Comme [facility] POC ARTERIAL BLOOD GAS PH (test code = POCPHA) 7.307 7.35-7.45 L POC ARTERIAL BLOOD GAS PCO2 (test code = RDISZB4X) 51.6 mmHg 35.0-45.0 HH POC ARTERIAL BLOOD GAS PO2 (test code = NRWVM8V) 244.6 75.0-100.0 HH POC HCO3 ARTERIAL (test code = BERHZQ3K) 25.8 MMOL/L 20.0-26.0 N POC BASE EXCESS (test code = POCBEA) -0.8 MMOL/L -3.0-3.0 N POC O2 SATURATION (test code = POCO2S) 99.8 % 92.0-98.5 H FIO2 (test code = FIO2A) 85 % 21-100 PaO2/FiO2 (test code = SJS4EUQ4) 287.76 mm/Hg SODIUM (test code = NA/ABG) [...] 1.24 mmol/L 0.7-2.0 N POC ARTERIAL BLOOD [id number] 13:23:00* Test Item Value Reference Range Interpretation Comme [facility] POC ARTERIAL BLOOD GAS PH (test code = POCPHA) 7.405 7.35-7.45 N POC ARTERIAL BLOOD GAS PCO2 (test code = XDAUNV5K) 41.7 mmHg 35.0-45.0 N POC ARTERIAL BLOOD GAS PO2 (test code = XQNJF4A) 278.9 75.0-100.0 HH POC HCO3 ARTERIAL (test code = RPMUMT9W) 26.1 MMOL/L 20.0-26.0 H POC BASE EXCESS (test code = POCBEA) 1.3 MMOL/L -3.0-3.0 N POC O2 SATURATION (test code = POCO2S) 99.9 % 92.0-98.5 H FIO2 (test code = FIO2A) 80 % 21-100 PaO2/FiO2 (test code = KSD7YTL8) 348.62 mm/Hg SODIUM (test code = NA/ABG) [...] 0.72 mmol/L 0.7-2.0 N POC ARTERIAL BLOOD [id number] 12:48:00* Test Item Value Reference Range Interpretation Comme [facility] POC ARTERIAL BLOOD GAS PH (test code = POCPHA) 7.395 7.35-7.45 N POC ARTERIAL BLOOD GAS PCO2 (test code = AKWJPY4B) 42.4 mmHg 35.0-45.0 N POC ARTERIAL BLOOD GAS PO2 (test code = KOBEO0J) 284.3 75.0-100.0 HH POC HCO3 ARTERIAL (test code = SFWXYA7S) 26.0 MMOL/L 20.0-26.0 N POC BASE EXCESS (test code = POCBEA) 0.9 MMOL/L -3.0-3.0 N POC O2 SATURATION (test code = POCO2S) 99.9 % 92.0-98.5 H FIO2 (test code = FIO2A) 55 % 21-100 N PaO2/FiO2 (test code = BND2WRL6) 516.90 mm/Hg SODIUM (test code = NA/ABG) [...] 0.95 mmol/L 0.7-2.0 N POC ARTERIAL BLOOD [id number] 12:19:00* Test Item Value Reference Range Interpretation Comme nts POC ARTERIAL BLOOD GAS PH (test code = POCPHA) 7.407 7.35-7.45 N POC ARTERIAL BLOOD GAS PCO2 (test code = UMQZZS5S) 44.3 mmHg 35.0-45.0 N POC ARTERIAL BLOOD GAS PO2 (test code = PXAUR7J) 434.7 75.0-100.0 HH POC HCO3 ARTERIAL (test code = NHFZKG9B) 27.8 MMOL/L 20.0-26.0 H POC BASE EXCESS [...] 1.20 mmol/L 0.7-2.0 N POC ARTERIAL BLOOD [id number] 11:28:00* Test Item Value Reference Range Interpretation Comme nts POC ARTERIAL BLOOD GAS PH (test code = POCPHA) 7.411 7.35-7.45 N POC ARTERIAL BLOOD GAS PCO2 (test code = CHCFEW7X) 40.2 mmHg 35.0-45.0 N POC ARTERIAL BLOOD GAS PO2 (test code = UOKFT1C) 526.3 75.0-100.0 HH POC HCO3 ARTERIAL (test code = INJWBE4V) 25.5 MMOL/L 20.0-26.0 N POC BASE EXCESS [...] LACTP) 1.46 mmol/L 0.7-2.0 N BASIC METABOLIC [id number] 11:01:00* Test Item Value Reference Range Interpretation [...] N PLEASE CALL RESULTS TO PHONE #: [phone] [facility] W/AUTO [id number] 10:22:00* Test Item Value Reference Range Interpretation [...] N PLEASE CALL RESULTS TO PHONE #: [phone] [facility] ARTERIAL BLOOD [id number] 09:59:00* Test Item Value Reference Range Interpretation Comme nts POC ARTERIAL BLOOD GAS PH (test code = POCPHA) 7.423 7.35-7.45 N POC ARTERIAL BLOOD GAS PCO2 (test code = NNDFWO0Z) 37.3 mmHg 35.0-45.0 N POC ARTERIAL BLOOD GAS PO2 (test code = ROJDV5Y) 374.9 75.0-100.0 HH POC HCO3 ARTERIAL (test code = XKFDSF5F) 24.4 MMOL/L 20.0-26.0 N POC BASE EXCESS [...] 1.05 mmol/L 0.7-2.0 N POC ARTERIAL BLOOD [id number] 08:09:00* Test Item Value Reference Range Interpretation Comme nts POC ARTERIAL BLOOD GAS PH (test code = POCPHA) 7.392 7.35-7.45 N POC ARTERIAL BLOOD GAS PCO2 (test code = ASDGQZ8N) 43.8 mmHg 35.0-45.0 N POC ARTERIAL BLOOD GAS PO2 (test code = JGMMZ6X) 93.1 75.0-100.0 N POC HCO3 ARTERIAL (test code = SXQOFR7Q) 26.6 MMOL/L 20.0-26.0 H POC BASE EXCESS [...] = LACTP) 0.63 mmol/L 0.7-2.0 L PROTHROMBIN [id number] 14:18:00* Test Item Value Reference Range [facility]ation [facility] TIME PATIENT (test code = PTP) [...] recurrent systemic embolism. 3.0 - 4.5 PTT [id number] 14:18:00* Test Item Value Reference Range Interpretation [facility] PTT ACTIVATED (test code = APTT) 42.5 SECONDS 26.2-35.4 H HIV 12 AB [id number] 13:27:00* Test Item Value Reference Range Interpretation Comme [facility] HIV 1 2 COMBO AG/AB SCREEN (test code = USB83SPFBU) AB/AG NON REACTIVE NONREACTIVE GLYCOSYLATED HEMOGLOBIN [id number] 12:41:00* Test Item Value Reference Range Interpretation [...] MBG) 286 MG/DL 70-110 H COMPREHENSIVE METABOLIC [id number] 12:41:00* Test Item Value Reference Range Interpretation [...] UNITS/L 38-126 N - XR CHEST 2 [id number] 12:30:[address] [facility] [place] R[place]AS : 1955 Sex: M Patient Name: MARK RIVAS Unit No: [id number] EXAMS: CPT CODE: [id number] XR CHEST 2 V 95561 C3 EXAM: - XRCHEST 2 V DATE: [...] Santoslogist: Candace Wilburn (RT)(R) Transcrpt Date/Tm/Trnsp: 09/10/2021 (5495) DelmarMOP Orig Print D/T: S: 09/10/2021 (1906) [facility] NAME: MARK RIVAS [address] PHYS: [place] [address] : 1955 AGE: 65 SEX: M LOC: U PHONE #: [phone] EXAM DATE: 09/10/2021 STATUS: PRE IN FAX #: [phone] RADIOLOGY NO: PAGE 1 Signed ReportPLT RESPONSE TO [id number] 12:21:00* Test Item Value Reference Range Interpretation [...] K/mm3 0.0-0.1 N COVID 19 Asymptomatic IH [id number] 12:07:00* Test Item Value Reference Range Interpretation [...] sample." POCT glycosylated hemoglobin (Hb A1C) docked [id number] 13:59:00* Test Item Value Reference Range Interpretation Comme [facility] Hemoglobin A1C (test code = 4548-4) 11.7 % 4.0-6.0 A Lab Interpretation (test cod e = 44666-9) Abnormal [facility] glucose manually [id number] 13:58:00* Test Item Value Reference Range Interpretation Comme [facility] Glucose Blood, POC (test cod e = 2938489) 232 mg/dL 70-180 A Lab Interpretation (test cod e = 85648-1) [facility]2021-[facility]-04 06:09:00* Test Item Value Reference Range Interpretation Comme [facility] TRIGLYCERIDES (test code = TRIG) 133 MG/DL [...] mg/dL HIGH.........160-189 mg/dL VERY HIGH.........>/= 190 mg/dL [id number] 06:09:00* Test Item Value Reference Range Interpretation Comme [facility] MAGNESIUM (test code = MAG) 1.7 MG/DL 1.6-2.3 N BASIC METABOLIC [id number] 06:09:00* Test Item Value Reference Range Interpretation Comme [facility] SODIUM (test code = NA) 137 MMOL/L [...] = CA) 9.7 MG/DL 8.4-10.2 N PROTHROMBIN [id number] 05:53:00* Test Item Value Reference Range Interpretation Comme [facility] PROTHROMBIN TIME PATIENT (test code = PTP) [...] recurrent systemic embolism. 3.0 - 4.5 PTT [id number] 05:53:00* Test Item Value Reference Range Interpretation Comme nts PTT ACTIVATED (test code = APTT) 32.8 SECONDS 26.2-35.4 N CBC W/AUTO [id number] 05:41:00* Test Item Value Reference Range Interpretation [...] K/mm3 0.0-0.1 N COVID 19 Asymptomatic IH [id number] 05:14:00* Test Item Value Reference Range Interpretation [...] (antigen) in the sample." POCT glucose manually acxpphun7229-01-92 14:01:00* Test Item Value Reference Range Interpretation Comme nts Glucose Blood, POC (test cod e = 9610708) 278 mg/dL 70-180 A Lab Interpretation (test cod e = 29820-2) Abnormal [facility] Notes Date/Time Note Provider Source 2021 19:57:00 [id number] [place] [address] PATIENT NAME: MARK RIVAS ADMIT DATE: 09/13/21 ACCOUNT NO: [id number] ROOM NO: Z.SI01 AGE: 66 REPORT TYPE: [...] pain and underwent cardiac catheterization by his finance accounting internship, Dr. Murray and was found to have [...] for Prakash Gómez MD WT: DS:WALESKA/LILIA/MARIO Conf#: [id number]#: [id number] Authenticated by ASHLEIGH Esposito On 11/06/2021 03:13:30 PM Authenticated by Prakash Gómez MD On 11/06/2021 04:03:21 PM at 0403 at 0313 PATIENT NAME: MARK RIVAS [facility] 2021-09-18 14:54:00 [facility] Hospitalist Progress Note REPORT#:[id number] REPORT STATUS: Signed DATE:09/18/21 TIME: 1454 PATIENT: MARK RIVAS UNIT #: [id number] [address] AGE: 65 SEX: M [...] midline vertebral tend , no muscle spasm Neuro/PROFESSOR OF INDUSTRIAL TECHNOLOGY: alert, oriented X 3, normal speech, no [...] % (Auto) (14 - 44 %) 28.0 [place] % (Auto) (4 - 13 %) 13.6 H Eos % (Auto) (0 - 6 %) 1.5 Baso % (Auto) (0 - 2 %) 0.3 Neut # (Auto) (2.0 - 7.6 K/mm3) 5.91 Lymph # (Auto) (1.0 - 3.8 K/mm3) 2.96 [place] # (Auto) (0.1 - 0.8 K/mm3) 1.44 [...] pH (5.0 - 9.0) 6.0 Ur Specific [place] (1.003 - 1.030) 1.010 Urine Protein (NEGATIVE [...] best of my knowledge. at 2258 RPT #:[id number] END OF REPORT [facility] 2021-09-18 06:12:00 [facility] ([facility] Cardiology Progress Note REPORT#:[id number] REPORT STATUS: Signed DATE:09/18/21 TIME: 611 PATIENT: MARK RIVAS UNIT #: [id number] [address] AGE: 65 SEX: M [...] peripheral pulses Musculoskeletal: full range of motion Neuro/PROFESSOR OF INDUSTRIAL TECHNOLOGY: alert, oriented X 3, CN II-XII intact, [...] % (Auto) (14 - 44 %) 28.0 [place] % (Auto) (4 - 13 %) 13.6 H Eos % (Auto) (0 - 6 %) 1.5 Baso % (Auto) (0 - 2 %) 0.3 Neut # (Auto) (2.0 - 7.6 K/mm3) 5.91 Lymph # (Auto) (1.0 - 3.8 K/mm3) 2.96 [place] # (Auto) (0.1 - 0.8 K/mm3) 1.44 [...] pH (5.0 - 9.0) 6.0 Ur Specific [place] (1.003 - 1.030) 1.010 Urine Protein (NEGATIVE [...] D/C Discussed in detail at 0617 RPT #:[id number] END OF REPORT [facility] 2021-09-18 03:26:00 [id number] [place] [address] PATIENT NAME: MARK RIVAS ADMIT DATE: 09/13/21 ACCOUNT NO: [id number] ROOM NO: Z.SI01 AGE: 65 REPORT TYPE: ELECTROCARDIOGRAM SEX: M ADMITTING PHYSICIAN:Prakash Gómez MD ATTENDING PHYSICIAN:Prakash Gómez MD Order: [id number] Test Reason : CAD/CAB/AFIB Test Date/Time Stamp: [...] By: Prakash Gómez Confirmed by:DILAN MURRAY at 1335 PATIENT NAME: MARK RIVAS [facility] 2021-09-17 16:50:00 [facility] ([facility]) Hospitalist Progress Note REPORT#:[id number] REPORT STATUS: Signed DATE:09/17/21 TIME: 1650 PATIENT: MARK RIVAS UNIT #: [id number] ROOM/BED: [facility] : [facility] AGE: 65 SEX: [...] midline vertebral tend , no muscle spasm Neuro/PROFESSOR OF INDUSTRIAL TECHNOLOGY: alert, oriented X 3, normal speech, no [...] % (Auto) (14 - 44 %) 23.4 [place] % (Auto) (4 - 13 %) 12.2 Eos % (Auto) (0 - 6 %) 0.7 Baso % (Auto) (0 - 2 %) 0.2 Neut # (Auto) (2.0 - 7.6 K/mm3) 6.74 Lymph # (Auto) (1.0 - 3.8 K/mm3) 2.50 [place] # (Auto) (0.1 - 0.8 K/mm3) 1.30 [...] pH (5.0 - 9.0) 6.0 Ur Specific [place] (1.003 - 1.030) 1.010 Urine Protein (NEGATIVE [...] best of my knowledge. at 2050 RPT #:[id number] END OF REPORT [facility] 2021-09-17 12:00:00 [facility] ([facility]) Cardiovascular Surgery Prog REPORT#:[id number] REPORT STATUS: Signed DATE:09/17/21 TIME: 1200 PATIENT: MARK RIVAS UNIT #: [id number] [address] AGE: 65 SEX: M [...] non-tender, normal bowel sounds Extremities: no edema Neuro/PROFESSOR OF INDUSTRIAL TECHNOLOGY: alert, oriented X 3 Results Findings/Data: Laboratory [...] % (Auto) (14 - 44 %) 23.4 [place] % (Auto) (4 - 13 %) 12.2 Eos % (Auto) (0 - 6 %) 0.7 Baso % (Auto) (0 - 2 %) 0.2 Neut # (Auto) (2.0 - 7.6 K/mm3) 6.74 Lymph # (Auto) (1.0 - 3.8 K/mm3) 2.50 [place]atte # (Auto) (0.1 - 0.8 K/mm3) 1.30 [...] is stable at 1206 at 1447 RPT #:[id number] END OF REPORT [facility] 2021-09-17 12:00:00 [facility] ([facility]) Cardiovascular Surgery Prog REPORT#:[id number] REPORT STATUS: Signed DATE:09/17/21 TIME: 1200 PATIENT: MARK RIVAS UNIT #: [id number] ROOM/BED: SI01-A : 56 AGE: 65 SEX: [...] non-tender, normal bowel sounds Extremities: no edema Neuro/PROFESSOR OF INDUSTRIAL TECHNOLOGY: alert, oriented X 3 Results Findings/Data: Laboratory [...] % (Auto) (14 - 44 %) 23.4 [place] % (Auto) (4 - 13 %) 12.2 Eos % (Auto) (0 - 6 %) 0.7 Baso % (Auto) (0 - 2 %) 0.2 Neut # (Auto) (2.0 - 7.6 K/mm3) 6.74 Lymph # (Auto) (1.0 - 3.8 K/mm3) 2.50 [place] # (Auto) (0.1 - 0.8 K/mm3) 1.30 [...] at 1206 at 1447 at 2055 RPT #:[id number] END OF REPORT [facility] 2021-09-17 08:29:00 [facility] ([facility] Cardiology Progress Note REPORT#:[id number] REPORT STATUS: Signed DATE:09/17/21 TIME: 08 PATIENT: MARK RIVAS UNIT #: [id number] ROOM[address]BED: [address] : [address] AGE: 65 SEX: M [...] % (Auto) (14 - 44 %) 23.4 [place] % (Auto) (4 - 13 %) 12.2 Eos % (Auto) (0 - 6 %) 0.7 Baso % (Auto) (0 - 2 %) 0.2 Neut # (Auto) (2.0 - 7.6 K/mm3) 6.74 Lymph # (Auto) (1.0 - 3.8 K/mm3) 2.50 [place] # (Auto) (0.1 - 0.8 K/mm3) 1.30 [...] medical rx. Ambulate IS. at 0833 RPT #:[id number] END OF REPORT [facility] 2021-09-17 08:13:00 [id number] [address] PATIENT NAME: MARK RIVAS ADMIT DATE: 09/13/21 ACCOUNT NO: [id number] ROOM NO: Z.SI01 AGE: 65 REPORT TYPE: ELECTROCARDIOGRAM SEX: M ADMITTING PHYSICIAN:Prakash Gómez MD ATTENDING PHYSICIAN:Prakash Gómez MD Order: [id number] Test Reason : CAD/CAB/AFIB Test Date/Time Stamp: [...] MURRAY at 1642 PATIENT NAME: MARK RIVAS [facility] 2021-09-16 21:14:00 [facility] Cardiology Progress Note REPORT#:[id number] REPORT STATUS: Signed DATE:09/16/21 TIME: 2113 PATIENT: MARK RIVAS UNIT #: [id number] ROOM[address]BED: [address] : [address] AGE: 65 SEX: M [...] Ambulate IS. AM Labs. at 2117 RPT #:[id number] END OF REPORT [facility] 2021-09-16 17:47:00 [facility] ([facility] Hospitalist Progress Note REPORT#:[id number] REPORT STATUS: Signed DATE:09/16/21 TIME: 1747 PATIENT: MARK RIVAS UNIT #: [id number] ROOM/BED: [address] : [birth year] AGE: 65 SEX: M [...] edema Musculoskeletal: normal inspection, no muscle spasm Neuro/PROFESSOR OF INDUSTRIAL TECHNOLOGY: alert, oriented X 3, normal speech, no [...] Report Impression - Status: SIGNED Entered: 09/16/2021 9810 IMPRESSION: There are minimal patchy opacities in [...] best of my knowledge. at 2338 RPT #:[id number] END OF REPORT [facility] 2021-09-16 11:31:00 [facility] ([facility]) Cardiovascular Surgery Prog REPORT#:[id number] REPORT STATUS: Signed DATE:09/16/21 TIME: 1131 PATIENT: MARK RIVAS UNIT #: [id number] ROOM/BED: [address] : [birth year] AGE: 65 SEX: M [...] non-tender, normal bowel sounds Extremities: no edema Neuro/PROFESSOR OF INDUSTRIAL TECHNOLOGY: alert, oriented X 3 Results Findings/Data: Laboratory [...] Aspirin, Clopidogrel and Atrovastatin at 1135 RPT #:[id number] END OF REPORT [facility] 2021-09-16 11:31:00 [facility] ([facility]) Cardiovascular Surgery Prog REPORT#:[id number] REPORT STATUS: Signed DATE:09/16/21 TIME: 1131 PATIENT: MARK RIVAS UNIT #: [id number] [address] AGE: 65 SEX: M [...] non-tender, normal bowel sounds Extremities: no edema Neuro/PROFESSOR OF INDUSTRIAL TECHNOLOGY: alert, oriented X 3 Results Findings/Data: Laboratory [...] Aspirin, Clopidogrel and Atrovastatin at 1135 at 3066 RPT #:[id number] END OF REPORT [facility] 2021-09-16 05:36:00 [phone] [place] [address] PATIENT NAME: MARK RIVAS ADMIT DATE: 09/13/21 ACCOUNT NO: [id number] ROOM NO: Z.SI01 AGE: 65 REPORT TYPE: ELECTROCARDIOGRAM SEX: M ADMITTING PHYSICIAN:Prakash Gómez MD ATTENDING PHYSICIAN:Prakash Gómez MD Order: [id number] Test Reason : CAD/CAB Test Date/Time Stamp: [...] MURRAY at 0637 PATIENT NAME: MARK RIVAS [facility] 2021-09-16 05:36:00 [id number] [place] [address] PATIENT NAME: MARK RIVAS ADMIT DATE: 09/13/21 ACCOUNT NO: [id number] ROOM NO: Z.SI01 AGE: 65 REPORT TYPE: ELECTROCARDIOGRAM SEX: M ADMITTING PHYSICIAN:Prakash Gómez MD ATTENDING PHYSICIAN:Prakash Gómez MD Order: [id number] Test Reason : CAD/CAB Test Date/Time Stamp: [...] MURRAY at 0659 PATIENT NAME: MARK RIVAS [facility] 2021-09-15 14:17:00 [facility] ([facility]) Hospitalist Progress Note REPORT#:[id number] REPORT STATUS: Signed DATE:09/15/21 TIME: 1417 PATIENT: MARK RIVAS UNIT #: [id number] ROOM/BED: [address] : [birth year] AGE: 65 SEX: M [...] Chloride/Dextrose/Sod Cl (DEXTROSE 5%-1/4NS-KCL 20MEQ) 1,000 ML .D79R57T IV (DC) Insulin Human Regular (HUMULIN R) [...] edema Musculoskeletal: normal inspection, no muscle spasm Neuro/PROFESSOR OF INDUSTRIAL TECHNOLOGY: alert, oriented X 3, normal speech, no [...] 09/15/2021 0901 IMPRESSION: Interval removal of the Winston-Sahra catheter. Mild vascular congestion and small left [...] best of my knowledge. at 1446 RPT #:[id number] END OF REPORT [facility] 2021-09-15 11:02:00 [facility] ([facility] Cardiology Progress Note REPORT#:[id number] REPORT STATUS: Signed DATE:09/15/21 TIME: 1102 PATIENT: MARK RIVAS UNIT #: [id number] ROOM/BED: SI01-A : 56 AGE: 65 SEX: [...] Chloride/Dextrose/Sod Cl (DEXTROSE 5%-1/4NS-KCL 20MEQ) 1,000 ML .[id number] IV (DC) Dextrose/Water (DEXTROSE 50% IN WATER) [...] 09/15/2021 09 IMPRESSION: Interval removal of the Winston-Sahra catheter. Mild vascular congestion and small left pleural effusion. Impression By: [email or web address] - Gurjit Ordaz MD Diagnosis, Assessment Plan Free Text DxA P Notes Free Text DxA P Notes: IMP: CAD s/p ACB X 4 with AMIN to the LAD, saphenous vein to the diagonal,the OM, and the right PDA HTN HLP DM PLAN: Continue current medical rx. Ambulate IS. at 0222 RPT #:[id number] END OF REPORT [facility] 2021-09-15 10:00:00 [facility] ([facility]) Cardiovascular Surgery Prog REPORT#:[id number] REPORT STATUS: Signed DATE:09/15/21 TIME: 1000 PATIENT: MARK RIVAS UNIT #: [id number] ROOM/BED: [address] : 56 AGE: 65 SEX: M [...] Chloride/Dextrose/Sod Cl (DEXTROSE 5%-1/4NS-KCL 20MEQ) 1,000 ML .[id number] IV (DC) Dextrose/Water (DEXTROSE 50% IN WATER) [...] non-tender, normal bowel sounds Extremities: no edema Neuro/PROFESSOR OF INDUSTRIAL TECHNOLOGY: alert, oriented X 3 Results Findings/Data: Laboratory [...] 09/15/2021 0901 IMPRESSION: Interval removal of the Winston-Sahra catheter. Mild vascular congestion and small left pleural effusion. Impression By: [email or web address] - Gurjit Ordaz MD Diagnosis, Assessment Plan Free Text A P: Pt. with CAD and unstable angina S/P ACB x 4 Hypertension Hyperlipidemia Diabetes PLAN D/C radial arterial line Encourage use of IS and ambulation Start Metoprolol 12.5 mg PO daily at 1005 RPT #:[id number] END OF REPORT [facility] 2021-09-15 10:00:00 [facility] ([facility]) Cardiovascular Surgery Prog REPORT#:[id number] REPORT STATUS: Signed DATE:09/15/21 TIME: 1000 PATIENT: MARK RIVAS UNIT #: [id number] ROOM/BED: Z.SI01-A : 56 AGE: 65 SEX: [...] Chloride/Dextrose/Sod Cl (DEXTROSE 5%-1/4NS-KCL 20MEQ) 1,000 ML .[id number] IV (DC) Dextrose/Water (DEXTROSE 50% IN WATER) [...] non-tender, normal bowel sounds Extremities: no edema Neuro/PROFESSOR OF INDUSTRIAL TECHNOLOGY: alert, oriented X 3 Results Findings/Data: Laboratory [...] 09/15/2021 0901 IMPRESSION: Interval removal of the Winston-Sahra catheter. Mild vascular congestion and small left pleural effusion. Impression By: [email or web address] - Gurjit Ordaz MD Diagnosis, Assessment Plan Free Text A P: Pt. with CAD and unstable angina S/P ACB x 4 Hypertension Hyperlipidemia Diabetes PLAN D/C radial arterial line Encourage use of IS and ambulation Start Metoprolol 12.5 mg PO daily at 1005 at 2057 RPT #:[id number] END OF REPORT [facility] 2021-09-15 06:57:00 [id number] [address] PATIENT NAME: MARK RIVAS ADMIT DATE: 09/13/21 ACCOUNT NO: [id number] ROOM NO: [facility] AGE: 65 REPORT TYPE: ELECTROCARDIOGRAM SEX: M ADMITTING PHYSICIAN:Prakash Gómez MD ATTENDING PHYSICIAN:Prakash Gómez MD Order: [id number] Test Reason : CAD/CAB Test Date/Time Stamp: [...] When compared with ECG of 14-SEP-2021 05:30, AZ interval has decreased Confirmed by DILAN MURRAY ([id number]) on 09/15/2021 1:39:30 PM Referred By: Prakash Gómez Confirmed by:DILAN MURRAY at 1339 PATIENT NAME: MARK RIVAS [facility] 2021-09-14 19:10:00 [facility] ([facility]) Cardiovascular Surgery Prog REPORT#:[id number] REPORT STATUS: Signed DATE:09/14/21 TIME: 1909 PATIENT: MARK RIVAS UNIT #: [id number] ROOM/BED: [facility]-A : 56 AGE: 65 SEX: [...] Chloride/Dextrose/Sod Cl (DEXTROSE 5%-1/4NS-KCL 20MEQ) 1,000 ML .[id number] IV Dextrose/Water (DEXTROSE 50% IN WATER) 12.5 [...] non-tender, normal bowel sounds Extremities: no edema Neuro/PROFESSOR OF INDUSTRIAL TECHNOLOGY: alert, oriented X 3 Results Findings/Data: Laboratory [...] (Auto) (14 - 44 %) 7.0 L Platte % (Auto) (4 - 13 %) 13.2 H Eos % (Auto) (0 - 6 %) 0.0 Baso % (Auto) (0 - 2 %) 0.1 Neut # (Auto) (2.0 - 7.6 K/mm3) 15.33 H Lymph # (Auto) (1.0 - 3.8 K/mm3) 1.35 Platte # (Auto) (0.1 - 0.8 K/mm3) 2.56 [...] ACB x 4 Hypertension Hyperlipidemia Diabetes PLAN [place] and Cordis removed Encourage use of IS and ambulation D/C femoral arterial line at 1915 at 2147 RPT #:[id number] END OF REPORT [facility] 2021-09-14 14:27:00 [facility] Hospitalist Progress Note REPORT#:[id number] REPORT STATUS: Signed DATE:09/14/21 TIME: 1427 PATIENT: MARK RIVAS UNIT #: [id number] ROOM/BED: [facility]-A : 56 AGE: 65 SEX: M ATTEND: [...] Chloride/Dextrose/Sod Cl (DEXTROSE 5%-1/4NS-KCL 20MEQ) 1,000 ML .[id number] IV Dextrose/Water (DEXTROSE 50% IN WATER) 12.5 [...] edema Musculoskeletal: normal inspection, no muscle spasm 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 at 2116 RPT #:[id number] END OF REPORT [facility] 2021-09-14 13:21:00 [facility] ([facility] Cardiology Progress Note REPORT#:[id number] REPORT STATUS: Signed DATE:09/14/21 TIME: 1321 PATIENT: MARK RIVAS UNIT #: [id number] ROOM/BED: SI01-A : 56 AGE: 65 SEX: [...] Chloride/Dextrose/Sod Cl (DEXTROSE 5%-1/4NS-KCL 20MEQ) 1,000 ML .[id number] IV Dextrose/Water (DEXTROSE 50% IN WATER) 12.5 [...] - 44 %) 7.0 L 28.2 31.9 Platte % (Auto) (4 - 13 %) 13.2 H 9.7 9.3 Eos % (Auto) (0 - 6 %) 0.0 0.4 0.6 Baso % (Auto) (0 - 2 %) 0.1 0.3 0.3 Neut # (Auto) (2.0 - 7.6 K/mm3) 15.33 H 17.69 H 15.78 H Lymph # (Auto) (1.0 - 3.8 K/mm3) 1.35 8.25 H 8.78 H Platte # (Auto) (0.1 - 0.8 K/mm3) 2.56 [...] able. Ambulate when able. at 0746 RPT #:[id number] END OF REPORT [facility] 2021-09-14 05:30:00 [phone] [place] [address] PATIENT NAME: MARK RIVAS ADMIT DATE: 09/13/21 ACCOUNT NO: [id number] ROOM NO: Z.SI01 AGE: 65 REPORT TYPE: ELECTROCARDIOGRAM SEX: M ADMITTING PHYSICIAN:Prakash Gómez MD ATTENDING PHYSICIAN:Prakash Gómez MD Order: [id number] Test Reason : CAD post CAB Test [...] MURRAY at 0632 PATIENT NAME: MARK RIVAS [facility] 2021-09-14 05:30:00 [id number] [address] PATIENT NAME: MARK RIVAS ADMIT DATE: 09/13/21 ACCOUNT NO: [id number] ROOM NO: [facility] AGE: 65 REPORT TYPE: ELECTROCARDIOGRAM SEX: M ADMITTING PHYSICIAN:Prakash Gómez MD ATTENDING PHYSICIAN:Prakash Gómez MD Order: [id number] Test Reason : CAD post CAB Test [...] MURRAY at 0706 PATIENT NAME: MARK RIVAS [facility] 2021-09-13 17:23:00 [facility] ([facility]) Cardiology Progress Note REPORT#:[id number] REPORT STATUS: Signed DATE:09/13/21 TIME: 1723 PATIENT: MARK RIVAS UNIT #: [id number] [address] AGE: 65 SEX: M [...] Chloride/Dextrose/Sod Cl (DEXTROSE 5%-1/4NS-KCL 20MEQ) 1,000 ML .[id number] IV Dextrose/Water (DEXTROSE 50% IN WATER) 12.5 [...] SULFATE) 0 .STK-MED ONE .ROUTE (DC) Rocuronium [place] (ZEMURON) 0 .STK-MED ONE .ROUTE (DC) Epinephrine (EPINEPHrine/NS 4MG/250ML) 250 ML ONCALL ONE IV (DC) Norepinephrine/Dextrose (NOREPINEPHRINE-D5W 4 MG/250 ML) 250 ML ONCALL ONE IV (DC) Esmolol HCl (BREVIBLOC) 0 .STK-MED ONE .ROUTE (DC) Rocuronium [place] (ZEMURON) 0 .STK-MED ONE .ROUTE (DC) Heparin [...] Arterial 09/13 09/13 09/13 09/13 1216 1124 0914 0756 Blood Gas O2 Saturation (92.0 - [...] - 44 %) 28.2 31.9 44.6 H Platte % (Auto) (4 - 13 %) 9.7 9.3 9.2 Eos % (Auto) (0 - 6 %) 0.4 0.6 1.8 Baso % (Auto) (0 - 2 %) 0.3 0.3 0.5 Neut # (Auto) (2.0 - 7.6 K/mm3) 17.69 H 15.78 H 3.42 Lymph # (Auto) (1.0 - 3.8 K/mm3) 8.25 H 8.78 H 3.50 Platte # (Auto) (0.1 - 0.8 K/mm3) 2.84 [...] able. Ambulate when able. 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 Patient was referred to Dr. 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 ; has 3 kids. Very active lifestyle. [...] 09/13 1036 DC (VIANEY-SYNEPHRINE/NS IV 10MG/100ML) Rocuronium [place] 0 .STK-MED ONE 09/13 1028 DC (ZEMURON) .ROUTE Epinephrine 250 ML ONCALL ONE 09/13 0900 DC (EPINEPHrine/NS 4MG/ IV 09/13 1514 250ML) Norepinephrine/ 250 ML ONCALL ONE 09/13 0900 DC Dextrose IV 09/13 1514 (NOREPINEPHRINE-D5W 4 MG/250 ML) Rocuronium [place] 0 .STK-MED ONE 09/13 0838 DC (ZEMURON) [...] 10/13 1501 1641 Potassium Chloride/ 1,000 ML .[id number] 09/13 1500 AC 09/13 Dextrose/Sod Cl IV [...] edema Musculoskeletal: normal inspection, no muscle spasm Neuro/PROFESSOR OF INDUSTRIAL TECHNOLOGY: patient somnolent but arousable; follow commands; nods [...] (Auto) (14 - 44 %) 28.2 31.9 Platte % (Auto) (4 - 13 %) 9.7 9.3 Eos % (Auto) (0 - 6 %) 0.4 0.6 Baso % (Auto) (0 - 2 %) 0.3 0.3 Neut # (Auto) (2.0 - 7.6 K/mm3) 17.69 H 15.78 H Lymph # (Auto) (1.0 - 3.8 K/mm3) 8.25 H 8.78 H Platte # (Auto) (0.1 - 0.8 K/mm3) 2.84 [...] (Auto) (14 - 44 %) 44.6 H Platte % (Auto) (4 - 13 %) 9.2 Eos % (Auto) (0 - 6 %) 1.8 Baso % (Auto) (0 - 2 %) 0.5 Neut # (Auto) (2.0 - 7.6 K/mm3) 3.42 Lymph # (Auto) (1.0 - 3.8 K/mm3) 3.50 Platte # (Auto) (0.1 - 0.8 K/mm3) 0.72 [...] best of my knowledge. at 1725 RPT #:[id number] END OF REPORT [facility] 2021-09-13 15:53:00 [phone] [place] [address] PATIENT NAME: MARK RIVAS ADMIT DATE: 09/13/21 ACCOUNT NO: [id number] ROOM NO: Z.SI01 AGE: 65 REPORT TYPE: ELECTROCARDIOGRAM SEX: M ADMITTING PHYSICIAN:Prakash Gómez MD ATTENDING PHYSICIAN:Prakash Gómez MD Order: [id number] Test Reason : CAD post op CAb [...] MURRAY at 1704 PATIENT NAME: MARK RIVAS [facility] 2021-09-13 15:53:00 [id number] [place] [address] PATIENT NAME: MARK RIVAS ADMIT DATE: 09/13/21 ACCOUNT NO: [id number] ROOM NO: Z.SI01 AGE: 65 REPORT TYPE: ELECTROCARDIOGRAM SEX: M ADMITTING PHYSICIAN:Prakash Gómez MD ATTENDING PHYSICIAN:Prakash Gómez MD Order: [id number] Test Reason : CAD post op CAb [...] MURRAY at 0705 PATIENT NAME: MARK RIVAS [facility] 2021-09-13 15:24:00 [phone] [place] [id number] PATIENT NAME: MARK RIVAS ADMIT DATE: 09/13/21 ACCOUNT NO: [id number] ROOM NO: Z.SI01 AGE: 65 REPORT TYPE: [...] greater saphenous vein. SURGEON: Prakash Gómez MD PRICING LEAD: Eula Jang PA-C ANESTHESIA: General. COMPLICATIONS: None. [...] continuous retrograde coronary sinus cardioplegia infused to 15-Pakistani CalMed line. The aorta was cannulated with a 24-Pakistani Benitez aortic cannula. We PATIENT NAME: MARK [...] By: Prakash Gómez MD WT: OP:WALESKA/REY/MARIO Conf#: [id number]/DID#: [id number] cc: Dilan Murray MD Authenticated by Prakash Gómez MD On 09/19/2021 03:44:34 PM at 0344 PATIENT NAME: MARK RIVAS [facility] 2021-09-13 08:04:00 [phone] [address] PATIENT NAME: MARK RIVAS ADMIT DATE: ACCOUNT NO: [id number] ROOM NO: AGE: 65 REPORT TYPE: ELECTROCARDIOGRAM SEX: M ADMITTING PHYSICIAN:Prakash Gómez MD ATTENDING PHYSICIAN:Prakash Gómez MD Order: [id number] Test Reason : PRE-OP Test Date/Time Stamp: [...] MURRAY at 1339 PATIENT NAME: MARK RIVAS [facility] 2021-09-04 15:00:00 [phone] [place] [id number] PATIENT NAME: MARK RIVAS ADMIT DATE: 09/04/21 ACCOUNT NO: [id number] ROOM NO: AGE: 65 REPORT TYPE: CONSULTATION REPORT SEX: M ADMITTING PHYSICIAN: ATTENDING PHYSICIAN:Dilan Murray MD CONSULTATION DATE: 09/04/2021 CONSULTING PHYSICIAN: Prakash Gómez MD CARDIAC SURGERY SERVICE DIAGNOSES: Coronary artery disease, hypertension, and hyperlipidemia. 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 He had a positive PET CT stress, [...] By: Prakash Gómez MD WT: CON:WALESKA/REY/MARIO Conf#: [id number]/DID#: [id number] Authenticated by Prakash Gómez MD On 09/19/2021 03:09:58 PM at 0309 PATIENT NAME: MARK RIVAS [facility] 2021-09-04 12:41:00 [phone] [place] [address] PATIENT NAME: MARK RIVAS ADMIT DATE: 09/04/21 ACCOUNT NO: [id number] ROOM NO: AGE: 65 REPORT TYPE: ECHOCARDIOGRAM SEX: M ADMITTING PHYSICIAN: ATTENDING PHYSICIAN:Dilan Murray MD *[facility]* [address] [place], [place] [id number] Transthoracic Echocardiogram Patient: Mark Rivas Study Date: 09/04/2021 BP: 156 / 76 Location: [facility] URN: [id number] : 1955 Age: 65 Height: 72 in / 182.9 cm Gender: M Weight: 213.6 lb / 97.1 kg BMI/BSA: 29 kg/m 2 / 2.24 m 2 *Ordering Physician: * Dilan Murray MD *Interpreting Physician: * Dilan Murray MD *Intermediate Project Manager: * Chris Iraheta BS, [facility], RVS Indications: CAD [place] Vessel. Study data: Transthoracic echocardiogram. Procedure: Transthoracic echocardiography was performed. Images were obtained using a TraktoPRO cardiac ultrasound machine. Image quality was adequate. M-mode, complete 2D, complete spectral Doppler, and color Doppler. Location: Catheterization laboratory. Patient status: Outpatient. Patient room number: Offshore Wind Operations Manager Holding Room 3. Study status: Add on. [...] ESD/bsa major ax, 3.2 cm/m 2 A4C [place]/bsa minor ax, 3.2 cm/m 2 A4C SOP[place]IE [...] E/A ratio 1.47 Pulmonic valve Value Ref AZ peak v 1.22 m/sec AZ peak grad 6 mm Hg Tricuspid valve [...] 12:41 at 1241 PATIENT NAME: MARK RIVAS [facility] 2021-09-04 12:41:00 [phone] [facility] [id number] [place] [address] PATIENT NAME: MARK RIVAS ADMIT DATE: 09/04/21 ACCOUNT NO: [id number] ROOM NO: AGE: 65 REPORT TYPE: eCAROTID ULTRASOUND SEX: M ADMITTING PHYSICIAN: ATTENDING PHYSICIAN:Dilan Murray MD *[facility]* [address] [place] [address] Carotid Duplex Study Patient: Mark Rivas Study Date: 09/04/2021 BP: 140 / 66 Location: [facility] URN: [id number] : 1955 Age: 65 Height: 72 in / 182.9 cm Gender: M Weight: 214 lb / 97.3 kg BMI/BSA: 29.1 kg/m 2 / 2.24 m 2 *Ordering Physician: * Dilan Murray MD *Interpreting Physician: * Dilan Murray MD *Intermediate Project Manager: * Chris CHARLES, RCS, RVS Indications: CAD. Study data: Carotid duplex study. Bilateral evaluation with grayscale 2D imaging, color Doppler imaging, and spectral Doppler analysis. Location: Catheterization laboratory. Patient status: Outpatient. Patient room number: Offshore Wind Operations Manager Holding Room 3. Procedure: A vascular evaluation was performed with the patient in the supine position. Images were obtained using a TraktoPRO vascular ultrasound machine. Image quality was adequate. [...] 12:41 at 1241 PATIENT NAME: MARK RIVAS [facility] 2021-09-04 08:09:00 [phone] [place] [address] PATIENT NAME: MARK RIVAS ADMIT DATE: 09/04/21 ACCOUNT NO: [id number] ROOM NO: AGE: 65 REPORT TYPE: ELECTROCARDIOGRAM SEX: M ADMITTING PHYSICIAN: ATTENDING PHYSICIAN:Dilan Murray MD Order: [id number] Test Reason : CAD/PVC's Test Date/Time Stamp: [...] MURRAY at 1102 PATIENT NAME: MARK RIVAS [facility] 2021-09-04 08:09:00 [phone] [place] [id number] PATIENT NAME: MARK RIVAS ADMIT DATE: 09/04/21 ACCOUNT NO: [id number] ROOM NO: AGE: 65 REPORT TYPE: ELECTROCARDIOGRAM SEX: M ADMITTING PHYSICIAN: ATTENDING PHYSICIAN:Dilan Murray MD Order: [id number] Test Reason : CAD/PVC's Test Date/Time Stamp: Rust Sep 04 2021 08:09:17 Blood Pressure : [...] MURRAY at 1256 PATIENT NAME: MARK RIVAS [facility] 2021-09-04 06:55:00 [phone] [address] PATIENT NAME: MARK RIVAS ADMIT DATE: 09/04/21 ACCOUNT NO: [id number] ROOM NO: AGE: 65 REPORT TYPE: CARDIAC CATHETERIZATION REPORT SEX: M ADMITTING PHYSICIAN: ATTENDING PHYSICIAN:Dilan Murray MD PROCEDURE DATE: GLASSWARE MAKER DEMONSTRATOR: Dilan Murray MD TITLE OF THE PROCEDURE: [...] femoral artery area for local anesthesia. A 6-Pakistani sheath was placed in the right common femoral artery using standard techniques and fluoroscopy. After heparinization, left coronary angiogram showed heavily calcified arteries. The circumflex has a mid-lesion to distal at 60%. Has a good size posterolateral branch. The LAD starts off okay, then after the first diagonal has 99% subtotal lesion and then diffuse 90% lesion to the dqf-us-fkcrdt vessel after the second diagonal, distally at [...] By: Dilan Murray MD WT: CATH:GAYATHRI/STEPHANIE/MARIO Conf#: [id number]/DID#: [id number] Authenticated by Dilan Murray MD On 09/04/2021 11:10:33 AM at 1110 PATIENT NAME: MARK RIVAS [facility] 2021-09-04 06:03:00 [phone] [place] [id number] PATIENT NAME: MARK RIVAS ADMIT DATE: 09/04/21 ACCOUNT NO: [id number] ROOM NO: AGE: 65 REPORT TYPE: ELECTROCARDIOGRAM SEX: M ADMITTING PHYSICIAN: ATTENDING PHYSICIAN:Dilan Murray MD Order: [id number] Test Reason : PRE-OP Test Date/Time Stamp: Rust Sep 04 2021 06:03:12 Blood Pressure : [...] MURRAY at 0615 PATIENT NAME: MARK RIVAS [facility] 2021-09-04 06:03:00 [phone] [place] [id number] PATIENT NAME: MARK RIVAS ADMIT DATE: 09/04/21 ACCOUNT NO: [id number] ROOM NO: AGE: 65 REPORT TYPE: ELECTROCARDIOGRAM SEX: M ADMITTING PHYSICIAN: ATTENDING PHYSICIAN:Dilan Murray MD Order: [id number] Test Reason : PRE-OP Test Date/Time Stamp: [...] MURRAY at 1256 PATIENT NAME: MARK RIVAS [facility] 2021-09-03 07:17:00 [phone] [place] [address] PATIENT NAME: MARK RIVAS ADMIT DATE: ACCOUNT NO: [id number] ROOM NO: AGE: 65 REPORT TYPE: HISTORY AND PHYSICAL SEX: M ADMITTING PHYSICIAN: ATTENDING PHYSICIAN:Dilan Murray MD PATIENT NAME: MARK RIVAS ADMIT DATE:09/04/2021 ADMISSION DATE: 09/04/2021 GLASSWARE MAKER DEMONSTRATOR: Dilan Murray MD REASON FOR ADMISSION: Cardiac [...] By: Dilan Murray MD WT: HP:WALESKA/STEPHANIE/MARIO Conf#: [id number]/DID#: [id number] Authenticated and Edited by Dilan Murray MD On 09/03/21 4:38:06 PM at 0439 PATIENT NAME: MARK RIVAS [facility]
[2024-10-07] MEDS ORDERED: ALTEPLASE 2 MG/VIAL IV ONE (12:10)
--- NOTE | 2024-10-07 13:29 | ER ---
Nurse's Notes [facility] Name: Alex Rivas Age: 68 yrs Sex: Male : 1955 Arrival Date: 10/07/2024 Time: 11:45 Bed DX3 Private MD: Diagnosis: PICC line occlusion, now resolved Presentation: 10/07 12:02 Chief complaint: RUE PICC clogged. Coronavirus screen: At this time, the client does hb not indicate any symptoms associated with coronavirus-19. Ebola Screen: No symptoms or risks identified at this time. Initial Sepsis Screen: Does the patient meet any 2 criteria? No. Patient's initial sepsis screen is negative. Does the patient have a suspected source of infection? No. Patient's initial sepsis screen is negative. Risk Assessment: Do you want to hurt yourself or someone else? Patient reports no desire to harm self or others. Onset of symptoms was October 07, 2024. 12:02 Method Of Arrival: Ambulatory hb 12:02 Acuity: NORTH 4 hb Historical: - Allergies: 12:07 No Known Allergies; hb - PMHx: 12:07 Diabetes - NIDDM; Hypertension; hb - PSHx: 12:07 CABG; hb - Immunization history:: Adult Immunizations up to date. - Infectious Disease History:: Denies. - Social history:: Smoking status: Patient denies any tobacco usage or history of. Screenin:49 [facility] ED Fall Risk Assessment (Adult) History of falling in the last 3 months, hb including since admission No falls in past 3 months (0 pts) Confusion or Disorientation No (0 pts) Intoxicated or Sedated No (0 pts) Impaired Gait No (0 pts) Mobility Assist Device Used No (0 pt) Altered Elimination No (0 pt) Score/Fall Risk Level 0 - 2 = Low Risk Oriented to surroundings, Maintained a safe environment, Educated pt \T\ family on fall prevention, incl call for assistance when getting out of bed. Abuse screen: Denies threats or abuse. Denies injuries from another. Nutritional screening: No deficits noted. Tuberculosis screening: No symptoms or risk factors identified. Assessment: 12:05 Reassessment: Attempted to flush PICC, both lines clogged. Dr. Henson aware. hb 12:22 Reassessment: Cathflo administered to both ports. hb Vital Signs: 12:02 BP 143 / 61; Pulse 62; Resp 16; Temp 98.3; Pulse Ox 100% on R/A; Weight 88.45 kg; hb Height 5 ft. 11 in. ; Pain 0/10; 12:02 Body Mass Index 27.20 (88.45 kg, 180.34 cm) hb 12:02 Pain Scale: Adult hb ED Course: 11:47 Patient arrived in ED. im 11:48 Rosa M Henson MD is Attending Physician. sp3 12:07 Triage completed. hb 12:07 Arm band placed on. hb 12:49 Patient has correct armband on for positive identification. Provided Education on: POC. hb 13:41 Amna Cooper, RN is Primary Nurse. hb Administered Medications: 12:22 Drug: Cathflo Activase IV Thrombolytics 2 mg IV Thrombolytics once; into each catheter hb lumen, may repeat once Route: IV Thrombolytics; Medication: 12:49 VIS not applicable for this client. hb Outcome: 13:29 Discharge ordered by . sp3 13:41 Patient left the ED. hb Signatures: Amna Cooper, ODALYS RN hb Rosa M Henson MD MD sp3 Lynda Middleton im Corrections: (The following items were deleted from the chart) 12:08 12:02 BP 135 / 82; Pulse 62bpm; Resp 16bpm; Pulse Ox 100% RA; Temp 98.3F; 88.45 kg; hb Height 5 ft. 11 in.; BMI: 27.2; Pain 0/10, Adult; hb 12:49 12:12 Reassessment: Cathflo administered to both ports. hb hb
--- NOTE | 2024-10-07 13:29 | EDPHYS ---
Physician Documentation [facility] Name: Alex Rivas Age: 68 yrs Sex: Male : 1955 Arrival Date: 10/07/2024 Time: 11:45 Bed DX3 Private MD: ED Physician Rosa M Henson HPI: 10/07 12:29 This 68 yrs old Male presents to ER via Ambulatory with complaints of PICC sp3 line problem. 12:29 68-year-old male with right upper extremity PICC line for antibiotics now presents to sp3 the ED for one of the lines being clogged with blood. He denies any other symptoms. ROS otherwise negative. He first noticed the clot this morning.. Historical: - Allergies: 12:07 No Known Allergies; hb - PMHx: 12:07 Diabetes - NIDDM; Hypertension; hb - PSHx: 12:07 CABG; hb - Immunization history:: Adult Immunizations up to date. - Infectious Disease History:: Denies. - Social history:: Smoking status: Patient denies any tobacco usage or history of. ROS: 12:30 Constitutional: Negative for fever, chills, and weight loss, Eyes: Negative for injury, sp3 pain, redness, and discharge, ENT: Negative for injury, pain, and discharge, Neck: Negative for injury, pain, and swelling, Cardiovascular: Negative for chest pain, palpitations, and edema, Respiratory: Negative for shortness of breath, cough, wheezing, and pleuritic chest pain, Abdomen/GI: Negative for abdominal pain, nausea, vomiting, diarrhea, and constipation, Back: Negative for injury and pain, : Negative for injury, bleeding, discharge, and swelling, Neuro: Negative for headache, weakness, numbness, tingling, and seizure, Psych: Negative for depression, anxiety, suicide ideation, homicidal ideation, and hallucinations, Allergy/Immunology: Negative for hives, rash, and allergies, Endocrine: Negative for neck swelling, polydipsia, polyuria, polyphagia, and marked weight changes, 12:30 All other systems are negative, Exam: 12:31 Constitutional: This is a well developed, well nourished patient who is awake, alert, sp3 and in no acute distress. Head/Face: Normocephalic, atraumatic. Eyes: Pupils equal round and reactive to light, extra-ocular motions intact. Lids and lashes normal. Conjunctiva and sclera are non-icteric and not injected. Cornea within normal limits. Periorbital areas with no swelling, redness, or edema. Neck: Trachea midline, no thyromegaly or masses palpated, and no cervical lymphadenopathy. Supple, full range of motion without nuchal rigidity, or vertebral point tenderness. No Meningismus. Chest/axilla: Normal chest wall appearance and motion. Nontender with no deformity. No lesions are appreciated. Cardiovascular: Regular rate and rhythm with a normal S1 and S2. No gallops, murmurs, or rubs. Normal PMI, no JVD. No pulse deficits. Respiratory: Lungs have equal breath sounds bilaterally, clear to auscultation and percussion. No rales, rhonchi or wheezes noted. No increased work of breathing, no retractions or nasal flaring. Abdomen/GI: Soft, non-tender, with normal bowel sounds. No distension or tympany. No guarding or rebound. No evidence of tenderness throughout. Neuro: Awake and alert, GCS 15, oriented to person, place, time, and situation. Cranial nerves II-XII grossly intact. Motor strength 5/5 in all extremities. Sensory grossly intact. Cerebellar exam normal. Normal gait. Psych: Awake, alert, with orientation to person, place and time. Behavior, mood, and affect are within normal limits. 12:31 Musculoskeletal/extremity: 1 port out of 2 with blood visible. . Vital Signs: 12:02 BP 143 / 61; Pulse 62; Resp 16; Temp 98.3; Pulse Ox 100% on R/A; Weight 88.45 kg; hb Height 5 ft. 11 in. ; Pain 0/10; 12:02 Body Mass Index 27.20 (88.45 kg, 180.34 cm) hb 12:02 Pain Scale: Adult hb MDM: 12:13 Medical Screening Exam initiated sp3 12:33 Data reviewed: vital signs. ED course: We will try and flush and put thrombolytic cath sp3 flow into device. I am not suspecting infected site, sepsis, shock or any other critical process.. 13:28 ED course: PICC line is now fully functional. We have counseled him on skin irritation sp3 versus infection at the site. Patient is already on vancomycin. Will safely discharge him at this time.. Administered Medications: 12:22 Drug: Cathflo Activase IV Thrombolytics 2 mg IV Thrombolytics once; into each catheter hb lumen, may repeat once Route: IV Thrombolytics; Disposition Summary: 10/07/24 13:29 Discharge Ordered Notes: Location: Home sp3 Condition: Stable sp3 Diagnosis - PICC line occlusion, now resolved sp3 Followup: sp3 - With: Private Physician - When: Upon discharge from the Emergency Department - Reason: Continuance of care Discharge Instructions: - Discharge Summary Sheet sp3 - PICC Home Care Guide sp3 Forms: - Medication Reconciliation Form sp3 - Antibiotic Education sp3 - Prescription Opioid Use sp3 - Patient Portal Instructions sp3 - Leadership Thank You Letter sp3 Signatures: Amna Cooper RN RN Rosa M Henson MD MD sp3
[2024-10-07 13:46] VITALS: BP 143/61; TEMP 98.3; O2SAT 100
== END 2024-10-07 13:41 | disposition home or self-care (01) ==
LOC: ER 11:45
DX: T82.594A Other mechanical complication of infusion catheter, initial encounter (principal)
CPT/HCPCS: 92977; 99291; J2997